=== PATIENT | female | born 1950 | race Caucasian/White ===

== ENCOUNTER 2017-02-08 22:05 | Emergency (ER) | payer MEDICARE, MEDICAID ==
[~2017-02-08] VITALS: Ht 165.1 cm; Wt 100.0 kg
[~2017-02-08 22:05] MED LIST: AMLO1CAP33 PO; CITA20TA6 PO; CYCL-319 PO; DOCU-159 PO; FENO145T25 PO; FURO20TA3 PO; GABA300C16 PO; HYDR-762 PO; LANT3I SC; LORA10TA PO; LORA1TAB PO; METF500T4 PO; METO-53 PO; RANI150T9 PO; TRAM50TA2 PO
[2017-02-08 22:07] VITALS: Ht 165.1 cm; Wt 100.0 kg
[2017-02-08 23:10] LABS: URINE BLOOD (Dip) POC Negative (NEGATIVE)
--- NOTE | 2017-02-08 23:21 | ERA ---
ER Documentation Chief Complaint Date/Time DATE: 02/08/17 TIME: 23:20 Chief Complaint Painful urination HPI The patient is a 66-year-old female, presenting with acute painful urination for the last 4-6 days, had similar symptoms previously, denies fever, chills, chest pain, dyspnea, abdominal pain, vomiting, dysuria, diarrhea, complaints of lower back pain. She does not smoke nor drink Past medical history: Diabetes mellitus, hypertension, depression, dyslipidemia , anxiety, Lower back pain Past surgical history: Incisional herniorrhaphy, appendectomy, , cholecystectomy ROS All systems reviewed and are negative except as per history of present illness. Medications Home Meds Active Scripts Tramadol HCl (Tramadol HCl) 50 Mg Tablet, 50 MG PO Q6 Y for PAIN, #15 TAB Prov:LACIE FERRARO MD 02/09/17 Ciprofloxacin Hcl* (Ciprofloxacin Hcl*) 500 Mg Tablet, 500 MG PO BID for 7 Days , TAB Prov:LACIE FERRARO MD 02/09/17 Tramadol HCl (Tramadol HCl) 50 Mg Tablet, 50 MG PO Q6, #10 TAB Prov:GEOVANI DICKERSON MD 12/22/15 Gabapentin* (Gabapentin*) 300 Mg Capsule, 300 MG PO QHS, #30 CAP Prov:SHANTI JHAVERI NP 10/18/15 Hydrocodone Bit-Acetaminophen* ([place]*) 10-325 Mg Tablet, 1 TAB PO Q6 Y for PAIN , #10 TAB Prov:SHANTI JHAVERI NP 10/18/15 Cyclobenzaprine Hcl* (Cyclobenzaprine Hcl*) 10 Mg Tablet, 10 MG PO TID, #15 TAB Prov:DOLLY DEL RIO NP 07/18/15 Lorazepam* (Lorazepam*) 1 Mg Tablet, 1 MG PO Q8 Y for ANXIETY, #10 TAB Prov:DIVINE COON MD 06/20/15 Ranitidine Hcl* (Zantac*) 150 Mg Tablet, 150 MG PO BID Y for GASTROINTESTINAL UPSET, #30 TAB Prov:LAMAR ROGERS 12/19/14 Reported Medications Metformin* (Glucophage*) 500 Mg Tab, 500 MG PO WITH BREAKFAST DINNE, #30 TAB 12/22/15 Insulin Glargine* (Lantus*) 100 Unit/Ml Soln, 50 UNIT SC QPM, #1 VIAL 12/22/15 Citalopram Hydrobromide* (Citalopram Hydrobromide*) 20 Mg Tablet, 20 MG PO DAILY 02/16/12 Amlodipine-Benazepril (Amlodipine-Benazepril) 1 Cap Capsule, 1 CAP PO DAILY 02/16/12 Loratadine (Loratadine) 10 Mg Tablet, 10 MG PO DAILY 02/16/12 Fenofibrate Nanocrystallized* (Tricor*) 145 Mg Tablet, 145 MG PO HS 06/25/11 Metoprolol (Lopressor) 50 Mg Tablet, 50 MG PO BID 06/25/11 Docusate Sodium* (Docusate Sodium*) 100 Mg Capsule, 100 MG PO BID 06/25/11 Furosemide* (Furosemide*) 20 Mg Tablet, 20 MG PO DAILY 06/25/11 Allergies Allergies: Coded Allergies: ibuprofen (Verified Allergy, Unknown, CHEST DISCOMFORT. ASPIRIN IS OK, ) ketorolac tromethamine (Verified Allergy, Unknown, HEART PALPATATIONS, ) morphine (Verified Allergy, Unknown, ITCHING, 06/20/15) PMhx/Soc History of Surgery: Yes (Incisional Hernia Repair, appendectomy,, FRANKI) Anesthesia Reaction: No Hx Neurological Disorder: No Hx Respiratory Disorders: No Hx Cardiac Disorders: Yes (HTN) Hx Psychiatric Problems: Yes (Anxiety D/O) Hx Miscellaneous Medical Probl: Yes (DM,Dyslipidemia) Hx Alcohol Use: No Hx Substance Use: No Hx Tobacco Use: No Physical Exam Vitals Vital Signs Date Time Temp Pulse Resp B/P Pulse Ox O2 Delivery O2 Flow Rate FiO2 02/08/17 23:26 85 18 134/84 96 Room Air 02/08/17 22:07 98.3 95 18 179/90 96 Physical Exam Const: No acute distress. Head: Atraumatic. Eyes: Normal Conjunctiva. ENT: Normal External Ears, Nose and Mouth. Neck: Full range of motion. No meningismus. Resp: Clear to auscultation bilaterally. Cardio: Regular rate and rhythm. Abd: Soft, non distended, normal bowel sounds, non tender. Skin: No petechiae or rashes. Back: No midline or flank tenderness. Ext: No cyanosis, or edema. Neur: Awake and alert. No focal deficit Psych: Normal Mood and Affect. Result Diagram: 02/09/17 0028 02/09/17 0000 Results 24 hrs Laboratory Tests Test 02/08/17 23:17 02/09/17 00:00 02/09/17 00:28 Bedside Urine pH (LAB) 6.0 Bedside Urine Protein (LAB) Negative Bedside Urine Glucose (UA) 0.50% Bedside Urine Ketones (LAB) Negative Bedside Urine Blood Negative Bedside Urine Nitrite (LAB) Positive Bedside Urine Leukocyte Esterase (L Negative Sodium Level 130mmol/L Potassium Level 4.3mmol/L Chloride Level 97mmol/L Carbon Dioxide Level 27mmol/L Anion Gap 10 Blood Urea Nitrogen 15mg/dl Creatinine 0.63mg/dl Glucose Level 336mg/dl Calcium Level 9.6mg/dl Total Bilirubin 0.5mg/dl Direct Bilirubin 0.00mg/dl Indirect Bilirubin 0.5mg/dl Aspartate Amino Transf (AST/SGOT) 24IU/L Alanine Aminotransferase (ALT/SGPT) 33IU/L Alkaline Phosphatase 121IU/L Total Protein 6.8g/dl Albumin 3.6g/dl Globulin 3.20g/dl Albumin/Globulin Ratio 1.12 Lipase 15U/L White Blood Count 8.210^3/ul Red Blood Count 4.6510^6/ul Hemoglobin 13.7g/dl Hematocrit 39.7% Mean Corpuscular Volume 85.4fl Mean Corpuscular Hemoglobin 29.5pg Mean Corpuscular Hemoglobin Concent 34.5g/dl Red Cell Distribution Width 12.0% Platelet Count 20316^3/UL Mean Platelet Volume 9.1fl Neutrophils % 56.1% Lymphocytes % 32.4% Monocytes % 8.2% Eosinophils % 2.7% Basophils % 0.4% Nucleated Red Blood Cells % 0.0/100WBC Neutrophils # 4.610^3/ul Lymphocytes # 2.710^3/ul Monocytes # 0.710^3/ul Eosinophils # 0.210^3/ul Basophils # 0.010^3/ul Nucleated Red Blood Cells # 0.010^3/ul Current Medications Medications (Trade) Dose Ordered Sig/Irma Route PRN Reason Start Time Stop Time Status Last Admin Dose Admin Acetaminophen/ Hydrocodone Bitart ([place] (5/325)) 1 tab ONCE ONCE PO 02/09/17 00:30 02/09/17 00:31 DC 02/09/17 00:17 Ciprofloxacin (Cipro) 500 mg ONCE ONCE PO 02/09/17 01:30 02/09/17 01:31 Meclizine HCl (Antivert) 25 mg ONCE ONCE PO 02/09/17 01:30 02/09/17 01:31 Procedures/MDM MEDICAL MAKING DECISION: The patient is a 66-year-old female, presenting with an acute cystitis. She was treated with [place] 5 mg p.o. for her lower back pain , Cipro p.o. for acute cystitis and Antivert 25 mg p.o. for dizziness with good response. The differential diagnoses considered include but are not limited to cholelithiasis, cholecystitis, cystitis, pancreatitis, hepatitis, gastritis, peptic ulcer disease, gastric ulcer, appendicitis, diverticulitis, cholangitis, choledocholithiasis, partial small bowel obstruction. Departure Diagnosis: Primary Impression: UTI (urinary tract infection) Condition: Good Comments She was discharged with Cipro and Ultram I discussed the findings with the patient. I advised the patient to follow-up with the primary physician in about 1-2 days, sooner if needed and return if any concern. LACIE FERRARO MD Feb 08, 2017 23:21
[2017-02-09] MEDS ORDERED: HYDROCODONE/APAP (5/325) TAB PO ONE (00:30)
[2017-02-09 00:42] LABS: ALBUMIN 3.6 g/dl (3.3-4.9); ALBUMIN/GLOBULIN RATIO 1.12; BILIRUBIN,INDIRECT 0.5 mg/dl (0-1.1); BILIRUBIN,TOTAL 0.5 mg/dl (0.2-1.3); CALCIUM 9.6 mg/dl (8.4-10.2); CREATININE 0.63 mg/dl (0.44-1.00); POTASSIUM 4.3 mmol/L (3.5-5.1); TOTAL PROTEIN 6.8 g/dl (6.1-8.1)
[2017-02-09 00:51] LABS: BASOPHILS % 0.4 % (0.0-2.0); EOSINOPHILS # 0.2 10^3/ul (0.0-0.5); EOSINOPHILS % 2.7 % (0.0-7.0); HEMATOCRIT 39.7 % (37.0-47.0); HEMOGLOBIN 13.7 g/dl (12.0-16.0); LYMPHOCYTES # 2.7 10^3/ul (0.8-2.9); LYMPHOCYTES % 32.4 % (15.0-51.0); MEAN CORPUSCULAR HEMOGLOBIN 29.5 pg (29.0-33.0); MEAN CORPUSCULAR HGB CONC 34.5 g/dl (32.0-37.0); MEAN CORPUSCULAR VOLUME 85.4 fl (82.0-101.0); MEAN PLATELET VOLUME 9.1 fl (7.4-10.4); MONOCYTE # 0.7 10^3/ul (0.3-0.9); MONOCYTES % 8.2 % (0.0-11.0); NEUTROPHIL # 4.6 10^3/ul (1.6-7.5); NEUTROPHILS % 56.1 % (39.0-77.0); PLATELET COUNT 275 10^3/UL (140-415); RED BLOOD COUNT 4.65 10^6/ul (4.20-5.40); WHITE BLOOD COUNT 8.2 10^3/ul (4.8-10.8)
[2017-02-09] MEDS ORDERED: TRAM50TA2 PO (01:03)
[2017-02-09] MEDS ORDERED: CIPR500T4 PO (01:03)
[2017-02-09 01:13] VITALS: BP 128/84; PULSE 88; RESP 18
[2017-02-09] MEDS ORDERED: CIPROFLOXACIN 500 MG TAB PO ONE (01:30)
[2017-02-09] MEDS ORDERED: MECLIZINE 12.5 MG TAB PO ONE (01:30)
== END 2017-02-09 01:20 | disposition home or self-care (01) ==
LOC: E/R 22:05
DX: N39.0 Urinary tract infection, site not specified (principal); E11.9 Type 2 diabetes mellitus without complications; I10 Essential (primary) hypertension; Z79.4 Long term (current) use of insulin; Z79.84 Long term (current) use of oral hypoglycemic drugs
CPT/HCPCS: 36415; 80053; 81003; 83690; 85025; 99283

== ENCOUNTER 2017-07-26 06:13 | Observation (INO) | END 2017-07-27 18:54 | disposition home health service (06) ==

== ENCOUNTER 2017-08-10 01:01 | Emergency (ER) | END 2017-08-10 06:26 | disposition home or self-care (01) ==

== ENCOUNTER 2017-11-10 11:17 | Observation (INO) | END 2017-11-11 16:07 | disposition home health service (06) ==

== ENCOUNTER 2017-11-17 02:28 | Emergency (ER) | END 2017-11-17 05:17 | disposition home or self-care (01) ==

== ENCOUNTER 2017-12-02 02:58 | Observation (INO) | END 2017-12-03 20:39 | disposition home health service (06) ==

== ENCOUNTER 2018-03-07 23:37 | Emergency (ER) | END 2018-03-08 02:00 | disposition home or self-care (01) ==

== ENCOUNTER 2018-05-26 07:52 | Inpatient (IN) | payer MEDICARE, OTHER ==
[~2018-05-26] VITALS: Ht 167.6 cm; Wt 88.8 kg
[~2018-05-26 07:52] MED LIST changes: +ACET325T33 PO; -AMLO1CAP33 PO; +ATOR-2 PO; -CITA20TA6 PO; +CITA20TA8 PO; -CYCL-319 PO; -DOCU-159 PO; -FENO145T25 PO; -FURO20TA3 PO; -GABA300C16 PO; +GLIP5TAB13 PO; +HYDR-4011 PO; -HYDR-762 PO; +INSU100I33 SC; -LANT3I SC; +LISI-313 PO; -LORA10TA PO; -LORA1TAB PO; -METF500T4 PO; -METO-53 PO; +ONDA4TAB14 PO; +PARO-37 PO; -RANI150T9 PO; +TEMA15CA PO; -TRAM50TA2 PO
[2018-05-26 07:57] VITALS: Ht 167.6 cm; Wt 88.8 kg
[2018-05-26] MEDS ORDERED: ONDANSETRON 4 MG INJ ONE (10:09)
[2018-05-26] MEDS ORDERED: HYDROmorphONE 1 MG/ML SYG IV STA (10:10)
[2018-05-26] MEDS ORDERED: SOD CHLORIDE 0.9% 500 ML IV STA (10:10)
[2018-05-26] MEDS ORDERED: ONDANSETRON 4 MG INJ IV STA (10:10)
[2018-05-26] MEDS ORDERED: SOD CHLORIDE 0.9% 100 ML ONE (11:43)
[2018-05-26] MEDS ORDERED: IOHEXOL 300MG/ML 150 ML BTL ONE (11:43)
[2018-05-26] MEDS ORDERED: HYDROmorphONE 2 MG/ML SYG IV STA (12:14)
--- NOTE | 2018-05-26 12:20 | ERD ---
ER Documentation Chief Complaint Chief Complaint Complains of abdominal pain and vomiting x2 days HPI 68-year-old female presents the emergency department with her daughter for evaluation of abdominal pain and vomiting. Patient is a poor historian and provides very limited insight. History is available mostly from the daughter. According to the daughter, patient has been addicted to narcotic pain medication for some time now Over the last 2 days, she has had a diffuse, nonspecific visceral abdominal discomfort with bilious emesis. She reports no fevers or chills. Her pain has become more severe over the last 24 hours. She reports no urinary or gynecologic symptoms. She reports no diarrhea. ROS All systems reviewed and are negative except as per history of present illness. Medications Home Meds Active Scripts Acetaminophen* (Tylenol*) 325 Mg Tablet, 2 TAB PO Q6 PRN for PAIN AND OR ELEVATED TEMP, #20 TAB Prov:VIKTOR MOORE PA-C 03/08/18 Hydrocodone/Acetaminophen ([place] 5-325 Tablet) 1 Each Tablet, 1 EACH PO Q6 PRN for PAIN, #30 TAB Prov:DEONNA GALLO 12/03/17 Insulin Glargine,Hum.rec.anlog (Basaglar Kwikpen U-100) 100 Unit/1 Ml Insuln.pen, 30 UNIT SC QHS for 30 Days, EA 3 Refills Prov:DEONNA GALLO 11/11/17 Ondansetron (Ondansetron Odt) 4 Mg Tab.rapdis, 4 MG PO Q6H PRN for NAUSEA AND/OR VOMITING, #10 TAB Prov:SUNITHA FREEMAN DO 07/26/17 Reported Medications Lisinopril* (Lisinopril*) 5 Mg Tablet, 5 MG PO DAILY, #30 TAB 07/25/17 Paroxetine Hcl* (Paroxetine*) 20 Mg Tablet, 20 MG PO HS, TAB 07/25/17 Atorvastatin* (Atorvastatin*) 80 Mg Tablet, 80 MG PO QHS, #30 TAB 07/25/17 Glipizide* (Glipizide*) 5 Mg Tablet, 5 MG PO AC BREAKFAST DINNER, TAB 07/25/17 Temazepam* (Temazepam*) 15 Mg Capsule, 15 MG PO HS PRN for INSOMNIA, CAP 07/25/17 Citalopram Hydrobromide* (Citalopram Hydrobromide*) 20 Mg Tablet, 20 MG PO DAILY, #30 TAB 07/25/17 Allergies Allergies: Coded Allergies: ibuprofen (Verified Allergy, Unknown, rash, 03/08/18) morphine (Unverified Allergy, Unknown, ITCHING, 11/17/17) PMhx/Soc History of Surgery: Yes (Appy,,Umbilical Herniorrhaphy) Anesthesia Reaction: No Hx Neurological Disorder: Yes (Diabetic Neuropathy) Hx Respiratory Disorders: No Hx Cardiac Disorders: Yes (HTN) Hx Psychiatric Problems: No Hx Miscellaneous Medical Probl: Yes (RA,UTIs,DM2,BT) Hx Alcohol Use: No Hx Substance Use: No Hx Tobacco Use: No Smoking Status: Never smoker FmHx Supportive daughter at the bedside Physical Exam Vitals Vital Signs Date Temp Pulse Resp B/P (MAP) Pulse Ox O2 O2 Flow FiO2 Time Delivery Rate 05/26/18 98.8 90 24 123/91 98 Room Air 09:45 (102) 05/26/18 98.8 101 24 123/91 98 07:57 (102) Physical Exam GENERAL: Ill-appearing 68-year-old actively bilious vomiting HEENT: Pupils equal, round, and reactive to light. EOMI. There is no scleral icterus. NECK: C-spine is soft and supple, there is no meningismus. There is no cervical lymphadenopathy. LUNGS: Clear to auscultation bilaterally. There are no rales, wheezes or rhonchi. HEART: Regular rate and rhythm, no murmurs, clicks, rubs or gallops. ABDOMEN: Soft, non-tender, non-distended. There are bowel sounds in all four quadrants. No rebound or guarding. Old surgical scars appreciated EXTREMITIES: There is no peripheral cyanosis or edema. No focal swelling or erythema. NEURO: The patient moves all four extremities with 5/5 strength. Cranial nerves II - XII are intact. Normal gait. Alert and oriented SKIN: There is no apparent rash or petechiae. HEME/LYMPHATIC: There is no evidence of excessive bruising or lymphedema. PSYCHIATRIC: The patient does not appear anxious or depressed. Result Diagram: 05/26/18 1058 05/26/18 1058 Results 24 hrs Laboratory Tests Test 05/26/18 10:58 White Blood Count 12.2 10^3/ul Red Blood Count 5.37 10^6/ul Hemoglobin 15.6 g/dl Hematocrit 44.9 % Mean Corpuscular Volume 83.6 fl Mean Corpuscular Hemoglobin 29.1 pg Mean Corpuscular Hemoglobin Concent 34.7 g/dl Red Cell Distribution Width 11.9 % Platelet Count 277 10^3/UL Mean Platelet Volume 9.8 fl Immature Granulocytes % 0.200 % Neutrophils % 65.0 % Lymphocytes % 20.2 % Monocytes % 13.1 % Eosinophils % 1.1 % Basophils % 0.4 % Nucleated Red Blood Cells % 0.0 /100WBC Immature Granulocytes # 0.020 10^3/ul Neutrophils # 8.0 10^3/ul Lymphocytes # 2.5 10^3/ul Monocytes # 1.6 10^3/ul Eosinophils # 0.1 10^3/ul Basophils # 0.1 10^3/ul Nucleated Red Blood Cells # 0.0 10^3/ul Sodium Level 135 mmol/L Potassium Level 4.5 mmol/L Chloride Level 102 mmol/L Carbon Dioxide Level 20 mmol/L Anion Gap 13 Blood Urea Nitrogen 43 mg/dl Creatinine 0.87 mg/dl Est Glomerular Filtrat Rate mL/min > 60 mL/min Glucose Level 390 mg/dl Calcium Level 10.7 mg/dl Total Bilirubin 0.8 mg/dl Direct Bilirubin 0.00 mg/dl Indirect Bilirubin 0.8 mg/dl Aspartate Amino Transf (AST/SGOT) 18 IU/L Alanine Aminotransferase (ALT/SGPT) 22 IU/L Alkaline Phosphatase 124 IU/L Troponin I < 0.012 ng/ml Total Protein 7.9 g/dl Albumin 4.2 g/dl Globulin 3.70 g/dl Albumin/Globulin Ratio 1.13 Lipase 26 U/L Current Medications Medications Dose Sig/Irma Start Time Status Last (Trade) Ordered Route PRN Stop Time Admin Dose Reason Admin Ondansetron 4 mg STK-MED 05/26/18 DC HCl (Zofran ONCE .ROUTE 10:09 05/26/18 Inj) 10:10 Sodium 500 ml @ Q1H STAT 05/26/18 DC 05/26/18 Chloride 500 mls/hr IV 10:10 05/26/18 11:27 11:09 1 mg ONCE STAT 05/26/18 DC 05/26/18 Hydromorphone IV 10:10 05/26/18 10:10 HCl 10:11 (Dilaudid) Ondansetron 4 mg ONCE STAT 05/26/18 DC 05/26/18 HCl (Zofran IV 10:10 05/26/18 11:27 Inj) 10:11 Iohexol 150 ml STK-MED 05/26/18 DC 05/26/18 (Omnipaque ONCE .ROUTE 11:43 05/26/18 12:10 300mg/ ml) 11:44 Sodium 100 ml @ ud STK-MED 05/26/18 DC 05/26/18 Chloride ONCE .ROUTE 11:43 05/26/18 12:10 11:44 150 ml @ ONCE ONCE 05/26/18 Levofloxacin/ 100 mls/hr IVPB 12:30 05/26/18 Dextrose 13:59 100 ml @ ONCE ONCE 05/26/18 Metronidazole 100 mls/hr IVPB 12:30 05/26/18 13:29 1 mg ONCE STAT 05/26/18 DC Hydromorphone IV 12:14 05/26/18 HCl 12:16 (Dilaudid) Procedures/MDM Patient was taken to a room, seen and evaluated. Comfort measures were initiated. Diagnostic tests were ordered and reviewed. 3 LEAD RHYTHM STRIP: Normal sinus rhythm without ectopy EK lead EKG reviewed by myself: Normal Sinus Rhythm Left axis deviation, left bundle branch block No ST elevation, depression, or T wave inversion Impression: Nonspecific EKG RADIOLOGY: Reviewed with the radiologist CONSULTATION: Hospitalist was notified for admission REEVALUATION: 1220: Diagnostic tests were appreciated. IV antibiotics were in itiated. Continue pain medication fluids and antiemetics were provided and arrangements were made for admission of the hospital. Repeat examinations the patient's abdomen remained benign with no evidence of acute peritonitis. MEDICAL DECISION MAKIN-year-old female presents the emergency department with bilious emesis and nonspecific abdominal pain. Differential diagnosis entertained was broad and potential high acuity but focused on bowel obstruction as she is already had her gallbladder and appendix removed. I also evaluated for possible ileus related to her pain medication. Ultimately, patient shows evidence of a colitis which may be medication related or infectious but is also concerning in the setting of her ongoing pain management needs and diabetes. She will be admitted to the hospital for IV antibiotics, IV fluids and further monitoring. Departure Diagnosis: Primary Impression: Colitis Additional Impressions: Narcotic dependence Diabetes Condition: ELIZABETH Magallanes May 26, 2018 12:20
[2018-05-26] MEDS ORDERED: LEVOFLOXACIN 750MG/D5W (PMX) 150 ML IVPB ONE (12:30)
[2018-05-26] MEDS ORDERED: metroNIDAZOLE 500 MG/NS (PMX) 100 ML IVPB ONE (12:30)
[2018-05-26] MEDS ORDERED: MAGNESIUM HYDROXIDE 30ML CUP PO PRN (13:30)
[2018-05-26] MEDS ORDERED: NACL 0.9% 3 ML SYG IV SCH (13:30)
[2018-05-26] MEDS ORDERED: DOCUSATE SODIUM 100 MG CAP PO PRN (13:30)
[2018-05-26] MEDS ORDERED: OXYCODONE/ACETAMINOPHEN (5/325) TAB PO PRN (13:30)
[2018-05-26] MEDS ORDERED: NA PHOSPHATE/BIPHOS 133 ML ENEMA PR PRN (13:30)
[2018-05-26] MEDS ORDERED: BISACODYL (EC) 5 MG TAB PO PRN (13:30)
[2018-05-26] MEDS ORDERED: BISACODYL 10 MG SUPP PR PRN ×2 (13:30→14:00)
[2018-05-26] MEDS ORDERED: BISACODYL (EC) 5 MG TAB PO ONE (14:00)
[2018-05-26] MEDS: HYDROmorphONE 0.5 MG/0.5 ML SYG IV PRN ×2 (14:14→20:19)
[2018-05-26] MEDS: FAMOTIDINE 20 MG INJ IV SCH ×2 (14:15→20:19)
[2018-05-26] MEDS: SOD CHLORIDE 0.9% 1,000 ML IV SCH ×2 (14:15→22:13)
[2018-05-26 14:59] VITALS: BP 152/77; PULSE 97; RESP 18
--- NOTE | 2018-05-26 15:37 | CONS ---
Date/Time of Note Date/Time of Note DATE: 05/26/18 TIME: 15:09 Assessment/Plan Assessment/Plan Hospital Course Summary Assessment and Plan: Assessment: Abdominal pain Nausea/vomiting Wall thickening/fat stranding -The first and second portions of the duodenum. - Pancreatic head. - Proximal and mid sigmoid colon Plan: Clear liquid diet- given amt of abd pain Pt refused EGD/Colonoscopy- offered to also call patient daughter patient declined Monitor labs Patient seen in collaboration with Dr. Ng Result Diagram: 05/26/18 1058 05/26/18 1058 Results 24hrs Laboratory Tests Test 05/26/18 10:10 05/26/18 10:58 05/26/18 12:05 Erythrocyte Sedimentation Rate 14.0 C-Reactive Protein 6.0 H White Blood Count 12.2 #H Red Blood Count 5.37 Hemoglobin 15.6 Hematocrit 44.9 Mean Corpuscular Volume 83.6 Mean Corpuscular Hemoglobin 29.1 Mean Corpuscular 34.7 Hemoglobin Concent Red Cell Distribution Width 11.9 Platelet Count 277 # Mean Platelet Volume 9.8 Immature Granulocytes % 0.200 Neutrophils % 65.0 Lymphocytes % 20.2 Monocytes % 13.1 H Eosinophils % 1.1 Basophils % 0.4 Nucleated Red Blood Cells % 0.0 Immature Granulocytes # 0.020 Neutrophils # 8.0 H Lymphocytes # 2.5 Monocytes # 1.6 H Eosinophils # 0.1 Basophils # 0.1 Nucleated Red Blood Cells # 0.0 Sodium Level 135 Potassium Level 4.5 Chloride Level 102 Carbon Dioxide Level 20 L Anion Gap 13 Blood Urea Nitrogen 43 H Creatinine 0.87 Est Glomerular Filtrat > 60 Rate mL/min Glucose Level 390 H Calcium Level 10.7 H Total Bilirubin 0.8 Direct Bilirubin 0.00 Indirect Bilirubin 0.8 Aspartate Amino 18 Transf (AST/SGOT) Alanine 22 Aminotransferase (ALT/SGPT) Alkaline Phosphatase 124 H Troponin I < 0.012 Total Protein 7.9 Albumin 4.2 Globulin 3.70 H Albumin/Globulin Ratio 1.13 Lipase 26 Urine Color YELLOW Urine Clarity SLIGHTLY CLOUDY A Urine pH 5.0 Urine Specific [place] 1.021 Urine Ketones TRACE A Urine Nitrite NEGATIVE Urine Bilirubin NEGATIVE Urine Urobilinogen NEGATIVE Urine Leukocyte Esterase TRACE A Urine Microscopic RBC 4 Urine Microscopic WBC 5 Urine Squamous Epithelial Cells FEW Urine Bacteria FEW A Urine Hemoglobin NEGATIVE Urine Glucose 3+ H Urine Total Protein NEGATIVE CC: ANASTASIA NG ; Consultation Date/Type/Reason Admit Date/Time May 26, 2018 at 12:21 Date of Consultation: May 26, 2018 Type of Consult GI Reason for Consultation Abdominal pain Abnormal findings of GI tract on Ct scan Hx of Present Illness This is a 68 year old Turkmen speaking female, a testing and regulating chief was used. Who has a PMH of HTN, DM, PE? no longer on medication? Who presented to the ED with complaints of progressive abdominal pain, diarrhea and nausea/nonbloody vomiting. Patient underwent a CT abdomen/pelvis with contrast showing wall thickening and fat stranding about the first and second portions of the duodenum, additionally mild fat stranding about the pancreatic head findings compatible with duodenitis versus less likely focal pancreatitis, lipase is normal. Long segment of circumferential wall thickening of the proximal and mid sigmoid colon with mild surrounding fat stranding may represent colitis. Anterior venting fat between the duodenum: Is relatively well preserved. Given the relatively long segment and lack of shouldering a neoplastic process is considered less likely. Time evaluation patient denies further episodes of nausea/vomiting she continues to complain of abdominal pain. No further episodes of diarrhea. She denies melena, hematochezia, constipation. She de nies NSAID use. Patient does have chronic pain with chronic narcotic use. Discuss symptoms and findings recommended EGD and colonoscopy patient adamantly refuses currently. She states her last EGD colonoscopy was here at this hospital according to records that was completed and 2013. EEG showed pangastritis, superficial gastric ulcer and antrum. The crater was 4-5 mm in diameter, colonoscopy showed poor perforation secondary to barium. Normal up to the proximal transverse colon. The colon is going through the hernia pouch resistance. Review of Systems: A 12 system, review was conducted and is negative except as noted in the HPI or here. Past Medical History Medications Current Medications Sodium Chloride 1,000 ml @ 100 mls/hr Q10H IV Last administered on 05/26/18at 14:15; Admin Dose 100 MLS/HR; Start 05/26/18 at 13:26 IV Flush (NS 3 ml) 3 ml PER PROTOCOL IV ; Start 05/26/18 at 13:30 Ondansetron HCl (Zofran Inj) 4 mg Q6H PRN IV NAUSEA AND/OR VOMITING; Start 05/26/18 at 13:30 Acetaminophen (Tylenol Tab) 650 mg Q6H PRN PO PAIN LEVEL 1-3 OR FEVER; Start 05/26/18 at 13:30 Oxycodone/ Acetaminophen (Percocet (5/ 325)) 1 tab Q6H PRN PO MODERATE PAIN LEVEL 4-6; Start 05/26/18 at 13:30 Hydromorphone HCl (Dilaudid) 0.4 mg Q4H PRN IV SEVERE PAIN LEVEL 7-10 Last administered on 05/26/18at 14:14; Admin Dose 0.4 MG; Start 05/26/18 at 13:30 Docusate Sodium (Colace) 100 mg Q12H PRN PO CONSTIPATION; Start 05/26/18 at 13:30 Magnesium Hydroxide (Milk Of Mag) 30 ml DAILY PRN PO CONSTIPATION; Start 05/26/18 at 13:30 Bisacodyl (Dulcolax) 5 mg DAILY PRN PO CONSTIPATION; Start 05/26/18 at 13:30 Sodium Biphosphate/ Sodium Phosphate (Fleet Enema) 133 ml DAILY PRN [place] CONSTIPATION; Start 05/26/18 at 13:30 Famotidine (Pepcid Iv) 20 mg Q12 IV Last administered on 05/26/18at 14:15; Admin Dose 20 MG; Start 05/26/18 at 13:30 Enoxaparin Sodium (Lovenox) 30 mg DAILY SC ; Start 05/27/18 at 09:00 Bisacodyl (Dulcolax Supp) 10 mg DAILY PRN WI CONSTIPATION; Start 05/26/18 at 14:00 Allergies: Coded Allergies: ibuprofen (Verified Allergy, Unknown, rash, 05/26/18) morphine (Unverified Allergy, Unknown, ITCHING, 05/26/18) Past Surgical History Past Surgical Hx: other Social History Smoking Status: Never smoker Exam/Review of Systems Vital Signs Vitals Vital Signs Date Temp Pulse Resp B/P (MAP) Pulse Ox O2 O2 Flow FiO2 Time Delivery Rate 05/26/18 98.7 97 18 152/77 97 Room Air 14:59 (102) 05/26/18 2.0 12:58 Exam PHYSICAL EXAMINATION: GENERAL: Well developed, well nourished, alert & oriented x 3, in no acute distress SKIN: No lesions, no stigmata chronic liver disease, no evidence of bleeding diathesis EYES: Pupils equal reactive to light, no discharge. EARS/NOSE AND THROAT: Ears normal, nose normal NECK: Supple, no masses CHEST: Inspection within normal limits. CARDIOVASCULAR: Heart: Regular rate and rhythm RESPIRATORY: Lungs clear to auscultation GASTROINTESTINAL AND LIVER: Abdomen: Soft, generalized abdominal tenderness, non-distended, no hernias, no masses, no organomegaly, no ascites, no guarding, no rebound tenderness, normoactive bowel sounds. Rectal: Deferred. EXTREMITIES: No cyanosis, clubbing or edema. Medications Medications Current Medications Sodium Chloride 1,000 ml @ 100 mls/hr Q10H IV Last administered on 05/26/18at 14:15; Admin Dose 100 MLS/HR; Start 05/26/18 at 13:26 IV Flush (NS 3 ml) 3 ml PER PROTOCOL IV ; Start 05/26/18 at 13:30 Ondansetron HCl (Zofran Inj) 4 mg Q6H PRN IV NAUSEA AND/OR VOMITING; Start 05/26/18 at 13:30 Acetaminophen (Tylenol Tab) 650 mg Q6H PRN PO PAIN LEVEL 1-3 OR FEVER; Start 05/26/18 at 13:30 Oxycodone/ Acetaminophen (Percocet (5/ 325)) 1 tab Q6H PRN PO MODERATE PAIN LEVEL 4-6; Start 05/26/18 at 13:30 Hydromorphone HCl (Dilaudid) 0.4 mg Q4H PRN IV SEVERE PAIN LEVEL 7-10 Last administered on 05/26/18at 14:14; Admin Dose 0.4 MG; Start 05/26/18 at 13:30 Docusate Sodium (Colace) 100 mg Q12H PRN PO CONSTIPATION; Start 05/26/18 at 13:30 Magnesium Hydroxide (Milk Of Mag) 30 ml DAILY PRN PO CONSTIPATION; Start 05/26/18 at 13:30 Bisacodyl (Dulcolax) 5 mg DAILY PRN PO CONSTIPATION; Start 05/26/18 at 13:30 Sodium Biphosphate/ Sodium Phosphate (Fleet Enema) 133 ml DAILY PRN WI CONSTIPATION; Start 05/26/18 at 13:30 Famotidine (Pepcid Iv) 20 mg Q12 IV Last administered on 05/26/18at 14:15; Admin Dose 20 MG; Start 1/6/19 at 13:30 Enoxaparin Sodium (Lovenox) 30 mg DAILY SC ; Start 05/27/18 at 09:00 Bisacodyl (Dulcolax Supp) 10 mg DAILY PRN WI CONSTIPATION; Start 05/26/18 at 14:00 NATHALIE SIMENTAL May 26, 2018 15:31
--- NOTE | 2018-05-26 15:49 | HP ---
Date/Time of Note Date/Time of Note DATE: 05/26/18 TIME: 15:44 Assessment/Plan VTE Prophylaxis SCD contraindicated: low risk/ambulating Pharmacological prophylaxis: NA/contraindicated Pharm contraindication: low risk/ambulating Lines/Catheters IV Catheter Type (from Nrs): Mid Line Urinary Cath still in place: No Assessment/Plan Hospital Course CC Abdominal pain History of present illness 68-year-old female with progressive abdominal pain diffuse around the umbilicus with any known aggravating factors. Her whole abdominal cavity and back feel uncomfortable. No known aggravating or relieving factors. There is associated nausea vomiting. Intermittent constipation. Recent antibiotic use for may be a bladder infection. Denies any hematemesis hematochezia melena. Denies any lawrence dysuria hematuria. No alcohol use no ill foods that I am aware of Past medical history Hypertension Diabetes type 2 Metabolic syndrome Depression Umbilical hernia Cholecystitis Past surgical history Appendix Gallbladder Umbilical hernia Family history There is no family history of early coronary disease cancer or stroke that I am aware of Review of system Neuro: No headache no loss of vision or speech Cardiovascular: No chest pain no dyspnea no edema Lungs: No cough no wheezing no fever Abdomen: Pain nausea vomiting occasional diarrhea constipation Genitourinary: Positive abdominal pain no lawrence dysuria hematuria present Musculoskeletal: No gait dysfunction no rash no itching constitutional: No fevers no chills no weight loss Psychiatry: The patient has a stable mood advancing as using a patient Endocrine : Positive for diabetes metabolic syndrome no previous thyroid dysfunction Neurologic; no hematochezia melena. Physical exam No pallor adenopathy icterus Regular no murmur rub gallop Clear Bs diminished mild diffuse tenderness, some guarding no rebound rigidity overweight No edema A/P 1. Colitis, unknown etiology rule out C diff. No lactic acidosis doubt ischemic colitis. May need endoscopy. Stable, observe 2. Type 2 diabetes 3. Metabolic syndrome 4. Essential hypertension 5. Left bundle branch block old versus new Result Diagram: 05/26/18 1058 05/26/18 1058 Results 24hrs Laboratory Tests Test 05/26/18 10:10 05/26/18 10:58 05/26/18 12:05 Erythrocyte Sedimentation Rate 14.0 C-Reactive Protein 6.0 H White Blood Count 12.2 #H Red Blood Count 5.37 Hemoglobin 15.6 Hematocrit 44.9 Mean Corpuscular Volume 83.6 Mean Corpuscular Hemoglobin 29.1 Mean Corpuscular 34.7 Hemoglobin Concent Red Cell Distribution Width 11.9 Platelet Count 277 # Mean Platelet Volume 9.8 Immature Granulocytes % 0.200 Neutrophils % 65.0 Lymphocytes % 20.2 Monocytes % 13.1 H Eosinophils % 1.1 Basophils % 0.4 Nucleated Red Blood Cells % 0.0 Immature Granulocytes # 0.020 Neutrophils # 8.0 H Lymphocytes # 2.5 Monocytes # 1.6 H Eosinophils # 0.1 Basophils # 0.1 Nucleated Red Blood Cells # 0.0 Sodium Level 135 Potassium Level 4.5 Chloride Level 102 Carbon Dioxide Level 20 L Anion Gap 13 Blood Urea Nitrogen 43 H Creatinine 0.87 Est Glomerular Filtrat > 60 Rate mL/min Glucose Level 390 H Calcium Level 10.7 H Total Bilirubin 0.8 Direct Bilirubin 0.00 Indirect Bilirubin 0.8 Aspartate Amino 18 Transf (AST/SGOT) Alanine 22 Aminotransferase (ALT/SGPT) Alkaline Phosphatase 124 H Troponin I < 0.012 Total Protein 7.9 Albumin 4.2 Globulin 3.70 H Albumin/Globulin Ratio 1.13 Lipase 26 Urine Color YELLOW Urine Clarity SLIGHTLY CLOUDY A Urine pH 5.0 Urine Specific Orange 1.021 Urine Ketones TRACE A Urine Nitrite NEGATIVE Urine Bilirubin NEGATIVE Urine Urobilinogen NEGATIVE Urine Leukocyte Esterase TRACE A Urine Microscopic RBC 4 Urine Microscopic WBC 5 Urine Squamous Epithelial Cells FEW Urine Bacteria FEW A Urine Hemoglobin NEGATIVE Urine Glucose 3+ H Urine Total Protein NEGATIVE HPI/ROS Admit Date/Time Admit Date/Time May 26, 2018 at 12:21 PMH/Family/Social Past Medical History Medications Current Medications Sodium Chloride 1,000 ml @ 100 mls/hr Q10H IV Last administered on 05/26/18at 14:15; Admin Dose 100 MLS/HR; Start 05/26/18 at 13:26 IV Flush (NS 3 ml) 3 ml PER PROTOCOL IV ; Start 05/26/18 at 13:30 Ondansetron HCl (Zofran Inj) 4 mg Q6H PRN IV NAUSEA AND/OR VOMITING; Start 05/26/18 at 13:30 Acetaminophen (Tylenol Tab) 650 mg Q6H PRN PO PAIN LEVEL 1-3 OR FEVER; Start 05/26/18 at 13:30 Oxycodone/ Acetaminophen (Percocet (5/ 325)) 1 tab Q6H PRN PO MODERATE PAIN LEVEL 4-6; Start 05/26/18 at 13:30 Hydromorphone HCl (Dilaudid) 0.4 mg Q4H PRN IV SEVERE PAIN LEVEL 7-10 Last administered on 05/26/18at 14:14; Admin Dose 0.4 MG; Start 05/26/18 at 13:30 Docusate Sodium (Colace) 100 mg Q12H PRN PO CONSTIPATION; Start 05/26/18 at 13:30 Magnesium Hydroxide (Milk Of Mag) 30 ml DAILY PRN PO CONSTIPATION; Start 05/26/18 at 13:30 Bisacodyl (Dulcolax) 5 mg DAILY PRN PO CONSTIPATION; Start 05/26/18 at 13:30 Sodium Biphosphate/ Sodium Phosphate (Fleet Enema) 133 ml DAILY PRN [place] CONSTIPATION; Start 05/26/18 at 13:30 Famotidine (Pepcid Iv) 20 mg Q12 IV Last administered on 05/26/18at 14:15; Admin Dose 20 MG; Start 05/26/18 at 13:30 Enoxaparin Sodium (Lovenox) 30 mg DAILY SC ; Start 05/27/18 at 09:00 Bisacodyl (Dulcolax Supp) 10 mg DAILY PRN [place] CONSTIPATION; Start 05/26/18 at 14:00 Coded Allergies: ibuprofen (Verified Allergy, Unknown, rash, 05/26/18) morphine (Unverified Allergy, Unknown, ITCHING, 05/26/18) Past Surgical History Past Surgical Hx: other Family History Significant Family History: no pertinent family hx Social History Smoking Status: Never smoker Exam/Review of Systems Vital Signs Vitals Vital Signs Date Temp Pulse Resp B/P (MAP) Pulse Ox O2 O2 Flow FiO2 Time Delivery Rate 05/26/18 98.7 97 18 152/77 97 Room Air 14:59 (102) 05/26/18 2.0 12:58 HARRIET DE SANTIAGO MD May 26, 2018 15:49
[2018-05-26] MEDS: metroNIDAZOLE 500 MG/NS (PMX) 100 ML IVPB SCH ×2 (17:22→21:39)
[2018-05-26] MEDS ORDERED: CIPROFLOXACIN 500 MG TAB PO SCH (18:00)
[2018-05-26 19:31] VITALS: BP 162/77; PULSE 92; RESP 17
[2018-05-26 21:00] VITALS: BP 149/70
[2018-05-26] MEDS ORDERED: GLUCOSE GEL 15 GRAM TUBE PO PRN ×2 (21:00)
[2018-05-26] MEDS ORDERED: DEXTROSE 50% 50 ML SYRINGE IV PRN ×2 (21:00)
[2018-05-26] MEDS ORDERED: GLUCAGON 1 MG INJ IM PRN (21:00)
[2018-05-26] MEDS ORDERED: GLUCOSE GEL 15 GRAM TUBE BUCCAL PRN (21:00)
[2018-05-26] MEDS: INSULIN ASPART [NOVOLOG] 3 ML PEN SC SCH (22:05)
[2018-05-26] MEDS: ONDANSETRON 4 MG INJ IV PRN (22:41)
[2018-05-27] MEDS: HYDROmorphONE 0.5 MG/0.5 ML SYG IV PRN ×6 (00:26→20:41)
[2018-05-27 02:00] VITALS: BP 139/63; PULSE 78; RESP 18
[2018-05-27] MEDS: ACCU-CHEK XX SCH (02:00)
[2018-05-27] MEDS: SOD CHLORIDE 0.9% 1,000 ML IV SCH ×3 (04:37→20:53)
[2018-05-27] MEDS: metroNIDAZOLE 500 MG/NS (PMX) 100 ML IVPB SCH ×3 (05:39→23:03)
[2018-05-27 08:00] VITALS: BP 164/77; PULSE 67; RESP 18
[2018-05-27] MEDS: INSULIN ASPART [NOVOLOG] 3 ML PEN SC SCH ×4 (08:07→20:50)
[2018-05-27] MEDS: FAMOTIDINE 20 MG INJ IV SCH ×2 (08:14→20:53)
[2018-05-27] MEDS: ONDANSETRON 4 MG INJ IV PRN (08:14)
[2018-05-27] MEDS: ENOXAPARIN 30 MG/0.3 ML SYG SC SCH (08:15)
[2018-05-27] MEDS: CIPROFLOXACIN 400MG/D5W 200 ML IVPB SCH ×2 (09:29→21:54)
[2018-05-27] MEDS ORDERED: KETOROLAC 30 MG INJ IV STA (10:34)
--- NOTE | 2018-05-27 11:07 | PN ---
Date/Time of Note Date/Time of Note DATE: 05/27/18 TIME: 11:05 Assessment/Plan VTE Prophylaxis Risk score (from Nsg)>0 risk: 2 SCD applied (from Nsg): Yes Pharmacological prophylaxis: other (scds) Lines/Catheters IV Catheter Type (from Nrs): Mid Line Urinary Cath still in place: No Assessment/Plan Hospital Course Summary Assessment and Plan: Assessment: Abdominal pain Nausea/vomiting Wall thickening/fat stranding -The first and second portions of the duodenum. - Pancreatic head. - Proximal and mid sigmoid colon Hypertension Diabetes type 2 Plan: Pain management Stool studies pending Continue Cipro/Flagyl Yesterday patient stated she did not want endoscopic evaluation however she will think about having the procedures over the night. Today I came to see the patient and again she refuses to move forward with endoscopic evaluation despite her current abdominal pain Patient seen in collaboration with Dr. Gallardo Subjective: Course reviewed with nursing staff Patient interviewed and examined All labs, imaging and other results reviewed The patient resting in bed with abdominal pain, states she just had a normal BM, she denies melena or hematochezia. Pt currently having abdominal pain receiving pain medication. Discussed importance of egd/colonoscopy given patients symptoms Pt refuses offer of EGD/colonoscopy. PHYSICAL EXAMINATION: GENERAL: Well developed, well nourished, alert & oriented x 3, in no acute distress SKIN: No lesions, no stigmata chronic liver disease, no evidence of bleeding diathesis EYES: Pupils equal reactive to light, no discharge. EARS/NOSE AND THROAT: Ears normal, nose normal NECK: Supple, no masses CHEST: Inspection within normal limits. CARDIOVASCULAR: Heart: Regular rate and rhythm RESPIRATORY: Lungs clear to auscultation GASTROINTESTINAL AND LIVER: Abdomen: Soft, generalized abdominal pain, non-distended, no hernias, no masses, no organomegaly, no ascites, no guarding, no rebound tenderness, normoactive bowel sounds. Rectal: Deferred. EXTREMITIES: No cyanosis, clubbing or edema Result Diagram: 05/27/18 0558 05/27/18 0558 Results 24hrs Laboratory Tests Test 05/26/18 12:05 05/26/18 22:01 05/27/18 02:08 05/27/18 05:58 Urine Color YELLOW Urine Clarity SLIGHTLY CLOUDY A Urine pH 5.0 Urine Specific 1.021 [place] Urine Ketones TRACE A Urine Nitrite NEGATIVE Urine Bilirubin NEGATIVE Urine Urobilinogen NEGATIVE Urine Leukocyte TRACE A Esterase Urine Microscopic 4 RBC Urine Microscopic 5 WBC Urine Squamous FEW Epithelial Cells Urine Bacteria FEW A Urine Hemoglobin NEGATIVE Urine Glucose 3+ H Urine Total NEGATIVE Protein Bedside Glucose 292 H 238 H White Blood Count 10.0 Red Blood Count 4.53 Hemoglobin 13.3 Hematocrit 39.0 Mean Corpuscular 86.1 Volume Mean Corpuscular 29.4 Hemoglobin Mean Corpuscular 34.1 Hemoglobin Concent Red Cell 12.1 Distribution Width Platelet Count 215 # Mean Platelet 9.7 Volume Immature 0.300 Granulocytes % Neutrophils % 61.2 Lymphocytes % 24.7 Monocytes % 12.5 H Eosinophils % 1.0 Basophils % 0.3 Nucleated Red 0.0 Blood Cells % Immature 0.030 Granulocytes # Neutrophils # 6.1 Lymphocytes # 2.5 Monocytes # 1.3 H Eosinophils # 0.1 Basophils # 0.0 Nucleated Red 0.0 Blood Cells # Sodium Level 139 Potassium Level 4.4 Chloride Level 105 Carbon Dioxide 25 Level Anion Gap 9 Blood Urea 25 #H Nitrogen Creatinine 0.74 Est Glomerular > 60 Filtrat Rate mL/min Glucose Level 227 #H Hemoglobin A1c 11.8 H Lactic Acid Level 1.0 Calcium Level 9.2 Total Bilirubin 0.5 Direct Bilirubin 0.00 Indirect Bilirubin 0.5 Aspartate Amino 17 Transf (AST/SGOT) Alanine 23 Aminotransferase ( ALT/SGPT) Alkaline 67 Phosphatase Total Protein 6.4 # Albumin 3.2 #L Globulin 3.20 Albumin/Globulin 1.00 Ratio Triglycerides 218 H Level Cholesterol Level 146 LDL Cholesterol, 60 Calculated HDL Cholesterol 42 Cholesterol/HDL 3.4 Ratio Thyroid 2.410 Stimulating Hormone (TSH) Test 05/27/18 08:05 Bedside Glucose 229 H Exam/Review of Systems Vital Signs Vitals Vital Signs Date Temp Pulse Resp B/P (MAP) Pulse Ox O2 O2 Flow FiO2 Time Delivery Rate 05/27/18 98.4 67 18 164/77 96 Nasal 08:00 (106) Cannula 05/26/18 2.0 12:58 Intake and Output 05/26/18 05/26/18 05/27/18 1515:00 23:00 07:00 IntakeIntake Total 700 ml 1400 ml 860 ml BalanceBalance 700 ml 1400 ml 860 ml Medications Medications Current Medications Sodium Chloride 1,000 ml @ 100 mls/hr Q10H IV Last administered on 05/27/18at 04:37; Admin Dose 100 MLS/HR; Start 05/26/18 at 13:26 IV Flush (NS 3 ml) 3 ml PER PROTOCOL IV ; Start 05/26/18 at 13:30 Ondansetron HCl (Zofran Inj) 4 mg Q6H PRN IV NAUSEA AND/OR VOMITING Last administered on 05/27/18at 08:14; Admin Dose 4 MG; Start 05/26/18 at 13:30 Acetaminophen (Tylenol Tab) 650 mg Q6H PRN PO PAIN LEVEL 1-3 OR FEVER; Start 05/26/18 at 13:30 Oxycodone/ Acetaminophen (Percocet (5/ 325)) 1 tab Q6H PRN PO MODERATE PAIN LEVEL 4-6 Last administered on 05/26/18at 17:22; Admin Dose 1 TAB; Start 05/26/18 at 13:30 Docusate Sodium (Colace) 100 mg Q12H PRN PO CONSTIPATION; Start 05/26/18 at 13:30 Magnesium Hydroxide (Milk Of Mag) 30 ml DAILY PRN PO CONSTIPATION; Start 05/26/18 at 13:30 Bisacodyl (Dulcolax) 5 mg DAILY PRN PO CONSTIPATION; Start 05/26/18 at 13:30 Sodium Biphosphate/ Sodium Phosphate (Fleet Enema) 133 ml DAILY PRN [place] CONSTIPATION; Start 05/26/18 at 13:30 Famotidine (Pepcid Iv) 20 mg Q12 IV Last administered on 05/27/18at 08:14; Admin Dose 20 MG; Start 05/26/18 at 13:30 Enoxaparin Sodium (Lovenox) 30 mg DAILY SC Last administered on 05/27/18at 08:15; Admin Dose 30 MG; Start 05/27/18 at 09:00 Bisacodyl (Dulcolax Supp) 10 mg DAILY PRN [place] CONSTIPATION; Start 05/26/18 at 14:00 Metronidazole 100 ml @ 100 mls/hr Q8 IVPB Last administered on 05/27/18at 05:39; Admin Dose 100 MLS/HR; Start 05/26/18 at 16:00 Ciprofloxacin/ Dextrose 200 ml @ 200 mls/hr Q12 IVPB Last administered on 05/27/18at 09:29; Admin Dose 200 MLS/HR; Start 05/27/18 at 09:00 Diagnostic Test (Pha) (Accu-Chek) 1 ea 02 XX ; Start 05/27/18 at 02:00 Insulin Aspart (Novolog Insulin Pen) NOVOLOG *MODERATE* ALGORITHM WITH MEALS BEDTIME SC Last administered on 05/27/18at 08:07; Admin Dose 6 UNIT; Start 05/26/18 at 21:00 Miscellaneous Information 1 ea NOTE XX ; Start 05/26/18 at 21:00 Glucose (Glutose) 15 gm Q15M PRN PO DECREASED GLUCOSE; Start 05/26/18 at 21:00 Glucose (Glutose) 22.5 gm Q15M PRN PO DECREASED GLUCOSE; Start 05/26/18 at 21:00 Dextrose (D50w Syringe) 25 ml Q15M PRN IV DECREASED GLUCOSE; Start 05/26/18 at 21:00 Dextrose (D50w Syringe) 50 ml Q15M PRN IV DECREASED GLUCOSE; Start 05/26/18 at 21:00 Glucagon (Glucagen) 1 mg Q15M PRN IM DECREASED GLUCOSE; Start 05/26/18 at 21:00 Glucose (Glutose) 15 gm Q15M PRN BUCCAL DECREASED GLUCOSE; Start 05/26/18 at 21:00 Hydromorphone HCl (Dilaudid) 1 mg Q4H PRN IV SEVERE PAIN LEVEL 7-10; Start 05/27/18 at 13:30 NATHALIE SIMENTAL May 27, 2018 11:07
[2018-05-27 11:24] VITALS: BP 148/70; PULSE 68
[2018-05-27 14:02] VITALS: BP 134/79; PULSE 69; RESP 18
--- NOTE | 2018-05-27 14:35 | PN ---
Date/Time of Note Date/Time of Note DATE: 05/27/18 TIME: 14:34 Assessment/Plan VTE Prophylaxis Risk score (from Ns)>0 risk: 2 SCD applied (from Nsg): Yes Pharmacological prophylaxis: LMWH Lines/Catheters IV Catheter Type (from Nrsg): Mid Line Urinary Cath still in place: No Assessment/Plan Hospital Course SUBJECTIVE: Continues to have abdominal pain. Denies any diarrhea. Refusing colonoscopy. OBJECTIVE: Physical Exam General: Adequately build 68 year-old female lying in bed in no apparent distress. HEENT: Normocephalic, atraumatic. Eyes: Anicteric sclerae, conjunctivae clear. ENT: Nasal septum midline, oral mucosa moist. Neck supple, no JVD noticed. Respiratory: Bilaterally clear breath sounds. No use of accessory muscles of respiration. No adventitious breath sounds. Cardiovascular: S1, S2 heard. Regular rate and rhythm. Abdomen: Soft and nondistended. Diffuse tenderness. Bowel sounds positive in all 4 quadrants. Genitourinary: Deferred. Extremities: No cyanosis, no clubbing, no edema. Peripheral pulses palpable. Neurologic: Cranial nerves II through XII grossly intact. The patient is awake, alert, and oriented. Skin: Normal skin turgor. No skin rashes. Labs & Vitals per chart ASSESSMENT & PLAN 68-year-old female with comorbidities including hypertension, diabetes mellitus type 2, depression, and obesity who came to the emergency room with chief complaint of abdominal pain with CT evidence of wall thickening and fat st randing about the first and second portions of duodenum (findings compatible with a duodenitis) and long segment circumferential wall thickening of the proximal and mid sigmoid colon with surrounding fat stranding, probably representing a colitis; the patient was admitted to inpatient setting for fu rther treatment and evaluation. 1. Acute abdominal pain. -CT scan of the abdomen and pelvis showing wall thickening and fat stranding about the first and second portions of the duodenum along with long segments of circumferential wall thickening of the proximal and mid sigmoid colon with mild surrounding fat stranding, which may represent a colitis. -Continue Cipro and Flagyl. -Continue pain control. -Gastroenterology following. However, the patient refusing colonoscopy. -Pending stool studies. 2. Diabetes mellitus type 2. -Hemoglobin A1c 11.8. -Continue sliding scale insulin. -Add basal insulin. 3. Essential hypertension. -Continue antihypertensives. 4. Depression. -Continue SSRIs. 5. Dyslipidemia. -Continue statins. 6. Fluids, electrolytes, and nutrition. -Carbohydrate controlled diet as tolerated. 7. DVT prophylaxis. -Bilateral SCDs. -SQ Lovenox. 8. Plan. -Continue pain control. -Continue antimicrobials. -Await clinical improvement The patient was seen in collaboration with Dr. Brown. Result Diagram: 05/27/18 0558 05/27/18 0558 Results 24hrs Laboratory Tests Test 05/26/18 22:01 05/27/18 02:08 05/27/18 05:58 05/27/18 08:05 Bedside Glucose 292 H 238 H 229 H White Blood Count 10.0 Red Blood Count 4.53 Hemoglobin 13.3 Hematocrit 39.0 Mean Corpuscular Volume 86.1 Mean Corpuscular 29.4 Hemoglobin Mean Corpuscular 34.1 Hemoglobin Concent Red Cell Distribution 12.1 Width Platelet Count 215 # Mean Platelet Volume 9.7 Immature Granulocytes % 0.300 Neutrophils % 61.2 Lymphocytes % 24.7 Monocytes % 12.5 H Eosinophils % 1.0 Basophils % 0.3 Nucleated Red Blood 0.0 Cells % Immature Granulocytes # 0.030 Neutrophils # 6.1 Lymphocytes # 2.5 Monocytes # 1.3 H Eosinophils # 0.1 Basophils # 0.0 Nucleated Red Blood 0.0 Cells # Sodium Level 139 Potassium Level 4.4 Chloride Level 105 Carbon Dioxide Level 25 Anion Gap 9 Blood Urea Nitrogen 25 #H Creatinine 0.74 Est Glomerular Filtrat > 60 Rate mL/min Glucose Level 227 #H Hemoglobin A1c 11.8 H Lactic Acid Level 1.0 Calcium Level 9.2 Total Bilirubin 0.5 Direct Bilirubin 0.00 Indirect Bilirubin 0.5 Aspartate Amino 17 Transf (AST/SGOT) Alanine 23 Aminotransferase (ALT/SG PT) Alkaline Phosphatase 67 Total Protein 6.4 # Albumin 3.2 #L Globulin 3.20 Albumin/Globulin Ratio 1.00 Triglycerides Level 218 H Cholesterol Level 146 LDL Cholesterol, 60 Calculated HDL Cholesterol 42 Cholesterol/HDL Ratio 3.4 Thyroid Stimulating 2.410 Hormone (TSH) Test 05/27/18 12:03 Bedside Glucose 250 H Exam/Review of Systems Vital Signs Vitals Vital Signs Date Temp Pulse Resp B/P (MAP) Pulse Ox O2 O2 Flow FiO2 Time Delivery Rate 05/27/18 68 148/70 11:24 (96) 05/27/18 98.4 18 96 Nasal 08:00 Cannula 05/26/18 2.0 12:58 Intake and Output 05/26/18 05/26/18 05/27/18 1414:59 22:59 06:59 IntakeIntake Total 700 ml 1400 ml 860 ml BalanceBalance 700 ml 1400 ml 860 ml Medications Medications Current Medications Sodium Chloride 1,000 ml @ 100 mls/hr Q10H IV Last administered on 05/27/18at 04:37; Admin Dose 100 MLS/HR; Start 05/26/18 at 13:26 IV Flush (NS 3 ml) 3 ml PER PROTOCOL IV ; Start 05/26/18 at 13:30 Ondansetron HCl (Zofran Inj) 4 mg Q6H PRN IV NAUSEA AND/OR VOMITING Last administered on 05/27/18at 08:14; Admin Dose 4 MG; Start 05/26/18 at 13:30 Acetaminophen (Tylenol Tab) 650 mg Q6H PRN PO PAIN LEVEL 1-3 OR FEVER; Start 05/26/18 at 13:30 Oxycodone/ Acetaminophen (Percocet (5/ 325)) 1 tab Q6H PRN PO MODERATE PAIN LEVEL 4-6 Last administered on 05/26/18at 17:22; Admin Dose 1 TAB; Start 05/26/18 at 13:30 Docusate Sodium (Colace) 100 mg Q12H PRN PO CONSTIPATION; Start 05/26/18 at 13:30 Magnesium Hydroxide (Milk Of Mag) 30 ml DAILY PRN PO CONSTIPATION; Start 05/26/18 at 13:30 Bisacodyl (Dulcolax) 5 mg DAILY PRN PO CONSTIPATION; Start 05/26/18 at 13:30 Sodium Biphosphate/ Sodium Phosphate (Fleet Enema) 133 ml DAILY PRN [place] C ONSTIPATION; Start 05/26/18 at 13:30 Famotidine (Pepcid Iv) 20 mg Q12 IV Last administered on 05/27/18at 08:14; Admin Dose 20 MG; Start 05/26/18 at 13:30 Enoxaparin Sodium (Lovenox) 30 mg DAILY SC Last administered on 05/27/18at 08:15; Admin Dose 30 MG; Start 05/27/18 at 09:00 Bisacodyl (Dulcolax Supp) 10 mg DAILY PRN [place] CONSTIPATION; Start 05/26/18 at 14:00 Metronidazole 100 ml @ 100 mls/hr Q8 IVPB Last administered on 05/27/18at 13:17; Admin Dose 100 MLS/HR; Start 05/26/18 at 16:00 Ciprofloxacin/ Dextrose 200 ml @ 200 mls/hr Q12 IVPB Last administered on 05/27/18at 09:29; Admin Dose 200 MLS/HR; Start 05/27/18 at 09:00 Diagnostic Test (Pha) (Accu-Chek) 1 ea 02 XX ; Start 05/27/18 at 02:00 Insulin Aspart (Novolog Insulin Pen) NOVOLOG *MODERATE* ALGORITHM WITH MEALS BEDTIME SC Last administered on 05/27/18at 12:05; Admin Dose 6 UNIT; Start 05/26/18 at 21:00 Miscellaneous Information 1 ea NOTE XX ; Start 05/26/18 at 21:00 Glucose (Glutose) 15 gm Q15M PRN PO DECREASED GLUCOSE; Start 05/26/18 at 21:00 Glucose (Glutose) 22.5 gm Q15M PRN PO DECREASED GLUCOSE; Start 05/26/18 at 21:00 Dextrose (D50w Syringe) 25 ml Q15M PRN IV DECREASED GLUCOSE; Start 05/26/18 at 21:00 Dextrose (D50w Syringe) 50 ml Q15M PRN IV DECREASED GLUCOSE; Start 05/26/18 at 21:00 Glucagon (Glucagen) 1 mg Q15M PRN IM DECREASED GLUCOSE; Start 05/26/18 at 21:00 Glucose (Glutose) 15 gm Q15M PRN BUCCAL DECREASED GLUCOSE; Start 05/26/18 at 21:00 Hydromorphone HCl (Dilaudid) 1 mg Q4H PRN IV SEVERE PAIN LEVEL 7-10 Last administered on 05/27/18at 12:10; Admin Dose 1 MG; Start 05/27/18 at 12:00 MISTI DACOSTA NP May 27, 2018 14:35
[2018-05-27 19:58] VITALS: BP 160/77; PULSE 69; RESP 17
[2018-05-27] MEDS: INSULIN GLARGINE [LANTus] (100 UNITS/ML) SYG SC SCH (20:49)
[2018-05-27] MEDS: ATORVASTATIN 80 MG TAB PO SCH (20:53)
[2018-05-27] MEDS: PAROXETINE 20 MG TAB PO SCH (20:53)
[2018-05-28] MEDS: HYDROmorphONE 0.5 MG/0.5 ML SYG IV PRN ×6 (00:44→21:42)
[2018-05-28 02:00] VITALS: BP 154/71; PULSE 64; RESP 16
[2018-05-28] MEDS: ACCU-CHEK XX SCH (02:00)
[2018-05-28] MEDS: metroNIDAZOLE 500 MG/NS (PMX) 100 ML IVPB SCH ×3 (05:40→22:05)
[2018-05-28 08:00] VITALS: BP 141/67; PULSE 60; RESP 18
[2018-05-28] MEDS: INSULIN ASPART [NOVOLOG] 3 ML PEN SC SCH ×5 (08:04→21:01)
[2018-05-28] MEDS ORDERED: MAGNESIUM SULFATE 3 GM in DEXTROSE 5% 100 ML IVPB ONE (08:30)
[2018-05-28] MEDS: FAMOTIDINE 20 MG INJ IV SCH (08:38)
[2018-05-28] MEDS: CITALOPRAM 20 MG TAB PO SCH (08:38)
[2018-05-28] MEDS: CIPROFLOXACIN 400MG/D5W 200 ML IVPB SCH ×2 (08:39→20:57)
[2018-05-28] MEDS: LISINOPRIL 5 MG TAB PO SCH (08:39)
[2018-05-28] MEDS: ENOXAPARIN 30 MG/0.3 ML SYG SC SCH (08:42)
[2018-05-28] MEDS: SOD CHLORIDE 0.9% 1,000 ML IV SCH (11:10)
[2018-05-28] MEDS: HYDROCODONE/APAP (5/325) TAB PO PRN ×2 (12:05→20:26)
--- NOTE | 2018-05-28 13:01 | PN ---
Date/Time of Note Date/Time of Note DATE: 05/28/18 TIME: 13:00 Assessment/Plan VTE Prophylaxis Risk score (from Nsg)>0 risk: 2 SCD applied (from Nsg): Yes Pharmacological prophylaxis: LMWH Lines/Catheters IV Catheter Type (from Nrsg): Mid Line Urinary Cath still in place: No Assessment/Plan Hospital Course SUBJECTIVE: Continues to have abdominal pain. Denies any diarrhea. Refusing colonoscopy. OBJECTIVE: Physical Exam General: Adequately build 68 year-old female lying in bed in no apparent distress. HEENT: Normocephalic, atraumatic. Eyes: Anicteric sclerae, conjunctivae clear. ENT: Nasal septum midline, oral mucosa moist. Neck supple, no JVD noticed. Respiratory: Bilaterally clear breath sounds. No use of accessory muscles of respiration. No adventitious breath sounds. Cardiovascular: S1, S2 heard. Regular rate and rhythm. Abdomen: Soft and nondistended. Diffuse tenderness. Bowel sounds positive in all 4 quadrants. Genitourinary: Deferred. Extremities: No cyanosis, no clubbing, no edema. Peripheral pulses palpable. Neurologic: Cranial nerves II through XII grossly intact. The patient is awake, alert, and oriented. Skin: Normal skin turgor. No skin rashes. Labs & Vitals per chart ASSESSMENT & PLAN 68-year-old female with comorbidities including hypertension, diabetes mellitus type 2, depression, and obesity who came to the emergency room with chief complaint of abdominal pain with CT evidence of wall thickening and fat st randing about the first and second portions of duodenum (findings compatible with a duodenitis) and long segment circumferential wall thickening of the proximal and mid sigmoid colon with surrounding fat stranding, probably representing a colitis; the patient was admitted to inpatient setting for fu rther treatment and evaluation. 1. Acute abdominal pain. -CT scan of the abdomen and pelvis showing wall thickening and fat stranding about the first and second portions of the duodenum along with long segments of circumferential wall thickening of the proximal and mid sigmoid colon with mild surrounding fat stranding, which may represent a colitis. -Continue Cipro and Flagyl. -Continue pain control. -Gastroenterology following. However, the patient refusing colonoscopy. -Pending stool studies. 2. Diabetes mellitus type 2. -Hemoglobin A1c 11.8. -Continue sliding scale insulin along with basal insulin. -Add pre-meal insulin. 3. Essential hypertension. -Continue antihypertensives. 4. Depression. -Continue SSRIs. 5. Dyslipidemia. -Continue statins. 6. Fluids, electrolytes, and nutrition. -Carbohydrate controlled diet as tolerated. 7. DVT prophylaxis. -Bilateral SCDs. -SQ Lovenox. 8. Plan. -Continue pain control. -Continue antimicrobials. -Await clinical improvement. The patient was seen in collaboration with Dr. Brown. Result Diagram: 05/28/18 0511 05/28/18 0459 Results 24hrs Laboratory Tests Test 05/27/18 17:32 05/27/18 20:43 05/28/18 02:09 05/28/18 04:59 Bedside Glucose 233 H 239 H 198 Sodium Level 137 Potassium Level 4.1 Chloride Level 108 Carbon Dioxide Level 25 Anion Gap 4 L Blood Urea Nitrogen 19 Creatinine 0.78 Est Glomerular Filtrat > 60 Rate mL/min Glucose Level 214 Calcium Level 9.1 Total Bilirubin 0.4 Direct Bilirubin 0.00 Indirect Bilirubin 0.4 Aspartate Amino 23 Transf (AST/SGOT) Alanine 24 Aminotransferase (ALT/SG PT) Alkaline Phosphatase 78 Total Protein 6.0 L Albumin 3.1 L Globulin 2.90 Albumin/Globulin Ratio 1.06 Test 05/28/18 05:11 05/28/18 08:01 05/28/18 12:04 White Blood Count 11.1 H Red Blood Count 4.41 Hemoglobin 13.0 Hematocrit 38.1 Mean Corpuscular Volume 86.4 Mean Corpuscular 29.5 Hemoglobin Mean Corpuscular 34.1 Hemoglobin Concent Red Cell Distribution 12.0 Width Platelet Count 226 Mean Platelet Volume 9.8 Immature Granulocytes % 0.400 Neutrophils % 60.9 Lymphocytes % 27.4 Monocytes % 9.5 Eosinophils % 1.5 Basophils % 0.3 Nucleated Red Blood 0.0 Cells % Immature Granulocytes # 0.040 H Neutrophils # 6.8 Lymphocytes # 3.0 H Monocytes # 1.1 H Eosinophils # 0.2 Basophils # 0.0 Nucleated Red Blood 0.0 Cells # Phosphorus Level 3.0 Magnesium Level 1.2 L Bedside Glucose 219 294 H Exam/Review of Systems Vital Signs Vitals Vital Signs Date Temp Pulse Resp B/P (MAP) Pulse Ox O2 O2 Flow FiO2 Time Delivery Rate 05/28/18 98.0 60 18 141/67 96 08:00 (91) 05/27/18 Room Air 14:02 05/26/18 2.0 12:58 Intake and Output 05/27/18 05/27/18 05/28/18 1515:00 23:00 07:00 IntakeIntake Total 300 ml 1700 ml 1230 ml BalanceBalance 300 ml 1700 ml 1230 ml Medications Medications Current Medications Sodium Chloride 1,000 ml @ 100 mls/hr Q10H IV Last administered on 05/28/18at 11:10; Admin Dose 100 MLS/HR; Start 05/26/18 at 13:26 IV Flush (NS 3 ml) 3 ml PER PROTOCOL IV ; Start 05/26/18 at 13:30 Ondansetron HCl (Zofran Inj) 4 mg Q6H PRN IV NAUSEA AND/OR VOMITING Last administered on 05/27/18at 08:14; Admin Dose 4 MG; Start 05/26/18 at 13:30 Acetaminophen (Tylenol Tab) 650 mg Q6H PRN PO PAIN LEVEL 1-3 OR FEVER; Start 05/26/18 at 13:30 Oxycodone/ Acetaminophen (Percocet (5/ 325)) 1 tab Q6H PRN PO MODERATE PAIN LEVEL 4-6 Last administered on 05/26/18at 17:22; Admin Dose 1 TAB; Start 05/26/18 at 13:30 Docusate Sodium (Colace) 100 mg Q12H PRN PO CONSTIPATION; Start 05/26/18 at 13:30 Magnesium Hydroxide (Milk Of Mag) 30 ml DAILY PRN PO CONSTIPATION; Start 05/26/18 at 13:30 Bisacodyl (Dulcolax) 5 mg DAILY PRN PO CONSTIPATION; Start 05/26/18 at 13:30 Sodium Biphosphate/ Sodium Phosphate (Fleet Enema) 133 ml DAILY PRN [place] CONSTIPATION; Start 05/26/18 at 13:30 Famotidine (Pepcid Iv) 20 mg Q12 IV Last administered on 05/28/18at 08:38; Admin Dose 20 MG; Start 05/26/18 at 13:30 Enoxaparin Sodium (Lovenox) 30 mg DAILY SC Last administered on 05/28/18at 08:42; Admin Dose 30 MG; Start 05/27/18 at 09:00 Bisacodyl (Dulcolax Supp) 10 mg DAILY PRN [place] CONSTIPATION; Start 05/26/18 at 14:00 Metronidazole 100 ml @ 100 mls/hr Q8 IVPB Last administered on 05/28/18at 05:40; Admin Dose 100 MLS/HR; Start 05/26/18 at 16:00 Ciprofloxacin/ Dextrose 200 ml @ 200 mls/hr Q12 IVPB Last administered on 05/28at 08:39; Admin Dose 200 MLS/HR; Start 05/27/18 at 09:00 Diagnostic Test (Pha) (Accu-Chek) 1 ea 02 XX ; Start 05/27/18 at 02:00 Insulin Aspart (Novolog Insulin Pen) NOVOLOG *MODERATE* ALGORITHM WITH MEALS BEDTIME SC Last administered on 05/28/18at 12:06; Admin Dose 8 UNIT; Start 05/26/18 at 21:00 Miscellaneous Information 1 ea NOTE XX ; Start 05/26/18 at 21:00 Glucose (Glutose) 15 gm Q15M PRN PO DECREASED GLUCOSE; Start 05/26/18 at 21:00 Glucose (Glutose) 22.5 gm Q15M PRN PO DECREASED GLUCOSE; Start 05/26/18 at 21:00 Dextrose (D50w Syringe) 25 ml Q15M PRN IV DECREASED GLUCOSE; Start 05/26/18 at 21:00 Dextrose (D50w Syringe) 50 ml Q15M PRN IV DECREASED GLUCOSE; Start 05/26/18 at 21:00 Glucagon (Glucagen) 1 mg Q15M PRN IM DECREASED GLUCOSE; Start 05/26/18 at 21:00 Glucose (Glutose) 15 gm Q15M PRN BUCCAL DECREASED GLUCOSE; Start 05/26/18 at 21:00 Hydromorphone HCl (Dilaudid) 1 mg Q4H PRN IV SEVERE PAIN LEVEL 7-10 Last administered on 05/28/18at 09:02; Admin Dose 1 MG; Start 05/27/18 at 12:00 Atorvastatin Calcium (Lipitor) 80 mg QHS PO Last administered on 05/27/18at 20:53; Admin Dose 80 MG; Start 05/27/18 at 21:00 Citalopram Hydrobromide (Celexa) 20 mg DAILY PO Last administered on 05/28/18at 08:38; Admin Dose 20 MG; Start 05/28/18 at 09:00 Lisinopril (Zestril) 5 mg DAILY PO Last administered on 05/28/18 08:39; Admin Dose 5 MG; Start 05/28/18 at 09:00 Paroxetine HCl (Paxil) 20 mg HS PO Last administered on 05/27/18at 20:53; Admin Dose 20 MG; Start 05/27/18 at 21:00 Insulin Glargine (Lantus) 13 units DAILY@2000 SC Last administered on 05/27/18at 20:49; Admin Dose 13 UNITS; Start 05/27/18 at 20:00 Acetaminophen/ Hydrocodone Bitart ([place] (5/325)) 1 tab Q6H PRN PO MODERATE PAIN LEVEL 4-6 Last administered on 05/28/18at 12:05; Admin Dose 1 TAB; Start 05/28/18 at 11:30 MISTI DACOSTA NP May 28, 2018 13:01
--- NOTE | 2018-05-28 14:50 | PN ---
Date/Time of Note Date/Time of Note DATE: 05/28/18 TIME: 14:47 Assessment/Plan VTE Prophylaxis Risk score (from Ns)>0 risk: 2 SCD applied (from Nsg): Yes Pharmacological prophylaxis: other (scds) Lines/Catheters IV Catheter Type (from Nrsg): Mid Line Urinary Cath still in place: No Assessment/Plan Hospital Course Summary Assessment and Plan: Assessment: Abdominal pain Nausea/vomiting Wall thickening/fat stranding -The first and second portions of the duodenum. - Pancreatic head. - Proximal and mid sigmoid colon Hypertension Diabetes type 2 Plan: Pt continues to refuse EGD/colonoscopy Stool studies pending Given upper abd pain - will change H2 markell to PPI, add Carafate and give GI cocktail x1 If pain persist plan to repeat imaging in near future Patient seen in collaboration with Dr. Gallardo Subjective: Course reviewed with nursing staff Patient interviewed and examined All labs, imaging and other results reviewed Pt continues to have upper and pain, stool studies are currently pending She continues to refuse EGD/colonoscopy. Discussed change in medication to h opefully help with discomfort Pt remains on ABX. Maintain observation at this time. PHYSICAL EXAMINATION: GENERAL: Well developed, well nourished, alert & oriented x 3, in no acute distress SKIN: No lesions, no stigmata chronic liver disease, no evidence of bleeding diathesis EYES: Pupils equal reactive to light, no discharge. EARS/NOSE AND THROAT: Ears normal, nose normal NECK: Supple, no masses CHEST: Inspection within normal limits. CARDIOVASCULAR: Heart: Regular rate and rhythm RESPIRATORY: Lungs clear to auscultation GASTROINTESTINAL AND LIVER: Abdomen: Soft, generalized abdominal pain, worse to upper abd, non-distended, no hernias, no masses, no organomegaly, no ascites, no guarding, no rebound tenderness, normoactive bowel sounds. Rectal: Deferred. EXTREMITIES: No cyanosis, clubbing or edema Result Diagram: 05/28/18 0511 05/28/18 0459 Results 24hrs Laboratory Tests Test 05/27/18 17:32 05/27/18 20:43 05/28/18 02:09 05/28/18 04:59 Bedside Glucose 233 H 239 H 198 Sodium Level 137 Potassium Level 4.1 Chloride Level 108 Carbon Dioxide Level 25 Anion Gap 4 L Blood Urea Nitrogen 19 Creatinine 0.78 Est Glomerular Filtrat > 60 Rate mL/min Glucose Level 214 Calcium Level 9.1 Total Bilirubin 0.4 Direct Bilirubin 0.00 Indirect Bilirubin 0.4 Aspartate Amino 23 Transf (AST/SGOT) Alanine 24 Aminotransferase (ALT/SG PT) Alkaline Phosphatase 78 Total Protein 6.0 L Albumin 3.1 L Globulin 2.90 Albumin/Globulin Ratio 1.06 Test 05/28/18 05:11 05/28/18 08:01 05/28/18 12:04 White Blood Count 11.1 H Red Blood Count 4.41 Hemoglobin 13.0 Hematocrit 38.1 Mean Corpuscular Volume 86.4 Mean Corpuscular 29.5 Hemoglobin Mean Corpuscular 34.1 Hemoglobin Concent Red Cell Distribution 12.0 Width Platelet Count 226 Mean Platelet Volume 9.8 Immature Granulocytes % 0.400 Neutrophils % 60.9 Lymphocytes % 27.4 Monocytes % 9.5 Eosinophils % 1.5 Basophils % 0.3 Nucleated Red Blood 0.0 Cells % Immature Granulocytes # 0.040 H Neutrophils # 6.8 Lymphocytes # 3.0 H Monocytes # 1.1 H Eosinophils # 0.2 Basophils # 0.0 Nucleated Red Blood 0.0 Cells # Phosphorus Level 3.0 Magnesium Level 1.2 L Bedside Glucose 219 294 H Exam/Review of Systems Vital Signs Vitals Vital Signs Date Temp Pulse Resp B/P (MAP) Pulse Ox O2 O2 Flow FiO2 Time Delivery Rate 05/28/18 98.0 60 18 141/67 96 08:00 (91) 05/27/18 Room Air 14:02 05/26/18 2.0 12:58 Intake and Output 05/27/18 05/27/18 05/28/18 1515:00 23:00 07:00 IntakeIntake Total 300 ml 1700 ml 1230 ml BalanceBalance 300 ml 1700 ml 1230 ml Medications Medications Current Medications Sodium Chloride 1,000 ml @ 100 mls/hr Q10H IV Last administered on 05/28/18at 11:10; Admin Dose 100 MLS/HR; Start 05/26/18 at 13:26 IV Flush (NS 3 ml) 3 ml PER PROTOCOL IV ; Start 05/26/18 at 13:30 Ondansetron HCl (Zofran Inj) 4 mg Q6H PRN IV NAUSEA AND/OR VOMITING Last administered on 05/27/18at 08:14; Admin Dose 4 MG; Start 05/26/18 at 13:30 Acetaminophen (Tylenol Tab) 650 mg Q6H PRN PO PAIN LEVEL 1-3 OR FEVER; Start 05/26/18 at 13:30 Oxycodone/ Acetaminophen (Percocet (5/ 325)) 1 tab Q6H PRN PO MODERATE PAIN LEVEL 4-6 Last administered on 05/26/18at 17:22; Admin Dose 1 TAB; Start 05/26/18 at 13:30 Docusate Sodium (Colace) 100 mg Q12H PRN PO CONSTIPATION; Start 05/26/18 at 13:30 Magnesium Hydroxide (Milk Of Mag) 30 ml DAILY PRN PO CONSTIPATION; Start 05/26/18 at 13:30 Bisacodyl (Dulcolax) 5 mg DAILY PRN PO CONSTIPATION; Start 05/26/18 at 13:30 Sodium Biphosphate/ Sodium Phosphate (Fleet Enema) 133 ml DAILY PRN [place] CONSTIP ATION; Start 05/26/18 at 13:30 Famotidine (Pepcid Iv) 20 mg Q12 IV Last administered on 05/28/18at 08:38; Admin Dose 20 MG; Start 05/26/18 at 13:30 Enoxaparin Sodium (Lovenox) 30 mg DAILY SC Last administered on 05/28/18at 08:42; Admin Dose 30 MG; Start 05/27/18 at 09:00 Bisacodyl (Dulcolax Supp) 10 mg DAILY PRN [place] CONSTIPATION; Start 05/26/18 at 14:00 Metronidazole 100 ml @ 100 mls/hr Q8 IVPB Last administered on 05/28/18at 14:30; Admin Dose 100 MLS/HR; Start 05/26/18 at 16:00 Ciprofloxacin/ Dextrose 200 ml @ 200 mls/hr Q12 IVPB Last administered on 05/28/18at 08:39; Admin Dose 200 MLS/HR; Start 05/27/18 at 09:00 Diagnostic Test (Pha) (Accu-Chek) 1 ea 02 XX ; Start 05/27/18 at 02:00 Insulin Aspart (Novolog Insulin Pen) NOVOLOG *MODERATE* ALGORITHM WITH MEALS BEDTIME SC Last administered on 05/28/18at 12:06; Admin Dose 8 UNIT; Start 05/26/18 at 21:00 Miscellaneous Information 1 ea NOTE XX ; Start 05/26/18 at 21:00 Glucose (Glutose) 15 gm Q15M PRN PO DECREASED GLUCOSE; Start 05/26/18 at 21:00 Glucose (Glutose) 22.5 gm Q15M PRN PO DECREASED GLUCOSE; Start 05/26/18 at 21:00 Dextrose (D50w Syringe) 25 ml Q15M PRN IV DECREASED GLUCOSE; Start 05/26/18 at 21:00 Dextrose (D50w Syringe) 50 ml Q15M PRN IV DECREASED GLUCOSE; Start 05/26/18 at 21:00 Glucagon (Glucagen) 1 mg Q15M PRN IM DECREASED GLUCOSE; Start 05/26/18 at 21:00 Glucose (Glutose) 15 gm Q15M PRN BUCCAL DECREASED GLUCOSE; Start 05/26/18 at 21:00 Hydromorphone HCl (Dilaudid) 1 mg Q4H PRN IV SEVERE PAIN LEVEL 7-10 Last administered on 05/28/18at 13:18; Admin Dose 1 MG; Start 05/27/18 at 12:00 Atorvastatin Calcium (Lipitor) 80 mg QHS PO Last administered on 05/27/18at 20:53; Admin Dose 80 MG; Start 05/27/18 at 21:00 Citalopram Hydrobromide (Celexa) 20 mg DAILY PO Last administered on 05/28/18at 08:38; Admin Dose 20 MG; Start 05/28/18 at 09:00 Lisinopril (Zestril) 5 mg DAILY PO Last administered on 05/28/18at 08:39; Admin Dose 5 MG; Start 05/28/18 at 09:00 Paroxetine HCl (Paxil) 20 mg HS PO Last administered on 05/27/18at 20:53; Admin D ose 20 MG; Start 05/27/18 at 21:00 Insulin Glargine (Lantus) 13 units DAILY@2000 SC Last administered on 05/27/18at 20:49; Admin Dose 13 UNITS; Start 05/27/18 at 20:00 Acetaminophen/ Hydrocodone Bitart ([place] (5/325)) 1 tab Q6H PRN PO MODERATE PAIN LEVEL 4-6 Last administered on 05/28/18at 12:05; Admin Dose 1 TAB; Start 05/28/18 at 11:30 Insulin Aspart (Novolog Insulin Pen) 4 unit WITH MEALS SC ; Start 05/28/18 at 17:35 NATHALIE SIMENTAL May 28, 2018 14:50
[2018-05-28 15:23] VITALS: BP 146/72; PULSE 70; RESP 17
[2018-05-28] MEDS ORDERED: LIDOCAINE/MYLANTA 40 ML BTL PO ONE (16:30)
[2018-05-28] MEDS: PANTOPRAZOLE 40 MG INJ IV SCH (17:32)
[2018-05-28] MEDS: SUCRALFATE (100 MG/ML) 10ML CUP PO SCH ×2 (17:32→20:26)
[2018-05-28 20:00] VITALS: BP 134/78; PULSE 72; RESP 18
[2018-05-28] MEDS: INSULIN GLARGINE [LANTus] (100 UNITS/ML) SYG SC SCH (20:13)
[2018-05-28] MEDS: PAROXETINE 20 MG TAB PO SCH (20:27)
[2018-05-28] MEDS: ATORVASTATIN 80 MG TAB PO SCH (20:27)
[2018-05-29] MEDS: SOD CHLORIDE 0.9% 1,000 ML IV SCH ×3 (01:26→20:22)
[2018-05-29] MEDS: HYDROmorphONE 0.5 MG/0.5 ML SYG IV PRN ×6 (01:45→22:08)
[2018-05-29 02:00] VITALS: BP 142/70; PULSE 64; RESP 17
[2018-05-29] MEDS: ACCU-CHEK XX SCH (02:00)
[2018-05-29] MEDS: ACETAMINOPHEN 325 MG TAB PO PRN (03:34)
[2018-05-29] MEDS: PANTOPRAZOLE 40 MG INJ IV SCH ×2 (05:30→17:41)
[2018-05-29] MEDS: metroNIDAZOLE 500 MG/NS (PMX) 100 ML IVPB SCH ×3 (05:30→22:08)
[2018-05-29 08:03] VITALS: BP 139/69; PULSE 58; RESP 16
[2018-05-29] MEDS: INSULIN ASPART [NOVOLOG] 3 ML PEN SC SCH ×7 (08:07→20:20)
[2018-05-29] MEDS: SUCRALFATE (100 MG/ML) 10ML CUP PO SCH ×4 (08:09→20:31)
[2018-05-29] MEDS: ENOXAPARIN 30 MG/0.3 ML SYG SC SCH (08:09)
[2018-05-29] MEDS: LISINOPRIL 5 MG TAB PO SCH (08:10)
[2018-05-29] MEDS: CITALOPRAM 20 MG TAB PO SCH (08:11)
[2018-05-29] MEDS: CIPROFLOXACIN 400MG/D5W 200 ML IVPB SCH ×2 (09:35→20:22)
--- NOTE | 2018-05-29 10:12 | PN ---
Date/Time of Note Date/Time of Note DATE: 05/29/18 TIME: 10:11 Assessment/Plan VTE Prophylaxis Risk score (from Ns)>0 risk: 5 SCD applied (from Nsg): Yes Pharmacological prophylaxis: LMWH Lines/Catheters IV Catheter Type (from Nrsg): Mid Line Urinary Cath still in place: No Assessment/Plan Hospital Course SUBJECTIVE: Continues to have abdominal pain. Denies any diarrhea. Refusing colonoscopy. OBJECTIVE: Physical Exam General: Adequately build 68 year-old female lying in bed in no apparent distress. HEENT: Normocephalic, atraumatic. Eyes: Anicteric sclerae, conjunctivae clear. ENT: Nasal septum midline, oral mucosa moist. Neck supple, no JVD noticed. Respiratory: Bilaterally clear breath sounds. No use of accessory muscles of respiration. No adventitious breath sounds. Cardiovascular: S1, S2 heard. Regular rate and rhythm. Abdomen: Soft and nondistended. Diffuse tenderness. Bowel sounds positive in all 4 quadrants. Genitourinary: Deferred. Extremities: No cyanosis, no clubbing, no edema. Peripheral pulses palpable. Neurologic: Cranial nerves II through XII grossly intact. The patient is awake, alert, and oriented. Skin: Normal skin turgor. No skin rashes. Labs & Vitals per chart ASSESSMENT & PLAN 68-year-old female with comorbidities including hypertension, diabetes mellitus type 2, depression, and obesity who came to the emergency room with chief complaint of abdominal pain with CT evidence of wall thickening and fat st randing about the first and second portions of duodenum (findings compatible with a duodenitis) and long segment circumferential wall thickening of the proximal and mid sigmoid colon with surrounding fat stranding, probably representing a colitis; the patient was admitted to inpatient setting for fu rther treatment and evaluation. 1. Acute abdominal pain. -CT scan of the abdomen and pelvis showing wall thickening and fat stranding about the first and second portions of the duodenum along with long segments of circumferential wall thickening of the proximal and mid sigmoid colon with mild surrounding fat stranding, which may represent a colitis. -Continue Cipro and Flagyl. -Continue pain control. -Gastroenterology following. However, the patient refusing colonoscopy. -Pending stool studies (unclear why studies were not sent although the patient had multiple BMs). 2. Diabetes mellitus type 2. -Hemoglobin A1c 11.8. -Continue sliding scale insulin along with basal insulin. -Add pre-meal insulin. 3. Essential hypertension. -Continue antihypertensives. 4. Depression. -Continue SSRIs. 5. Dyslipidemia. -Continue statins. 6. Fluids, electrolytes, and nutrition. -Carbohydrate controlled diet as tolerated. 7. DVT prophylaxis. -Bilateral SCDs. -SQ Lovenox. 8. Plan. -Continue pain control. -Continue antimicrobials. -Await clinical improvement. Had a long conversation with the patient with the help of playground supervisor regarding the current clinical condition including no improvement in the patient's clinical condition despite being on antibiotics, the benefits of doing a colonoscopy. Despite the long conversation explaining the benefits of further studies including the need for colonoscopy, the patient declined to have the colonoscopy done. The patient was seen in collaboration with Dr. Brown. Result Diagram: 05/29/18 0708 05/29/18 0708 Results 24hrs Laboratory Tests Test 05/28/18 12:04 05/28/18 17:25 05/28/18 20:08 05/28/18 21:00 Bedside Glucose 294 H 275 H 220 246 H Test 05/29/18 02:07 05/29/18 07:08 05/29/18 08:05 Bedside Glucose 187 201 White Blood Count 7.6 # Red Blood Count 4.14 L Hemoglobin 12.0 Hematocrit 35.8 L Mean Corpuscular Volume 86.5 Mean Corpuscular 29.0 Hemoglobin Mean Corpuscular 33.5 Hemoglobin Concent Red Cell Distribution 11.9 Width Platelet Count 218 Mean Platelet Volume 9.3 Immature Granulocytes % 0.300 Neutrophils % 52.5 Lymphocytes % 33.9 Monocytes % 9.6 Eosinophils % 3.4 Basophils % 0.3 Nucleated Red Blood 0.0 Cells % Immature Granulocytes # 0.020 Neutrophils # 4.0 Lymphocytes # 2.6 Monocytes # 0.7 Eosinophils # 0.3 Basophils # 0.0 Nucleated Red Blood 0.0 Cells # Sodium Level 136 Potassium Level 4.3 Chloride Level 109 Carbon Dioxide Level 23 Anion Gap 4 L Blood Urea Nitrogen 13 Creatinine 0.73 Est Glomerular Filtrat > 60 Rate mL/min Glucose Level 201 Calcium Level 9.1 Phosphorus Level 3.2 Magnesium Level 1.4 L Total Bilirubin 0.3 Direct Bilirubin 0.00 Indirect Bilirubin 0.3 Aspartate Amino 18 Transf (AST/SGOT) Alanine 21 Aminotransferase (ALT/SG PT) Alkaline Phosphatase 74 Total Protein 5.6 L Albumin 2.9 L Globulin 2.70 Albumin/Globulin Ratio 1.07 Exam/Review of Systems Vital Signs Vitals Vital Signs Date Temp Pulse Resp B/P (MAP) Pulse Ox O2 O2 Flow FiO2 Time Delivery Rate 05/29/18 98.1 58 16 139/69 96 08:03 (92) 05/29/18 Room Air 02:00 05/26/18 2.0 12:58 Intake and Output 05/28/18 05/28/18 05/29/18 1515:00 23:00 07:00 IntakeIntake Total 656 ml 1400 ml 1800 ml BalanceBalance 656 ml 1400 ml 1800 ml Medications Medications Current Medications Sodium Chloride 1,000 ml @ 100 mls/hr Q10H IV Last administered on 05/29/18at 02:31; Admin Dose 100 MLS/HR; Start 05/26/18 at 13:26 IV Flush (NS 3 ml) 3 ml PER PROTOCOL IV ; Start 05/26/18 at 13:30 Ondansetron HCl (Zofran Inj) 4 mg Q6H PRN IV NAUSEA AND/OR VOMITING Last administered on 05/27/18at 08:14; Admin Dose 4 MG; Start 05/26/18 at 13:30 Acetaminophen (Tylenol Tab) 650 mg Q6H PRN PO PAIN LEVEL 1-3 OR FEVER Last administered on 05/29/18at 03:34; Admin Dose 650 MG; Start 05/26/18 at 13:30 Oxycodone/ Acetaminophen (Percocet (5/ 325)) 1 tab Q6H PRN PO MODERATE PAIN LEVEL 4-6 Last administered on 05/26/18at 17:22; Admin Dose 1 TAB; Start 05/26/18 at 13:30 Docusate Sodium (Colace) 100 mg Q12H PRN PO CONSTIPATION; Start 05/26/18 at 13:30 Magnesium Hydroxide (Milk Of Mag) 30 ml DAILY PRN PO CONSTIPATION; Start 05/26/18 at 13:30 Bisacodyl (Dulcolax) 5 mg DAILY PRN PO CONSTIPATION; Start 05/26/18 at 13:30 Sodium Biphosphate/ Sodium Phosphate (Fleet Enema) 133 ml DAILY PRN [place] CONSTIPATION; Start 05/26/18 at 13:30 Enoxaparin Sodium (Lovenox) 30 mg DAILY SC Last administered on 05/29/18at 08:09; Admin Dose 30 MG; Start 05/27/18 at 09:00 Bisacodyl (Dulcolax Supp) 10 mg DAILY PRN [place] CONSTIPATION; Start 05/26/18 at 14:00 Metronidazole 100 ml @ 100 mls/hr Q8 IVPB Last administered on 05/29/18at 05:30; Admin Dose 100 MLS/HR; Start 05/26/18 at 16:00 Ciprofloxacin/ Dextrose 200 ml @ 200 mls/hr Q12 IVPB Last administered on 05/29/18at 09:35; Admin Dose 200 MLS/HR; Start 05/27/18 at 09:00 Diagnostic Test (Pha) (Accu-Chek) 1 ea 02 XX ; Start 05/27/18 at 02:00 Insulin Aspart (Novolog Insulin Pen) NOVOLOG *MODERATE* ALGORITHM WITH MEALS BEDTIME SC Last administered on 05/29/18at 08:08; Admin Dose 4 UNIT; Start 05/26/18 at 21:00 Miscellaneous Information 1 ea NOTE XX ; Start 05/26/18 at 21:00 Glucose (Glutose) 15 gm Q15M PRN PO DECREASED GLUCOSE; Start 05/26/18 at 21:00 Glucose (Glutose) 22.5 gm Q15M PRN PO DECREASED GLUCOSE; Start 05/26/18 at 21:00 Dextrose (D50w Syringe) 25 ml Q15M PRN IV DECREASED GLUCOSE; Start 05/26/18 at 21:00 Dextrose (D50w Syringe) 50 ml Q15M PRN IV DECREASED GLUCOSE; Start 05/26/18 at 21:00 Glucagon (Glucagen) 1 mg Q15M PRN IM DECREASED GLUCOSE; Start 05/26/18 at 21:00 Glucose (Glutose) 15 gm Q15M PRN BUCCAL DECREASED GLUCOSE; Start 05/26/18 at 21:00 Hydromorphone HCl (Dilaudid) 1 mg Q4H PRN IV SEVERE PAIN LEVEL 7-10 Last administered on 05/29/18at 09:54; Admin Dose 1 MG; Start 05/27/18 at 12:00 Atorvastatin Calcium (Lipitor) 80 mg QHS PO Last administered on 05/28/18at 20:27; Admin Dose 80 MG; Start 05/27/18 at 21:00 Citalopram Hydrobromide (Celexa) 20 mg DAILY PO Last administered on 05/29/18 08:11; Admin Dose 20 MG; Start 05/28/18 at 09:00 Lisinopril (Zestril) 5 mg DAILY PO Last administered on 05/28/18 08:39; Admin Dose 5 MG; Start 05/28/18 at 09:00 Paroxetine HCl (Paxil) 20 mg HS PO Last administered on 05/28/18 20:27; Admin Dose 20 MG; Start 05/27/18 at 21:00 Insulin Glargine (Lantus) 13 units DAILY@2000 SC Last administered on 05/28/18 20:13; Admin Dose 13 UNITS; Start 05/27/18 at 20:00 Acetaminophen/ Hydrocodone Bitart ([place] (5/325)) 1 tab Q6H PRN PO MODERATE PAIN LEVEL 4-6 Last administered on 05/28/18 20:26; Admin Dose 1 TAB; Start 05/28/18 at 11:30 Insulin Aspart (Novolog Insulin Pen) 4 unit WITH MEALS SC Last administered on 05/29/18 08:07; Admin Dose 4 UNIT; Start 05/28/18 at 17:35 Pantoprazole (Protonix Iv) 40 mg BID@06,18 IV Last administered on 05/29/18 05:30; Admin Dose 40 MG; Start 05/28/18 at 18:00 Sucralfate (Carafate Susp) 1 gm QID PO Last administered on 05/29/18 08:09; Admin Dose 1 GM; Start 05/28/18 at 17:00 MISTI DACOSTA NP May 29, 2018 10:12
--- NOTE | 2018-05-29 11:54 | RADRPT ---
Vent Rate: 67 bpm RR Interval: 0 msec MS Interval: 0 msec QRS Duration: 156 msec QT Interval: 440 msec QTC Interval: 464 msec P-R-T [place]: 0 - -30 - 141 degrees Wide QRS rhythm Left axis deviation Left bundle branch block Abnormal ECG Electronically Signed By: Fernando Carvajal [id number]
--- NOTE | 2018-05-29 13:22 | PN ---
Date/Time of Note Date/Time of Note DATE: 05/29/18 TIME: 13:18 Assessment/Plan VTE Prophylaxis Risk score (from Nsg)>0 risk: 5 SCD applied (from Nsg): Yes Pharmacological prophylaxis: other (scds) Lines/Catheters IV Catheter Type (from Nrsg): Mid Line Urinary Cath still in place: No Assessment/Plan Hospital Course Summary Assessment and Plan: Assessment: Abdominal pain Nausea/vomiting Wall thickening/fat stranding -The first and second portions of the duodenum. - Pancreatic head. - Proximal and mid sigmoid colon Hypertension Diabetes type 2 Plan: Pt continues to refuse EGD/colonoscopy Ct abd/pelvis with IV and PO contrast will recheck labs in am Patient seen in collaboration with Dr. Gallardo Subjective: Course reviewed with nursing staff Patient interviewed and examined All labs, imaging and other results reviewed Pt continues to c/o abd pain - worse with palpation to LLQ and LUQ Medication does not seem to be helping pain. She refuses ED/colon again discussed importance, Plan to repeat imaging. Continue current plan of care. PHYSICAL EXAMINATION: GENERAL: Well developed, well nourished, alert & oriented x 3, in no acute distress SKIN: No lesions, no stigmata chronic liver disease, no evidence of bleeding diathesis EYES: Pupils equal reactive to light, no discharge. EARS/NOSE AND THROAT: Ears normal, nose normal NECK: Supple, no masses CHEST: Inspection within normal limits. CARDIOVASCULAR: Heart: Regular rate and rhythm RESPIRATORY: Lungs clear to auscultation GASTROINTESTINAL AND LIVER: Abdomen: Soft, generalized abdominal pain, non- distended, no hernias, no masses, no organomegaly, no ascites, no guarding, no rebound tenderness, normoactive bowel sounds. Rectal: Deferred. EXTREMITIES: No cyanosis, clubbing or edema Result Diagram: 05/29/18 0708 05/29/18 0708 Results 24hrs Laboratory Tests Test 05/28/18 17:25 05/28/18 20:08 05/28/18 21:00 05/29/18 02:07 Bedside Glucose 275 H 220 246 H 187 Test 05/29/18 07:08 05/29/18 08:05 05/29/18 12:14 White Blood Count 7.6 # Red Blood Count 4.14 L Hemoglobin 12.0 Hematocrit 35.8 L Mean Corpuscular Volume 86.5 Mean Corpuscular 29.0 Hemoglobin Mean Corpuscular 33.5 Hemoglobin Concent Red Cell Distribution 11.9 Width Platelet Count 218 Mean Platelet Volume 9.3 Immature Granulocytes % 0.300 Neutrophils % 52.5 Lymphocytes % 33.9 Monocytes % 9.6 Eosinophils % 3.4 Basophils % 0.3 Nucleated Red Blood 0.0 Cells % Immature Granulocytes # 0.020 Neutrophils # 4.0 Lymphocytes # 2.6 Monocytes # 0.7 Eosinophils # 0.3 Basophils # 0.0 Nucleated Red Blood 0.0 Cells # Sodium Level 136 Potassium Level 4.3 Chloride Level 109 Carbon Dioxide Level 23 Anion Gap 4 L Blood Urea Nitrogen 13 Creatinine 0.73 Est Glomerular Filtrat > 60 Rate mL/min Glucose Level 201 Calcium Level 9.1 Phosphorus Level 3.2 Magnesium Level 1.4 L Total Bilirubin 0.3 Direct Bilirubin 0.00 Indirect Bilirubin 0.3 Aspartate Amino 18 Transf (AST/SGOT) Alanine 21 Aminotransferase (ALT/SG PT) Alkaline Phosphatase 74 Total Protein 5.6 L Albumin 2.9 L Globulin 2.70 Albumin/Globulin Ratio 1.07 Bedside Glucose 201 290 H Exam/Review of Systems Vital Signs Vitals Vital Signs Date Temp Pulse Resp B/P (MAP) Pulse Ox O2 O2 Flow FiO2 Time Delivery Rate 05/29/18 98.1 58 16 139/69 96 08:03 (92) 05/29/18 Room Air 02:00 05/26/18 2.0 12:58 Intake and Output 05/28/18 05/28/18 05/29/18 1515:00 23:00 07:00 IntakeIntake Total 656 ml 1400 ml 1800 ml BalanceBalance 656 ml 1400 ml 1800 ml Medications Medications Current Medications Sodium Chloride 1,000 ml @ 100 mls/hr Q10H IV Last administered on 05/29/18at 02:31; Admin Dose 100 MLS/HR; Start 05/26/18 at 13:26 IV Flush (NS 3 ml) 3 ml PER PROTOCOL IV ; Start 05/26/18 at 13:30 Ondansetron HCl (Zofran Inj) 4 mg Q6H PRN IV NAUSEA AND/OR VOMITING Last administered on 05/27/18at 08:14; Admin Dose 4 MG; Start 05/26/18 at 13:30 Acetaminophen (Tylenol Tab) 650 mg Q6H PRN PO PAIN LEVEL 1-3 OR FEVER Last administered on 05/29/18at 03:34; Admin Dose 650 MG; Start 05/26/18 at 13:30 Oxycodone/ Acetaminophen (Percocet (5/ 325)) 1 tab Q6H PRN PO MODERATE PAIN LEVEL 4-6 Last administered on 05/26/18at 17:22; Admin Dose 1 TAB; Start 05/26/18 at 13:30 Docusate Sodium (Colace) 100 mg Q12H PRN PO CONSTIPATION; Start 05/26/18 at 13:30 Magnesium Hydroxide (Milk Of Mag) 30 ml DAILY PRN PO CONSTIPATION; Start 05/26/18 at 13:30 Bisacodyl (Dulcolax) 5 mg DAILY PRN PO CONSTIPATION; Start 05/26/18 at 13:30 Sodium Biphosphate/ Sodium Phosphate (Fleet Enema) 133 ml DAILY PRN [place] CONSTIPATION; Start 05/26/18 at 13:30 Enoxaparin Sodium (Lovenox) 30 mg DAILY SC Last administered on 05/29/18at 08:09; Admin Dose 30 MG; Start 05/27/18 at 09:00 Bisacodyl (Dulcolax Supp) 10 mg DAILY PRN [place] CONSTIPATION; Start 05/26/18 at 14:00 Metronidazole 100 ml @ 100 mls/hr Q8 IVPB Last administered on 05/29/18at 05:30; Admin Dose 100 MLS/HR; Start 05/26/18 at 16:00 Ciprofloxacin/ Dextrose 200 ml @ 200 mls/hr Q12 IVPB Last administered on 05/29/18at 09:35; Admin Dose 200 MLS/HR; Start 05/27/18 at 09:00 Diagnostic Test (Pha) (Accu-Chek) 1 ea 02 XX ; Start 05/27/18 at 02:00 Insulin Aspart (Novolog Insulin Pen) NOVOLOG *MODERATE* ALGORITHM WITH MEALS BEDTIME SC Last administered on 05/29/18at 12:32; Admin Dose 8 UNIT; Start 05/26/18 at 21:00 Miscellaneous Information 1 ea NOTE XX ; Start 05/26/18 at 21:00 Glucose (Glutose) 15 gm Q15M PRN PO DECREASED GLUCOSE; Start 05/26/18 at 21:00 Glucose (Glutose) 22.5 gm Q15M PRN PO DECREASED GLUCOSE; Start 05/26/18 at 21:00 Dextrose (D50w Syringe) 25 ml Q15M PRN IV DECREASED GLUCOSE; Start 05/26/18 at 21:00 Dextrose (D50w Syringe) 50 ml Q15M PRN IV DECREASED GLUCOSE; Start 05/26/18 at 21:00 Glucagon (Glucagen) 1 mg Q15M PRN IM DECREASED GLUCOSE; Start 05/26/18 at 21:00 Glucose (Glutose) 15 gm Q15M PRN BUCCAL DECREASED GLUCOSE; Start 05/26/18 at 21:00 Hydromorphone HCl (Dilaudid) 1 mg Q4H PRN IV SEVERE PAIN LEVEL 7-10 Last administered on 05/29/18 09:54; Admin Dose 1 MG; Start 05/27/18 at 12:00 Atorvastatin Calcium (Lipitor) 80 mg QHS PO Last administered on 05/28/18 20:27; Admin Dose 80 MG; Start 05/27/18 at 21:00 Citalopram Hydrobromide (Celexa) 20 mg DAILY PO Last administered on 05/29/18 08:11; Admin Dose 20 MG; Start 05/28/18 at 09:00 Lisinopril (Zestril) 5 mg DAILY PO Last administered on 05/28/18 08:39; Admin Dose 5 MG; Start 05/28/18 at 09:00 Paroxetine HCl (Paxil) 20 mg HS PO Last administered on 05/28/18 20:27; Admin Dose 20 MG; Start 05/27/18 at 21:00 Insulin Glargine (Lantus) 13 units DAILY@2000 SC Last administered on 05/28/18 20:13; Admin Dose 13 UNITS; Start 05/27/18 at 20:00 Acetaminophen/ Hydrocodone Bitart ([place] (5/325)) 1 tab Q6H PRN PO MODERATE PAIN LEVEL 4-6 Last administered on 05/28/18 20:26; Admin Dose 1 TAB; Start 05/28/18 at 11:30 Insulin Aspart (Novolog Insulin Pen) 4 unit WITH MEALS SC Last administered on 05/29/18 12:16; Admin Dose 4 UNIT; Start 05/28/18 at 17:35 Pantoprazole (Protonix Iv) 40 mg BID@06,18 IV Last administered on 1/9/19at 05:30; Admin Dose 40 MG; Start 05/28/18 at 18:00 Sucralfate (Carafate Susp) 1 gm QID PO Last administered on 05/29/18at 08:09; Admin Dose 1 GM; Start 05/28/18 at 17:00 NATHALIE SIMENTAL May 29, 2018 13:22
[2018-05-29 14:35] VITALS: BP 131/65; PULSE 63; RESP 16
[2018-05-29] MEDS ORDERED: BARIUM SULF 2% 450 ML BTL (BERRY SMOOTHIE) PO ONE (15:00)
[2018-05-29] MEDS ORDERED: MAGNESIUM SULFATE 3 GM in DEXTROSE 5% 100 ML IVPB ONE (15:30)
[2018-05-29] MEDS ORDERED: SOD CHLORIDE 0.9% 100 ML ONE (18:28)
[2018-05-29] MEDS ORDERED: IOHEXOL 300MG/ML 150 ML BTL ONE (18:28)
[2018-05-29 20:08] VITALS: BP 159/70; PULSE 70; RESP 16
[2018-05-29 20:18] VITALS: BP 155/72
[2018-05-29] MEDS: PAROXETINE 20 MG TAB PO SCH (20:20)
[2018-05-29] MEDS: ATORVASTATIN 80 MG TAB PO SCH (20:20)
[2018-05-29] MEDS: INSULIN GLARGINE [LANTus] (100 UNITS/ML) SYG SC SCH (20:21)
[2018-05-30] MEDS: ACCU-CHEK XX SCH (01:33)
[2018-05-30] MEDS: HYDROmorphONE 0.5 MG/0.5 ML SYG IV PRN ×5 (02:12→19:51)
[2018-05-30 02:42] VITALS: BP 167/74; PULSE 77; RESP 16
[2018-05-30] MEDS: metroNIDAZOLE 500 MG/NS (PMX) 100 ML IVPB SCH (05:40)
[2018-05-30] MEDS: PANTOPRAZOLE 40 MG INJ IV SCH (05:40)
[2018-05-30] MEDS: SOD CHLORIDE 0.9% 1,000 ML IV SCH ×2 (07:19→21:16)
[2018-05-30 07:35] VITALS: BP 136/60; PULSE 54; RESP 16
[2018-05-30] MEDS: INSULIN ASPART [NOVOLOG] 3 ML PEN SC SCH ×7 (08:08→21:10)
[2018-05-30] MEDS: SUCRALFATE (100 MG/ML) 10ML CUP PO SCH ×5 (09:00→21:10)
[2018-05-30] MEDS: LISINOPRIL 5 MG TAB PO SCH (09:25)
[2018-05-30] MEDS: CIPROFLOXACIN 400MG/D5W 200 ML IVPB SCH (09:25)
[2018-05-30] MEDS: CITALOPRAM 20 MG TAB PO SCH (09:26)
[2018-05-30] MEDS: ENOXAPARIN 30 MG/0.3 ML SYG SC SCH (09:26)
--- NOTE | 2018-05-30 10:19 | PN ---
Date/Time of Note Date/Time of Note DATE: 05/30/18 TIME: 10:14 Assessment/Plan VTE Prophylaxis Risk score (from Nsg)>0 risk: 5 SCD applied (from Nsg): Yes Pharmacological prophylaxis: LMWH Lines/Catheters IV Catheter Type (from Nrsg): Mid Line Urinary Cath still in place: No Assessment/Plan Hospital Course SUBJECTIVE: Continues to have abdominal pain. Denies any diarrhea. Refusing colonoscopy. Asking for pain medications [id number]. OBJECTIVE: Physical Exam General: Adequately build 68 year-old female lying in bed in no apparent distress. HEENT: Normocephalic, atraumatic. Eyes: Anicteric sclerae, conjunctivae clear. ENT: Nasal septum midline, oral mucosa moist. Neck supple, no JVD noticed. Respiratory: Bilaterally clear breath sounds. No use of accessory muscles of respiration. No adventitious breath sounds. Cardiovascular: S1, S2 heard. Regular rate and rhythm. Abdomen: Soft and nondistended. Diffuse tenderness. Bowel sounds positive in all 4 quadrants. Genitourinary: Deferred. Extremities: No cyanosis, no clubbing, no edema. Peripheral pulses palpable. Neurologic: Cranial nerves II through XII grossly intact. The patient is awake, alert, and oriented. Skin: Normal skin turgor. No skin rashes. Labs & Vitals per chart ASSESSMENT & PLAN 68-year-old female with comorbidities including hypertension, diabetes mellitus type 2, depression, and obesity who came to the emergency room with chief complaint of abdominal pain with CT evidence of wall thickening and fat stranding about the first and second portions of duodenum (findings compatible with a duodenitis) and long segment circumferential wall thickening of the proximal and mid sigmoid colon with surrounding fat stranding, probably representing a colitis; the patient was admitted to inpatient setting for further treatment and evaluation. 1. Acute abdominal pain. -CT scan of the abdomen and pelvis showing wall thickening and fat stranding about the first and second portions of the duodenum along with long segments of circumferential wall thickening of the proximal and mid sigmoid colon with mild surrounding fat stranding, which may represent a colitis. -Repeat CT scan of the abdomen and pelvis on 05/29/2018 showing no evidence of any colitis. -Continue Cipro and Flagyl. -Continue pain control. -Gastroenterology following. However, the patient refusing colonoscopy. -Stool for OB and H. pylori negative. Stool culture negative to date 2. Diabetes mellitus type 2. -Hemoglobin A1c 11.8. -Continue sliding scale insulin along with basal insulin and pre-meal insulin. 3. Essential hypertension. -Continue antihypertensives. 4. Depression. -Continue SSRIs. 5. Dyslipidemia. -Continue statins. 6. Fluids, electrolytes, and nutrition. -Carbohydrate controlled diet as tolerated. 7. DVT prophylaxis. -Bilateral SCDs. -SQ Lovenox. 8. Plan. -Continue pain control. -Continue antimicrobials. -Await clinical improvement. -Social work consult has been ordered for evaluating psychosocial status the patient. Had a long conversation with the patient with the help of rn progressive care on 05/29/2018 regarding the current clinical condition including no improvement in the patient's clinical condition despite being on antibiotics, the benefits of doing a colonoscopy. Despite the long conversation explaining the benefits of further studies including the need for colonoscopy, the patient declined to have the colonoscopy done. The patient was seen in collaboration with Dr. Brown. Result Diagram: 05/30/18 0532 05/30/18 0532 Results 24hrs Laboratory Tests Test 05/29/18 12:14 05/29/18 17:35 05/29/18 20:19 05/30/18 05:32 Bedside Glucose 290 H 189 126 White Blood Count 8.4 Red Blood Count 4.22 Hemoglobin 12.4 Hematocrit 36.6 L Mean Corpuscular 86.7 Volume Mean Corpuscular 29.4 Hemoglobin Mean Corpuscular 33.9 Hemoglobin Concent Red Cell Distribution 11.9 Width Platelet Count 245 Mean Platelet Volume 9.1 Immature Granulocytes 0.400 % Neutrophils % 56.1 Lymphocytes % 29.8 Monocytes % 9.7 Eosinophils % 3.6 Basophils % 0.4 Nucleated Red Blood 0.0 Cells % Immature Granulocytes 0.030 # Neutrophils # 4.7 Lymphocytes # 2.5 Monocytes # 0.8 Eosinophils # 0.3 Basophils # 0.0 Nucleated Red Blood 0.0 Cells # Sodium Level 140 Potassium Level 3.9 Chloride Level 108 Carbon Dioxide Level 25 Anion Gap 7 Blood Urea Nitrogen 10 Creatinine 0.65 Est Glomerular Filtrat > 60 Rate mL/min Glucose Level 166 Calcium Level 9.6 Phosphorus Level 3.2 Magnesium Level 1.6 L Total Bilirubin 0.2 Direct Bilirubin 0.00 Indirect Bilirubin 0.2 Aspartate Amino 58 H Transf (AST/SGOT) Alanine 32 Aminotransferase (ALT/ SGPT) Alkaline Phosphatase 73 Total Protein 5.7 L Albumin 3.0 L Globulin 2.70 Albumin/Globulin Ratio 1.11 Amylase Level 44 Lipase 25 Test 05/30/18 08:05 Bedside Glucose 184 Exam/Review of Systems Vital Signs Vitals Vital Signs Date Temp Pulse Resp B/P (MAP) Pulse Ox O2 O2 Flow FiO2 Time Delivery Rate 05/30/18 98.5 54 16 136/60 94 Room Air 07:35 (85) 05/26/18 2.0 12:58 Intake and Output 05/29/18 05/29/18 05/30/18 1515:00 23:00 07:00 IntakeIntake Total 200 ml 2000 ml 900 ml BalanceBalance 200 ml 2000 ml 900 ml Medications Medications Current Medications Sodium Chloride 1,000 ml @ 100 mls/hr Q10H IV Last administered on 05/30/18at 07:19; Admin Dose 100 MLS/HR; Start 05/26/18 at 13:26 IV Flush (NS 3 ml) 3 ml PER PROTOCOL IV ; Start 05/26/18 at 13:30 Ondansetron HCl (Zofran Inj) 4 mg Q6H PRN IV NAUSEA AND/OR VOMITING Last administered on 05/27/18at 08:14; Admin Dose 4 MG; Start 05/26/18 at 13:30 Acetaminophen (Tylenol Tab) 650 mg Q6H PRN PO PAIN LEVEL 1-3 OR FEVER Last administered on 05/29/18at 03:34; Admin Dose 650 MG; Start 05/26/18 at 13:30 Oxycodone/ Acetaminophen (Percocet (5/ 325)) 1 tab Q6H PRN PO MODERATE PAIN LEVEL 4-6 Last administered on 05/26/18at 17:22; Admin Dose 1 TAB; Start 05/26/18 at 13:30 Docusate Sodium (Colace) 100 mg Q12H PRN PO CONSTIPATION; Start 05/26/18 at 13:30 Magnesium Hydroxide (Milk Of Mag) 30 ml DAILY PRN PO CONSTIPATION; Start 05/26/18 at 13:30 Bisacodyl (Dulcolax) 5 mg DAILY PRN PO CONSTIPATION; Start 05/26/18 at 13:30 Sodium Biphosphate/ Sodium Phosphate (Fleet Enema) 133 ml DAILY PRN [place] CONSTIPATION; Start 05/26/18 at 13:30 Enoxaparin Sodium (Lovenox) 30 mg DAILY SC Last administered on 05/30/18at 09:26; Admin Dose 30 MG; Start 05/27/18 at 09:00 Bisacodyl (Dulcolax Supp) 10 mg DAILY PRN [place] CONSTIPATION; Start 05/26/18 at 14:00 Metronidazole 100 ml @ 100 mls/hr Q8 IVPB Last administered on 05/30/18at 05:40; Admin Dose 100 MLS/HR; Start 05/26/18 at 16:00 Ciprofloxacin/ Dextrose 200 ml @ 200 mls/hr Q12 IVPB Last administered on 05/30/18at 09:25; Admin Dose 200 MLS/HR; Start 05/27/18 at 09:00 Diagnostic Test (Pha) (Accu-Chek) 1 ea 02 XX ; Start 05/27/18 at 02:00 Insulin Aspart (Novolog Insulin Pen) NOVOLOG *MODERATE* ALGORITHM WITH MEALS BEDTIME SC Last administered on 05/30/18at 08:09; Admin Dose 4 UNIT; Start 05/26/18 at 21:00 Miscellaneous Information 1 ea NOTE XX ; Start 05/26/18 at 21:00 Glucose (Glutose) 15 gm Q15M PRN PO DECREASED GLUCOSE; Start 05/26/18 at 21:00 Glucose (Glutose) 22.5 gm Q15M PRN PO DECREASED GLUCOSE; Start 05/26/18 at 21:00 Dextrose (D50w Syringe) 25 ml Q15M PRN IV DECREASED GLUCOSE; Start 05/26/18 at 21:00 Dextrose (D50w Syringe) 50 ml Q15M PRN IV DECREASED GLUCOSE; Start 05/26/18 at 21:00 Glucagon (Glucagen) 1 mg Q15M PRN IM DECREASED GLUCOSE; Start 05/26/18 at 21:00 Glucose (Glutose) 15 gm Q15M PRN BUCCAL DECREASED GLUCOSE; Start 05/26/18 at 21:00 Hydromorphone HCl (Dilaudid) 1 mg Q4H PRN IV SEVERE PAIN LEVEL 7-10 Last administered on 05/30/18at 06:17; Admin Dose 1 MG; Start 05/27/18 at 12:00 Atorvastatin Calcium (Lipitor) 80 mg QHS PO Last administered on 05/29/18at 2 0:20; Admin Dose 80 MG; Start 05/27/18 at 21:00 Citalopram Hydrobromide (Celexa) 20 mg DAILY PO Last administered on 05/30/18 09:26; Admin Dose 20 MG; Start 05/28/18 at 09:00 Lisinopril (Zestril) 5 mg DAILY PO Last administered on 05/30/18 09:25; Admin Dose 5 MG; Start 05/28/18 at 09:00 Paroxetine HCl (Paxil) 20 mg HS PO Last administered on 05/29/18 20:20; Admin Dose 20 MG; Start 05/27/18 at 21:00 Insulin Glargine (Lantus) 13 units DAILY@2000 SC Last administered on 05/29/18 20:21; Admin Dose 13 UNITS; Start 05/27/18 at 20:00 Acetaminophen/ Hydrocodone Bitart ([place] (5/325)) 1 tab Q6H PRN PO MODERATE PAIN LEVEL 4-6 Last administered on 05/28/18 20:26; Admin Dose 1 TAB; Start 05/28/18 at 11:30 Insulin Aspart (Novolog Insulin Pen) 4 unit WITH MEALS SC Last administered on 05/30/18 08:08; Admin Dose 4 UNIT; Start 05/28/18 at 17:35 Pantoprazole (Protonix Iv) 40 mg BID@06,18 IV Last administered on 05/30/18at 05:40; Admin Dose 40 MG; Start 05/28/18 at 18:00 Sucralfate (Carafate Susp) 1 gm QID PO Last administered on 05/29/18 08:09; Admin Dose 1 GM; Start 05/28/18 at 17:00 MISTI DACOSTA NP May 30, 2018 10:19
[2018-05-30] MEDS ORDERED: MAGNESIUM SULFATE 2 GM/50 ML 50 ML IVPB ONE (11:30)
--- NOTE | 2018-05-30 13:52 | PN ---
Date/Time of Note Date/Time of Note DATE: 05/30/18 TIME: 13:49 Assessment/Plan VTE Prophylaxis Risk score (from Ns)>0 risk: 5 SCD applied (from Nsg): Yes Pharmacological prophylaxis: other (scds) Lines/Catheters IV Catheter Type (from Nrsg): Mid Line Urinary Cath still in place: No Assessment/Plan Hospital Course Summary Assessment and Plan: Assessment: Abdominal pain Nausea/vomiting Wall thickening/fat stranding -The first and second portions of the duodenum. - Pancreatic head. - Proximal and mid sigmoid colon Hypertension Diabetes type 2 12 mm noncalcified left adrenal nodule Plan: Pt refuses EGD/colonoscopy Continue abx and pain management GI will sign off at this time but will be available upon reconsult as needed Patient seen in collaboration with Dr. Gallardo/Agapito Subjective/Free text: Course reviewed with nursing staff Patient interviewed and examined All labs, imaging and other results reviewed repeat Ct 05/29/18-No evidence of duodenitis or pancreatitis, bowel mass or obstruction Colitis is not noted. Stool cx, stool for h.pylori, stool Ob- all negative. Psych eval pending pt still with some pain, however she states a little better today. No c/o BRBPR, or melena WBC- WNL. PHYSICAL EXAMINATION: GENERAL: Well developed, well nourished, alert & oriented x 3, in no acute distress SKIN: No lesions, no stigmata chronic liver disease, no evidence of bleeding diathesis EYES: Pupils equal reactive to light, no discharge. EARS/NOSE AND THROAT: Ears normal, nose normal NECK: Supple, no masses CHEST: Inspection within normal limits. CARDIOVASCULAR: Heart: Regular rate and rhythm RESPIRATORY: Lungs clear to auscultation GASTROINTESTINAL AND LIVER: Abdomen: Soft, generalized abdominal pain, non- distended, no hernias, no masses, no organomegaly, no ascites, no guarding, no rebound tenderness, normoactive bowel sounds. Rectal: Deferred. EXTREMITIES: No cyanosis, clubbing or edema Result Diagram: 05/30/18 0532 05/30/18 0532 Results 24hrs Laboratory Tests Test 05/29/18 17:35 05/29/18 20:19 05/30/18 05:32 05/30/18 08:05 Bedside Glucose 189 126 184 White Blood Count 8.4 Red Blood Count 4.22 Hemoglobin 12.4 Hematocrit 36.6 L Mean Corpuscular 86.7 Volume Mean Corpuscular 29.4 Hemoglobin Mean Corpuscular 33.9 Hemoglobin Concent Red Cell Distribution 11.9 Width Platelet Count 245 Mean Platelet Volume 9.1 Immature Granulocytes 0.400 % Neutrophils % 56.1 Lymphocytes % 29.8 Monocytes % 9.7 Eosinophils % 3.6 Basophils % 0.4 Nucleated Red Blood 0.0 Cells % Immature Granulocytes 0.030 # Neutrophils # 4.7 Lymphocytes # 2.5 Monocytes # 0.8 Eosinophils # 0.3 Basophils # 0.0 Nucleated Red Blood 0.0 Cells # Sodium Level 140 Potassium Level 3.9 Chloride Level 108 Carbon Dioxide Level 25 Anion Gap 7 Blood Urea Nitrogen 10 Creatinine 0.65 Est Glomerular > 60 Filtrat Rate mL/min Glucose Level 166 Calcium Level 9.6 Phosphorus Level 3.2 Magnesium Level 1.6 L Total Bilirubin 0.2 Direct Bilirubin 0.00 Indirect Bilirubin 0.2 Aspartate Amino 58 H Transf (AST/SGOT) Alanine 32 Aminotransferase (ALT /SGPT) Alkaline Phosphatase 73 Total Protein 5.7 L Albumin 3.0 L Globulin 2.70 Albumin/Globulin 1.11 Ratio Amylase Level 44 Lipase 25 Test 05/30/18 12:12 Bedside Glucose 267 H Exam/Review of Systems Vital Signs Vitals Vital Signs Date Temp Pulse Resp B/P (MAP) Pulse Ox O2 O2 Flow FiO2 Time Delivery Rate 05/30/18 98.5 54 16 136/60 94 Room Air 07:35 (85) 05/26/18 2.0 12:58 Intake and Output 05/29/18 05/29/18 05/30/18 1515:00 23:00 07:00 IntakeIntake Total 200 ml 2000 ml 900 ml BalanceBalance 200 ml 2000 ml 900 ml Medications Medications Current Medications Sodium Chloride 1,000 ml @ 100 mls/hr Q10H IV Last administered on 05/30/18at 07:19; Admin Dose 100 MLS/HR; Start 05/26/18 at 13:26 IV Flush (NS 3 ml) 3 ml PER PROTOCOL IV ; Start 05/26/18 at 13:30 Ondansetron HCl (Zofran Inj) 4 mg Q6H PRN IV NAUSEA AND/OR VOMITING Last administered on 05/27/18at 08:14; Admin Dose 4 MG; Start 05/26/18 at 13:30 Acetaminophen (Tylenol Tab) 650 mg Q6H PRN PO PAIN LEVEL 1-3 OR FEVER Last adm inistered on 05/29/18at 03:34; Admin Dose 650 MG; Start 05/26/18 at 13:30 Oxycodone/ Acetaminophen (Percocet (5/ 325)) 1 tab Q6H PRN PO MODERATE PAIN LEVEL 4-6 Last administered on 05/26/18at 17:22; Admin Dose 1 TAB; Start 05/26/18 at 13:30 Docusate Sodium (Colace) 100 mg Q12H PRN PO CONSTIPATION; Start 05/26/18 at 13:30 Magnesium Hydroxide (Milk Of Mag) 30 ml DAILY PRN PO CONSTIPATION; Start 05/26/18 at 13:30 Bisacodyl (Dulcolax) 5 mg DAILY PRN PO CONSTIPATION; Start 05/26/18 at 13:30 Sodium Biphosphate/ Sodium Phosphate (Fleet Enema) 133 ml DAILY PRN [place] CONSTIPATION; Start 05/26/18 at 13:30 Enoxaparin Sodium (Lovenox) 30 mg DAILY SC Last administered on 05/30/18at 09:26; Admin Dose 30 MG; Start 05/27/18 at 09:00 Bisacodyl (Dulcolax Supp) 10 mg DAILY PRN [place] CONSTIPATION; Start 05/26/18 at 14:00 Metronidazole 100 ml @ 100 mls/hr Q8 IVPB Last administered on 05/30/18at 05:40; Admin Dose 100 MLS/HR; Start 05/26/18 at 16:00 Ciprofloxacin/ Dextrose 200 ml @ 200 mls/hr Q12 IVPB Last administered on 05/30/18at 09:25; Admin Dose 200 MLS/HR; Start 05/27/18 at 09:00 Diagnostic Test (Pha) (Accu-Chek) 1 ea 02 XX ; Start 05/27/18 at 02:00 Insulin Aspart (Novolog Insulin Pen) NOVOLOG *MODERATE* ALGORITHM WITH MEALS BEDTIME SC Last administered on 05/30/18at 12:14; Admin Dose 8 UNIT; Start 05/26/18 at 21:00 Miscellaneous Information 1 ea NOTE XX ; Start 05/26/18 at 21:00 Glucose (Glutose) 15 gm Q15M PRN PO DECREASED GLUCOSE; Start 05/26/18 at 21:00 Glucose (Glutose) 22.5 gm Q15M PRN PO DECREASED GLUCOSE; Start 05/26/18 at 21:00 Dextrose (D50w Syringe) 25 ml Q15M PRN IV DECREASED GLUCOSE; Start 05/26/18 at 21:00 Dextrose (D50w Syringe) 50 ml Q15M PRN IV DECREASED GLUCOSE; Start 05/26/18 at 21:00 Glucagon (Glucagen) 1 mg Q15M PRN IM DECREASED GLUCOSE; Start 05/26/18 at 21:00 Glucose (Glutose) 15 gm Q15M PRN BUCCAL DECREASED GLUCOSE; Start 05/26/18 at 21:00 Hydromorphone HCl (Dilaudid) 1 mg Q4H PRN IV SEVERE PAIN LEVEL 7-10 Last administered on 05/30/18 10:19; Admin Dose 1 MG; Start 05/27/18 at 12:00 Atorvastatin Calcium (Lipitor) 80 mg QHS PO Last administered on 05/29/18 20:20; Admin Dose 80 MG; Start 05/27/18 at 21:00 Citalopram Hydrobromide (Celexa) 20 mg DAILY PO Last administered on 05/30/18 09:26; Admin Dose 20 MG; Start 05/28/18 at 09:00 Lisinopril (Zestril) 5 mg DAILY PO Last administered on 05/30/18 09:25; Admin Dose 5 MG; Start 05/28/18 at 09:00 Paroxetine HCl (Paxil) 20 mg HS PO Last administered on 05/29/18at 20:20; Admin Dose 20 MG; Start 05/27/18 at 21:00 Insulin Glargine (Lantus) 13 units DAILY@2000 SC Last administered on 05/29/18 20:21; Admin Dose 13 UNITS; Start 05/27/18 at 20:00 Acetaminophen/ Hydrocodone Bitart ([place] (5/325)) 1 tab Q6H PRN PO MODERATE P AIN LEVEL 4-6 Last administered on 05/28/18 20:26; Admin Dose 1 TAB; Start 05/28/18 at 11:30 Insulin Aspart (Novolog Insulin Pen) 4 unit WITH MEALS SC Last administered on 05/30/18at 12:14; Admin Dose 4 UNIT; Start 05/28/18 at 17:35 Pantoprazole (Protonix Iv) 40 mg BID@06,18 IV Last administered on 05/30/18at 05:40; Admin Dose 40 MG; Start 05/28/18 at 18:00 Sucralfate (Carafate Susp) 1 gm QID PO Last administered on 05/29/18at 08:09; Admin Dose 1 GM; Start 05/28/18 at 17:00 NATHALIE SIMENTAL May 30, 2018 13:52
[2018-05-30 14:30] VITALS: BP 143/90; PULSE 65; RESP 18
[2018-05-30] MEDS: metroNIDAZOLE 500 MG TAB PO SCH ×2 (16:06→21:11)
[2018-05-30] MEDS: CIPROFLOXACIN 500 MG TAB PO SCH (17:21)
[2018-05-30] MEDS: PANTOPRAZOLE (EC) 40 MG TAB PO SCH (17:21)
[2018-05-30 20:00] VITALS: BP 154/67; PULSE 70; RESP 18
[2018-05-30] MEDS: INSULIN GLARGINE [LANTus] (100 UNITS/ML) SYG SC SCH (21:09)
[2018-05-30] MEDS: ATORVASTATIN 80 MG TAB PO SCH (21:10)
[2018-05-30] MEDS: PAROXETINE 20 MG TAB PO SCH (21:11)
[2018-05-30 22:43] VITALS: BP 139/64; PULSE 72
[2018-05-30] MEDS ORDERED: ZOLPIDEM 5 MG TAB PO ONE (23:00)
[2018-05-31] MEDS: HYDROmorphONE 0.5 MG/0.5 ML SYG IV PRN ×6 (00:14→22:09)
[2018-05-31 02:00] VITALS: BP 116/56; PULSE 64; RESP 19
[2018-05-31] MEDS: ACCU-CHEK XX SCH (02:00)
[2018-05-31] MEDS: SOD CHLORIDE 0.9% 1,000 ML IV SCH ×2 (03:26→09:23)
[2018-05-31] MEDS: CIPROFLOXACIN 500 MG TAB PO SCH ×2 (05:17→17:20)
[2018-05-31] MEDS: PANTOPRAZOLE (EC) 40 MG TAB PO SCH ×2 (05:17→17:20)
[2018-05-31] MEDS: metroNIDAZOLE 500 MG TAB PO SCH ×3 (08:16→20:34)
[2018-05-31] MEDS: CITALOPRAM 20 MG TAB PO SCH (08:18)
[2018-05-31] MEDS: SUCRALFATE (100 MG/ML) 10ML CUP PO SCH ×5 (08:18→20:34)
[2018-05-31] MEDS: LISINOPRIL 5 MG TAB PO SCH (08:21)
[2018-05-31] MEDS: INSULIN ASPART [NOVOLOG] 3 ML PEN SC SCH ×7 (08:28→20:33)
[2018-05-31] MEDS: ENOXAPARIN 30 MG/0.3 ML SYG SC SCH (08:28)
[2018-05-31 08:50] VITALS: BP 149/65; PULSE 67; RESP 18
[2018-05-31 14:52] VITALS: BP 140/65; PULSE 66; RESP 18
[2018-05-31] MEDS ORDERED: MAGNESIUM SULFATE 3 GM in DEXTROSE 5% 100 ML IVPB ONE (17:00)
--- NOTE | 2018-05-31 17:17 | PN ---
Date/Time of Note Date/Time of Note DATE: 05/31/18 TIME: 17:17 Assessment/Plan VTE Prophylaxis Risk score (from Ns)>0 risk: 3 SCD applied (from Ns): No SCD contraindicated: other Pharmacological prophylaxis: LMWH Lines/Catheters IV Catheter Type (from Rust): Mid Line Urinary Cath still in place: No Assessment/Plan Hospital Course SUBJECTIVE: Continues to have abdominal pain. Denies any diarrhea. Refusing colonoscopy. Asking for pain medications [id number]. OBJECTIVE: Physical Exam General: Adequately build 68 year-old female lying in bed in no apparent distress. HEENT: Normocephalic, atraumatic. Eyes: Anicteric sclerae, conjunctivae clear. ENT: Nasal septum midline, oral mucosa moist. Neck supple, no JVD noticed. Respiratory: Bilaterally clear breath sounds. No use of accessory muscles of respiration. No adventitious breath sounds. Cardiovascular: S1, S2 heard. Regular rate and rhythm. Abdomen: Soft and nondistended. Diffuse tenderness. Bowel sounds positive in all 4 quadrants. Genitourinary: Deferred. Extremities: No cyanosis, no clubbing, no edema. Peripheral pulses palpable. Neurologic: Cranial nerves II through XII grossly intact. The patient is awake, alert, and oriented. Skin: Normal skin turgor. No skin rashes. Labs & Vitals per chart ASSESSMENT & PLAN 68-year-old female with comorbidities including hypertension, diabetes mellitus type 2, depression, and obesity who came to the emergency room with chief complaint of abdominal pain with CT evidence of wall thickening and fat strand ing about the first and second portions of duodenum (findings compatible with a duodenitis) and long segment circumferential wall thickening of the proximal and mid sigmoid colon with surrounding fat stranding, probably representing a colitis; the patient was admitted to inpatient setting for further treatment and evaluation. 1. Acute abdominal pain. -CT scan of the abdomen and pelvis showing wall thickening and fat stranding about the first and second portions of the duodenum along with long segments of circumferential wall thickening of the proximal and mid sigmoid colon with mild surrounding fat stranding, which may represent a colitis. -Repeat CT scan of the abdomen and pelvis on 05/29/2018 showing no evidence of any colitis. -Continue Cipro and Flagyl. -Continue pain control. -Gastroenterology following. However, the patient refusing colonoscopy. -Stool for OB and H. pylori negative. Stool culture negative to date 2. Diabetes mellitus type 2. -Hemoglobin A1c 11.8. -Continue sliding scale insulin along with basal insulin and pre-meal insulin. 3. Essential hypertension. -Continue antihypertensives. 4. Depression. -Continue SSRIs. 5. Dyslipidemia. -Continue statins. 6. Fluids, electrolytes, and nutrition. -Carbohydrate controlled diet as tolerated. 7. DVT prophylaxis. -Bilateral SCDs. -SQ Lovenox. 8. Plan. -Continue pain control. -Continue antimicrobials. -Await clinical improvement. -DC IV opioids. Had a long conversation with the patient with the help of professor of biblical studies on 05/29/2018 regarding the current clinical condition including no improvement in the patient's clinical condition despite being on antibiotics, the benefits of doing a colonoscopy. Despite the long conversation explaining the benefits of further studies including the need for colonoscopy, the patient declined to have the colonoscopy done. The patient was seen in collaboration with Dr. Brown. Result Diagram: 05/31/18 0608 05/31/18 0608 Results 24hrs Laboratory Tests Test 05/30/18 17:19 05/30/18 21:06 05/31/18 02:25 05/31/18 06:08 Bedside Glucose 211 274 H 239 H White Blood Count 7.6 Red Blood Count 4.10 L Hemoglobin 11.9 L Hematocrit 35.8 L Mean Corpuscular 87.3 Volume Mean Corpuscular 29.0 Hemoglobin Mean Corpuscular 33.2 Hemoglobin Concent Red Cell 11.9 Distribution Width Platelet Count 254 Mean Platelet Volume 9.4 Immature 0.400 Granulocytes % Neutrophils % 54.9 Lymphocytes % 27.5 Monocytes % 12.3 H Eosinophils % 4.6 Basophils % 0.3 Nucleated Red Blood 0.0 Cells % Immature 0.030 Granulocytes # Neutrophils # 4.2 Lymphocytes # 2.1 Monocytes # 0.9 Eosinophils # 0.4 Basophils # 0.0 Nucleated Red Blood 0.0 Cells # Sodium Level 136 Potassium Level 4.1 Chloride Level 106 Carbon Dioxide Level 25 Anion Gap 5 Blood Urea Nitrogen 8 Creatinine 0.62 Est Glomerular > 60 Filtrat Rate mL/min Glucose Level 241 H Calcium Level 9.2 Phosphorus Level 3.0 Magnesium Level 1.4 L Total Bilirubin 0.2 Direct Bilirubin 0.00 Indirect Bilirubin 0.2 Aspartate Amino 51 H Transf (AST/SGOT) Alanine 49 Aminotransferase (AL T/SGPT) Alkaline Phosphatase 81 Total Protein 5.6 L Albumin 2.9 L Globulin 2.70 Albumin/Globulin 1.07 Ratio Test 05/31/18 07:57 05/31/18 12:14 Bedside Glucose 218 361 H Exam/Review of Systems Vital Signs Vitals Vital Signs Date Temp Pulse Resp B/P (MAP) Pulse Ox O2 O2 Flow FiO2 Time Delivery Rate 05/31/18 98.5 66 18 140/65 96 14:52 (90) 05/30/18 Room Air 14:30 Intake and Output 05/30/18 05/30/18 05/31/18 1515:00 23:00 07:00 IntakeIntake Total 2000 ml 570 ml 900 ml BalanceBalance 2000 ml 570 ml 900 ml Medications Medications Current Medications Sodium Chloride 1,000 ml @ 100 mls/hr Q10H IV Last administered on 05/31/18at 09:23; Admin Dose 100 MLS/HR; Start 05/26/18 at 13:26 IV Flush (NS 3 ml) 3 ml PER PROTOCOL IV ; Start 05/26/18 at 13:30 Ondansetron HCl (Zofran Inj) 4 mg Q6H PRN IV NAUSEA AND/OR VOMITING Last administered on 05/27/18at 08:14; Admin Dose 4 MG; Start 05/26/18 at 13:30 Acetaminophen (Tylenol Tab) 650 mg Q6H PRN PO PAIN LEVEL 1-3 OR FEVER Last administered on 05/29/18at 03:34; Admin Dose 650 MG; Start 05/26/18 at 13:30 Oxycodone/ Acetaminophen (Percocet (5/ 325)) 1 tab Q6H PRN PO MODERATE PAIN LEVEL 4-6 Last administered on 05/26/18at 17:22; Admin Dose 1 TAB; Start 05/26/18 at 13:30 Docusate Sodium (Colace) 100 mg Q12H PRN PO CONSTIPATION; Start 05/26/18 at 13:30 Magnesium Hydroxide (Milk Of Mag) 30 ml DAILY PRN PO CONSTIPATION; Start 05/26/18 at 13:30 Bisacodyl (Dulcolax) 5 mg DAILY PRN PO CONSTIPATION; Start 05/26/18 at 13:30 Sodium Biphosphate/ Sodium Phosphate (Fleet Enema) 133 ml DAILY PRN [place] CONSTIPATION; Start 05/26/18 at 13:30 Enoxaparin Sodium (Lovenox) 30 mg DAILY SC Last administered on 05/31/18at 08:28; Admin Dose 30 MG; Start 05/27/18 at 09:00 Bisacodyl (Dulcolax Supp) 10 mg DAILY PRN [place] CONSTIPATION; Start 05/26/18 at 14:00 Diagnostic Test (Pha) (Accu-Chek) 1 ea 02 XX ; Start 05/27/18 at 02:00 Insulin Aspart (Novolog Insulin Pen) NOVOLOG *MODERATE* ALGORITHM WITH MEALS BEDTIME SC Last administered on 05/31/18at 12:20; Admin Dose 12 UNIT; Start 05/26/18 at 21:00 Miscellaneous Information 1 ea NOTE XX ; Start 05/26/18 at 21:00 Glucose (Glutose) 15 gm Q15M PRN PO DECREASED GLUCOSE; Start 05/26/18 at 21:00 Glucose (Glutose) 22.5 gm Q15M PRN PO DECREASED GLUCOSE; Start 05/26/18 at 21:00 Dextrose (D50w Syringe) 25 ml Q15M PRN IV DECREASED GLUCOSE; Start 05/26/18 at 21:00 Dextrose (D50w Syringe) 50 ml Q15M PRN IV DECREASED GLUCOSE; Start 05/26/18 at 21:00 Glucagon (Glucagen) 1 mg Q15M PRN IM DECREASED GLUCOSE; Start 05/26/18 at 21:00 Glucose (Glutose) 15 gm Q15M PRN BUCCAL DECREASED GLUCOSE; Start 05/26/18 at 21:00 Hydromorphone HCl (Dilaudid) 1 mg Q4H PRN IV SEVERE PAIN LEVEL 7-10 Last administered on 05/31/18at 13:18; Admin Dose 1 MG; Start 05/27/18 at 12:00 Atorvastatin Calcium (Lipitor) 80 mg QHS PO Last administered on 05/30/18at 21: 10; Admin Dose 80 MG; Start 05/27/18 at 21:00 Citalopram Hydrobromide (Celexa) 20 mg DAILY PO Last administered on 05/31/18at 08:18; Admin Dose 20 MG; Start 05/28/18 at 09:00 Lisinopril (Zestril) 5 mg DAILY PO Last administered on 05/31/18at 08:21; Admin Dose 5 MG; Start 05/28/18 at 09:00 Paroxetine HCl (Paxil) 20 mg HS PO Last administered on 05/30/18at 21:11; Admin Dose 20 MG; Start 05/27/18 at 21:00 Acetaminophen/ Hydrocodone Bitart ([place] (5/325)) 1 tab Q6H PRN PO MODERATE PAIN LEVEL 4-6 Last administered on 05/28/18at 20:26; Admin Dose 1 TAB; Start 05/28/18 at 11:30 Sucralfate (Carafate Susp) 1 gm QID PO Last administered on 05/31/18at 12:22; Admin Dose 1 GM; Start 05/28/18 at 17:00 Ciprofloxacin (Cipro) 500 mg BID@06,18 PO Last administered on 05/31/18at 05:17; Admin Dose 500 MG; Start 05/30/18 at 18:00 Metronidazole (Flagyl) 500 mg TID PO Last administered on 05/31/18at 12:22; Admin Dose 500 MG; Start 05/30/18 at 15:30 Pantoprazole (Protonix Tab) 40 mg BID@0600,1800 PO Last administered on 05/31/18at 05:17; Admin Dose 40 MG; Start 05/30/18 at 18:00 Insulin Aspart (Novolog Insulin Pen) 6 unit WITH MEALS SC ; Start 05/31/18 at 17:35 Insulin Glargine (Lantus) 15 units DAILY@2000 SC ; Start 05/31/18 at 20:00 Magnesium Sulfate 3 gm/Dextrose 106 ml @ 35.333 mls/ hr ONCE ONCE IVPB ; Start 05/31/18 at 17:00; Stop 05/31/18 at 19:59 MISTI DACOSTA NP May 31, 2018 17:17
[2018-05-31 20:00] VITALS: BP 138/61; PULSE 66; RESP 20
[2018-05-31] MEDS ORDERED: INSULIN GLARGINE [LANTus] (100 UNITS/ML) SYG SC SCH (20:00)
[2018-05-31] MEDS: ATORVASTATIN 80 MG TAB PO SCH (20:34)
[2018-05-31] MEDS: PAROXETINE 20 MG TAB PO SCH (20:34)
[2018-06-01 02:00] VITALS: BP 164/77; PULSE 87; RESP 19
[2018-06-01] MEDS: HYDROmorphONE 0.5 MG/0.5 ML SYG IV PRN ×4 (02:20→21:10)
[2018-06-01] MEDS: ACCU-CHEK XX SCH (02:26)
[2018-06-01 05:30] VITALS: BP 158/73
[2018-06-01] MEDS: PANTOPRAZOLE (EC) 40 MG TAB PO SCH ×2 (05:53→17:33)
[2018-06-01] MEDS: CIPROFLOXACIN 500 MG TAB PO SCH ×2 (05:53→17:33)
[2018-06-01 07:20] VITALS: BP 154/71; PULSE 69; RESP 18
[2018-06-01] MEDS: INSULIN ASPART [NOVOLOG] 3 ML PEN SC SCH ×7 (08:15→21:16)
[2018-06-01] MEDS: metroNIDAZOLE 500 MG TAB PO SCH ×3 (08:16→21:18)
[2018-06-01] MEDS: SUCRALFATE (100 MG/ML) 10ML CUP PO SCH ×4 (08:16→21:18)
[2018-06-01] MEDS: LISINOPRIL 5 MG TAB PO SCH (08:19)
[2018-06-01] MEDS: CITALOPRAM 20 MG TAB PO SCH (08:19)
[2018-06-01] MEDS: ENOXAPARIN 30 MG/0.3 ML SYG SC SCH (08:19)
[2018-06-01] MEDS: HYDROCODONE/APAP (5/325) TAB PO PRN ×2 (08:28→14:42)
[2018-06-01] MEDS: KETOROLAC 30 MG INJ IV PRN ×2 (09:18→15:37)
[2018-06-01] MEDS ORDERED: HYDROmorphONE 0.5 MG/0.5 ML SYG IV STA (09:55)
[2018-06-01] MEDS ORDERED: MAGNESIUM SULFATE 2 GM/50 ML 50 ML IVPB ONE (13:00)
[2018-06-01 14:05] VITALS: BP 150/65; PULSE 65; RESP 16
--- NOTE | 2018-06-01 15:02 | PN ---
Date/Time of Note Date/Time of Note DATE: 06/01/18 TIME: 15:00 Assessment/Plan VTE Prophylaxis Risk score (from Nsg)>0 risk: 4 SCD applied (from Ns): No SCD contraindicated: other Pharmacological prophylaxis: LMWH Lines/Catheters IV Catheter Type (from Nrsg): Mid Line Urinary Cath still in place: No Assessment/Plan Hospital Course SUBJECTIVE: Continues to have abdominal pain. Denies any diarrhea. Asking for pain medications [id number]. OBJECTIVE: Physical Exam General: Adequately build 68 year-old female lying in bed in no apparent distress. HEENT: Normocephalic, atraumatic. Eyes: Anicteric sclerae, conjunctivae clear. ENT: Nasal septum midline, oral mucosa moist. Neck supple, no JVD noticed. Respiratory: Bilaterally clear breath sounds. No use of accessory muscles of respiration. No adventitious breath sounds. Cardiovascular: S1, S2 heard. Regular rate and rhythm. Abdomen: Soft and nondistended. Diffuse tenderness. Bowel sounds positive in all 4 quadrants. Genitourinary: Deferred. Extremities: No cyanosis, no clubbing, no edema. Peripheral pulses palpable. Neurologic: Cranial nerves II through XII grossly intact. The patient is awake, alert, and oriented. Skin: Normal skin turgor. No skin rashes. Labs & Vitals per chart ASSESSMENT & PLAN 68-year-old female with comorbidities including hypertension, diabetes mellitus type 2, depression, and obesity who came to the emergency room with chief c omplaint of abdominal pain with CT evidence of wall thickening and fat stranding about the first and second portions of duodenum (findings compatible with a duodenitis) and long segment circumferential wall thickening of the proximal and mid sigmoid colon with surrounding fat stranding, probably representing a colitis; the patient was admitted to inpatient setting for further treatment and evaluation. 1. Acute abdominal pain. -CT scan of the abdomen and pelvis showing wall thickening and fat stranding about the first and second portions of the duodenum along with long segments of circumferential wall thickening of the proximal and mid sigmoid colon with mild surrounding fat stranding, which may represent a colitis. -Repeat CT scan of the abdomen and pelvis on 05/29/2018 showing no evidence of any colitis. -Continue Cipro and Flagyl. -Continue pain control. -Gastroenterology was following. However, the patient refusing colonoscopy. Gastroenterology signed off on the case. -Stool for OB and H. pylori negative. Stool culture negative to date 2. Diabetes mellitus type 2. -Hemoglobin A1c 11.8. -Continue sliding scale insulin along with basal insulin and pre-meal insulin. 3. Essential hypertension. -Continue antihypertensives. 4. Depression. -Continue SSRIs. 5. Dyslipidemia. -Continue statins. 6. Fluids, electrolytes, and nutrition. -Carbohydrate controlled diet as tolerated. 7. DVT prophylaxis. -SQ Lovenox. 8. Plan. -Continue pain control. -Continue antimicrobials. -Await clinical improvement. -Obtain pain management consult. -Replete magnesium. -Adjust insulin dosing. -Reconsult gastroenterology. Had a long conversation with the patient on 06/01/2018 with the help of the floor charge nurse Mariana who speaks Samoan. The patient was informed about the need to cut down her opioids since there is discharge planning to discharge the patient home since the patient is agreeing to perform any invasive procedures. The patient also verbalized that she is tired of staying here. The patient was informed that there is no clinical justification for sending her home on oral opioids. Then, the patient agreed for further investigation of her abdominal pain including colonoscopy. The patient was informed that gastroenterology had already signed off on her case and needs to be reconsulted for her to be seen and she probably needs to stay in the hospital until Sunday for any invasive procedures such as colonoscopy. The patient verbalized understanding and agreed to have a colonoscopy done. Gastroenterology was reconsulted on this patient. The patient was seen in collaboration with Dr. Brown. Result Diagram: 06/01/18 0501 06/01/18 0501 Results 24hrs Laboratory Tests Test 05/31/18 17:24 05/31/18 20:27 06/01/18 02:24 06/01/18 05:01 Bedside Glucose 217 229 H 235 H White Blood Count 10.1 # Red Blood Count 4.47 Hemoglobin 13.0 Hematocrit 38.8 Mean Corpuscular 86.8 Volume Mean Corpuscular 29.1 Hemoglobin Mean Corpuscular 33.5 Hemoglobin Concent Red Cell 11.9 Distribution Width Platelet Count 212 Mean Platelet Volume 10.8 H Immature 0.400 Granulocytes % Neutrophils % 60.7 Lymphocytes % 23.1 Monocytes % 10.7 Eosinophils % 4.8 Basophils % 0.3 Nucleated Red Blood 0.0 Cells % Immature 0.040 H Granulocytes # Neutrophils # 6.1 Lymphocytes # 2.3 Monocytes # 1.1 H Eosinophils # 0.5 Basophils # 0.0 Nucleated Red Blood 0.0 Cells # Sodium Level 136 Potassium Level 4.1 Chloride Level 103 Carbon Dioxide Level 27 Anion Gap 6 Blood Urea Nitrogen 11 Creatinine 0.62 Est Glomerular > 60 Filtrat Rate mL/min Glucose Level 242 H Calcium Level 9.9 Phosphorus Level 3.2 Magnesium Level 1.6 L Total Bilirubin 0.3 Direct Bilirubin 0.00 Indirect Bilirubin 0.3 Aspartate Amino 50 H Transf (AST/SGOT) Alanine 54 Aminotransferase (AL T/SGPT) Alkaline Phosphatase 87 Total Protein 6.2 Albumin 3.3 Globulin 2.90 Albumin/Globulin 1.13 Ratio Test 06/01/18 08:00 06/01/18 11:41 Bedside Glucose 230 H 301 H Exam/Review of Systems Vital Signs Vitals Vital Signs Date Temp Pulse Resp B/P (MAP) Pulse Ox O2 O2 Flow FiO2 Time Delivery Rate 06/01/18 98.1 65 16 150/65 95 Nasal 14:05 (93) Cannula Intake and Output 05/31/18 05/31/18 06/01/18 1515:00 23:00 07:00 IntakeIntake Total 680 ml 1146.000 ml BalanceBalance 680 ml 1146.000 ml Medications Medications Current Medications IV Flush (NS 3 ml) 3 ml PER PROTOCOL IV ; Start 05/26/18 at 13:30 Ondansetron HCl (Zofran Inj) 4 mg Q6H PRN IV NAUSEA AND/OR VOMITING Last admi nistered on 05/27/18at 08:14; Admin Dose 4 MG; Start 05/26/18 at 13:30 Acetaminophen (Tylenol Tab) 650 mg Q6H PRN PO PAIN LEVEL 1-3 OR FEVER Last administered on 05/29/18at 03:34; Admin Dose 650 MG; Start 05/26/18 at 13:30 Oxycodone/ Acetaminophen (Percocet (5/ 325)) 1 tab Q6H PRN PO MODERATE PAIN LEVEL 4-6 Last administered on 05/26/18at 17:22; Admin Dose 1 TAB; Start 05/26/18 at 13:30 Docusate Sodium (Colace) 100 mg Q12H PRN PO CONSTIPATION; Start 05/26/18 at 13:30 Magnesium Hydroxide (Milk Of Mag) 30 ml DAILY PRN PO CONSTIPATION; Start 05/26/18 at 13:30 Bisacodyl (Dulcolax) 5 mg DAILY PRN PO CONSTIPATION; Start 05/26/18 at 13:30 Sodium Biphosphate/ Sodium Phosphate (Fleet Enema) 133 ml DAILY PRN [place] CONSTIPATION; Start 05/26/18 at 13:30 Enoxaparin Sodium (Lovenox) 30 mg DAILY SC Last administered on 06/01/18at 08:19; Admin Dose 30 MG; Start 05/27/18 at 09:00 Bisacodyl (Dulcolax Supp) 10 mg DAILY PRN [place] CONSTIPATION; Start 05/26/18 at 14:00 Diagnostic Test (Pha) (Accu-Chek) 1 ea 02 XX Last administered on 06/01/18at 02:26; Admin Dose 1 EA; Start 05/27/18 at 02:00 Insulin Aspart (Novolog Insulin Pen) NOVOLOG *MODERATE* ALGORITHM WITH MEALS BEDTIME SC Last administered on 06/01/18at 12:09; Admin Dose 10 UNIT; Start 05/26/18 at 21:00 Miscellaneous Information 1 ea NOTE XX ; Start 05/26/18 at 21:00 Glucose (Glutose) 15 gm Q15M PRN PO DECREASED GLUCOSE; Start 05/26/18 at 21:00 Glucose (Glutose) 22.5 gm Q15M PRN PO DECREASED GLUCOSE; Start 05/26/18 at 21:00 Dextrose (D50w Syringe) 25 ml Q15M PRN IV DECREASED GLUCOSE; Start 05/26/18 at 21:00 Dextrose (D50w Syringe) 50 ml Q15M PRN IV DECREASED GLUCOSE; Start 05/26/18 at 21:00 Glucagon (Glucagen) 1 mg Q15M PRN IM DECREASED GLUCOSE; Start 05/26/18 at 21:00 Glucose (Glutose) 15 gm Q15M PRN BUCCAL DECREASED GLUCOSE; Start 05/26/18 at 21:00 Atorvastatin Calcium (Lipitor) 80 mg QHS PO Last administered on 05/31/18at 20:34; Admin Dose 80 MG; Start 05/27/18 at 21:00 Citalopram Hydrobromide (Celexa) 20 mg DAILY PO Last administered on 06/01/18at 08:19; Admin Dose 20 MG; Start 05/28/18 at 09:00 Lisinopril (Zestril) 5 mg DAILY PO Last administered on 06/01/18 08:19; Admin Dose 5 MG; Start 05/28/18 at 09:00 Paroxetine HCl (Paxil) 20 mg HS PO Last administered on 05/31/18 20:34; Admin Dose 20 MG; Start 05/27/18 at 21:00 Acetaminophen/ Hydrocodone Bitart ([place] (5/325)) 1 tab Q6H PRN PO MODERATE PAIN LEVEL 4-6 Last administered on 06/01/18 14:42; Admin Dose 1 TAB; Start 05/28/18 at 11:30 Sucralfate (Carafate Susp) 1 gm QID PO Last administered on 06/01/18 12:09; Admin Dose 1 GM; Start 05/28/18 at 17:00 Ciprofloxacin (Cipro) 500 mg BID@06,18 PO Last administered on 06/01/18 05:53; Admin Dose 500 MG; Start 05/30/18 at 18:00 Metronidazole (Flagyl) 500 mg TID PO Last administered on 06/01/18 12:09; Admin Dose 500 MG; Start 05/30/18 at 15:30 Pantoprazole (Protonix Tab) 40 mg BID@0600,1800 PO Last administered on 06/01/18 05:53; Admin Dose 40 MG; Start 05/30/18 at 18:00 Ketorolac Tromethamine (Toradol) 30 mg Q6H PRN IV PAIN Last administered on 06/01/18 09:18; Admin Dose 30 MG; Start 05/31/18 at 17:30; Stop 06/02/18 at 1 7:30 Insulin Aspart (Novolog Insulin Pen) 7 unit WITH MEALS SC Last administered on 06/01/18 12:08; Admin Dose 7 UNIT; Start 06/01/18 at 12:10 Insulin Glargine (Lantus) 18 units DAILY@2000 SC ; Start 06/01/18 at 20:00 MISTI DACOSTA NP Jun 01, 2018 15:01
[2018-06-01 20:00] VITALS: BP 154/69; PULSE 67; RESP 19
[2018-06-01] MEDS ORDERED: INSULIN GLARGINE [LANTus] (100 UNITS/ML) SYG SC SCH (20:00)
[2018-06-01] MEDS: ATORVASTATIN 80 MG TAB PO SCH (21:18)
[2018-06-01] MEDS: PAROXETINE 20 MG TAB PO SCH (21:19)
[2018-06-02] MEDS: HYDROmorphONE 0.5 MG/0.5 ML SYG IV PRN ×7 (01:11→22:01)
[2018-06-02 02:00] VITALS: BP 155/71; PULSE 50; RESP 18
[2018-06-02] MEDS: ACCU-CHEK XX SCH (02:11)
[2018-06-02 05:44] VITALS: BP 139/72; PULSE 60; RESP 17
[2018-06-02] MEDS: PANTOPRAZOLE (EC) 40 MG TAB PO SCH ×2 (05:49→17:00)
[2018-06-02] MEDS: CIPROFLOXACIN 500 MG TAB PO SCH ×2 (05:49→17:00)
--- NOTE | 2018-06-02 07:30 | CONS ---
Date/Time of Note Date/Time of Note DATE: 06/02/18 TIME: 07:29 Consult Date/Type/Reason Admit Date/Time May 26, 2018 at 12:21 Initial Consult Date 05/26/18 Objective Vital Signs Date Temp Pulse Resp B/P (MAP) Pulse Ox O2 O2 Flow FiO2 Time Delivery Rate 06/02/18 60 17 139/72 96 05:44 (94) 06/02/18 98.4 02:00 06/01/18 Nasal 14:05 Cannula Intake and Output 06/01/18 06/01/18 06/02/18 1515:00 23:00 07:00 IntakeIntake Total 450 ml 350 ml 220 ml BalanceBalance 450 ml 350 ml 220 ml Results/Medications Result Diagram: 06/01/18 0501 06/02/18 0523 Results 24 hrs Laboratory Tests Test 06/01/18 08:00 06/01/18 11:41 06/01/18 17:28 06/01/18 21:05 Bedside Glucose 230 H 301 H 288 H 272 H Test 06/02/18 02:05 06/02/18 05:23 Bedside Glucose 209 Prothrombin Time 13.8 Prothrombin Time 1.1 Ratio INR International 1.05 Normalized Ratio Sodium Level 139 Potassium Level 4.4 Chloride Level 103 Carbon Dioxide Level 27 Anion Gap 9 Blood Urea Nitrogen 17 Creatinine 0.77 Est Glomerular > 60 Filtrat Rate mL/min Glucose Level 229 H Calcium Level 10.0 Phosphorus Level 3.5 Magnesium Level 1.6 L Total Bilirubin 0.3 Direct Bilirubin 0.00 Indirect Bilirubin 0.3 Aspartate Amino 41 Transf (AST/SGOT) Alanine 47 Aminotransferase (AL T/SGPT) Alkaline Phosphatase 73 Total Protein 6.2 Albumin 3.3 Globulin 2.90 Albumin/Globulin 1.13 Ratio Medications Current Medications IV Flush (NS 3 ml) 3 ml PER PROTOCOL IV ; Start 05/26/18 at 13:30 Ondansetron HCl (Zofran Inj) 4 mg Q6H PRN IV NAUSEA AND/OR VOMITING Last administered on 05/27/18at 08:14; Admin Dose 4 MG; Start 05/26/18 at 13:30 Acetaminophen (Tylenol Tab) 650 mg Q6H PRN PO PAIN LEVEL 1-3 OR FEVER Last administered on 05/29/18at 03:34; Admin Dose 650 MG; Start 05/26/18 at 13:30 Oxycodone/ Acetaminophen (Percocet (5/ 325)) 1 tab Q6H PRN PO MODERATE PAIN LEVEL 4-6 Last administered on 05/26/18at 17:22; Admin Dose 1 TAB; Start 05/26/18 at 13:30 Docusate Sodium (Colace) 100 mg Q12H PRN PO CONSTIPATION; Start 05/26/18 at 13:30 Magnesium Hydroxide (Milk Of Mag) 30 ml DAILY PRN PO CONSTIPATION; Start 05/26/18 at 13:30 Bisacodyl (Dulcolax) 5 mg DAILY PRN PO CONSTIPATION; Start 05/26/18 at 13:30 Sodium Biphosphate/ Sodium Phosphate (Fleet Enema) 133 ml DAILY PRN [place] CONSTIPATION; Start 05/26/18 at 13:30 Enoxaparin Sodium (Lovenox) 30 mg DAILY SC Last administered on 06/01/18at 08 :19; Admin Dose 30 MG; Start 05/27/18 at 09:00 Bisacodyl (Dulcolax Supp) 10 mg DAILY PRN [place] CONSTIPATION; Start 05/26/18 at 14:00 Diagnostic Test (Pha) (Accu-Chek) 1 ea 02 XX Last administered on 06/02/18at 02:11; Admin Dose 1 EA; Start 05/27/18 at 02:00 Insulin Aspart (Novolog Insulin Pen) NOVOLOG *MODERATE* ALGORITHM WITH MEALS BEDTIME SC Last administered on 06/01/18at 21:16; Admin Dose 3 UNIT; Start 05/26/18 at 21:00 Miscellaneous Information 1 ea NOTE XX ; Start 05/26/18 at 21:00 Glucose (Glutose) 15 gm Q15M PRN PO DECREASED GLUCOSE; Start 05/26/18 at 21:00 Glucose (Glutose) 22.5 gm Q15M PRN PO DECREASED GLUCOSE; Start 05/26/18 at 21:00 Dextrose (D50w Syringe) 25 ml Q15M PRN IV DECREASED GLUCOSE; Start 05/26/18 at 21:00 Dextrose (D50w Syringe) 50 ml Q15M PRN IV DECREASED GLUCOSE; Start 05/26/18 at 21:00 Glucagon (Glucagen) 1 mg Q15M PRN IM DECREASED GLUCOSE; Start 05/26/18 at 21:00 Glucose (Glutose) 15 gm Q15M PRN BUCCAL DECREASED GLUCOSE; Start 05/26/18 at 21:00 Atorvastatin Calcium (Lipitor) 80 mg QHS PO Last administered on 06/01/18 21:18; Admin Dose 80 MG; Start 05/27/18 at 21:00 Citalopram Hydrobromide (Celexa) 20 mg DAILY PO Last administered on 06/01/18 08:19; Admin Dose 20 MG; Start 05/28/18 at 09:00 Lisinopril (Zestril) 5 mg DAILY PO Last administered on 06/01/18 08:19; Admin Dose 5 MG; Start 05/28/18 at 09:00 Paroxetine HCl (Paxil) 20 mg HS PO Last administered on 06/01/18 21:19; Admin Dose 20 MG; Start 05/27/18 at 21:00 Acetaminophen/ Hydrocodone Bitart ([place] (5/325)) 1 tab Q6H PRN PO MODERATE PAIN LEVEL 4-6 Last administered on 06/01/18 14:42; Admin Dose 1 TAB; Start 05/28/18 at 11:30 Sucralfate (Carafate Susp) 1 gm QID PO Last administered on 06/01/18 21:18; Admin Dose 1 GM; Start 05/28/18 at 17:00 Ciprofloxacin (Cipro) 500 mg BID@06,18 PO Last administered on 06/02/18 05:49; Admin Dose 500 MG; Start 05/30/18 at 18:00 Metronidazole (Flagyl) 500 mg TID PO Last administered on 06/01/18 21:18; Admin Dose 500 MG; Start 05/30/18 at 15:30 Pantoprazole (Protonix Tab) 40 mg BID@0600,1800 PO Last administered on 06/02/18 05:49; Admin Dose 40 MG; Start 05/30/18 at 18:00 Ketorolac Tromethamine (Toradol) 30 mg Q6H PRN IV PAIN Last administered on 06/01/18 15:37; Admin Dose 30 MG; Start 05/31/18 at 17:30; Stop 06/02/18 at 17:30 Insulin Aspart (Novolog Insulin Pen) 7 unit WITH MEALS SC Last administered on 06/01/18at 17:30; Admin Dose 7 UNIT; Start 06/01/18 at 12:10 Insulin Glargine (Lantus) 18 units DAILY@2000 SC Last administered on 06/01/18at 21:17; Admin Dose 18 UNITS; Start 06/01/18 at 20:00 Hydromorphone HCl (Dilaudid) 0.5 mg Q4H PRN IV SEVERE PAIN LEVEL 7-10 Last administered on 06/02/18at 05:45; Admin Dose 0.5 MG; Start 06/01/18 at 16:30 GIOVANI NGUYEN Jun 02, 2018 07:30
--- NOTE | 2018-06-02 07:56 | CONS ---
Date/Time of Note Date/Time of Note DATE: 06/02/18 TIME: 07:51 Assessment/Plan Assessment/Plan Assessment/Plan Abdominal pain Workup in progress currently receiving low doses of Percocet and Dilaudid We will discontinue Percocet distant event that she has duodenitis or diverticulitis for now Continue with low-dose of Dilaudid until workup completed Diabetes Hypertension Obesity obesity Outpatient medications continued patient on sliding scale insulin coverage. Result Diagram: 06/01/18 0501 06/02/18 0523 Results 24hrs Laboratory Tests Test 06/01/18 08:00 06/01/18 11:41 06/01/18 17:28 06/01/18 21:05 Bedside Glucose 230 H 301 H 288 H 272 H Test 06/02/18 02:05 06/02/18 05:23 Bedside Glucose 209 Prothrombin Time 13.8 Prothrombin Time 1.1 Ratio INR International 1.05 Normalized Ratio Sodium Level 139 Potassium Level 4.4 Chloride Level 103 Carbon Dioxide Level 27 Anion Gap 9 Blood Urea Nitrogen 17 Creatinine 0.77 Est Glomerular > 60 Filtrat Rate mL/min Glucose Level 229 H Calcium Level 10.0 Phosphorus Level 3.5 Magnesium Level 1.6 L Total Bilirubin 0.3 Direct Bilirubin 0.00 Indirect Bilirubin 0.3 Aspartate Amino 41 Transf (AST/SGOT) Alanine 47 Aminotransferase (AL T/SGPT) Alkaline Phosphatase 73 Total Protein 6.2 Albumin 3.3 Globulin 2.90 Albumin/Globulin 1.13 Ratio Consultation Date/Type/Reason Admit Date/Time May 26, 2018 at 12:21 Hx of Present Illness 68-year-old female was admitted to [facility] on 05/26/2018 with complaints of abdominal discomfort. Patient states her pain is all in the right upper quadrant without radiations into any other part of her abdomen or her jaleesa k. She denies nausea vomiting fevers chills diarrhea constipation. Status post cholecystectomy. No other known diagnosed abdominal disorders. Denies hematemesis melena bright red blood per rectum. Other comorbid medical problems include obesity, type 2 diabetes, depression and anxiety. Status post appendectomy cholecystectomy and abdominal hernia repair. Patient says her pain is out of control which interferes with everything that she does not a daily basis. Pain began "" months ago". She states she has been using one Vicodin 3 times a day without relief of her abdominal discomfort. Other than Vicodin she uses no other pain control medications. She is a nondrinker non-smoker Constitutional: no complaints, improved Eyes: no complaints ENT: no complaints Cardiovascular: no complaints Gastrointestinal: no complaints, other (Refer to history of present illness) Genitourinary: other (Recent urinary tract infection treated) Musculoskeletal: no complaints Skin: no complaints Neurologic: no complaints Psychological: anxiety, depression Past Medical History Medical History: hypertension, urinary tract infection (Morning) Medications Current Medications IV Flush (NS 3 ml) 3 ml PER PROTOCOL IV ; Start 05/26/18 at 13:30 Ondansetron HCl (Zofran Inj) 4 mg Q6H PRN IV NAUSEA AND/OR VOMITING Last administered on 05/27/18at 08:14; Admin Dose 4 MG; Start 05/26/18 at 13:30 Acetaminophen (Tylenol Tab) 650 mg Q6H PRN PO PAIN LEVEL 1-3 OR FEVER Last administered on 05/29/18at 03:34; Admin Dose 650 MG; Start 05/26/18 at 13:30 Oxycodone/ Acetaminophen (Percocet (5/ 325)) 1 tab Q6H PRN PO MODERATE PAIN LEVEL 4-6 Last administered on 05/26/18at 17:22; Admin Dose 1 TAB; Start 05/26/18 at 13:30 Docusate Sodium (Colace) 100 mg Q12H PRN PO CONSTIPATION; Start 05/26/18 at 13:30 Magnesium Hydroxide (Milk Of Mag) 30 ml DAILY PRN PO CONSTIPATION; Start 05/26/18 at 13:30 Bisacodyl (Dulcolax) 5 mg DAILY PRN PO CONSTIPATION; Start 05/26/18 at 13:30 Sodium Biphosphate/ Sodium Phosphate (Fleet Enema) 133 ml DAILY PRN SC CONSTIPATION; Start 05/26/18 at 13:30 Enoxaparin Sodium (Lovenox) 30 mg DAILY SC Last administered on 06/01/18at 08:19; Admin Dose 30 MG; Start 05/27/18 at 09:00 Bisacodyl (Dulcolax Supp) 10 mg DAILY PRN [place] CONSTIPATION; Start 05/26/18 at 14:00 Diagnostic Test (Pha) (Accu-Chek) 1 ea 02 XX Last administered on 06/02/18at 02:11; Admin Dose 1 EA; Start 05/27/18 at 02:00 Insulin Aspart (Novolog Insulin Pen) NOVOLOG *MODERATE* ALGORITHM WITH MEALS BEDTIME SC Last administered on 06/01/18at 21:16; Admin Dose 3 UNIT; Start 05/26/18 at 21:00 Miscellaneous Information 1 ea NOTE XX ; Start 05/26/18 at 21:00 Glucose (Glutose) 15 gm Q15M PRN PO DECREASED GLUCOSE; Start 05/26/18 at 21:00 Glucose (Glutose) 22.5 gm Q15M PRN PO DECREASED GLUCOSE; Start 05/26/18 at 21:00 Dextrose (D50w Syringe) 25 ml Q15M PRN IV DECREASED GLUCOSE; Start 05/26/18 at 21:00 Dextrose (D50w Syringe) 50 ml Q15M PRN IV DECREASED GLUCOSE; Start 05/26/18 at 21:00 Glucagon (Glucagen) 1 mg Q15M PRN IM DECREASED GLUCOSE; Start 05/26/18 at 21:00 Glucose (Glutose) 15 gm Q15M PRN BUCCAL DECREASED GLUCOSE; Start 05/26/18 at 21:00 Atorvastatin Calcium (Lipitor) 80 mg QHS PO Last administered on 06/01/18at 21:18; Admin Dose 80 MG; Start 05/27/18 at 21:00 Citalopram Hydrobromide (Celexa) 20 mg DAILY PO Last administered on 06/01/18at 08:19; Admin Dose 20 MG; Start 05/28/18 at 09:00 Lisinopril (Zestril) 5 mg DAILY PO Last administered on 06/01/18at 08:19; Admin Dose 5 MG; Start 05/28/18 at 09:00 Paroxetine HCl (Paxil) 20 mg HS PO Last administered on 06/01/18at 21:19; Admin Dose 20 MG; Start 05/27/18 at 21:00 Acetaminophen/ Hydrocodone Bitart ([place] (5/325)) 1 tab Q6H PRN PO MODERATE PAIN LEVEL 4-6 Last administered on 06/01/18at 14:42; Admin Dose 1 TAB; Start 05/28/18 at 11:30 Sucralfate (Carafate Susp) 1 gm QID PO Last administered on 06/01/18at 21:18; Admin Dose 1 GM; Start 05/28/18 at 17:00 Ciprofloxacin (Cipro) 500 mg BID@06,18 PO Last administered on 06/02/18at 05:49; Admin Dose 500 MG; Start 05/30/18 at 18:00 Metronidazole (Flagyl) 500 mg TID PO Last administered on 06/01/18at 21:18; Admin Dose 500 MG; Start 05/30/18 at 15:30 Pantoprazole (Protonix Tab) 40 mg BID@0600,1800 PO Last administered on at 05:49; Admin Dose 40 MG; Start 05/30/18 at 18:00 Ketorolac Tromethamine (Toradol) 30 mg Q6H PRN IV PAIN Last administered on 06/01/18at 15:37; Admin Dose 30 MG; Start 05/31/18 at 17:30; Stop 06/02/18 at 17:30 Insulin Aspart (Novolog Insulin Pen) 7 unit WITH MEALS SC Last administered on 06/01/18at 17:30; Admin Dose 7 UNIT; Start 06/01/18 at 12:10 Insulin Glargine (Lantus) 18 units DAILY@2000 SC Last administered on 06/01/18at 21:17; Admin Dose 18 UNITS; Start 06/01/18 at 20:00 Hydromorphone HCl (Dilaudid) 0.5 mg Q4H PRN IV SEVERE PAIN LEVEL 7-10 Last administered on 06/02/18at 05:45; Admin Dose 0.5 MG; Start 06/01/18 at 16:30 Allergies: Coded Allergies: ibuprofen (Verified Allergy, Unknown, rash, 05/26/18) morphine (Unverified Allergy, Unknown, ITCHING, 05/26/18) Past Surgical History Past Surgical Hx: other (Refer to history of present illness) Social History Alcohol Use: none Smoking Status: Never smoker Drug Use: none Exam/Review of Systems Vital Signs Vitals Vital Signs Date Temp Pulse Resp B/P (MAP) Pulse Ox O2 O2 Flow FiO2 Time Delivery Rate 06/02/18 60 17 139/72 96 05:44 (94) 06/02/18 98.4 02:00 06/01/18 Nasal 14:05 Cannula Intake and Output 06/01/18 06/01/18 06/02/18 1515:00 23:00 07:00 IntakeIntake Total 450 ml 350 ml 220 ml BalanceBalance 450 ml 350 ml 220 ml Exam Constitutional: alert, oriented, well developed; No non-verbal, No distress, No frail, No obese, No other Psych: anxiety Head: normocephalic, atraumatic; No lacerations, No hematomas, No other Eyes: nl conjunctiva, EOMI, nl lids, nl sclera, PERRL; No icteric, No fundi, disc, No other Respiratory: clear to auscultation, normal air movement; No congested cough, No crackles/rales, No diminished breath sounds, No intercostal retraction, No labored breathing, No respirations, No tactile fremitus, No wheezing, No other Cardiovascular: regular rate and rhythm, nl pulses; No bruits, No diastolic murmur, No edema, No gallop, No irregular rhythm, No jugular venous distention (JVD), No murmurs/extra sounds, No rub, No systolic murmur, No S3, No S4, No other Gastrointestinal: other (Normal active bowel sounds, scaphoid without organomegaly masses rebound peritoneal sign, right upper quadrant pain, no mass- effect none distended, no mass-effect) Medications Medications Current Medications IV Flush (NS 3 ml) 3 ml PER PROTOCOL IV ; Start 05/26/18 at 13:30 Ondansetron HCl (Zofran Inj) 4 mg Q6H PRN IV NAUSEA AND/OR VOMITING Last administered on 05/27/18at 08:14; Admin Dose 4 MG; Start 05/26/18 at 13:30 Acetaminophen (Tylenol Tab) 650 mg Q6H PRN PO PAIN LEVEL 1-3 OR FEVER Last administered on 05/29/18at 03:34; Admin Dose 650 MG; Start 05/26/18 at 13:30 Oxycodone/ Acetaminophen (Percocet (5/ 325)) 1 tab Q6H PRN PO MODERATE PAIN LEVEL 4-6 Last administered on 05/26/18at 17:22; Admin Dose 1 TAB; Start 05/26/18 at 13:30 Docusate Sodium (Colace) 100 mg Q12H PRN PO CONSTIPATION; Start 05/26/18 at 13:30 Magnesium Hydroxide (Milk Of Mag) 30 ml DAILY PRN PO CONSTIPATION; Start 05/26/18 at 13:30 Bisacodyl (Dulcolax) 5 mg DAILY PRN PO CONSTIPATION; Start 05/26/18 at 13:30 Sodium Biphosphate/ Sodium Phosphate (Fleet Enema) 133 ml DAILY PRN SC CONSTIPATION; Start 05/26/18 at 13:30 Enoxaparin Sodium (Lovenox) 30 mg DAILY SC Last administered on 06/01/18at 08:19; Admin Dose 30 MG; Start 05/27/18 at 09:00 Bisacodyl (Dulcolax Supp) 10 mg DAILY PRN SC CONSTIPATION; Start 05/26/18 at 14:00 Diagnostic Test (Pha) (Accu-Chek) 1 ea 02 XX Last administered on 06/02/18at 02:11; Admin Dose 1 EA; Start 05/27/18 at 02:00 Insulin Aspart (Novolog Insulin Pen) NOVOLOG *MODERATE* ALGORITHM WITH MEALS BEDTIME SC Last administered on 06/01/18at 21:16; Admin Dose 3 UNIT; Start 05/26/18 at 21:00 Miscellaneous Information 1 ea NOTE XX ; Start 05/26/18 at 21:00 Glucose (Glutose) 15 gm Q15M PRN PO DECREASED GLUCOSE; Start 05/26/18 at 21:00 Glucose (Glutose) 22.5 gm Q15M PRN PO DECREASED GLUCOSE; Start 05/26/18 at 21:00 Dextrose (D50w Syringe) 25 ml Q15M PRN IV DECREASED GLUCOSE; Start 05/26/18 at 21:00 Dextrose (D50w Syringe) 50 ml Q15M PRN IV DECREASED GLUCOSE; Start 05/26/18 at 21:00 Glucagon (Glucagen) 1 mg Q15M PRN IM DECREASED GLUCOSE; Start 05/26/18 at 21:00 Glucose (Glutose) 15 gm Q15M PRN BUCCAL DECREASED GLUCOSE; Start 05/26/18 at 21:00 Atorvastatin Calcium (Lipitor) 80 mg QHS PO Last administered on 06/01/18at 21:18; Admin Dose 80 MG; Start 05/27/18 at 21:00 Citalopram Hydrobromide (Celexa) 20 mg DAILY PO Last administered on 06/01/18at 08:19; Admin Dose 20 MG; Start 05/28/18 at 09:00 Lisinopril (Zestril) 5 mg DAILY PO Last administered on 1/12/19at 08:19; Admin Dose 5 MG; Start 05/28/18 at 09:00 Paroxetine HCl (Paxil) 20 mg HS PO Last administered on 06/01/18 21:19; Admin Dose 20 MG; Start 05/27/18 at 21:00 Acetaminophen/ Hydrocodone Bitart ([place] (5/325)) 1 tab Q6H PRN PO MODERATE PAIN LEVEL 4-6 Last administered on 06/01/18 14:42; Admin Dose 1 TAB; Start 05/28/18 at 11:30 Sucralfate (Carafate Susp) 1 gm QID PO Last administered on 06/01/18 21:18; Admin Dose 1 GM; Start 05/28/18 at 17:00 Ciprofloxacin (Cipro) 500 mg BID@06,18 PO Last administered on 06/02/18 05:49; Admin Dose 500 MG; Start 05/30/18 at 18:00 Metronidazole (Flagyl) 500 mg TID PO Last administered on 06/01/18 21:18; Admin Dose 500 MG; Start 05/30/18 at 15:30 Pantoprazole (Protonix Tab) 40 mg BID@0600,1800 PO Last administered on 06/02/18 05:49; Admin Dose 40 MG; Start 05/30/18 at 18:00 Ketorolac Tromethamine (Toradol) 30 mg Q6H PRN IV PAIN Last administered on 06/01/18at 15:37; Admin Dose 30 MG; Start 05/31/18 at 17:30; Stop 06/02/18 at 17:30 Insulin Aspart (Novolog Insulin Pen) 7 unit WITH MEALS SC Last administered on 06/01/18 17:30; Admin Dose 7 UNIT; Start 06/01/18 at 12:10 Insulin Glargine (Lantus) 18 units DAILY@2000 SC Last administered on 06/01/18 21:17; Admin Dose 18 UNITS; Start 06/01/18 at 20:00 Hydromorphone HCl (Dilaudid) 0.5 mg Q4H PRN IV SEVERE PAIN LEVEL 7-10 Last administered on 06/02/18 05:45; Admin Dose 0.5 MG; Start 06/01/18 at 16:30 GIOVANI NGUYEN Jun 02, 2018 07:56
[2018-06-02] MEDS: INSULIN ASPART [NOVOLOG] 3 ML PEN SC SCH ×7 (07:59→20:40)
[2018-06-02] MEDS: ENOXAPARIN 30 MG/0.3 ML SYG SC SCH (08:01)
[2018-06-02] MEDS: CITALOPRAM 20 MG TAB PO SCH (08:02)
[2018-06-02] MEDS: metroNIDAZOLE 500 MG TAB PO SCH ×3 (08:02→20:34)
[2018-06-02] MEDS: SUCRALFATE (100 MG/ML) 10ML CUP PO SCH ×4 (08:02→20:34)
[2018-06-02] MEDS: LISINOPRIL 5 MG TAB PO SCH (08:03)
[2018-06-02 08:15] VITALS: BP 145/65; PULSE 64; RESP 19
--- NOTE | 2018-06-02 11:43 | PN ---
Date/Time of Note Date/Time of Note DATE: 06/02/18 TIME: 11:40 Assessment/Plan VTE Prophylaxis Risk score (from Ns)>0 risk: 2 SCD applied (from Ns): No SCD contraindicated: other Pharmacological prophylaxis: LMWH Lines/Catheters IV Catheter [facility]from [facility]): [facility] Urinary Cath still in place: No Assessment/Plan Hospital Course SUBJECTIVE: Continues to have abdominal pain. Denies any diarrhea. Asking for pain medications [id number]. OBJECTIVE: Physical Exam General: Adequately build 68 year-old female lying in bed in no apparent distress. HEENT: Normocephalic, atraumatic. Eyes: Anicteric sclerae, conjunctivae clear. ENT: Nasal septum midline, oral mucosa moist. Neck supple, no JVD noticed. Respiratory: Bilaterally clear breath sounds. No use of accessory muscles of respiration. No adventitious breath sounds. Cardiovascular: S1, S2 heard. Regular rate and rhythm. Abdomen: Soft and nondistended. Diffuse tenderness. Bowel sounds positive in all 4 quadrants. Genitourinary: Deferred. Extremities: No cyanosis, no clubbing, no edema. Peripheral pulses palpable. Neurologic: Cranial nerves II through XII grossly intact. The patient is awake, alert, and oriented. Skin: Normal skin turgor. No skin rashes. Labs & Vitals per chart ASSESSMENT & PLAN 68-year-old female with comorbidities including hypertension, diabetes mellitus type 2, depression, and obesity who came to the emergency room with chief complaint of abdominal pain with CT evidence of wall thickening and fat stranding about the first and second portions of duodenum (findings compatible with a duodenitis) and long segment circumferential wall thickening of the proximal and mid sigmoid colon with surrounding fat stranding, probably representing a colitis; the patient was admitted to inpatient setting for further treatment and evaluation. 1. Acute abdominal pain. -CT scan of the abdomen and pelvis showing wall thickening and fat stranding about the first and second portions of the duodenum along with long segments of circumferential wall thickening of the proximal and mid sigmoid colon with mild surrounding fat stranding, which may represent a colitis. -Repeat CT scan of the abdomen and pelvis on 05/29/2018 showing no evidence of any colitis. -Continue Cipro and Flagyl. -Continue pain control. -Gastroenterology was following. The patient was refusing colonoscopy. -Stool for OB and H. pylori negative. Stool culture negative to date 2. Diabetes mellitus type 2. -Hemoglobin A1c 11.8. -Continue sliding scale insulin along with basal insulin and pre-meal insulin. 3. Essential hypertension. -Continue antihypertensives. 4. Depression. -Continue SSRIs. 5. Dyslipidemia. -Continue statins. 6. Fluids, electrolytes, and nutrition. -Carbohydrate controlled diet as tolerated. 7. DVT prophylaxis. -SQ Lovenox. 8. Plan. -Continue pain control. -Continue antimicrobials. -Await clinical improvement. -Replete magnesium. -Adjust insulin dosing. -Reconsulted gastroenterology. Had a long conversation with the patient on 06/01/2018 with the help of the floor charge nurse Mariana who speaks Lithuanian. The patient was informed about the need to cut down her opioids since there is discharge planning to discharge the patient home since the patient is agreeing to perform any invasive procedures. The patient also verbalized that she is tired of staying here. The patient was informed that there is no clinical justification for sending her home on oral opioids. Then, the patient agreed for further investigation of her abdominal pain including colonoscopy. The patient was informed that gastroenterology had already signed off on her case and needs to be reconsulted for her to be seen and she probably needs to stay in the hospital until Sunday for any invasive procedures such as colonoscopy. The patient verbalized understanding and agreed to have a colonoscopy done. Gastroenterology was reconsulted on this patient. Refused colonoscopy again on 06/02/2018. Gastroenterology talked to her with Matilde triplett floor charge nurse and she agreed to have endoscopy done. The patient was seen in collaboration with Dr. Brown. Result Diagram: 06/01/18 0501 06/02/18 0523 Results 24hrs Laboratory Tests Test 06/01/18 11:41 06/01/18 17:28 06/01/18 21:05 06/02/18 02:05 Bedside Glucose 301 H 288 H 272 H 209 Test 06/02/18 05:23 06/02/18 07:56 Prothrombin Time 13.8 Prothrombin Time 1.1 Ratio INR International 1.05 Normalized Ratio Sodium Level 139 Potassium Level 4.4 Chloride Level 103 Carbon Dioxide Level 27 Anion Gap 9 Blood Urea Nitrogen 17 Creatinine 0.77 Est Glomerular > 60 Filtrat Rate mL/min Glucose Level 229 H Calcium Level 10.0 Phosphorus Level 3.5 Magnesium Level 1.6 L Total Bilirubin 0.3 Direct Bilirubin 0.00 Indirect Bilirubin 0.3 Aspartate Amino 41 Transf (AST/SGOT) Alanine 47 Aminotransferase (AL T/SGPT) Alkaline Phosphatase 73 Total Protein 6.2 Albumin 3.3 Globulin 2.90 Albumin/Globulin 1.13 Ratio Bedside Glucose 223 H Exam/Review of Systems Vital Signs Vitals Vital Signs Date Temp Pulse Resp B/P (MAP) Pulse Ox O2 O2 Flow FiO2 Time Delivery Rate 06/02/18 98.0 64 19 145/65 95 08:15 (91) 06/01/18 Nasal 14:05 Cannula Intake and Output 06/01/18 06/01/18 06/02/18 1515:00 23:00 07:00 IntakeIntake Total 450 ml 350 ml 220 ml BalanceBalance 450 ml 350 ml 220 ml Medications Medications Current Medications IV Flush (NS 3 ml) 3 ml PER PROTOCOL IV ; Start 05/26/18 at 13:30 Ondansetron HCl (Zofran Inj) 4 mg Q6H PRN IV NAUSEA AND/OR VOMITING Last administered on 05/27/18at 08:14; Admin Dose 4 MG; Start 05/26/18 at 13:30 Acetaminophen (Tylenol Tab) 650 mg Q6H PRN PO PAIN LEVEL 1-3 OR FEVER Last administered on 05/29/18at 03:34; Admin Dose 650 MG; Start 05/26/18 at 13:30 Docusate Sodium (Colace) 100 mg Q12H PRN PO CONSTIPATION; Start 05/26/18 at 13:30 Magnesium Hydroxide (Milk Of Mag) 30 ml DAILY PRN PO CONSTIPATION; Start 05/26/18 at 13:30 Bisacodyl (Dulcolax) 5 mg DAILY PRN PO CONSTIPATION; Start 05/26/18 at 13:30 Sodium Biphosphate/ Sodium Phosphate (Fleet Enema) 133 ml DAILY PRN [place] CONSTIPATION; Start 05/26/18 at 13:30 Enoxaparin Sodium (Lovenox) 30 mg DAILY SC Last administered on 06/02/18at 08:01; Admin Dose 30 MG; Start 05/27/18 at 09:00 Bisacodyl (Dulcolax Supp) 10 mg DAILY PRN [place] CONSTIPATION; Start 05/26/18 at 14:00 Diagnostic Test (Pha) (Accu-Chek) 1 ea 02 XX Last administered on 06/02/18 02:11; Admin Dose 1 EA; Start 05/27/18 at 02:00 Insulin Aspart (Novolog Insulin Pen) NOVOLOG *MODERATE* ALGORITHM WITH MEALS BEDTIME SC Last administered on 06/02/18 07:59; Admin Dose 6 UNIT; Start 05/26/18 at 21:00 Miscellaneous Information 1 ea NOTE XX ; Start 05/26/18 at 21:00 Glucose (Glutose) 15 gm Q15M PRN PO DECREASED GLUCOSE; Start 05/26/18 at 21:00 Glucose (Glutose) 22.5 gm Q15M PRN PO DECREASED GLUCOSE; Start 05/26/18 at 21:00 Dextrose (D50w Syringe) 25 ml Q15M PRN IV DECREASED GLUCOSE; Start 05/26/18 at 21:00 Dextrose (D50w Syringe) 50 ml Q15M PRN IV DECREASED GLUCOSE; Start 05/26/18 at 21:00 Glucagon (Glucagen) 1 mg Q15M PRN IM DECREASED GLUCOSE; Start 05/26/18 at 21:00 Glucose (Glutose) 15 gm Q15M PRN BUCCAL DECREASED GLUCOSE; Start 05/26/18 at 21:00 Atorvastatin Calcium (Lipitor) 80 mg QHS PO Last administered on 06/01/18at 21:18; Admin Dose 80 MG; Start 05/27/18 at 21:00 Citalopram Hydrobromide (Celexa) 20 mg DAILY PO Last administered on 06/02/18 08:02; Admin Dose 20 MG; Start 05/28/18 at 09:00 Lisinopril (Zestril) 5 mg DAILY PO Last administered on 06/02/18 08:03; Admin Dose 5 MG; Start 05/28/18 at 09:00 Paroxetine HCl (Paxil) 20 mg HS PO Last administered on 06/01/18 21:19; Admin Dose 20 MG; Start 05/27/18 at 21:00 Acetaminophen/ Hydrocodone Bitart ([place] (5/325)) 1 tab Q6H PRN PO MODERATE PAIN LEVEL 4-6 Last administered on 06/01/18 14:42; Admin Dose 1 TAB; Start 05/28/18 at 11:30 Sucralfate (Carafate Susp) 1 gm QID PO Last administered on 1/13/19at 08:02; Admin Dose 1 GM; Start 05/28/18 at 17:00 Ciprofloxacin (Cipro) 500 mg BID@06,18 PO Last administered on 06/02/18 05:49; Admin Dose 500 MG; Start 05/30/18 at 18:00 Metronidazole (Flagyl) 500 mg TID PO Last administered on 06/02/18 08:02; Admin Dose 500 MG; Start 05/30/18 at 15:30 Pantoprazole (Protonix Tab) 40 mg BID@0600,1800 PO Last administered on 05:49; Admin Dose 40 MG; Start 05/30/18 at 18:00 Ketorolac Tromethamine (Toradol) 30 mg Q6H PRN IV PAIN Last administered on 06/01/18at 15:37; Admin Dose 30 MG; Start 05/31/18 at 17:30; Stop 06/02/18 at 17:30 Insulin Aspart (Novolog Insulin Pen) 7 unit WITH MEALS SC Last administered on 06/02/18 08:00; Admin Dose 7 UNIT; Start 06/01/18 at 12:10 Insulin Glargine (Lantus) 18 units DAILY@2000 SC Last administered on 06/01/18 21:17; Admin Dose 18 UNITS; Start 06/01/18 at 20:00 Hydromorphone HCl (Dilaudid) 0.5 mg Q4H PRN IV SEVERE PAIN LEVEL 7-10 Last administered on 06/02/18 09:42; Admin Dose 0.5 MG; Start 06/01/18 at 16:30 MISTI DACOSTA NP Jun 02, 2018 11:43
--- NOTE | 2018-06-02 11:49 | PN ---
Date/Time of Note Date/Time of Note DATE: 06/02/18 TIME: 11:44 Assessment/Plan VTE Prophylaxis Risk score (from Nsg)>0 risk: 2 SCD applied (from Ns): No SCD contraindicated: low risk/ambulating Pharmacological prophylaxis: heparin Lines/Catheters IV Catheter Type (from Nrs): [place] Urinary Cath still in place: No Assessment/Plan Assessment/Plan Assessment: Abdominal pain Nausea/vomiting Wall thickening/fat stranding -The first and second portions of the duodenum. - Pancreatic head. - Proximal and mid sigmoid colon Hypertension Diabetes type 2 12 mm noncalcified left adrenal nodule Plan: EGD/colonoscopy on Sunday Start Bowel prep today Continue abx and pain management Patient seen in collaboration with Dr. Gallardo/Agapito Subjective/Free text: Course reviewed with nursing staff Patient interviewed and examined All labs, imaging and other results reviewed Reconsultation was requested due to patient request for colonoscopy. When interviewing the patient she is denying diarrhea, constipation, hematemesis, nausea or vomiting. She is complaining of right upper quadrant pain worsened in the past 2 weeks. Patient is now agreeable to EGD/colonoscopy. Last was done reportedly 3 years ago with no significant findings. Repeat Ct 05/29/18-No evidence of duodenitis or pancreatitis, bowel mass or obstruction Colitis is not noted. Stool cx, stool for h.pylori, stool Ob- all negative. Psych eval pending. WBC- WNL. INR 1.1. Risks and benefits of the procedure have been discussed with the patient. Patient is agreeable to the procedure. With no further recommendations GI will sign off and will be available for consultation upon request. PHYSICAL EXAMINATION: GENERAL: Well developed, well nourished, alert & oriented x 3, in no acute di stress SKIN: No lesions, no stigmata chronic liver disease, no evidence of bleeding diathesis EYES: Pupils equal reactive to light, no discharge. EARS/NOSE AND THROAT: Ears normal, nose normal NECK: Supple, no masses CHEST: Inspection within normal limits. CARDIOVASCULAR: Heart: Regular rate and rhythm RESPIRATORY: Lungs clear to auscultation GASTROINTESTINAL AND LIVER: Abdomen: Soft, right upper quadrant abdominal pain, right upper quadrant surgical scar. Non-distended, no hernias, no masses, no organomegaly, no ascites, no guarding, no rebound tenderness, normoactive bowel sounds. Rectal: Deferred. EXTREMITIES: No cyanosis, clubbing or edema Result Diagram: 06/01/18 0501 06/02/18 0523 Results 24hrs Laboratory Tests Test 06/01/18 17:28 06/01/18 21:05 06/02/18 02:05 06/02/18 05:23 Bedside Glucose 288 H 272 H 209 Prothrombin Time 13.8 Prothrombin Time 1.1 Ratio INR International 1.05 Normalized Ratio Sodium Level 139 Potassium Level 4.4 Chloride Level 103 Carbon Dioxide Level 27 Anion Gap 9 Blood Urea Nitrogen 17 Creatinine 0.77 Est Glomerular > 60 Filtrat Rate mL/min Glucose Level 229 H Calcium Level 10.0 Phosphorus Level 3.5 Magnesium Level 1.6 L Total Bilirubin 0.3 Direct Bilirubin 0.00 Indirect Bilirubin 0.3 Aspartate Amino 41 Transf (AST/SGOT) Alanine 47 Aminotransferase (AL T/SGPT) Alkaline Phosphatase 73 Total Protein 6.2 Albumin 3.3 Globulin 2.90 Albumin/Globulin 1.13 Ratio Test 06/02/18 07:56 Bedside Glucose 223 H CC: EDDI FUENTES MD ; Exam/Review of Systems Vital Signs Vitals Vital Signs Date Temp Pulse Resp B/P (MAP) Pulse Ox O2 O2 Flow FiO2 Time Delivery Rate 06/02/18 98.0 64 19 145/65 95 08:15 (91) 06/01/18 Nasal 14:05 Cannula Intake and Output 06/01/18 06/01/18 06/02/18 1515:00 23:00 07:00 IntakeIntake Total 450 ml 350 ml 220 ml BalanceBalance 450 ml 350 ml 220 ml Medications Medications Current Medications IV Flush (NS 3 ml) 3 ml PER PROTOCOL IV ; Start 05/26/18 at 13:30 Ondansetron HCl (Zofran Inj) 4 mg Q6H PRN IV NAUSEA AND/OR VOMITING Last administered on 05/27/18at 08:14; Admin Dose 4 MG; Start 05/26/18 at 13:30 Acetaminophen (Tylenol Tab) 650 mg Q6H PRN PO PAIN LEVEL 1-3 OR FEVER Last administered on 05/29/18at 03:34; Admin Dose 650 MG; Start 05/26/18 at 13:30 Docusate Sodium (Colace) 100 mg Q12H PRN PO CONSTIPATION; Start 05/26/18 at 13:30 Magnesium Hydroxide (Milk Of Mag) 30 ml DAILY PRN PO CONSTIPATION; Start 05/26/18 at 13:30 Bisacodyl (Dulcolax) 5 mg DAILY PRN PO CONSTIPATION; Start 05/26/18 at 13:30 Sodium Biphosphate/ Sodium Phosphate (Fleet Enema) 133 ml DAILY PRN [place] CONSTIPATION; Start 05/26/18 at 13:30 Enoxaparin Sodium (Lovenox) 30 mg DAILY SC Last administered on 06/02/18at 08:01; Admin Dose 30 MG; Start 05/27/18 at 09:00 Bisacodyl (Dulcolax Supp) 10 mg DAILY PRN [place] CONSTIPATION; Start 05/26/18 at 14:00 Diagnostic Test (Pha) (Accu-Chek) 1 ea 02 XX Last administered on 06/02/18at 02:11; Admin Dose 1 EA; Start 05/27/18 at 02:00 Insulin Aspart (Novolog Insulin Pen) NOVOLOG *MODERATE* ALGORITHM WITH MEALS BEDTIME SC Last administered on 06/02/18at 07:59; Admin Dose 6 UNIT; Start 05/26/18 at 21:00 Miscellaneous Information 1 ea NOTE XX ; Start 05/26/18 at 21:00 Glucose (Glutose) 15 gm Q15M PRN PO DECREASED GLUCOSE; Start 05/26/18 at 21:00 Glucose (Glutose) 22.5 gm Q15M PRN PO DECREASED GLUCOSE; Start 05/26/18 at 21:00 Dextrose (D50w Syringe) 25 ml Q15M PRN IV DECREASED GLUCOSE; Start 05/26/18 at 21:00 Dextrose (D50w Syringe) 50 ml Q15M PRN IV DECREASED GLUCOSE; Start 05/26/18 at 21:00 Glucagon (Glucagen) 1 mg Q15M PRN IM DECREASED GLUCOSE; Start 05/26/18 at 21:00 Glucose (Glutose) 15 gm Q15M PRN BUCCAL DECREASED GLUCOSE; Start 05/26/18 at 21:00 Atorvastatin Calcium (Lipitor) 80 mg QHS PO Last administered on 06/01/18at 21:18; Admin Dose 80 MG; Start 05/27/18 at 21:00 Citalopram Hydrobromide (Celexa) 20 mg DAILY PO Last administered on 06/02/18at 08:02; Admin Dose 20 MG; Start 05/28/18 at 09:00 Lisinopril (Zestril) 5 mg DAILY PO Last administered on 06/02/18 08:03; Admin Dose 5 MG; Start 05/28/18 at 09:00 Paroxetine HCl (Paxil) 20 mg HS PO Last administered on 06/01/18 21:19; Admin Dose 20 MG; Start 05/27/18 at 21:00 Acetaminophen/ Hydrocodone Bitart ([place] (5/325)) 1 tab Q6H PRN PO MODERATE PAIN LEVEL 4-6 Last administered on 06/01/18 14:42; Admin Dose 1 TAB; Start 05/28/18 at 11:30 Sucralfate (Carafate Susp) 1 gm QID PO Last administered on 06/02/18 08:02; Admin Dose 1 GM; Start 05/28/18 at 17:00 Ciprofloxacin (Cipro) 500 mg BID@06,18 PO Last administered on 06/02/18 05:49; Admin Dose 500 MG; Start 05/30/18 at 18:00 Metronidazole (Flagyl) 500 mg TID PO Last administered on 06/02/18 08:02; Admin Dose 500 MG; Start 05/30/18 at 15:30 Pantoprazole (Protonix Tab) 40 mg BID@0600,1800 PO Last administered on 06/02/18 05:49; Admin Dose 40 MG; Start 05/30/18 at 18:00 Ketorolac Tromethamine (Toradol) 30 mg Q6H PRN IV PAIN Last administered on 15:37; Admin Dose 30 MG; Start 05/31/18 at 17:30; Stop 06/02/18 at 17:30 Insulin Aspart (Novolog Insulin Pen) 7 unit WITH MEALS SC Last administered on 06/02/18 08:00; Admin Dose 7 UNIT; Start 06/01/18 at 12:10 Insulin Glargine (Lantus) 18 units DAILY@2000 SC Last administered on 06/01/18 21:17; Admin Dose 18 UNITS; Start 06/01/18 at 20:00 Hydromorphone HCl (Dilaudid) 0.5 mg Q4H PRN IV SEVERE PAIN LEVEL 7-10 Last administered on 06/02/18 09:42; Admin Dose 0.5 MG; Start 06/01/18 at 16:30 KESHA CISNEROS NP Jun 02, 2018 11:49
[2018-06-02] MEDS ORDERED: MAGNESIUM SULFATE 2 GM/50 ML 50 ML IVPB ONE (12:30)
[2018-06-02] MEDS ORDERED: BISACODYL (EC) 5 MG TAB PO ONE (12:30)
[2018-06-02] MEDS: HYDROCODONE/APAP (5/325) TAB PO PRN ×2 (12:44→20:37)
[2018-06-02 14:57] VITALS: BP 144/63; PULSE 67; RESP 20
[2018-06-02] MEDS ORDERED: MAGNESIUM CITRATE 300 ML BTL PO ONE (17:30)
[2018-06-02] MEDS ORDERED: POLYETHYLENE GLYCOL 3350 119 GM POWDER PO ONE (18:30)
[2018-06-02 19:58] VITALS: BP 121/68; PULSE 69; RESP 18
[2018-06-02] MEDS: PAROXETINE 20 MG TAB PO SCH (20:33)
[2018-06-02] MEDS: ATORVASTATIN 80 MG TAB PO SCH (20:34)
[2018-06-02] MEDS: INSULIN GLARGINE [LANTus] (100 UNITS/ML) SYG SC SCH (20:38)
[2018-06-03] VITALS (16 sets, daily range): BP systolic 101–136; BP diastolic 58–74; PULSE 58–91; RESP 10–24
[2018-06-03] MEDS: ACCU-CHEK XX SCH (02:00)
[2018-06-03] MEDS: HYDROmorphONE 0.5 MG/0.5 ML SYG IV PRN ×6 (02:06→23:11)
[2018-06-03] MEDS: HYDROCODONE/APAP (5/325) TAB PO PRN (04:31)
[2018-06-03] MEDS ORDERED: POLYETHYLENE GLYCOL 3350 119 GM POWDER PO ONE (06:00)
[2018-06-03] MEDS: CIPROFLOXACIN 500 MG TAB PO SCH ×2 (06:08→18:11)
[2018-06-03] MEDS: PANTOPRAZOLE (EC) 40 MG TAB PO SCH ×2 (06:09→18:11)
[2018-06-03] MEDS ORDERED: PROPOFOL 200 MG INJ ONE (07:00)
[2018-06-03] MEDS ORDERED: BISACODYL (EC) 5 MG TAB PO ONE (08:00)
[2018-06-03] MEDS: INSULIN ASPART [NOVOLOG] 3 ML PEN SC SCH ×7 (08:08→20:51)
[2018-06-03] MEDS: ENOXAPARIN 30 MG/0.3 ML SYG SC SCH (08:09)
[2018-06-03] MEDS: metroNIDAZOLE 500 MG TAB PO SCH ×3 (08:10→20:46)
[2018-06-03] MEDS: SUCRALFATE (100 MG/ML) 10ML CUP PO SCH ×4 (08:10→20:46)
[2018-06-03] MEDS: CITALOPRAM 20 MG TAB PO SCH (08:10)
[2018-06-03] MEDS: LISINOPRIL 5 MG TAB PO SCH (08:11)
--- NOTE | 2018-06-03 16:05 | PREAC ---
Date/Time of Note Date/Time of Note DATE: 06/03/18 TIME: 16:04 Anesthesia Eval and Record Evaluation Time Pre-Procedure Interview DATE: 06/03/18 TIME: 16:04 Age 68 Sex female NPO: 8 hrs Preoperative diagnosis ABD pain ,N/V Planned procedure EGD, colonoscopy Past Medical History Past Medical History: Includes Cardio: HTN Endo: Diabetes Surgery & Anesthesia Issues No known issue Meds Anticoagulation: No Beta Maddy within 24 hr: No Reason Beta Maddy not given: Pt. not on B-Maddy Active Scripts Acetaminophen* (Tylenol*) 325 Mg Tablet, 2 TAB PO Q6 PRN for PAIN AND OR ELEVATED TEMP, #20 TAB Prov:VIKTOR MOORE PA-C 03/08/18 Hydrocodone/Acetaminophen ([place] 5-325 Tablet) 1 Each Tablet, 1 EACH PO Q6 PRN for PAIN, #30 TAB Prov:EDONNA GALLO F 12/03/17 Insulin Glargine,Hum.rec.anlog (Basaglar Kwikpen U-100) 100 Unit/1 Ml Insuln.pen, 30 UNIT SC QHS for 30 Days, EA 3 Refills Prov:DEONNA GALLO F 11/11/17 Ondansetron (Ondansetron Odt) 4 Mg Tab.rapdis, 4 MG PO Q6H PRN for NAUSEA AND/OR VOMITING, #10 TAB Prov:SUNITHA FREEMAN DO 07/26/17 Reported Medications Lisinopril* (Lisinopril*) 5 Mg Tablet, 5 MG PO DAILY, #30 TAB 07/25/17 Paroxetine Hcl* (Paroxetine*) 20 Mg Tablet, 20 MG PO HS, TAB 07/25/17 Atorvastatin* (Atorvastatin*) 80 Mg Tablet, 80 MG PO QHS, #30 TAB 07/25/17 Glipizide* (Glipizide*) 5 Mg Tablet, 5 MG PO AC BREAKFAST DINNER, TAB 07/25/17 Temazepam* (Temazepam*) 15 Mg Capsule, 15 MG PO HS PRN for INSOMNIA, CAP 07/25/17 Citalopram Hydrobromide* (Citalopram Hydrobromide*) 20 Mg Tablet, 20 MG PO DA [place], #30 TAB 07/25/17 Current Medications IV Flush (NS 3 ml) 3 ml PER PROTOCOL IV ; Start 05/26/18 at 13:30 Ondansetron HCl (Zofran Inj) 4 mg Q6H PRN IV NAUSEA AND/OR VOMITING Last administered on 05/27/18at 08:14; Admin Dose 4 MG; Start 05/26/18 at 13:30 Acetaminophen (Tylenol Tab) 650 mg Q6H PRN PO PAIN LEVEL 1-3 OR FEVER Last administered on 05/29/18at 03:34; Admin Dose 650 MG; Start 05/26/18 at 13:30 Docusate Sodium (Colace) 100 mg Q12H PRN PO CONSTIPATION; Start 05/26/18 at 13:30 Magnesium Hydroxide (Milk Of Mag) 30 ml DAILY PRN PO CONSTIPATION; Start 05/26/18 at 13:30 Bisacodyl (Dulcolax) 5 mg DAILY PRN PO CONSTIPATION; Start 05/26/18 at 13:30 Sodium Biphosphate/ Sodium Phosphate (Fleet Enema) 133 ml DAILY PRN [place] CONSTIPATION; Start 05/26/18 at 13:30 Enoxaparin Sodium (Lovenox) 30 mg DAILY SC Last administered on 06/03/18at 08:09; Admin Dose 30 MG; Start 05/27/18 at 09:00 Bisacodyl (Dulcolax Supp) 10 mg DAILY PRN [place] CONSTIPATION; Start 05/26/18 at 14:00 Diagnostic Test (Pha) (Accu-Chek) 1 ea 02 XX Last administered on 06/02/18at 02:11; Admin Dose 1 EA; Start 05/27/18 at 02:00 Insulin Aspart (Novolog Insulin Pen) NOVOLOG *MODERATE* ALGORITHM WITH MEALS BEDTIME SC Last administered on 06/03/18at 12:31; Admin Dose 2 UNIT; Start 05/26/18 at 21:00 Miscellaneous Information 1 ea NOTE XX ; Start 05/26/18 at 21:00 Glucose (Glutose) 15 gm Q15M PRN PO DECREASED GLUCOSE; Start 05/26/18 at 21:00 Glucose (Glutose) 22.5 gm Q15M PRN PO DECREASED GLUCOSE; Start 05/26/18 at 21:00 Dextrose (D50w Syringe) 25 ml Q15M PRN IV DECREASED GLUCOSE; Start 05/26/18 at 21:00 Dextrose (D50w Syringe) 50 ml Q15M PRN IV DECREASED GLUCOSE; Start 05/26/18 at 21:00 Glucagon (Glucagen) 1 mg Q15M PRN IM DECREASED GLUCOSE; Start 05/26/18 at 21:00 Glucose (Glutose) 15 gm Q15M PRN BUCCAL DECREASED GLUCOSE; Start 05/26/18 at 21:00 Atorvastatin Calcium (Lipitor) 80 mg QHS PO Last administered on 06/02/18at 20:34; Admin Dose 80 MG; Start 05/27/18 at 21:00 Citalopram Hydrobromide (Celexa) 20 mg DAILY PO Last administered on 06/03/18 08:10; Admin Dose 20 MG; Start 05/28/18 at 09:00 Lisinopril (Zestril) 5 mg DAILY PO Last administered on 06/03/18 08:11; Admin Dose 5 MG; Start 05/28/18 at 09:00 Paroxetine HCl (Paxil) 20 mg HS PO Last administered on 06/02/18at 20:33; Admin Dose 20 MG; Start 05/27/18 at 21:00 Acetaminophen/ Hydrocodone Bitart ([place] (5/325)) 1 tab Q6H PRN PO MODERATE PA IN LEVEL 4-6 Last administered on 06/03/18 04:31; Admin Dose 1 TAB; Start 05/28/18 at 11:30 Sucralfate (Carafate Susp) 1 gm QID PO Last administered on 06/03/18 08:10; Admin Dose 1 GM; Start 05/28/18 at 17:00 Ciprofloxacin (Cipro) 500 mg BID@06,18 PO Last administered on 06/03/18at 06:08; Admin Dose 500 MG; Start 05/30/18 at 18:00 Metronidazole (Flagyl) 500 mg TID PO Last administered on 06/03/18 08:10; Admin Dose 500 MG; Start 05/30/18 at 15:30 Pantoprazole (Protonix Tab) 40 mg BID@0600,1800 PO Last administered on 06/03/18 06:09; Admin Dose 40 MG; Start 05/30/18 at 18:00 Insulin Aspart (Novolog Insulin Pen) 7 unit WITH MEALS SC Last administered on 06/03/18 08:08; Admin Dose 7 UNIT; Start 06/01/18 at 12:10 Hydromorphone HCl (Dilaudid) 0.5 mg Q4H PRN IV SEVERE PAIN LEVEL 7-10 Last administered on 06/03/18at 15:05; Admin Dose 0.5 MG; Start 06/01/18 at 16:30 Insulin Glargine (Lantus) 21 units DAILY@2000 SC Last administered on 06/02/18at 20:38; Admin Dose 21 UNITS; Start 06/02/18 at 20:00 Meds reviewed: Yes Allergies Coded Allergies: ibuprofen (Verified Allergy, Unknown, rash, 05/26/18) morphine (Unverified Allergy, Unknown, ITCHING, 05/26/18) Allergies Reviewed: Yes Labs/Studies Labs Reviewed: Reviewed by anesthesiologist Result Diagram: 06/03/18 0510 06/03/18 0510 Laboratory Tests 06/03/18 05:10 test: N/A Studies: ECG (LBBB), CXR (nl) Pre-procedure Exam Last vitals Vital Signs Date Temp Pulse Resp B/P (MAP) Pulse Ox O2 O2 Flow FiO2 Time Delivery Rate 06/03/18 98.0 86 14 132/71 95 Room Air 15:51 (91) Airway: Adequate mouth opening Mallampati: Mallampati I Teeth: Normal Lung: Normal Heart: Normal ASA Physical Status ASA physical status: 2 Emergency: None Planned Anesthetic General/MAC: MAC Pre-operative Attestations Prior to commencing anesthesia and surgery, the patient was re-evaluated, there was verification of: *The patient's identity *The results of appropriate recent lab work and preoperative vital signs *The above evaluation not changing prior to induction *Anesthetic plan, risk benefits, alternative and complications discussed with patient/family; questions answered; patient/family understands, accepts and wishes to proceed. ARACELIS RONDON MD Jun 03, 2018 16:05
--- NOTE | 2018-06-03 16:15 | HPN ---
Date/Time of Note Date/Time of Note DATE: 06/03/18 TIME: 16:15 Interval H&P Admission Note Pt. seen H&P reviewed: No system changes ANASTASIA NG Jun 03, 2018 16:15
[2018-06-03] MEDS ORDERED: PROPOFOL 20 ML ONE (16:19)
[2018-06-03] MEDS ORDERED: ONDANSETRON 4 MG INJ IV PRN (16:30)
[2018-06-03] MEDS ORDERED: FENTAnyl 50 MCG/ML VIAL ONE (16:31)
--- NOTE | 2018-06-03 17:17 | PN ---
Date/Time of Note Date/Time of Note DATE: 06/03/18 TIME: 17:12 Assessment/Plan VTE Prophylaxis Risk score (from Ns)>0 risk: 4 SCD applied (from Ns): Yes Pharmacological prophylaxis: LMWH Lines/Catheters IV Catheter Type (from Nrs): Peripheral IV Urinary Cath still in place: No Assessment/Plan Assessment/Plan 1. Acute abdominal pain due to duodenal ulcer, s/p EGD/colonoscopy on 019, protonix/carafate 2. Diabetes mellitus type 2, on insulins 3. Essential hypertension, controlled 4. Depression.-Continue SSRIs. 5. Dyslipidemia.-Continue statins. 7. DVT prophylaxis. SQ Lovenox. Result Diagram: 06/03/18 0510 06/03/18 0510 Results 24hrs Laboratory Tests Test 06/02/18 17:20 06/02/18 20:32 06/03/18 02:10 06/03/18 05:10 Bedside Glucose 193 194 123 White Blood Count 9.3 Red Blood Count 4.60 Hemoglobin 13.5 Hematocrit 39.8 Mean Corpuscular 86.5 Volume Mean Corpuscular 29.3 Hemoglobin Mean Corpuscular 33.9 Hemoglobin Concent Red Cell 12.2 Distribution Width Platelet Count 320 # Mean Platelet Volume 9.0 Immature 0.500 H Granulocytes % Neutrophils % 54.2 Lymphocytes % 31.0 Monocytes % 10.0 Eosinophils % 3.9 Basophils % 0.4 Nucleated Red Blood 0.0 Cells % Immature 0.050 H Granulocytes # Neutrophils # 5.0 Lymphocytes # 2.9 Monocytes # 0.9 Eosinophils # 0.4 Basophils # 0.0 Nucleated Red Blood 0.0 Cells # Sodium Level 139 Potassium Level 3.8 Chloride Level 105 Carbon Dioxide Level 27 Anion Gap 7 Blood Urea Nitrogen 15 Creatinine 0.67 Est Glomerular > 60 Filtrat Rate mL/min Glucose Level 153 Calcium Level 9.9 Phosphorus Level 3.8 Magnesium Level 1.7 Total Bilirubin 0.2 Direct Bilirubin 0.00 Indirect Bilirubin 0.2 Aspartate Amino 43 Transf (AST/SGOT) Alanine 52 Aminotransferase (AL T/SGPT) Alkaline Phosphatase 71 Total Protein 6.2 Albumin 3.3 Globulin 2.90 Albumin/Globulin 1.13 Ratio Test 06/03/18 07:45 06/03/18 11:45 06/03/18 16:01 Bedside Glucose 169 166 219 Subjective 24 Hr Interval Summary Free Text/Dictation back from endoscopy Exam/Review of Systems Vital Signs Vitals Vital Signs Date Temp Pulse Resp B/P (MAP) Pulse Ox O2 O2 Flow FiO2 Time Delivery Rate 06/03/18 98.3 91 18 117/68 99 Mask 8.0 16:58 (84) Intake and Output 06/02/18 06/02/18 06/03/18 1515:00 23:00 07:00 IntakeIntake Total 50 ml 800 ml 600 ml BalanceBalance 50 ml 800 ml 600 ml Exam Constitutional: alert, oriented, well developed Psych: no complaints, nl mood/affect Head: normocephalic, atraumatic Eyes: nl conjunctiva, EOMI, nl lids, nl sclera, PERRL ENMT: nl external ears & nose, nl lips & teeth, nl nasal mucosa & septum Neck: supple, non-tender Respiratory: clear to auscultation, normal air movement; No congested cough, No crackles/rales, No diminished breath sounds, No intercostal retraction, No labored breathing, No respirations, No tactile fremitus, No wheezing, No other Cardiovascular: regular rate and rhythm, nl pulses; No bruits, No diastolic murmur, No edema, No gallop, No irregular rhythm, No jugular venous distention (JVD), No murmurs/extra sounds, No rub, No systolic murmur, No S3, No S4, No other Gastrointestinal: soft, nl liver, spleen Musculoskeletal: nl extremities to inspection Extremities: normal pulses; No calf tenderness, No cyanosis, No clubbing, No edema, No pitting pedal edema, No palpable cord, No tenderness, No other Neurological: DRIER TENDER II-XII intact, nl mental status, nl speech Medications Medications Current Medications IV Flush (NS 3 ml) 3 ml PER PROTOCOL IV ; Start 05/26/18 at 13:30 Ondansetron HCl (Zofran Inj) 4 mg Q6H PRN IV NAUSEA AND/OR VOMITING Last administered on 05/27/18at 08:14; Admin Dose 4 MG; Start 05/26/18 at 13:30 Acetaminophen (Tylenol Tab) 650 mg Q6H PRN PO PAIN LEVEL 1-3 OR FEVER Last administered on 05/29/18at 03:34; Admin Dose 650 MG; Start 05/26/18 at 13:30 Docusate Sodium (Colace) 100 mg Q12H PRN PO CONSTIPATION; Start 05/26/18 at 13:30 Magnesium Hydroxide (Milk Of Mag) 30 ml DAILY PRN PO CONSTIPATION; Start 05/26/18 at 13:30 Bisacodyl (Dulcolax) 5 mg DAILY PRN PO CONSTIPATION; Start 05/26/18 at 13:30 Sodium Biphosphate/ Sodium Phosphate (Fleet Enema) 133 ml DAILY PRN [place] CONSTIPATION; Start 05/26/18 at 13:30 Enoxaparin Sodium (Lovenox) 30 mg DAILY SC Last administered on 06/03/18at 08:09; Admin Dose 30 MG; Start 05/27/18 at 09:00 Bisacodyl (Dulcolax Supp) 10 mg DAILY PRN [place] CONSTIPATION; Start 05/26/18 at 14:00 Diagnostic Test (Pha) (Accu-Chek) 1 ea 02 XX Last administered on 06/02/18at 02:11; Admin Dose 1 EA; Start 05/27/18 at 02:00 Insulin Aspart (Novolog Insulin Pen) NOVOLOG *MODERATE* ALGORITHM WITH MEALS BEDTIME SC Last administered on 06/03/18at 12:31; Admin Dose 2 UNIT; Start 05/26/18 at 21:00 Miscellaneous Information 1 ea NOTE XX ; Start 05/26/18 at 21:00 Glucose (Glutose) 15 gm Q15M PRN PO DECREASED GLUCOSE; Start 05/26/18 at 21:00 Glucose (Glutose) 22.5 gm Q15M PRN PO DECREASED GLUCOSE; Start 05/26/18 at 21:00 Dextrose (D50w Syringe) 25 ml Q15M PRN IV DECREASED GLUCOSE; Start 05/26/18 at 21:00 Dextrose (D50w Syringe) 50 ml Q15M PRN IV DECREASED GLUCOSE; Start 05/26/18 at 21:00 Glucagon (Glucagen) 1 mg Q15M PRN IM DECREASED GLUCOSE; Start 05/26/18 at 21:00 Glucose (Glutose) 15 gm Q15M PRN BUCCAL DECREASED GLUCOSE; Start 05/26/18 at 21:00 Atorvastatin Calcium (Lipitor) 80 mg QHS PO Last administered on 06/02/18at 20:34; Admin Dose 80 MG; Start 05/27/18 at 21:00 Citalopram Hydrobromide (Celexa) 20 mg DAILY PO Last administered on 06/03/18 08:10; Admin Dose 20 MG; Start 05/28/18 at 09:00 Lisinopril (Zestril) 5 mg DAILY PO Last administered on 06/03/18 08:11; Admin Dose 5 MG; Start 05/28/18 at 09:00 Paroxetine HCl (Paxil) 20 mg HS PO Last administered on 06/02/18 20:33; Admin Dose 20 MG; Start 05/27/18 at 21:00 Acetaminophen/ Hydrocodone Bitart ([place] (5/325)) 1 tab Q6H PRN PO MODERATE PA IN LEVEL 4-6 Last administered on 06/03/18 04:31; Admin Dose 1 TAB; Start 05/28/18 at 11:30 Sucralfate (Carafate Susp) 1 gm QID PO Last administered on 06/03/18 08:10; Admin Dose 1 GM; Start 05/28/18 at 17:00 Ciprofloxacin (Cipro) 500 mg BID@06,18 PO Last administered on 06/03/18 06:08; Admin Dose 500 MG; Start 05/30/18 at 18:00 Metronidazole (Flagyl) 500 mg TID PO Last administered on 06/03/18 08:10; Admin Dose 500 MG; Start 05/30/18 at 15:30 Pantoprazole (Protonix Tab) 40 mg BID@0600,1800 PO Last administered on 06/03/18 06:09; Admin Dose 40 MG; Start 05/30/18 at 18:00 Insulin Aspart (Novolog Insulin Pen) 7 unit WITH MEALS SC Last administered on 06/03/18 08:08; Admin Dose 7 UNIT; Start 06/01/18 at 12:10 Hydromorphone HCl (Dilaudid) 0.5 mg Q4H PRN IV SEVERE PAIN LEVEL 7-10 Last administered on 06/03/18 15:05; Admin Dose 0.5 MG; Start 06/01/18 at 16:30 Insulin Glargine (Lantus) 21 units DAILY@2000 SC Last administered on 06/02/18 20:38; Admin Dose 21 UNITS; Start 06/02/18 at 20:00 Ondansetron HCl (Zofran Inj) 4 mg PACU ORDER PRN IV NAUSEA AND/OR VOMITING; Start 06/03/18 at 16:30; Stop 06/03/18 at 20:30 TRENTON OLIVAS MD Jun 03, 2018 17:17
[2018-06-03] MEDS: PAROXETINE 20 MG TAB PO SCH (20:46)
[2018-06-03] MEDS: ATORVASTATIN 80 MG TAB PO SCH (20:46)
[2018-06-03] MEDS: INSULIN GLARGINE [LANTus] (100 UNITS/ML) SYG SC SCH (20:53)
--- NOTE | 2018-06-03 21:44 | PAC ---
Date/Time of Note Date/Time of Note DATE: 06/03/18 TIME: 21:44 Post-Anesthesia Notes Post-Anesthesia Note Last documented vital signs Vital Signs Date Temp Pulse Resp B/P (MAP) Pulse Ox O2 O2 Flow FiO2 Time Delivery Rate 06/03/18 98.7 67 18 122/59 95 19:28 (80) 06/03/18 Room Air 17:53 06/03/18 8.0 16:58 Activity: WNL Respiratory function: WNL Cardiovascular function: WNL Mental status: Baseline Pain reasonably controlled: Yes Hydration appropriate: Yes Nausea/Vomiting absent: No ARACELIS RONDON MD Jun 03, 2018 21:44
[2018-06-04 01:55] VITALS: BP 135/65; PULSE 73; RESP 18
[2018-06-04] MEDS: ACCU-CHEK XX SCH (02:00)
[2018-06-04] MEDS: HYDROmorphONE 0.5 MG/0.5 ML SYG IV PRN ×5 (03:25→21:53)
[2018-06-04] MEDS: CIPROFLOXACIN 500 MG TAB PO SCH (06:29)
[2018-06-04] MEDS: PANTOPRAZOLE (EC) 40 MG TAB PO SCH ×2 (06:29→17:02)
[2018-06-04] MEDS: HYDROCODONE/APAP (5/325) TAB PO PRN (06:32)
[2018-06-04 08:01] VITALS: BP 125/82; PULSE 61; RESP 18
[2018-06-04] MEDS: INSULIN ASPART [NOVOLOG] 3 ML PEN SC SCH ×7 (08:17→20:45)
[2018-06-04] MEDS: ENOXAPARIN 30 MG/0.3 ML SYG SC SCH (08:19)
[2018-06-04] MEDS: CITALOPRAM 20 MG TAB PO SCH (08:20)
[2018-06-04] MEDS: SUCRALFATE (100 MG/ML) 10ML CUP PO SCH ×4 (08:20→20:42)
[2018-06-04] MEDS: LISINOPRIL 5 MG TAB PO SCH (08:21)
[2018-06-04] MEDS: metroNIDAZOLE 500 MG TAB PO SCH ×2 (08:22→12:34)
[2018-06-04] MEDS ORDERED: traMADol 50 MG TAB PO PRN (11:30)
--- NOTE | 2018-06-04 13:03 | PN ---
Date/Time of Note Date/Time of Note DATE: 06/04/18 TIME: 12:58 Assessment/Plan VTE Prophylaxis Risk score (from Nsg)>0 risk: 2 SCD applied (from Ns): No SCD contraindicated: other (scds) Pharmacological prophylaxis: other (scds) Lines/Catheters [facility] (from [facility]): Peripheral IV Urinary Cath still in place: No Assessment/Plan Hospital Course Assessment/Plan Assessment: Abdominal pain EGD 06/03/18 Acute duodenal ulcer without hemorrhage or perforation Hiatal hernia Gastritis Await biopsy result Colonoscopy 06/03/18 Suboptimal prep abdominal pain likely from upper GI source Patient can get a repeat colonoscopy with better prep as an outpatient with referral Nausea/vomiting- resolved Wall thickening/fat stranding -The first and second portions of the duodenum. - Pancreatic head. - Proximal and mid sigmoid colon Hypertension Diabetes type 2 12 mm noncalcified left adrenal nodule Plan: PPI BID x 4 weeks Avoid NSAIDs, GERD diet Pt to f/u with GI after discharge to assess need for repeat colonoscopy and review bx results if not back prior to discharge D/c planning per hospitalist Continue abx and pain management Patient seen in collaboration with Dr. Gallardo/Agapito Subjective/Free text: Course reviewed with nursing staff Patient interviewed and examined All labs, imaging and other results reviewed No over night events, Discussed results of EGD And recommendations to f/u with GI as out-pt to repeat colonoscopy. Pt continues to c/o abd pain. states Dilaudid covers pain well. No c/o n/v. Concerns patient pain does not correlate with disease process PHYSICAL EXAMINATION: GENERAL: Alert & oriented x 3, in no acute distress SKIN: No lesions, no stigmata chronic liver disease, no evidence of bleeding diathesis EYES: Pupils equal reactive to light, no discharge. EARS/NOSE AND THROAT: Ears normal, nose normal NECK: Supple, no masses CHEST: Inspection within normal limits. CARDIOVASCULAR: Heart: Regular rate and rhythm RESPIRATORY: Lungs clear to auscultation GASTROINTESTINAL AND LIVER: Abdomen: Soft, upper abd pain Non-distended, no hernias, no guarding, no rebound tenderness, normoactive bowel sounds. Rectal: Deferred. EXTREMITIES: No cyanosis, clubbing or edema Result Diagram: 06/03/18 0510 06/03/18 0510 Results 24hrs Laboratory Tests Test 06/03/18 16:01 06/03/18 18:13 06/03/18 20:45 06/04/18 07:41 Bedside Glucose 219 220 117 143 Test 06/04/18 11:41 Bedside Glucose 237 H Exam/Review of Systems Vital Signs Vitals Vital Signs Date Temp Pulse Resp B/P (MAP) Pulse Ox O2 O2 Flow FiO2 Time Delivery Rate 06/04/18 97.1 61 18 125/82 96 Room Air 08:01 (96) 06/03/18 8.0 16:58 Intake and Output 06/03/18 06/03/18 06/04/18 1515:00 23:00 07:00 IntakeIntake Total 480 ml 440 ml 150 ml BalanceBalance 480 ml 440 ml 150 ml Medications Medications Current Medications IV Flush (NS 3 ml) 3 ml PER PROTOCOL IV ; Start 05/26/18 at 13:30 Ondansetron HCl (Zofran Inj) 4 mg Q6H PRN IV NAUSEA AND/OR VOMITING Last administered on 05/27/18at 08:14; Admin Dose 4 MG; Start 05/26/18 at 13:30 Acetaminophen (Tylenol Tab) 650 mg Q6H PRN PO PAIN LEVEL 1-3 OR FEVER Last administered on 05/29/18at 03:34; Admin Dose 650 MG; Start 05/26/18 at 13:30 Docusate Sodium (Colace) 100 mg Q12H PRN PO CONSTIPATION; Start 05/26/18 at 13:30 Magnesium Hydroxide (Milk Of Mag) 30 ml DAILY PRN PO CONSTIPATION; Start 05/26/18 at 13:30 Bisacodyl (Dulcolax) 5 mg DAILY PRN PO CONSTIPATION; Start 05/26/18 at 13:30 Sodium Biphosphate/ Sodium Phosphate (Fleet Enema) 133 ml DAILY PRN [place] CONSTIPATION; Start 05/26/18 at 13:30 Enoxaparin Sodium (Lovenox) 30 mg DAILY SC Last administered on 06/04/18at 08:19; Admin Dose 30 MG; Start 05/27/18 at 09:00 Bisacodyl (Dulcolax Supp) 10 mg DAILY PRN [place] CONSTIPATION; Start 05/26/18 at 14:00 Diagnostic Test (Pha) (Accu-Chek) 1 ea 02 XX Last administered on 06/02/18at 02:11; Admin Dose 1 EA; Start 05/27/18 at 02:00 Insulin Aspart (Novolog Insulin Pen) NOVOLOG *MODERATE* ALGORITHM WITH MEALS BEDTIME SC Last administered on 06/04/18at 11:43; Admin Dose 6 UNIT; Start 05/26/18 at 21:00 Miscellaneous Information 1 ea NOTE XX ; Start 05/26/18 at 21:00 Glucose (Glutose) 15 gm Q15M PRN PO DECREASED GLUCOSE; Start 05/26/18 at 21:00 Glucose (Glutose) 22.5 gm Q15M PRN PO DECREASED GLUCOSE; Start 05/26/18 at 21:00 Dextrose (D50w Syringe) 25 ml Q15M PRN IV DECREASED GLUCOSE; Start 05/26/18 at 21:00 Dextrose (D50w Syringe) 50 ml Q15M PRN IV DECREASED GLUCOSE; Start 05/26/18 at 21:00 Glucagon (Glucagen) 1 mg Q15M PRN IM DECREASED GLUCOSE; Start 05/26/18 at 21:00 Glucose (Glutose) 15 gm Q15M PRN BUCCAL DECREASED GLUCOSE; Start 05/26/18 at 21 :00 Atorvastatin Calcium (Lipitor) 80 mg QHS PO Last administered on 06/03/18at 20:46; Admin Dose 80 MG; Start 05/27/18 at 21:00 Citalopram Hydrobromide (Celexa) 20 mg DAILY PO Last administered on 06/04/18at 08:20; Admin Dose 20 MG; Start 05/28/18 at 09:00 Lisinopril (Zestril) 5 mg DAILY PO Last administered on 06/04/18 08:21; Admin Dose 5 MG; Start 05/28/18 at 09:00 Paroxetine HCl (Paxil) 20 mg HS PO Last administered on 06/03/18at 20:46; Admin Dose 20 MG; Start 05/27/18 at 21:00 Sucralfate (Carafate Susp) 1 gm QID PO Last administered on 06/04/18at 12:34; Admin Dose 1 GM; Start 05/28/18 at 17:00 Ciprofloxacin (Cipro) 500 mg BID@06,18 PO Last administered on 06/04/18 06:29; Admin Dose 500 MG; Start 05/30/18 at 18:00 Metronidazole (Flagyl) 500 mg TID PO Last administered on 06/04/18 12:34; Admin Dose 500 MG; Start 05/30/18 at 15:30 Pantoprazole (Protonix Tab) 40 mg BID@0600,1800 PO Last administered on 06/04/18 06:29; Admin Dose 40 MG; Start 05/30/18 at 18:00 Insulin Aspart (Novolog Insulin Pen) 7 unit WITH MEALS SC Last administered on 06/04/18 11:43; Admin Dose 7 UNIT; Start 06/01/18 at 12:10 Insulin Glargine (Lantus) 21 units DAILY@2000 SC Last administered on 06/03/18 20:53; Admin Dose 21 UNITS; Start 06/02/18 at 20:00 Tramadol HCl (Ultram) 50 mg Q6H PRN PO MODERATE PAIN LEVEL 4-6 Last administered on 06/04/18 11:38; Admin Dose 50 MG; Start 06/04/18 at 11:30 NATHALIE SIMENTAL Jun 04, 2018 13:03
--- NOTE | 2018-06-04 13:36 | PN ---
Date/Time of Note Date/Time of Note DATE: 06/04/18 TIME: 13:34 Assessment/Plan VTE Prophylaxis Risk score (from [facility])>0 risk: 2 SCD applied (from [facility]): Yes Pharmacological prophylaxis: LMWH Lines/Catheters IV Catheter Type (from [facility]): Peripheral IV Urinary Cath still in place: No Assessment/Plan Assessment/Plan 1. Acute abdominal pain, duodenal ulcer, s/p EGD/colonoscopy on 06/03/2018, p rotonix/carafate 2. Diabetes mellitus type 2, stable on insulins 3. Essential hypertension, controlled 4. Depression.-Continue SSRIs. 5. Dyslipidemia.-Continue statins. 7. DVT prophylaxis. SQ Lovenox. Result Diagram: 06/03/18 0510 06/03/18 0510 Results 24hrs Laboratory Tests Test 06/03/18 16:01 06/03/18 18:13 06/03/18 20:45 06/04/18 07:41 Bedside Glucose 219 220 117 143 Test 06/04/18 11:41 Bedside Glucose 237 H Subjective 24 Hr Interval Summary Free Text/Dictation still c/o abdominal pain Exam/Review of Systems Vital Signs Vitals Vital Signs Date Temp Pulse Resp B/P (MAP) Pulse Ox O2 O2 Flow FiO2 Time Delivery Rate 06/04/18 97.1 61 18 125/82 96 Room Air 08:01 (96) 06/03/18 8.0 16:58 Intake and Output 06/03/18 06/03/18 06/04/18 1515:00 23:00 07:00 IntakeIntake Total 480 ml 440 ml 150 ml BalanceBalance 480 ml 440 ml 150 ml Exam Constitutional: alert, oriented, well developed Head: normocephalic, atraumatic Eyes: nl conjunctiva, EOMI, nl lids, nl sclera, PERRL ENMT: nl external ears & nose, nl lips & teeth, nl nasal mucosa & septum Neck: supple, non-tender Respiratory: clear to auscultation, normal air movement; No congested cough, No crackles/rales, No diminished breath sounds, No intercostal retraction, No labored breathing, No respirations, No tactile fremitus, No wheezing, No other Cardiovascular: regular rate and rhythm, nl pulses; No bruits, No diastolic murmur, No edema, No gallop, No irregular rhythm, No jugular venous distention (JVD), No murmurs/extra sounds, No rub, No systolic murmur, No S3, No S4, No other Gastrointestinal: soft, nl liver, spleen, tender (upper abdominal tenderness) Musculoskeletal: nl extremities to inspection Extremities: normal pulses; No calf tenderness, No cyanosis, No clubbing, No edema, No pitting pedal edema, No palpable cord, No tenderness, No other 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, nl mental status, nl speech, nl strength Skin: nl turgor Lymph: nl lymph nodes Medications Medications Current Medications IV Flush (NS 3 ml) 3 ml PER PROTOCOL IV ; Start 05/26/18 at 13:30 Ondansetron HCl (Zofran Inj) 4 mg Q6H PRN IV NAUSEA AND/OR VOMITING Last administered on 05/27/18at 08:14; Admin Dose 4 MG; Start 05/26/18 at 13:30 Acetaminophen (Tylenol Tab) 650 mg Q6H PRN PO PAIN LEVEL 1-3 OR FEVER Last administered on 05/29/18at 03:34; Admin Dose 650 MG; Start 05/26/18 at 13:30 Docusate Sodium (Colace) 100 mg Q12H PRN PO CONSTIPATION; Start 05/26/18 at 13:30 Magnesium Hydroxide (Milk Of Mag) 30 ml DAILY PRN PO CONSTIPATION; Start 05/26/18 at 13:30 Bisacodyl (Dulcolax) 5 mg DAILY PRN PO CONSTIPATION; Start 05/26/18 at 13:30 Sodium Biphosphate/ Sodium Phosphate (Fleet Enema) 133 ml DAILY PRN [place] CONSTIPATION; Start 05/26/18 at 13:30 Enoxaparin Sodium (Lovenox) 30 mg DAILY SC Last administered on 06/04/18at 08:19; Admin Dose 30 MG; Start 05/27/18 at 09:00 Bisacodyl (Dulcolax Supp) 10 mg DAILY PRN [place] CONSTIPATION; Start 05/26/18 at 14:00 Diagnostic Test (Pha) (Accu-Chek) 1 ea 02 XX Last administered on 06/02/18at 02:11; Admin Dose 1 EA; Start 05/27/18 at 02:00 Insulin Aspart (Novolog Insulin Pen) NOVOLOG *MODERATE* ALGORITHM WITH MEALS BEDTIME SC Last administered on 06/04/18at 11:43; Admin Dose 6 UNIT; Start 05/26/18 at 21:00 Miscellaneous Information 1 ea NOTE XX ; Start 05/26/18 at 21:00 Glucose (Glutose) 15 gm Q15M PRN PO DECREASED GLUCOSE; Start 05/26/18 at 21:00 Glucose (Glutose) 22.5 gm Q15M PRN PO DECREASED GLUCOSE; Start 05/26/18 at 21:00 Dextrose (D50w Syringe) 25 ml Q15M PRN IV DECREASED GLUCOSE; Start 05/26/18 at 21:00 Dextrose (D50w Syringe) 50 ml Q15M PRN IV DECREASED GLUCOSE; Start 05/26/18 at 21:00 Glucagon (Glucagen) 1 mg Q15M PRN IM DECREASED GLUCOSE; Start 05/26/18 at 21:00 Glucose (Glutose) 15 gm Q15M PRN BUCCAL DECREASED GLUCOSE; Start 05/26/18 at 21:00 Atorvastatin Calcium (Lipitor) 80 mg QHS PO Last administered on 06/03/18at 20:46; Admin Dose 80 MG; Start 05/27/18 at 21:00 Citalopram Hydrobromide (Celexa) 20 mg DAILY PO Last administered on 06/04/18at 08:20; Admin Dose 20 MG; Start 05/28/18 at 09:00 Lisinopril (Zestril) 5 mg DAILY PO Last administered on 06/04/18at 08:21; Admin Dose 5 MG; Start 05/28/18 at 09:00 Paroxetine HCl (Paxil) 20 mg HS PO Last administered on 06/03/18at 20:46; Admin Dose 20 MG; Start 05/27/18 at 21:00 Sucralfate (Carafate Susp) 1 gm QID PO Last administered on 06/04/18at 12:34; Admin Dose 1 GM; Start 05/28/18 at 17:00 Ciprofloxacin (Cipro) 500 mg BID@06,18 PO Last administered on 06/04/18at 06:29; Admin Dose 500 MG; Start 05/30/18 at 18:00 Metronidazole (Flagyl) 500 mg TID PO Last administered on 06/04/18at 12:34; Admin Dose 500 MG; Start 05/30/18 at 15:30 Pantoprazole (Protonix Tab) 40 mg BID@0600,1800 PO Last administered on 06/04/18 06:29; Admin Dose 40 MG; Start 05/30/18 at 18:00 Insulin Aspart (Novolog Insulin Pen) 7 unit WITH MEALS SC Last administered on 06/04/18 11:43; Admin Dose 7 UNIT; Start 06/01/18 at 12:10 Insulin Glargine (Lantus) 21 units DAILY@2000 SC Last administered on 06/03/18 20:53; Admin Dose 21 UNITS; Start 06/02/18 at 20:00 Tramadol HCl (Ultram) 50 mg Q6H PRN PO MODERATE PAIN LEVEL 4-6 Last administered on 06/04/18 11:38; Admin Dose 50 MG; Start 06/04/18 at 11:30 Hydromorphone HCl (Dilaudid) 0.5 mg Q4H PRN IV SEVERE PAIN LEVEL 7-10 Last administered on 06/04/18 13:32; Admin Dose 0.5 MG; Start 06/04/18 at 13:30 TRENTON OLIVAS MD Jun 04, 2018 13:36
[2018-06-04 14:00] VITALS: BP 136/62; PULSE 73; RESP 18
[2018-06-04 19:26] VITALS: BP 137/62; PULSE 77; RESP 17
[2018-06-04] MEDS: ATORVASTATIN 80 MG TAB PO SCH (20:42)
[2018-06-04] MEDS: INSULIN GLARGINE [LANTus] (100 UNITS/ML) SYG SC SCH (20:43)
[2018-06-04] MEDS: PAROXETINE 20 MG TAB PO SCH (20:46)
[2018-06-05 01:58] VITALS: BP 135/61; PULSE 62; RESP 18
[2018-06-05] MEDS: ACCU-CHEK XX SCH (02:00)
[2018-06-05] MEDS: HYDROmorphONE 0.5 MG/0.5 ML SYG IV PRN ×6 (02:04→22:39)
[2018-06-05] MEDS: PANTOPRAZOLE (EC) 40 MG TAB PO SCH ×2 (06:17→17:12)
[2018-06-05] MEDS: SUCRALFATE (100 MG/ML) 10ML CUP PO SCH ×4 (08:07→20:41)
[2018-06-05] MEDS: LISINOPRIL 5 MG TAB PO SCH (08:08)
[2018-06-05] MEDS: CITALOPRAM 20 MG TAB PO SCH (08:08)
[2018-06-05] MEDS: ENOXAPARIN 30 MG/0.3 ML SYG SC SCH (08:09)
[2018-06-05] MEDS: INSULIN ASPART [NOVOLOG] 3 ML PEN SC SCH ×7 (08:10→20:50)
[2018-06-05 08:32] VITALS: BP 137/65; PULSE 61; RESP 18
--- NOTE | 2018-06-05 13:31 | PN ---
Date/Time of Note Date/Time of Note DATE: 06/05/18 TIME: 13:29 Assessment/Plan VTE Prophylaxis Risk score (from Ns)>0 risk: 3 SCD applied (from Ns): Yes Pharmacological prophylaxis: LMWH Lines/Catheters IV Catheter Type (from [facility]): Peripheral IV Urinary Cath still in place: No Assessment/Plan Assessment/Plan 1. Acute abdominal pain, duodenal ulcer, s/p EGD/colonoscopy on 06/03/2018, CT scan reviewed, protonix/carafate 2. Diabetes mellitus type 2, stable on insulins 3. Essential hypertension, controlled 4. Depression.-Continue SSRIs. 5. Dyslipidemia.-Continue statins. 7. DVT prophylaxis. SQ Lovenox. Result Diagram: 06/05/18 0540 06/05/18 0540 Results 24hrs Laboratory Tests Test 06/04/18 16:54 06/04/18 20:40 06/05/18 02:07 06/05/18 05:40 Bedside Glucose 238 H 275 H 187 White Blood Count 10.4 Red Blood Count 4.69 Hemoglobin 13.9 Hematocrit 41.1 Mean Corpuscular 87.6 Volume Mean Corpuscular 29.6 Hemoglobin Mean Corpuscular 33.8 Hemoglobin Concent Red Cell 12.2 Distribution Width Platelet Count 358 Mean Platelet Volume 8.8 Immature 0.600 H Granulocytes % Neutrophils % 58.9 Lymphocytes % 30.7 Monocytes % 7.2 Eosinophils % 2.1 Basophils % 0.5 Nucleated Red Blood 0.0 Cells % Immature 0.060 H Granulocytes # Neutrophils # 6.1 Lymphocytes # 3.2 H Monocytes # 0.8 Eosinophils # 0.2 Basophils # 0.1 Nucleated Red Blood 0.0 Cells # Sodium Level 138 Potassium Level 4.0 Chloride Level 105 Carbon Dioxide Level 26 Anion Gap 7 Blood Urea Nitrogen 18 Creatinine 0.81 Est Glomerular > 60 Filtrat Rate mL/min Glucose Level 216 Calcium Level 10.5 H Test 06/05/18 07:56 06/05/18 11:51 Bedside Glucose 222 H 243 H Subjective 24 Hr Interval Summary Free Text/Dictation still comp-lains of severe right upper abdominal pain, tolerates diet well. No nausea or vomiting. No diarrhea Exam/Review of Systems Vital Signs Vitals Vital Signs Date Temp Pulse Resp B/P (MAP) Pulse Ox O2 O2 Flow FiO2 Time Delivery Rate 06/05/18 98.1 61 18 137/65 96 Room Air 08:32 (89) 06/03/18 8.0 16:58 Intake and Output 06/04/18 06/04/18 06/05/18 1515:00 23:00 07:00 IntakeIntake Total 820 ml 360 ml 250 ml OutputOutput Total 1000 ml BalanceBalance -180 ml 360 ml 250 ml Exam Constitutional: alert, oriented, well developed, obese Psych: no complaints, nl mood/affect Eyes: nl conjunctiva, EOMI, nl lids ENMT: nl external ears & nose, nl lips & teeth, nl nasal mucosa & septum Neck: supple, non-tender Respiratory: clear to auscultation, normal air movement; No congested cough, No crackles/rales, No diminished breath sounds, No intercostal retraction, No labored breathing, No respirations, No tactile fremitus, No wheezing, No other Cardiovascular: regular rate and rhythm, nl pulses; No bruits, No diastolic murmur, No edema, No gallop, No irregular rhythm, No jugular venous distention (JVD), No murmurs/extra sounds, No rub, No systolic murmur, No S3, No S4, No other Gastrointestinal: soft, nl liver, spleen, tender (right upper tenderness) Musculoskeletal: nl extremities to inspection Extremities: normal pulses; No calf tenderness, No cyanosis, No clubbing, No edema, No pitting pedal edema, No palpable cord, No tenderness, No other 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, nl mental status, nl speech, nl strength Medications Medications Current Medications IV Flush (NS 3 ml) 3 ml PER PROTOCOL IV ; Start 05/26/18 at 13:30 Ondansetron HCl (Zofran Inj) 4 mg Q6H PRN IV NAUSEA AND/OR VOMITING Last administered on 05/27/18at 08:14; Admin Dose 4 MG; Start 05/26/18 at 13:30 Acetaminophen (Tylenol Tab) 650 mg Q6H PRN PO PAIN LEVEL 1-3 OR FEVER Last administered on 05/29/18at 03:34; Admin Dose 650 MG; Start 05/26/18 at 13:30 Docusate Sodium (Colace) 100 mg Q12H PRN PO CONSTIPATION; Start 05/26/18 at 13:30 Magnesium Hydroxide (Milk Of Mag) 30 ml DAILY PRN PO CONSTIPATION; Start 05/26/18 at 13:30 Bisacodyl (Dulcolax) 5 mg DAILY PRN PO CONSTIPATION; Start 05/26/18 at 13:30 Sodium Biphosphate/ Sodium Phosphate (Fleet Enema) 133 ml DAILY PRN [place] CONSTIPATION; Start 05/26/18 at 13:30 Enoxaparin Sodium (Lovenox) 30 mg DAILY SC Last administered on 06/05/18at 08:09; Admin Dose 30 MG; Start 05/27/18 at 09:00 Bisacodyl (Dulcolax Supp) 10 mg DAILY PRN [place] CONSTIPATION; Start 05/26/18 at 14:00 Diagnostic Test (Pha) (Accu-Chek) 1 ea 02 XX Last administered on 06/02/18at 02:11; Admin Dose 1 EA; Start 05/27/18 at 02:00 Insulin Aspart (Novolog Insulin Pen) NOVOLOG *MODERATE* ALGORITHM WITH MEALS BEDTIME SC Last administered on 06/05/18at 11:57; Admin Dose 6 UNIT; Start 05/26/18 at 21:00 Miscellaneous Information 1 ea NOTE XX ; Start 05/26/18 at 21:00 Glucose (Glutose) 15 gm Q15M PRN PO DECREASED GLUCOSE; Start 05/26/18 at 21:00 Glucose (Glutose) 22.5 gm Q15M PRN PO DECREASED GLUCOSE; Start 05/26/18 at 21:00 Dextrose (D50w Syringe) 25 ml Q15M PRN IV DECREASED GLUCOSE; Start 05/26/18 at 21:00 Dextrose (D50w Syringe) 50 ml Q15M PRN IV DECREASED GLUCOSE; Start 05/26/18 at 21:00 Glucagon (Glucagen) 1 mg Q15M PRN IM DECREASED GLUCOSE; Start 05/26/18 at 21:00 Glucose (Glutose) 15 gm Q15M PRN BUCCAL DECREASED GLUCOSE; Start 05/26/18 at 21:00 Atorvastatin Calcium (Lipitor) 80 mg QHS PO Last administered on 06/04/18at 20:42; Admin Dose 80 MG; Start 05/27/18 at 21:00 Citalopram Hydrobromide (Celexa) 20 mg DAILY PO Last administered on 06/05/18at 08:08; Admin Dose 20 MG; Start 05/28/18 at 09:00 Lisinopril (Zestril) 5 mg DAILY PO Last administered on 06/05/18 08:08; Admin Dose 5 MG; Start 05/28/18 at 09:00 Paroxetine HCl (Paxil) 20 mg HS PO Last administered on 06/04/18 20:46; Admin Dose 20 MG; Start 05/27/18 at 21:00 Sucralfate (Carafate Susp) 1 gm QID PO Last administered on 06/05/18 12:01; Admin Dose 1 GM; Start 05/28/18 at 17:00 Pantoprazole (Protonix Tab) 40 mg BID@0600,1800 PO Last administered on 06/05/18 06:17; Admin Dose 40 MG; Start 05/30/18 at 18:00 Insulin Aspart (Novolog Insulin Pen) 7 unit WITH MEALS SC Last administered on 06/05/18 11:55; Admin Dose 7 UNIT; Start 06/01/18 at 12:10 Insulin Glargine (Lantus) 21 units DAILY@2000 SC Last administered on 06/04/18 20:43; Admin Dose 21 UNITS; Start 06/02/18 at 20:00 Tramadol HCl (Ultram) 50 mg Q6H PRN PO MODERATE PAIN LEVEL 4-6 Last administered on 06/04/18 11:38; Admin Dose 50 MG; Start 06/04/18 at 11:30 Hydromorphone HCl (Dilaudid) 0.5 mg Q4H PRN IV SEVERE PAIN LEVEL 7-10 Last administered on 06/05/18 10:26; Admin Dose 0.5 MG; Start 06/04/18 at 13:30 TRENTON OLIVAS MD Jun 05, 2018 13:31
[2018-06-05 14:23] VITALS: BP 113/68; PULSE 67; RESP 18
--- NOTE | 2018-06-05 17:49 | PN ---
Date/Time of Note Date/Time of Note DATE: 06/05/18 TIME: 17:40 Assessment/Plan VTE Prophylaxis Risk score (from Nsg)>0 risk: 3 SCD applied (from Nsg): Yes Pharmacological prophylaxis: other (scds) Lines/Catheters IV Catheter Type (from Nrsg): Peripheral IV Urinary Cath still in place: No Assessment/Plan Hospital Course Assessment/Plan Assessment: Abdominal pain EGD 06/03/18 Acute duodenal ulcer without hemorrhage or perforation Hiatal hernia Gastritis Await biopsy result Colonoscopy 06/03/18 Suboptimal prep abdominal pain likely from upper GI source Patient can get a repeat colonoscopy with better prep as an outpatient with referral Nausea/vomiting- resolved Wall thickening/fat stranding -The first and second portions of the duodenum. - Pancreatic head. - Proximal and mid sigmoid colon Hypertension Diabetes type 2 12 mm noncalcified left adrenal nodule Plan: PPI BID x 4 weeks Avoid NSAIDs, GERD diet Pt to f/u with GI after discharge to assess need for repeat colonoscopy bx reviewed- no h.pylori D/c planning per hospitalist Continue abx and pain management Patient seen in collaboration with Dr. Gallardo/Agapito Subjective/Free text: Course reviewed with nursing staff Patient interviewed and examined All labs, imaging and other results reviewed No over night events,pt continue to c/o upper abd pain Pain not consistent with dx of duodenal ulcer. Pt pain continues to we may need to consider repeat imaging PHYSICAL EXAMINATION: GENERAL: Alert & oriented x 3, in no acute distress SKIN: No lesions, no stigmata chronic liver disease, no evidence of bleeding diathesis EYES: Pupils equal reactive to light, no discharge. EARS/NOSE AND THROAT: Ears normal, nose normal NECK: Supple, no masses CHEST: Inspection within normal limits. CARDIOVASCULAR: Heart: Regular rate and rhythm RESPIRATORY: Lungs clear to auscultation GASTROINTESTINAL AND LIVER: Abdomen: Soft, upper abd pain Non-distended, no hernias, no guarding, no rebound tenderness, normoactive bowel sounds. Rectal: Deferred. EXTREMITIES: No cyanosis, clubbing or edema Result Diagram: 06/05/18 0540 06/05/18 0540 Results 24hrs Laboratory Tests Test 06/04/18 20:40 06/05/18 02:07 06/05/18 05:40 06/05/18 07:56 Bedside Glucose 275 H 187 222 H White Blood Count 10.4 Red Blood Count 4.69 Hemoglobin 13.9 Hematocrit 41.1 Mean Corpuscular 87.6 Volume Mean Corpuscular 29.6 Hemoglobin Mean Corpuscular 33.8 Hemoglobin Concent Red Cell 12.2 Distribution Width Platelet Count 358 Mean Platelet Volume 8.8 Immature 0.600 H Granulocytes % Neutrophils % 58.9 Lymphocytes % 30.7 Monocytes % 7.2 Eosinophils % 2.1 Basophils % 0.5 Nucleated Red Blood 0.0 Cells % Immature 0.060 H Granulocytes # Neutrophils # 6.1 Lymphocytes # 3.2 H Monocytes # 0.8 Eosinophils # 0.2 Basophils # 0.1 Nucleated Red Blood 0.0 Cells # Sodium Level 138 Potassium Level 4.0 Chloride Level 105 Carbon Dioxide Level 26 Anion Gap 7 Blood Urea Nitrogen 18 Creatinine 0.81 Est Glomerular > 60 Filtrat Rate mL/min Glucose Level 216 Calcium Level 10.5 H Test 06/05/18 11:51 06/05/18 17:08 Bedside Glucose 243 H 301 H Exam/Review of Systems Vital Signs Vitals Vital Signs Date Temp Pulse Resp B/P (MAP) Pulse Ox O2 O2 Flow FiO2 Time Delivery Rate 06/05/18 97.9 67 18 113/68 95 Room Air 14:23 (83) 06/03/18 8.0 16:58 Intake and Output 06/04/18 06/04/18 06/05/18 1515:00 23:00 07:00 IntakeIntake Total 820 ml 360 ml 250 ml OutputOutput Total 1000 ml BalanceBalance -180 ml 360 ml 250 ml Medications Medications Current Medications IV Flush (NS 3 ml) 3 ml PER PROTOCOL IV ; Start 05/26/18 at 13:30 Ondansetron HCl (Zofran Inj) 4 mg Q6H PRN IV NAUSEA AND/OR VOMITING Last administered on 05/27/18at 08:14; Admin Dose 4 MG; Start 05/26/18 at 13:30 Acetaminophen (Tylenol Tab) 650 mg Q6H PRN PO PAIN LEVEL 1-3 OR FEVER Last administered on 05/29/18at 03:34; Admin Dose 650 MG; Start 05/26/18 at 13:30 Docusate Sodium (Colace) 100 mg Q12H PRN PO CONSTIPATION; Start 05/26/18 at 13:30 Magnesium Hydroxide (Milk Of Mag) 30 ml DAILY PRN PO CONSTIPATION; Start 05/26/18 at 13:30 Bisacodyl (Dulcolax) 5 mg DAILY PRN PO CONSTIPATION; Start 05/26/18 at 13:30 Sodium Biphosphate/ Sodium Phosphate (Fleet Enema) 133 ml DAILY PRN [place] CONSTIPATION; Start 05/26/18 at 13:30 Enoxaparin Sodium (Lovenox) 30 mg DAILY SC Last administered on 06/05/18at 08:09; Admin Dose 30 MG; Start 05/27/18 at 09:00 Bisacodyl (Dulcolax Supp) 10 mg DAILY PRN [place] CONSTIPATION; Start 05/26/18 at 14:00 Diagnostic Test (Pha) (Accu-Chek) 1 ea 02 XX Last administered on 06/02/18at 02:11; Admin Dose 1 EA; Start 05/27/18 at 02:00 Insulin Aspart (Novolog Insulin Pen) NOVOLOG *MODERATE* ALGORITHM WITH MEALS BEDTIME SC Last administered on 06/05/18at 17:16; Admin Dose 10 UNIT; Start 05/26/18 at 21:00 Miscellaneous Information 1 ea NOTE XX ; Start 05/26/18 at 21:00 Glucose (Glutose) 15 gm Q15M PRN PO DECREASED GLUCOSE; Start 05/26/18 at 21:00 Glucose (Glutose) 22.5 gm Q15M PRN PO DECREASED GLUCOSE; Start 05/26/18 at 21:00 Dextrose (D50w Syringe) 25 ml Q15M PRN IV DECREASED GLUCOSE; Start 05/26/18 at 21:00 Dextrose (D50w Syringe) 50 ml Q15M PRN IV DECREASED GLUCOSE; Start 05/26/18 at 21:00 Glucagon (Glucagen) 1 mg Q15M PRN IM DECREASED GLUCOSE; Start 05/26/18 at 21:00 Glucose (Glutose) 15 gm Q15M PRN BUCCAL DECREASED GLUCOSE; Start 05/26/18 at 21:00 Atorvastatin Calcium (Lipitor) 80 mg QHS PO Last administered on 06/04/18at 20:42; Admin Dose 80 MG; Start 05/27/18 at 21:00 Citalopram Hydrobromide (Celexa) 20 mg DAILY PO Last administered on 06/05/18at 08:08; Admin Dose 20 MG; Start 05/28/18 at 09:00 Lisinopril (Zestril) 5 mg DAILY PO Last administered on 06/05/18 08:08; Admin Dose 5 MG; Start 05/28/18 at 09:00 Paroxetine HCl (Paxil) 20 mg HS PO Last administered on 06/04/18 20:46; Admin Dose 20 MG; Start 05/27/18 at 21:00 Sucralfate (Carafate Susp) 1 gm QID PO Last administered on 06/05/18 17:12; Admin Dose 1 GM; Start 05/28/18 at 17:00 Pantoprazole (Protonix Tab) 40 mg BID@0600,1800 PO Last administered on 06/05/18 17:12; Admin Dose 40 MG; Start 05/30/18 at 18:00 Insulin Aspart (Novolog Insulin Pen) 7 unit WITH MEALS SC Last administered on 06/05/18 17:15; Admin Dose 7 UNIT; Start 06/01/18 at 12:10 Insulin Glargine (Lantus) 21 units DAILY@2000 SC Last administered on 06/04/18 20:43; Admin Dose 21 UNITS; Start 06/02/18 at 20:00 Tramadol HCl (Ultram) 50 mg Q6H PRN PO MODERATE PAIN LEVEL 4-6 Last administered on 06/04/18 11:38; Admin Dose 50 MG; Start 06/04/18 at 11:30 Hydromorphone HCl (Dilaudid) 0.5 mg Q4H PRN IV SEVERE PAIN LEVEL 7-10 Last administered on 06/05/18at 14:24; Admin Dose 0.5 MG; Start 06/04/18 at 13:30 Acetaminophen/ Hydrocodone Bitart ([place] (5/325)) 1 tab Q4H PRN PO MODERATE PAIN LEVEL 4-6; Start 06/05/18 at 14:00 NATHALIE SIMENTAL Jun 05, 2018 17:49
[2018-06-05 20:00] VITALS: BP 133/62; PULSE 77; RESP 17
[2018-06-05] MEDS ORDERED: INSULIN GLARGINE [LANTus] (100 UNITS/ML) SYG SC SCH (20:00)
[2018-06-05] MEDS: ATORVASTATIN 80 MG TAB PO SCH (20:41)
[2018-06-05] MEDS: PAROXETINE 20 MG TAB PO SCH (20:47)
[2018-06-05] MEDS: HYDROCODONE/APAP (5/325) TAB PO PRN (22:05)
[2018-06-05] MEDS ORDERED: ZOLPIDEM 5 MG TAB PO ONE (23:36)
[2018-06-06 01:59] VITALS: BP 141/64; PULSE 69; RESP 18
[2018-06-06] MEDS: ACCU-CHEK XX SCH (02:00)
[2018-06-06] MEDS: HYDROmorphONE 0.5 MG/0.5 ML SYG IV PRN ×3 (04:32→12:26)
[2018-06-06] MEDS: PANTOPRAZOLE (EC) 40 MG TAB PO SCH ×2 (05:39→17:19)
[2018-06-06 07:35] VITALS: BP 120/55; PULSE 66; RESP 18
[2018-06-06] MEDS: HYDROCODONE/APAP (5/325) TAB PO PRN (07:59)
[2018-06-06] MEDS: INSULIN ASPART [NOVOLOG] 3 ML PEN SC SCH ×6 (08:05→17:18)
[2018-06-06] MEDS: SUCRALFATE (100 MG/ML) 10ML CUP PO SCH ×3 (08:27→16:33)
[2018-06-06] MEDS: LISINOPRIL 5 MG TAB PO SCH (08:27)
[2018-06-06] MEDS: CITALOPRAM 20 MG TAB PO SCH (08:27)
[2018-06-06] MEDS: ENOXAPARIN 30 MG/0.3 ML SYG SC SCH (08:28)
[2018-06-06] MEDS ORDERED: CARAS PO (13:32)
[2018-06-06] MEDS ORDERED: PANT40TA4 PO (13:32)
--- NOTE | 2018-06-06 13:43 | DS ---
Date/Time of Note Date/Time of Note DATE: 06/06/18 TIME: 13:34 Discharge Summary Admission/Discharge Info Admit Date/Time May 26, 2018 at 12:21 Discharge Date/Time Discharge Diagnosis 1. Abdominal pain, duodenal ulcer, s/p EGD/colonoscopy on 06/03/2018, CT scan reviewed, protonix/carafate, follow up with GI 2. Diabetes mellitus type 2, stable on insulins 3. Essential hypertension, controlled 4. Depression.-Continue SSRIs. 5. Dyslipidemia.-Continue statins. Patient Condition: Stable Hospital Course 68-year-old female with progressive abdominal pain diffuse around the umbilicus with any known aggravating factors. Her whole abdominal cavity and back feel uncomfortable. No known aggravating or relieving factors. There is associated nausea vomiting. Intermittent constipation. Recent antibiotic use for may be a bladder infection. Denies any hematemesis hematochezia melena. Denies any lawrence dysuria hematuria. For work up of abdominal pain, patient had CT scan of abdomen and pelvis on 05/26/2018, that revealed wall thickening and fat stranding about the first and second portions of the duodenum with additional mild fat stranding about the pancreatic head; long segment circumferential wall thickening of the proximal and mid sigmoid colon with mild surrounding fat stranding, These changes are not found on repeated CT scan on 05/29/2018. Patient had EGD and colonoscopy on 06/03/2018, that revealed acute duodenal ulcer without hemorrhage or perforation, hiatal hernia, and gastritis. Patient is treated with double protonix and carafate. She will follow up with PCP and GI outpatient. ab No: [id number] Date: 06/03/2018 SPECIMEN: A-Duodenal ulcer biopsy B-Gastric biopsy CLINICAL: Abdominal pain GROSS EXAMINATION: A-Received in formalin are two fragments of oscar-pink, soft tissue that measure 0.2 x 0.2 x 0.1 cm and 0.4 x 0.2 x 0.1 cm. Totally submitted in cassette A. B-Received in formalin is a fragment of gaona-oscar, soft tissue that measures 0.8 x 0.2 x 0.1 cm. Totally submitted in cassette B. MICROSCOPIC DIAGNOSIS: A-Duodenal ulcer, biopsy: -- Small intestinal mucosa with normal villous architecture showing focal ulcer base with fibrosis and mild subacute inflammation. -- No evidence of malignancy. B-Stomach, biopsy: -- Antral mucosa showing no significant histopathological abnormality. MP/CH/tm/mt Date of Service: 06/03/18; Date Received: 06/03/18 Dictated: 06/04/18; Transcribed: 06/04/18; Sent by Fax: 06/04/18 Alana Medrano M.D. Pathologist Electronically Signed 06/04/2018 BON PONCE M.D. PATIENT: PEPE DE JESUS DYLAN HELLER M.D. AGE/SEX/: 68/F 1950 [facility] MR NO: [id number] VISIT: [id number] ROOM NO: [id number] PHYSICIAN: Kellen NG, Kellen ANDUJAR TISSUE EXAMINATION REPORT Jeane DE SANTIAGO M.D. ANATOMIC AND CLINICAL PATHOLOGY CONSULTATION GROSS EXAMINATION PERFORMED BY: [facility] - [address] [place] [address], [address] - [place] ; Home Meds Active Scripts Sucralfate* (Carafate*) 1 Gm/10 Ml Susp, 1 GM PO QID for 30 Days Prov:TRENTON OLIVAS MD 06/06/18 Pantoprazole* (Pantoprazole*) 40 Mg Tablet.dr, 40 MG PO BID@0600,1800 for 30 Days Prov:TRENTON OLIVAS MD 06/06/18 Acetaminophen* (Tylenol*) 325 Mg Tablet, 2 TAB PO Q6 PRN for PAIN AND OR ELEVATED TEMP, #20 TAB Prov:VIKTOR MOORE PA-C 03/08/18 Hydrocodone/Acetaminophen ([place] 5-325 Tablet) 1 Each Tablet, 1 EACH PO Q6 PRN for PAIN, #30 TAB Prov:DEONNA GALLO 12/03/17 Insulin Glargine,Hum.rec.anlog (Basaglar Kwikpen U-100) 100 Unit/1 Ml Insuln.pen, 30 UNIT SC QHS for 30 Days, EA 3 Refills Prov:DEONNA GALLO 11/11/17 Reported Medications Lisinopril* (Lisinopril*) 5 Mg Tablet, 5 MG PO DAILY, #30 TAB 3/7/18 Atorvastatin* (Atorvastatin*) 80 Mg Tablet, 80 MG PO QHS, #30 TAB 07/25/17 Glipizide* (Glipizide*) 5 Mg Tablet, 5 MG PO AC BREAKFAST DINNER, TAB 07/25/17 Temazepam* (Temazepam*) 15 Mg Capsule, 15 MG PO HS PRN for INSOMNIA, CAP 07/25/17 Citalopram Hydrobromide* (Citalopram Hydrobromide*) 20 Mg Tablet, 20 MG PO DAILY, #30 TAB 07/25/17 Discontinued Reported Medications Paroxetine Hcl* (Paroxetine*) 20 Mg Tablet, 20 MG PO HS, TAB 07/25/17 Discontinued Scripts Ondansetron (Ondansetron Odt) 4 Mg Tab.rapdis, 4 MG PO Q6H PRN for NAUSEA AND/OR VOMITING, #10 TAB Prov:PETEJEFESUNITHACAMRON TURPIN 07/26/17 Follow-up Plan PCP and GI in one week Primary Care Provider Care Physician No Primary Pending Labs Laboratory Tests Test 06/05/18 17:08 06/05/18 20:40 06/06/18 03:18 06/06/18 05:49 Bedside 301 192 193 Glucose mg/dL (70-220) mg/dL (70-220) mg/dL (70-220) White Blood 9.2 Count 10^3/ul (4.8-1 0.8) Red Blood 4.53 Count 10^6/ul (4.20- 5.40) Hemoglobin 13.2 g/dl (12.0-16. 0) Hematocrit 40.0 % (37.0-47.0) Mean 88.3 Corpuscular fl (82.0-101.0 Volume ) Mean 29.1 Corpuscular pg (29.0-33.0) Hemoglobin Mean 33.0 Corpuscular g/dl (32.0-37. Hemoglobin Conc 0) ent Red Cell 12.3 Distribution % (11.5-14.5) Width Platelet Count 341 10^3/UL (140-4 15) Mean Platelet 9.0 Volume fl (7.4-10.4) Immature 0.200 Granulocytes % % (0.001-0.429 ) Neutrophils % 65.8 % (39.0-77.0) Lymphocytes % 24.9 % (15.0-51.0) Monocytes % 6.4 % (0.0-11.0) Eosinophils % 2.3 % (0.0-7.0) Basophils % 0.4 % (0.0-2.0) Nucleated Red 0.0 Blood Cells % /100WBC (0.0-0 .0) Immature 0.020 Granulocytes # 10^3/ul (0.0-0 .031) Neutrophils # 6.0 10^3/ul (1.6-7 .5) Lymphocytes # 2.3 10^3/ul (0.8-2 .9) Monocytes # 0.6 10^3/ul (0.3-0 .9) Eosinophils # 0.2 10^3/ul (0.0-0 .5) Basophils # 0.0 10^3/ul (0.0-0 .1) Nucleated Red 0.0 Blood Cells # 10^3/ul (0.0-0 .0) Sodium Level 135 mmol/L (135-14 4) Potassium 4.1 Level mmol/L (3.5-5. 1) Chloride Level 100 mmol/L (97-110 ) Carbon Dioxide 28 Level mmol/L (21-31) Anion Gap 7 (5-13) Blood Urea 21 Nitrogen mg/dl (7-20) Creatinine 0.77 mg/dl (0.44-1. 00) Est Glomerular > 60 Filtrat mL/min (>60) Rate mL/min Glucose Level 232 mg/dl (70-220) Calcium Level 10.2 mg/dl (8.4-10. 2) Total 0.5 Bilirubin mg/dl (0.2-1.3 ) Direct 0.00 Bilirubin mg/dl (0.00-0. 20) Indirect 0.5 Bilirubin mg/dl (0-1.1) Aspartate Amino 24 Transf (AST/SGO IU/L (15-46) T) Alanine 33 Aminotransferas IU/L (13-69) e (ALT/SGPT) Alkaline 66 Phosphatase IU/L (42-121) Total Protein 6.4 g/dl (6.1-8.1) Albumin 3.4 g/dl (3.3-4.9) Globulin 3.00 g/dl (1.3-3.2) Albumin/Globuli 1.13 n Ratio Test 06/06/18 08:01 06/06/18 12:19 Bedside 211 314 Glucose mg/dL (70-220) mg/dL (70-220) TRENTON OLIVAS MD Jun 06, 2018 13:43
[2018-06-06 14:22] VITALS: BP 103/51; PULSE 75; RESP 16
[2018-06-06] MEDS: ACETAMINOPHEN 325 MG TAB PO PRN (16:34)
[2018-06-06] MEDS ORDERED: HYDROCODONE/APAP (5/325) TAB ONE (16:47)
[2018-06-06] MEDS ORDERED: HYDROCODONE/APAP (5/325) TAB PO ONE (17:00)
[2018-07-02] MEDS ORDERED: POLY17PO6 PO (10:02)
[2018-07-02] MEDS ORDERED: HYOS0.1297 SL (10:02)
== END 2018-06-06 18:00 | disposition home or self-care (01) | DRG 384 ==
LOC: E/R 07:52 → PP2 12:21
PROVIDERS: ADMIT Internal Medicine; ATTEND Internal Medicine
PROC: 0DJD8ZZ Inspection of Lower Intestinal Tract, Via Natural or Artificial Opening Endoscopic (ICD-10-PCS; 2018-06-03)
PROC: 0DB98ZX Excision of Duodenum, Via Natural or Artificial Opening Endoscopic, Diagnostic (ICD-10-PCS; principal; 2018-06-03 16:30)
PROC: 0DB68ZX Excision of Stomach, Via Natural or Artificial Opening Endoscopic, Diagnostic (ICD-10-PCS; 2018-06-03 16:30)
DX: K26.3 Acute duodenal ulcer without hemorrhage or perforation (principal); E11.8 Type 2 diabetes mellitus with unspecified complications; I10 Essential (primary) hypertension; F32.9 Major depressive disorder, single episode, unspecified; E78.5 Hyperlipidemia, unspecified; K29.70 Gastritis, unspecified, without bleeding; K44.9 Diaphragmatic hernia without obstruction or gangrene
CPT/HCPCS: 36415; 71045; 74018; 74177; 74178; 80048; 80053; 80061; 81001; 82150; 82270; 82378; 82962; 83036; 83605; 83690; 83735; 84100; 84443; 84484; 85025; 85610; 85651; 86140; 87045; 87086; 87338; 88305; 93005; 96361; 96374; 96375; C9113; J0744; J1170; J1650; J1815; J1885; J1956; J2405; J3010; J3475; J7030; J7040; Q9967

== ENCOUNTER 2018-07-26 14:19 | Inpatient (IN) | payer MEDICARE, OTHER ==
[~2018-07-26] VITALS: Ht 157.5 cm; Wt 78.0 kg
[~2018-07-26 14:19] MED LIST changes: -ACET325T33 PO; +CARAS PO; -HYDR-4011 PO; +HYOS0.1297 SL; -ONDA4TAB14 PO; +PANT40TA4 PO; -PARO-37 PO; +POLY17PO6 PO
[2018-07-26] MEDS ORDERED: SOD CHLORIDE 0.9% 1,000 ML IV STA (19:20)
--- NOTE | 2018-07-26 19:20 | ERD ---
ER Documentation Chief Complaint Chief Complaint R SIDED ABD PAIN X 1 MONTH HPI 68-year-old woman here for increasing right upper quadrant and epigastric abdominal pain. She has had recent upper endoscopy revealing duodenal ulcers a nd states she has been having increasing abdominal pain despite using her medications and analgesics as prescribed. She states the pain is nonexertional nonradiating, constant, and daily. Patient states she also feels weak but denies blood per rectum or melena, no chest pain or shortness of breath, no vomiting or diarrhea. ROS All systems reviewed and are negative except as per history of present illness. Medications Home Meds Active Scripts Polyethylene Glycol* (Miralax*) 17 Gm Powd.pack, 17 GM PO DAILY PRN for CONSTIPATION, #1 BOTTLE Prov:ABHINAV HASKINS S. 07/02/18 Hyoscyamine Sulfate* (Hyoscyamine Sulfate*) 0.125 Mg Tab.subl, 0.125 MG SL Q8, #1 BOTTLE Prov:ABHINAV HASKINS S. 07/02/18 Sucralfate* (Carafate*) 1 Gm/10 Ml Susp, 1 GM PO QID for 30 Days Prov:TRENTON OLIVAS MD 06/06/18 Pantoprazole* (Pantoprazole*) 40 Mg Tablet.dr, 40 MG PO BID@0600,1800 for 30 Days Prov:TRENTON OLIVAS MD 06/06/18 Insulin Glargine,Hum.rec.anlog (Basaglar Kwikpen U-100) 100 Unit/1 Ml Insuln.pen, 30 UNIT SC QHS for 30 Days, EA 3 Refills Prov:DEONNA GALLO 11/11/17 Reported Medications Lisinopril* (Lisinopril*) 5 Mg Tablet, 5 MG PO DAILY, #30 TAB 07/25/17 Atorvastatin* (Atorvastatin*) 80 Mg Tablet, 80 MG PO QHS, #30 TAB 07/25/17 Glipizide* (Glipizide*) 5 Mg Tablet, 5 MG PO AC BREAKFAST DINNER, TAB 07/25/17 Temazepam* (Temazepam*) 15 Mg Capsule, 15 MG PO HS PRN for INSOMNIA, CAP 07/25/17 Citalopram Hydrobromide* (Citalopram Hydrobromide*) 20 Mg Tablet, 20 MG PO DAILY, #30 TAB 3/7/18 Allergies Allergies: Coded Allergies: ibuprofen (Verified Allergy, Unknown, rash, 06/28/18) morphine (Unverified Allergy, Unknown, ITCHING, 06/28/18) PMhx/Soc Chronic recurrent abdominal pain, hypertension, diabetes mellitus, depression, dyslipidemia, duodenal ulcers, hiatal hernia History of Surgery: Yes (C - Section x 3, appendectomy, Hernia x 4, cholecystectomy ) Anesthesia Reaction: No Hx Neurological Disorder: Yes (neuropathy ) Hx Respiratory Disorders: Yes (asthma ) Hx Cardiac Disorders: Yes (HTN) Hx Psychiatric Problems: Yes (narcotic dependence) Hx Miscellaneous Medical Probl: Yes (Duodenal ulcer s/p EGD/colonoscopy 06/03/18) Hx Alcohol Use: No Hx Substance Use: No Hx Tobacco Use: No FmHx Family History: No diabetes Physical Exam Vitals Vital Signs Date Temp Pulse Resp B/P (MAP) Pulse Ox O2 O2 Flow FiO2 Time Delivery Rate 07/26/18 Nasal 2 19:30 Cannula 07/26/18 99.0 77 18 145/61 99 14:30 (89) Physical Exam Const: Moderate discomfort, afebrile HEENT: Dry mucous membranes, pale conjunctival, no goiter Resp: Clear to auscultation bilaterally Cardio: Regular rate and rhythm, no murmurs Abd: Right upper quadrant and epigastric tenderness to touch with voluntary guarding, no rigidity Skin: No petechiae or rashes Back: No midline or flank tenderness Ext: No cyanosis, or edema Neur: Awake and alert x3, no focal deficits or facial asymmetry, pupils equal round reactive to light Psych: Depressed affect Result Diagram: 07/26/18193507/26/181935 Results 24 hrs Laboratory Tests Test 07/26/18 19:36 07/26/18 21:00 White Blood Count 7.6 10^3/ul Red Blood Count 4.47 10^6/ul Hemoglobin 13.2 g/dl Hematocrit 40.0 % Mean Corpuscular Volume 89.5 fl Mean Corpuscular Hemoglobin 29.5 pg Mean Corpuscular Hemoglobin Concent 33.0 g/dl Red Cell Distribution Width 12.9 % Platelet Count 337 10^3/UL Mean Platelet Volume 9.3 fl Immature Granulocytes % 0.500 % Neutrophils % 58.6 % Lymphocytes % 28.5 % Monocytes % 9.0 % Eosinophils % 3.0 % Basophils % 0.4 % Nucleated Red Blood Cells % 0.0 /100WBC Immature Granulocytes # 0.040 10^3/ul Neutrophils # 4.4 10^3/ul Lymphocytes # 2.2 10^3/ul Monocytes # 0.7 10^3/ul Eosinophils # 0.2 10^3/ul Basophils # 0.0 10^3/ul Nucleated Red Blood Cells # 0.0 10^3/ul Prothrombin Time 12.5 Sec Prothrombin Time Ratio 1.0 INR International Normalized Ratio 0.92 Activated Partial Thromboplast Time 30.0 Sec Sodium Level 136 mmol/L Potassium Level 4.7 mmol/L Chloride Level 99 mmol/L Carbon Dioxide Level 25 mmol/L Anion Gap 12 Blood Urea Nitrogen 29 mg/dl Creatinine 0.72 mg/dl Est Glomerular Filtrat Rate mL/min > 60 mL/min Glucose Level 390 mg/dl Calcium Level 11.4 mg/dl Total Bilirubin 0.5 mg/dl Direct Bilirubin 0.00 mg/dl Indirect Bilirubin 0.5 mg/dl Aspartate Amino Transf (AST/SGOT) 20 IU/L Alanine Aminotransferase (ALT/SGPT) 22 IU/L Alkaline Phosphatase 117 IU/L Troponin I < 0.012 ng/ml Total Protein 7.3 g/dl Albumin 4.0 g/dl Globulin 3.30 g/dl Albumin/Globulin Ratio 1.21 Lipase 36 U/L Urine Color STRAW Urine Clarity CLEAR Urine pH 5.0 Urine Specific [place] 1.021 Urine Ketones NEGATIVE mg/dL Urine Nitrite NEGATIVE mg/dL Urine Bilirubin NEGATIVE mg/dL Urine Urobilinogen NEGATIVE mg/dL Urine Leukocyte Esterase NEGATIVE Radha/ul Urine Hemoglobin NEGATIVE mg/dL Urine Glucose 3+ mg/dL Urine Total Protein NEGATIVE mg/dl Current Medications Medications Dose Sig/Irma Start Time Status Last (Trade) Ordered Route PRN Stop Time Admin Dose Reason Admin Sodium 1,000 ml @ Q1H STAT 07/26/18 DC 07/26/18 Chloride 1,000 mls/hr IV 19:20 07/26/18 19:36 20:19 Ketorolac 15 mg ONCE STAT 07/26/18 DC 07/26/18 Tromethamine IV 20:14 07/26/18 20:21 (Toradol) 20:19 1 mg ONCE STAT 07/26/18 DC 07/26/18 Hydromorphone IV 21:45 07/26/18 22:02 HCl 21:57 (Dilaudid) 40 mg ONCE ONCE 07/26/18 DC 07/26/18 Pantoprazole IV 22:00 07/26/18 22:02 (Protonix 22:01 Iv) Procedures/MDM IV line was established patient was placed on monitoring specialist rhythm strip revealed a sinus rhythm at about 70 bpm with upright P and T waves. Patient was afebrile EKG performed, read by me revealed a normal sinus rhythm at 70 bpm, normal axis, left bundle branch block, no concerning ST elevations or depressions noted I administered 1 L normal saline IV for dehydration and Toradol 15 mg IV x1. For continued pain I administered hydromorphone 1 mg IV x1 and Protonix 40 mg IV x1. 1 view chest x-ray performed, read by me reveals atelectatic changes bilatera lly, no acute infiltrates, no pneumothorax. CBC was normal, electrolytes revealed dehydration, liver function tests normal, troponin negative, urinalysis negative for infection. CT scan of the abdomen and pelvis was performed,IMPRESSION: 1. No mass, lymphadenopathy, or focal acute inflammatory process is identified. 2. Status post cholecystectomy. No biliary ductal dilatation. 3. Small hiatal hernia. 4. New small subcutaneous defect along the inferior aspect of the anterior pelvic wall incision right of the midline. Correlate with physical exam findings. No fluid collection is identified. 5. Aortoiliac vascular calcifications. Elderly woman with a history of endoscopy verified duodenal ulcers presents with severe epigastric and right upper quadrant abdominal pain requiring IV opioids to control. Given her symptoms she will be admitted to [facility] for continued medical management and possible GI consultation. Departure Diagnosis: Primary Impression: Intractable abdominal pain Additional Impressions: Duodenal ulcer Dehydration Hyperglycemia Condition: SARAH Aragon MD Jul 26, 2018 19:20
[2018-07-26] MEDS ORDERED: KETOROLAC 15 MG INJ IV STA (20:14)
[2018-07-26] MEDS ORDERED: HYDROmorphONE 2 MG/ML SYG IV STA (21:45)
[2018-07-26] MEDS ORDERED: PANTOPRAZOLE 40 MG INJ IV ONE (22:00)
[2018-07-26] MEDS ORDERED: ACETAMINOPHEN 325 MG TAB PO PRN (23:00)
[2018-07-26] MEDS ORDERED: LIDOCAINE/MYLANTA 40 ML BTL PO ONE (23:00)
[2018-07-26] MEDS ORDERED: NACL 0.9% 3 ML SYG IV SCH (23:00)
[2018-07-26] MEDS ORDERED: DOCUSATE SODIUM 100 MG CAP PO PRN (23:00)
[2018-07-26] MEDS ORDERED: BISACODYL (EC) 5 MG TAB PO PRN (23:00)
[2018-07-26] MEDS ORDERED: ONDANSETRON 4 MG INJ IV PRN (23:00)
[2018-07-26] MEDS ORDERED: morphine 2 MG INJ IV PRN (23:00)
[2018-07-26 23:15] VITALS: BP 130/65; PULSE 62; RESP 16
--- NOTE | 2018-07-26 23:21 | HP ---
Date/Time of Note Date/Time of Note DATE: 07/26/18 TIME: 23:21 Assessment/Plan VTE Prophylaxis SCD applied (from Nsg): Yes Pharmacological prophylaxis: NA/contraindicated Pharm contraindication: low risk/ambulating Lines/Catheters IV Catheter Type (from Nrsg): Saline Lock Assessment/Plan Hospital Course This is a 58-year female being admitted to the [facility] floor for: #1 epigastric pain: Secondary to underlying duodenal ulcer versus possible ileus versus possible gastroparesis. Previous biopsy results did show a duodenal ulcer with focal ulcer base with fibrosis and mild subacute inflammation, at the current time I will continue Protonix IV, Carafate, clear liquid diet. Will consult GI for further guidance. The pain is severe I will give her Dilaudid for short period of time. Will consult GI. Also will need to consider gastric emptying study. #2 Poorly controlled diabetes mellitus type 2: Last hemoglobin A1c was 12.5, check hemoglobin A1c, Will need to optimize glucose control. Insulin sliding scale. Resume home Lantus. Will consult diabetes education as well. #3 essential hypertension: Resume home medications #4 depression: Resume home meds #5 dyslipidemia: Continue statin #6 DVT GI prophylaxis: SCDs, Protonix, Carafate Further treatment strategy will be implemented as per the clinical course Result Diagram: 07/26/18193507/26/181935 Results 24hrs Laboratory Tests Test 07/26/18 19:36 07/26/18 21:00 White Blood Count 7.6 # Red Blood Count 4.47 Hemoglobin 13.2 Hematocrit 40.0 Mean Corpuscular Volume 89.5 Mean Corpuscular Hemoglobin 29.5 Mean Corpuscular Hemoglobin Concent 33.0 Red Cell Distribution Width 12.9 Platelet Count 337 Mean Platelet Volume 9.3 Immature Granulocytes % 0.500 H Neutrophils % 58.6 Lymphocytes % 28.5 Monocytes % 9.0 Eosinophils % 3.0 Basophils % 0.4 Nucleated Red Blood Cells % 0.0 Immature Granulocytes # 0.040 H Neutrophils # 4.4 Lymphocytes # 2.2 Monocytes # 0.7 Eosinophils # 0.2 Basophils # 0.0 Nucleated Red Blood Cells # 0.0 Prothrombin Time 12.5 Prothrombin Time Ratio 1.0 INR International Normalized Ratio 0.92 Activated Partial Thromboplast Time 30.0 Sodium Level 136 Potassium Level 4.7 Chloride Level 99 Carbon Dioxide Level 25 Anion Gap 12 Blood Urea Nitrogen 29 H Creatinine 0.72 Est Glomerular Filtrat Rate mL/min > 60 Glucose Level 390 H Calcium Level 11.4 H Total Bilirubin 0.5 Direct Bilirubin 0.00 Indirect Bilirubin 0.5 Aspartate Amino Transf (AST/SGOT) 20 Alanine Aminotransferase (ALT/SGPT) 22 Alkaline Phosphatase 117 Troponin I < 0.012 Total Protein 7.3 Albumin 4.0 Globulin 3.30 H Albumin/Globulin Ratio 1.21 Lipase 36 Urine Color STRAW Urine Clarity CLEAR Urine pH 5.0 Urine Specific [place] 1.021 Urine Ketones NEGATIVE Urine Nitrite NEGATIVE Urine Bilirubin NEGATIVE Urine Urobilinogen NEGATIVE Urine Leukocyte Esterase NEGATIVE Urine Hemoglobin NEGATIVE Urine Glucose 3+ H Urine Total Protein NEGATIVE HPI/ROS Admit Date/Time Admit Date/Time Jul 26, 2018 at 22:29 Hx of Present Illness cc: right sided ab pain x 1 month 68-year-old woman here for increasing right upper quadrant and epigastric abdominal pain. She has had recent upper endoscopy revealing duodenal ulcers and states she has been having increasing abdominal pain despite using her medi cations that were prescribed to her. She states the pain is nonexertional nonradiating, constant, and daily. When questioned about the food she eats she does report that she eats Mole the max condition she does report that the pain gets worse after that, she also reports drinking coffee. PAtient states she also feels weak but denies blood per rectum or melena, no chest pain or shortness of breath, no vomiting or diarrhea. Allergies: NKDA Meds: See Jul Const: As per HPI Eyes : No pain discharge or redness or change in visual acuity ENT: No pain, sore throat, congestion, congestion, dysphagia or discharge Respiratory: No shortness of breath, cough, sputum, wheezing, or pleuritic pain Cardiovascular: No chest pain, palpitation, PND, or edema GI : As per HPI Genitourinary: No dysuria, hematuria, flank pain , discharge or CVA tenderness Musculoskeletal: No joint pain, back pain, neck pain, restricted range of motion in neck or joints Skin: No rash, bruising or hives Neuro: No headache, dizziness, syncope, seizure, focal weakness Endocrine: No polyuria, polydipsia, temperature intolerance Psych: No hallucination, depression, anxiety or suicidal ideation PMH/Family/Social Past Medical History duodenal ulcer, s/p EGD/colonoscopy on 06/03/2018, Diabetes mellitus type 2, Essential hypertension, Depression. Dyslipidemia. Medications Current Medications IV Flush (NS 3 ml) 3 ml PER PROTOCOL IV ; Start 07/26/18 at 23:00 Ondansetron HCl (Zofran Inj) 4 mg Q6H PRN IV NAUSEA/VOMITING; Start 07/26/18 at 23:00 Acetaminophen (Tylenol Tab) 650 mg Q6H PRN PO .PAIN 1-3 OR TEMP; Start 07/26/18 at 23:00 Morphine Sulfate (morphine) 2 mg Q8 PRN IV .SEVERE PAIN 7-10; Start 07/26/18 at 23:00 Docusate Sodium (Colace) 100 mg Q12H PRN PO .CONSTIPATION; Start 07/26/18 at 23:00 Bisacodyl (Dulcolax) 5 mg DAILY PRN PO .CONSTIPATION; Start 07/26/18 at 23:00 Pantoprazole (Protonix Iv) 40 mg BID@0600,1800 IV ; Start 07/27/18 at 06:00 Sucralfate (Carafate Susp) 1 gm QID GTB ; Start 07/26/18 at 23:00 Hyoscyamine (Levsin) 0.125 mg Q8 PO ; Start 07/26/18 at 23:00 Coded Allergies: ibuprofen (Verified Allergy, Unknown, rash, 06/28/18) morphine (Unverified Allergy, Unknown, ITCHING, 06/28/18) Past Surgical History duodenal ulcer, s/p EGD/colonoscopy on 06/03/2018, Past Surgical Hx: appendectomy, cholecystectomy, other Family History Significant Family History: no pertinent family hx Social History Alcohol Use: none Smoking Status: Never smoker Drug Use: none Exam/Review of Systems Vital Signs Vitals Vital Signs Date Temp Pulse Resp B/P (MAP) Pulse Ox O2 O2 Flow FiO2 Time Delivery Rate 07/26/18 98.4 62 16 130/65 94 23:15 (86) 07/26/18 Room Air 22:41 07/26/18 2 19:30 Exam Exam General: Currently lying in bed in mild to moderate distress from her abdominal pain HEENT: Atraumatic, normocephalic. The pupils are equal, round and reactive. Ex traocular motor are intact Neck: Supple with full range of motion. No rigidity or meningismus Chest: Nontender Lungs: Clear to auscultation bilaterally no crackles rales or wheezing Heart: Normal S1-S2, Regular rhythm and rate. No murmur, S3, or S4 Abdomen: Obese, tenderness palpation over the epigastric area as well as the right upper quadrant, normal bowel sounds Extremities: Normal to inspection, no edema no cyanosis Neurologic: Normal mental status, speech normal, cranial nerves II through XII are intact, motor and sensory are intact, Additional Comments : A-Duodenal ulcer, biopsy: -- Small intestinal mucosa with normal villous architecture showing focal ulcer base with fibrosis and mild subacute inflammation. -- No evidence of malignancy. B-Stomach, biopsy: -- Antral mucosa showing no significant histopathological abnormality. PROCEDURE: CT Abdomen and Pelvis without contrast. CLINICAL INDICATION: Right-sided abdominal pain TECHNIQUE: CT scan of the abdomen and pelvis without contrast was performed on a multidetector high-resolution CT scanner. The patient was scanned without intravenous contrast. Coronal and sagittal reformatted images were obtained from the axial source images. Images were reviewed on a high-resolution PACS workstation. The total exam CTDI equals 19.83 mGy and the total exam DLP equals 1213.46 mGy-cm. DICOM images are available. One or more of the following dose reduction techniques were used: Automated exposure control. Adjustment of the mA and/or kV according to patient size. Use of iterative reconstruction technique. COMPARISON: CT abdomen and pelvis 07/01/2018 FINDINGS: CT abdomen: The lung bases are clear. The heart size is normal, without pericardial thickening or effusion. Coronary artery vascular calcifications are present. The liver is normal in size and density without focal mass or intrahepatic biliary dilatation. The spleen is normal in size and homogeneous in density. The stomach is partially collapsed, but is grossly unremarkable. The pancreas as visualized is normal. The gallbladder is surgically absent. There is no evidence for biliary dilatation. There is a small left adrenal adenoma. The right adrenal gland is unremarkable. The kidneys are normal in size and position. There is no urolithiasis. There is no hydronephrosis. There are bi lateral renal cysts measures up to 3 cm on the left. The aorta is of normal caliber. Aortoiliac vascular calcifications are present. There is no retroperitoneal lymphadenopathy. The reuben hepatis region is clear. There is a small hiatal hernia. There are postsurgical changes of prior ventral abdominal hernia repair with a mesh. There is no evidence of recurrent hernia. Small subcutaneous defect is seen in the inferior aspect of the midline anterior pelvic wall incision. There is no fluid collection. Scattered foci of calcifications and soft tissue stranding are seen in the anterior abdominal wall and gluteal regions. CT pelvis: The small bowel loops situated within the pelvis are unremarkable. Uterus is absent.. The pelvic sidewalls and inguinal regions are clear. The sigmoid col on and rectum are unremarkable. No mass, lymphadenopathy, or free fluid is seen. No acute inflammation is seen. The surrounding osseous structures are remarkable for degenerative spondylosis of the spine. No osteolytic or osteoblastic lesion is detected. There is minimal anterolisthesis at L4-L5 related to severe facet arthropathy. There is severe discogenic disease at L5- S1. IMPRESSION: 1. No mass, lymphadenopathy, or focal acute inflammatory process is identified. 2. Status post cholecystectomy. No biliary ductal dilatation. 3. Small hiatal hernia. 4. New small subcutaneous defect along the inferior aspect of the anterior pelvic wall incision right of the midline. Correlate with physical exam findings. No fluid collection is identified. 5. Aortoiliac vascular calcifications. RPTAT: HHO .Cyndy Yin MD, MD Date Time Electronically viewed and signed by .Cyndy Yin MD, MD on 07/26/2018 21:32 .O/ CC: SARAH MORAN MD [id number] PROCEDURE: XR Chest. CLINICAL INDICATION: Abdominal pain TECHNIQUE: Single portable view of the chest was obtained COMPARISON: CR CHEST 12/22/2015 FINDINGS: The heart is enlarged. There are mild lingular linear atelectatic changes. There is no focal infiltrate. There is no pleural effusion or pneumothorax. RPTAT: AA IMPRESSION: Mild Cardiomegaly. Mild linear atelectatic changes in the lingula. .Jacky James MD, MD Date Time Electronically viewed and signed by .Jacky James MD, MD on 07/26/2018 20:38 .S/ CC: SARAH MORAN MD [phone] PEREZ RUDOLPH Jul 26, 2018 23:21
[2018-07-27 00:49] VITALS: Ht 157.5 cm; Wt 78.0 kg
[2018-07-27] MEDS: HYOSCYAMINE 0.125 MG TAB PO SCH ×4 (01:18→22:00)
[2018-07-27] MEDS: SUCRALFATE (100 MG/ML) 10ML CUP GTB SCH ×5 (01:18→20:48)
[2018-07-27 01:31] VITALS: BP 111/56; PULSE 58; RESP 18
[2018-07-27] MEDS: HYDROmorphONE 0.5 MG/0.5 ML SYG IV PRN ×3 (02:41→20:47)
[2018-07-27] MEDS ORDERED: INSULIN ASPART [NOVOLOG] 3 ML PEN SC ONE (03:00)
[2018-07-27] MEDS ORDERED: GLUCOSE GEL 15 GRAM TUBE PO PRN ×2 (03:30)
[2018-07-27] MEDS ORDERED: GLUCAGON 1 MG INJ IM PRN (03:30)
[2018-07-27] MEDS ORDERED: DEXTROSE 50% 50 ML SYRINGE IV PRN ×2 (03:30)
[2018-07-27] MEDS ORDERED: GLUCOSE GEL 15 GRAM TUBE BUCCAL PRN (03:30)
[2018-07-27] MEDS: PANTOPRAZOLE 40 MG INJ IV SCH ×2 (06:00→18:17)
[2018-07-27 07:27] VITALS: BP 90/55; PULSE 53; RESP 16
[2018-07-27] MEDS ORDERED: ZOLPIDEM 5 MG TAB PO PRN (08:00)
[2018-07-27] MEDS: INSULIN ASPART [NOVOLOG] 3 ML PEN SC SCH ×4 (08:33→20:54)
[2018-07-27] MEDS: LISINOPRIL 5 MG TAB PO SCH (08:40)
[2018-07-27] MEDS ORDERED: SENNA TAB PO PRN (09:00)
[2018-07-27] MEDS: CITALOPRAM 20 MG TAB PO SCH (09:08)
[2018-07-27 09:09] VITALS: BP 109/56; PULSE 56; RESP 18
[2018-07-27] MEDS ORDERED: MAGNESIUM SULFATE 3 GM in DEXTROSE 5% 100 ML IVPB ONE (10:00)
[2018-07-27] MEDS ORDERED: BELLADONNA PO PRN (12:00)
[2018-07-27] MEDS ORDERED: PHENOBARBITAL PO PRN (12:00)
[2018-07-27 13:23] VITALS: BP 122/58; PULSE 62; RESP 16
[2018-07-27] MEDS ORDERED: BELLADONNA/PHENOBARBITAL TAB PO PRN (13:30)
[2018-07-27] MEDS ORDERED: KETOROLAC 30 MG INJ IV STA (15:18)
--- NOTE | 2018-07-27 16:12 | CONS ---
Assessment/Plan Assessment/Plan Hospital Course (Demo Recall) Assessment/Plan (Daily) Assessment: Severe epigastric pain -CT scan abdomen pelvis unremarkable. History of prior duodenal ulcer noted on EGD 06/08 Type 2 diabetes, ? pain due to gastroparesis HTN Depression Dyslipidemia Anemia with acute drop in H/H Plan: Continue Protonix and Carafate Agree with gastric emptying study although pain may be related to gastritis and or recurrent gastric ulcer. Will plan for repeat EGD on Sunday. Monitor CBC Will follow closely Discussed with Dr. Altman. CC: EDDI ALTMAN MD ; Consultation Date/Type/Reason Admit Date/Time Jul 26, 2018 at 22:29 Date of Consultation: Jul 27, 2018 Type of Consult gastroenterology Reason for Consultation severe right upper quadrant abdominal pain Requesting Provider: PEREZ RUDOLPH Date/Time of Note DATE: 07/27/18 TIME: 15:56 Hx of Present Illness 68 y/o woman with a history of upper endoscopy in 05/2018 showing a focal duodenal ulcer who presents with severe right upper quadrant abdominal pain for 4 days prior to admission. She reports this pain is severe and unrelated to eating. She denies any nausea or vomiting, diarrhea, or constipation. She has a history of diabetes, HTN, and dyslipidemia. Patient had EGD and colonoscopy 06/03/18 during last hospitalization. Constitutional: No no complaints, No improved, No chills, No diaphoresis, No disoriented, No febrile, No poor po, No requiring IVF, No requiring O2, No other ENT: No no complaints, No bleeding, No pain, No congestion, No discharge, No dysphagia, No sore throat, No other Gastrointestinal: pain; No no complaints, No blood, No constipation, No decreased appetite, No diarrhea, No flatus, No nausea, No passing stool, No vomiting, No other Genitourinary: No no complaints, No bleeding, No dysuria, No discharge, No flank pain, No hematuria, No other Neurologic: No no complaints, No confusion, No dizziness, No focal-weakness, No headache, No syncope, No seizure, No other Psychological: No no complaints, No nl mood/affect, No anxiety, No confusion, No depression, No suicidal, No other Past Medical History Home Meds Active Scripts Polyethylene Glycol* (Miralax*) 17 Gm Powd.pack, 17 GM PO DAILY PRN for CONSTIPATION, #1 BOTTLE Prov:JULIO HASKINSEEP S. 07/02/18 Hyoscyamine Sulfate* (Hyoscyamine Sulfate*) 0.125 Mg Tab.subl, 0.125 MG SL Q8, #1 BOTTLE Prov:JULIO HASKINSEEP S. 07/02/18 Sucralfate* (Carafate*) 1 Gm/10 Ml Susp, 1 GM PO QID for 30 Days Prov:TRENTON OLIVAS MD 06/06/18 Pantoprazole* (Pantoprazole*) 40 Mg Tablet.dr, 40 MG PO BID@0600,1800 for 30 Days Prov:TRENTON OLIVAS MD 06/06/18 Insulin Glargine,Hum.rec.anlog (Basaglar Kwikpen U-100) 100 Unit/1 Ml Insuln.pen, 30 UNIT SC QHS for 30 Days, EA 3 Refills Prov:DEONNA GALLO 11/11/17 Reported Medications Lisinopril* (Lisinopril*) 5 Mg Tablet, 5 MG PO DAILY, #30 TAB 07/25/17 Atorvastatin* (Atorvastatin*) 80 Mg Tablet, 80 MG PO QHS, #30 TAB 07/25/17 Glipizide* (Glipizide*) 5 Mg Tablet, 5 MG PO AC BREAKFAST DINNER, TAB 07/25/17 Temazepam* (Temazepam*) 15 Mg Capsule, 15 MG PO HS PRN for INSOMNIA, CAP 07/25/17 Citalopram Hydrobromide* (Citalopram Hydrobromide*) 20 Mg Tablet, 20 MG PO DAILY, #30 TAB 07/25/17 Medications Current Medications IV Flush (NS 3 ml) 3 ml PER PROTOCOL IV ; Start 07/26/18 at 23:00 Ondansetron HCl (Zofran Inj) 4 mg Q6H PRN IV NAUSEA/VOMITING; Start 07/26/18 at 23:00 Acetaminophen (Tylenol Tab) 650 mg Q6H PRN PO .PAIN 1-3 OR TEMP; Start 07/26/18 at 23:00 Docusate Sodium (Colace) 100 mg Q12H PRN PO .CONSTIPATION; Start 07/26/18 at 23:00 Bisacodyl (Dulcolax) 5 mg DAILY PRN PO .CONSTIPATION Last administered on 07/27/18at 11:52; Admin Dose 5 MG; Start 07/26/18 at 23:00 Pantoprazole (Protonix Iv) 40 mg BID@0600,1800 IV Last administered on 07/27/18at 06:00; Admin Dose 40 MG; Start 07/27/18 at 06:00 Sucralfate (Carafate Susp) 1 gm QID GTB Last administered on 07/27/18at 13:19; Admin Dose 1 GM; Start 07/26/18 at 23:00 Hyoscyamine (Levsin) 0.125 mg Q8 PO Last administered on 07/27/18at 13:19; Admin Dose 0.125 MG; Start 07/26/18 at 23:00 Diagnostic Test (Pha) (Accu-Chek) 1 ea 02 XX ; Start 07/28/18 at 02:00 Insulin Aspart (Novolog Insulin Pen) NOVOLOG *MILD* ALGORITHM WITH MEALS BEDTIME SC Last administered on 07/27/18at 12:45; Admin Dose 2 UNIT; Start 07/27/18 at 08:00 Insulin Glargine (Lantus) 30 unit QHS SC ; Start 07/27/18 at 21:00 Atorvastatin Calcium (Lipitor) 80 mg QHS PO ; Start 07/27/18 at 21:00 Citalopram Hydrobromide (Celexa) 20 mg DAILY PO Last administered on 07/27/18at 09:08; Admin Dose 20 MG; Start 07/27/18 at 09:00 Lisinopril (Zestril) 5 mg DAILY PO ; Start 07/27/18 at 09:00 Zolpidem Tartrate (Ambien) 5 mg HS PRN PO INSOMNIA; Start 07/27/18 at 08:00 Miscellaneous Information 1 ea NOTE XX ; Start 07/27/18 at 03:30 Glucose (Glutose) 15 gm Q15M PRN PO DECREASED GLUCOSE; Start 07/27/18 at 03:30 Glucose (Glutose) 22.5 gm Q15M PRN PO DECREASED GLUCOSE; Start 07/27/18 at 03:30 Dextrose (D50w Syringe) 25 ml Q15M PRN IV DECREASED GLUCOSE; Start 07/27/18 at 03:30 Dextrose (D50w Syringe) 50 ml Q15M PRN IV DECREASED GLUCOSE; Start 07/27/18 at 03:30 Glucagon (Glucagen) 1 mg Q15M PRN IM DECREASED GLUCOSE; Start 07/27/18 at 03:30 Glucose (Glutose) 15 gm Q15M PRN BUCCAL DECREASED GLUCOSE; Start 07/27/18 at 03:30 Senna (Senokot) 2 tab BID PO ; Start 07/27/18 at 21:00 Polyethylene Glycol (Miralax) 17 gm DAILY PO ; Start 07/28/18 at 11:30 Belladonna/ Phenobarbital () 1 tab QID PRN PO ABD PAIN Last administer ed on 07/27/18at 14:12; Admin Dose 1 TAB; Start 07/27/18 at 13:30 Allergies: Coded Allergies: ibuprofen (Verified Allergy, Unknown, rash, 06/28/18) morphine (Unverified Allergy, Unknown, ITCHING, 06/28/18) Past Surgical History Past Surgical Hx: appendectomy, cholecystectomy, other Social History Alcohol Use: none Smoking Status: Never smoker Drug Use: none Exam/Review of Systems Exam Vitals Vital Signs Date Temp Pulse Resp B/P (MAP) Pulse Ox O2 O2 Flow FiO2 Time Delivery Rate 07/27/18 98.2 62 16 122/58 95 13:23 (79) 07/27/18 Room Air 09:09 07/26/18 2 19:30 Intake and Output 07/26/18 07/26/18 07/27/18 1414:59 22:59 06:59 IntakeIntake Total 600 ml BalanceBalance 600 ml Constitutional: No alert, No oriented, No well developed, No non-verbal, No distress, No frail, No obese, No other Head: No normocephalic, No atraumatic, No lacerations, No hematomas, No other ENMT: No nl external ears & nose, No nl lips & teeth, No nl nasal mucosa & septum, No mucosa pink and moist, No intubated, No tympanic membranes, No other Respiratory: No clear to auscultation, No normal air movement, No congested cough, No crackles/rales, No diminished breath sounds, No intercostal retraction, No labored breathing, No respirations, No tactile fremitus, No wheez ing, No other Cardiovascular: No regular rate and rhythm, No nl pulses, No bruits, No diastolic murmur, No edema, No gallop, No irregular rhythm, No jugular venous distention (JVD), No murmurs/extra sounds, No rub, No systolic murmur, No S3, No S4, No other Gastrointestinal: soft, bowel sounds, rebound or guarding (guarding), tender (severe right upper quadrant tenderness to palpation); No nl liver, spleen, No non-tender, No ascites, No distended, No firm, No hepatomegaly, No mass, No splenomegaly, No surgical scars, No other Skin: No nl turgor, No rash or lesions, No diaphoresis, No ecchymosis, No laceration, No puncture, No other Results Result Diagram: 07/27/18 0436 07/27/18 0435 Results 24hrs Laboratory Tests Test 07/26/18 19:36 07/26/18 21:00 07/27/18 02:55 07/27/18 03:42 White Blood Count 7.6 # Red Blood Count 4.47 Hemoglobin 13.2 Hematocrit 40.0 Mean Corpuscular Volume 89.5 Mean Corpuscular 29.5 Hemoglobin Mean Corpuscular 33.0 Hemoglobin Concent Red Cell Distribution 12.9 Width Platelet Count 337 Mean Platelet Volume 9.3 Immature Granulocytes % 0.500 H Neutrophils % 58.6 Lymphocytes % 28.5 Monocytes % 9.0 Eosinophils % 3.0 Basophils % 0.4 Nucleated Red Blood 0.0 Cells % Immature Granulocytes # 0.040 H Neutrophils # 4.4 Lymphocytes # 2.2 Monocytes # 0.7 Eosinophils # 0.2 Basophils # 0.0 Nucleated Red Blood 0.0 Cells # Prothrombin Time 12.5 Prothrombin Time Ratio 1.0 INR International 0.92 Normalized Ratio Activated 30.0 Partial Thromboplast Time Sodium Level 136 Potassium Level 4.7 Chloride Level 99 Carbon Dioxide Level 25 Anion Gap 12 Blood Urea Nitrogen 29 H Creatinine 0.72 Est Glomerular Filtrat > 60 Rate mL/min Glucose Level 390 H Calcium Level 11.4 H Total Bilirubin 0.5 Direct Bilirubin 0.00 Indirect Bilirubin 0.5 Aspartate Amino 20 Transf (AST/SGOT) Alanine 22 Aminotransferase (ALT/SG PT) Alkaline Phosphatase 117 Troponin I < 0.012 Total Protein 7.3 Albumin 4.0 Globulin 3.30 H Albumin/Globulin Ratio 1.21 Lipase 36 Urine Color STRAW Urine Clarity CLEAR Urine pH 5.0 Urine Specific [place] 1.021 Urine Ketones NEGATIVE Urine Nitrite NEGATIVE Urine Bilirubin NEGATIVE Urine Urobilinogen NEGATIVE Urine Leukocyte Esterase NEGATIVE Urine Hemoglobin NEGATIVE Urine Glucose 3+ H Urine Total Protein NEGATIVE Bedside Glucose 229 H 236 H Test 07/27/18 04:35 07/27/18 04:36 07/27/18 07:55 07/27/18 11:57 Sodium Level 140 Potassium Level 4.1 Chloride Level 105 Carbon Dioxide Level 26 Anion Gap 9 Blood Urea Nitrogen 28 H Creatinine 0.76 Est Glomerular Filtrat > 60 Rate mL/min Glucose Level 229 #H Calcium Level 10.5 H Magnesium Level 1.2 L Total Bilirubin 0.6 Direct Bilirubin 0.00 Indirect Bilirubin 0.6 Aspartate Amino 15 Transf (AST/SGOT) Alanine 17 Aminotransferase (ALT/SG PT) Alkaline Phosphatase 75 Total Protein 6.0 #L Albumin 3.2 L Globulin 2.80 Albumin/Globulin Ratio 1.14 White Blood Count 6.6 Red Blood Count 3.96 L Hemoglobin 11.7 L Hematocrit 35.8 L Mean Corpuscular Volume 90.4 Mean Corpuscular 29.5 Hemoglobin Mean Corpuscular 32.7 Hemoglobin Concent Red Cell Distribution 12.7 Width Platelet Count 279 Mean Platelet Volume 9.4 Immature Granulocytes % 0.300 Neutrophils % 47.6 Lymphocytes % 38.1 Monocytes % 9.1 Eosinophils % 4.4 Basophils % 0.5 Nucleated Red Blood 0.0 Cells % Immature Granulocytes # 0.020 Neutrophils # 3.2 Lymphocytes # 2.5 Monocytes # 0.6 Eosinophils # 0.3 Basophils # 0.0 Nucleated Red Blood 0.0 Cells # Hemoglobin A1c 11.1 H Bedside Glucose [address] scan abdomen pelvis 07/26/18: IMPRESSION: 1. No mass, lymphadenopathy, or focal acute inflammatory process is identified. 2. Status post cholecystectomy. No biliary ductal dilatation. 3. Small hiatal hernia. 4. New small subcutaneous defect along the inferior aspect of the anterior pelvic wall incision right of the midline. Correlate with physical exam findings. No fluid collection is identified. 5. Aortoiliac vascular calcifications. Medications Medication Current Medications IV Flush (NS 3 ml) 3 ml PER PROTOCOL IV ; Start 07/26/18 at 23:00 Ondansetron HCl (Zofran Inj) 4 mg Q6H PRN IV NAUSEA/VOMITING; Start 07/26/18 at 23:00 Acetaminophen (Tylenol Tab) 650 mg Q6H PRN PO .PAIN 1-3 OR TEMP; Start 07/26/18 at 23:00 Docusate Sodium (Colace) 100 mg Q12H PRN PO .CONSTIPATION; Start 07/26/18 at 23:00 Bisacodyl (Dulcolax) 5 mg DAILY PRN PO .CONSTIPATION Last administered on 07/27/18at 11:52; Admin Dose 5 MG; Start 07/26/18 at 23:00 Pantoprazole (Protonix Iv) 40 mg BID@0600,1800 IV Last administered on 07/27/18at 06:00; Admin Dose 40 MG; Start 07/27/18 at 06:00 Sucralfate (Carafate Susp) 1 gm QID GTB Last administered on 07/27/18at 13:19; Admin Dose 1 GM; Start 07/26/18 at 23:00 Hyoscyamine (Levsin) 0.125 mg Q8 PO Last administered on 07/27/18at 13:19; Admin Dose 0.125 MG; Start 07/26/18 at 23:00 Diagnostic Test (Pha) (Accu-Chek) 1 ea 02 XX ; Start 07/28/18 at 02:00 Insulin Aspart (Novolog Insulin Pen) NOVOLOG *MILD* ALGORITHM WITH MEALS BEDTIME SC Last administered on 07/27/18at 12:45; Admin Dose 2 UNIT; Start 07/27/18 at 08:00 Insulin Glargine (Lantus) 30 unit QHS SC ; Start 07/27/18 at 21:00 Atorvastatin Calcium (Lipitor) 80 mg QHS PO ; Start 07/27/18 at 21:00 Citalopram Hydrobromide (Celexa) 20 mg DAILY PO Last administered on 07/27/18at 09:08; Admin Dose 20 MG; Start 07/27/18 at 09:00 Lisinopril (Zestril) 5 mg DAILY PO ; Start 07/27/18 at 09:00 Zolpidem Tartrate (Ambien) 5 mg HS PRN PO INSOMNIA; Start 07/27/18 at 08:00 Miscellaneous Information 1 ea NOTE XX ; Start 07/27/18 at 03:30 Glucose (Glutose) 15 gm Q15M PRN PO DECREASED GLUCOSE; Start 07/27/18 at 03:30 Glucose (Glutose) 22.5 gm Q15M PRN PO DECREASED GLUCOSE; Start 07/27/18 at 03:30 Dextrose (D50w Syringe) 25 ml Q15M PRN IV DECREASED GLUCOSE; Start 07/27/18 at 03:30 Dextrose (D50w Syringe) 50 ml Q15M PRN IV DECREASED GLUCOSE; Start 07/27/18 at 03:30 Glucagon (Glucagen) 1 mg Q15M PRN IM DECREASED GLUCOSE; Start 07/27/18 at 03:30 Glucose (Glutose) 15 gm Q15M PRN BUCCAL DECREASED GLUCOSE; Start 07/27/18 at 03:30 Senna (Senokot) 2 tab BID PO ; Start 07/27/18 at 21:00 Polyethylene Glycol (Miralax) 17 gm DAILY PO ; Start 07/28/18 at 11:30 Belladonna/ Phenobarbital () 1 tab QID PRN PO ABD PAIN Last administered on 07/27/18at 14:12; Admin Dose 1 TAB; Start 07/27/18 at 13:30 ZULEMA GALDAMEZ NP Jul 27, 2018 16:08
--- NOTE | 2018-07-27 16:22 | PN ---
Date/Time of Note Date/Time of Note DATE: 07/27/18 TIME: 16:10 Assessment/Plan VTE Prophylaxis Risk score (from Ns)>0 risk: 3 SCD applied (from Ns): Yes Pharmacological prophylaxis: NA/contraindicated Pharm contraindication: low risk/ambulating Lines/Catheters IV Catheter Type (from Nrsg): Saline Lock Urinary Cath still in place: No Assessment/Plan Assessment/Plan 58 yo woman with diabetes and chronic abdominal pain presents with same. #Abdominal pain: - Frequent hospital admissions without clear etiology. - She does have duodenal ulcer and pain may also be from ileus or gastroparesis - On admission she reported epigastric pain; but on my exam it was localized to the RLQ. - Continue PPI, carafate, prn. - I gave toradol IV which seemed to cause improvement today. - Will hold off on dilaudid and other IV opiates. - GI consulted. # Poorly controlled diabetes mellitus type 2: - Last hemoglobin A1c was 12.5 - Will need to optimize glucose control. - Insulin sliding scale. - Resume home Lantus. Will consult diabetes education as well. # essential hypertension: Resume home medications # depression: Resume home meds # dyslipidemia: Continue statin # DVT GI prophylaxis: SCDs, Protonix, Carafate Result Diagram: 07/27/18 0436 07/27/18 0435 Subjective 24 Hr Interval Summary Free Text/Dictation Patient continues to complain of severe cramping RLQ pain. Worse with standing and walking. Not associated with nausea or vomiting. The only thing that helps is IV dilaudid; she says some oral meds actually make it worse. Exam/Review of Systems Exam Vitals Vital Signs Date Temp Pulse Resp B/P (MAP) Pulse Ox O2 O2 Flow FiO2 Time Delivery Rate 07/27/18 98.2 62 16 122/58 95 13:23 (79) 07/27/18 Room Air 09:09 07/26/18 2 19:30 Intake and Output 07/26/18 07/26/18 07/27/18 1414:59 22:59 06:59 IntakeIntake Total 600 ml BalanceBalance 600 ml Exam General: Currently lying in bed in mild to moderate distress from her abdominal pain HEENT: Atraumatic, normocephalic. The pupils are equal, round and reactive. Extraocular motor are intact Neck: Supple with full range of motion. No rigidity or meningismus Chest: Nontender Lungs: Clear to auscultation bilaterally no crackles rales or wheezing Heart: Normal S1-S2, Regular rhythm and rate. No murmur, S3, or S4 Abdomen: Obese, exquisite tender to palpation over RLQ Extremities: Normal to inspection, no edema no cyanosis Results Results 24hrs Laboratory Tests Test 07/26/18 19:36 07/26/18 21:00 07/27/18 02:55 07/27/18 03:42 White Blood Count 7.6 # Red Blood Count 4.47 Hemoglobin 13.2 Hematocrit 40.0 Mean Corpuscular Volume 89.5 Mean Corpuscular 29.5 Hemoglobin Mean Corpuscular 33.0 Hemoglobin Concent Red Cell Distribution 12.9 Width Platelet Count 337 Mean Platelet Volume 9.3 Immature Granulocytes % 0.500 H Neutrophils % 58.6 Lymphocytes % 28.5 Monocytes % 9.0 Eosinophils % 3.0 Basophils % 0.4 Nucleated Red Blood 0.0 Cells % Immature Granulocytes # 0.040 H Neutrophils # 4.4 Lymphocytes # 2.2 Monocytes # 0.7 Eosinophils # 0.2 Basophils # 0.0 Nucleated Red Blood 0.0 Cells # Prothrombin Time 12.5 Prothrombin Time Ratio 1.0 INR International 0.92 Normalized Ratio Activated 30.0 Partial Thromboplast Time Sodium Level 136 Potassium Level 4.7 Chloride Level 99 Carbon Dioxide Level 25 Anion Gap 12 Blood Urea Nitrogen 29 H Creatinine 0.72 Est Glomerular Filtrat > 60 Rate mL/min Glucose Level 390 H Calcium Level 11.4 H Total Bilirubin 0.5 Direct Bilirubin 0.00 Indirect Bilirubin 0.5 Aspartate Amino 20 Transf (AST/SGOT) Alanine 22 Aminotransferase (ALT/SG PT) Alkaline Phosphatase 117 Troponin I < 0.012 Total Protein 7.3 Albumin 4.0 Globulin 3.30 H Albumin/Globulin Ratio 1.21 Lipase 36 Urine Color STRAW Urine Clarity CLEAR Urine pH 5.0 Urine Specific [place] 1.021 Urine Ketones NEGATIVE Urine Nitrite NEGATIVE Urine Bilirubin NEGATIVE Urine Urobilinogen NEGATIVE Urine Leukocyte Esterase NEGATIVE Urine Hemoglobin NEGATIVE Urine Glucose 3+ H Urine Total Protein NEGATIVE Bedside Glucose 229 H 236 H Test 07/27/18 04:35 07/27/18 04:36 07/27/18 07:55 07/27/18 11:57 Sodium Level 140 Potassium Level 4.1 Chloride Level 105 Carbon Dioxide Level 26 Anion Gap 9 Blood Urea Nitrogen 28 H Creatinine 0.76 Est Glomerular Filtrat > 60 Rate mL/min Glucose Level 229 #H Calcium Level 10.5 H Magnesium Level 1.2 L Total Bilirubin 0.6 Direct Bilirubin 0.00 Indirect Bilirubin 0.6 Aspartate Amino 15 Transf (AST/SGOT) Alanine 17 Aminotransferase (ALT/SG PT) Alkaline Phosphatase 75 Total Protein 6.0 #L Albumin 3.2 L Globulin 2.80 Albumin/Globulin Ratio 1.14 White Blood Count 6.6 Red Blood Count 3.96 L Hemoglobin 11.7 L Hematocrit 35.8 L Mean Corpuscular Volume 90.4 Mean Corpuscular 29.5 Hemoglobin Mean Corpuscular 32.7 Hemoglobin Concent Red Cell Distribution 12.7 Width Platelet Count 279 Mean Platelet Volume 9.4 Immature Granulocytes % 0.300 Neutrophils % 47.6 Lymphocytes % 38.1 Monocytes % 9.1 Eosinophils % 4.4 Basophils % 0.5 Nucleated Red Blood 0.0 Cells % Immature Granulocytes # 0.020 Neutrophils # 3.2 Lymphocytes # 2.5 Monocytes # 0.6 Eosinophils # 0.3 Basophils # 0.0 Nucleated Red Blood 0.0 Cells # Hemoglobin A1c 11.1 H Bedside Glucose 161 210 Medications Medication Current Medications IV Flush (NS 3 ml) 3 ml PER PROTOCOL IV ; Start 07/26/18 at 23:00 Ondansetron HCl (Zofran Inj) 4 mg Q6H PRN IV NAUSEA/VOMITING; Start 07/26/18 at 23:00 Acetaminophen (Tylenol Tab) 650 mg Q6H PRN PO .PAIN 1-3 OR TEMP; Start 07/26/18 at 23:00 Docusate Sodium (Colace) 100 mg Q12H PRN PO .CONSTIPATION; Start 07/26/18 at 23:00 Bisacodyl (Dulcolax) 5 mg DAILY PRN PO .CONSTIPATION Last administered on 07/27/18at 11:52; Admin Dose 5 MG; Start 07/26/18 at 23:00 Pantoprazole (Protonix Iv) 40 mg BID@0600,1800 IV Last administered on 07/27/18at 06:00; Admin Dose 40 MG; Start 07/27/18 at 06:00 Sucralfate (Carafate Susp) 1 gm QID GTB Last administered on 07/27/18at 13:19; Admin Dose 1 GM; Start 07/26/18 at 23:00 Hyoscyamine (Levsin) 0.125 mg Q8 PO Last administered on 07/27/18at 13:19; Admin Dose 0.125 MG; Start 07/26/18 at 23:00 Diagnostic Test (Pha) (Accu-Chek) 1 ea 02 XX ; Start 07/28/18 at 02:00 Insulin Aspart (Novolog Insulin Pen) NOVOLOG *MILD* ALGORITHM WITH MEALS BEDTIME SC Last administered on 07/27/18at 12:45; Admin Dose 2 UNIT; Start 07/27/18 at 08:00 Insulin Glargine (Lantus) 30 unit QHS SC ; Start 07/27/18 at 21:00 Atorvastatin Calcium (Lipitor) 80 mg QHS PO ; Start 07/27/18 at 21:00 Citalopram Hydrobromide (Celexa) 20 mg DAILY PO Last administered on 07/27/18at 09:08; Admin Dose 20 MG; Start 07/27/18 at 09:00 Lisinopril (Zestril) 5 mg DAILY PO ; Start 07/27/18 at 09:00 Zolpidem Tartrate (Ambien) 5 mg HS PRN PO INSOMNIA; Start 07/27/18 at 08:00 Miscellaneous Information 1 ea NOTE XX ; Start 07/27/18 at 03:30 Glucose (Glutose) 15 gm Q15M PRN PO DECREASED GLUCOSE; Start 07/27/18 at 03:30 Glucose (Glutose) 22.5 gm Q15M PRN PO DECREASED GLUCOSE; Start 07/27/18 at 03:30 Dextrose (D50w Syringe) 25 ml Q15M PRN IV DECREASED GLUCOSE; Start 07/27/18 at 03:30 Dextrose (D50w Syringe) 50 ml Q15M PRN IV DECREASED GLUCOSE; Start 07/27/18 at 03:30 Glucagon (Glucagen) 1 mg Q15M PRN IM DECREASED GLUCOSE; Start 07/27/18 at 03:30 Glucose (Glutose) 15 gm Q15M PRN BUCCAL DECREASED GLUCOSE; Start 07/27/18 at 03:30 Senna (Senokot) 2 tab BID PO ; Start 07/27/18 at 21:00 Polyethylene Glycol (Miralax) 17 gm DAILY PO ; Start 07/28/18 at 11:30 Belladonna/ Phenobarbital () 1 tab QID PRN PO ABD PAIN Last administered on 07/27/18at 14:12; Admin Dose 1 TAB; Start 07/27/18 at 13:30 MYA JAMES MD Jul 27, 2018 16:22
[2018-07-27 20:00] VITALS: BP 139/71; PULSE 68; RESP 18
[2018-07-27] MEDS: ATORVASTATIN 80 MG TAB PO SCH (20:48)
[2018-07-27] MEDS: SENNA TAB PO SCH (20:48)
[2018-07-27] MEDS: INSULIN GLARGINE [LANtus] 3 ML PEN SC SCH (20:53)
[2018-07-28] MEDS: HYDROmorphONE 0.5 MG/0.5 ML SYG IV PRN ×3 (01:02→13:08)
[2018-07-28 02:00] VITALS: BP 127/60; PULSE 67; RESP 16
[2018-07-28] MEDS: ACCU-CHEK XX SCH (02:00)
[2018-07-28] MEDS: PANTOPRAZOLE 40 MG INJ IV SCH ×2 (06:20→18:33)
[2018-07-28] MEDS: HYOSCYAMINE 0.125 MG TAB PO SCH ×3 (06:24→22:06)
[2018-07-28 07:30] VITALS: BP 109/56; PULSE 56; RESP 16
[2018-07-28] MEDS: INSULIN ASPART [NOVOLOG] 3 ML PEN SC SCH ×4 (08:10→21:00)
[2018-07-28] MEDS: CITALOPRAM 20 MG TAB PO SCH (08:56)
[2018-07-28] MEDS: SENNA TAB PO SCH ×2 (08:57→20:48)
[2018-07-28] MEDS: LISINOPRIL 5 MG TAB PO SCH (08:57)
[2018-07-28] MEDS: SUCRALFATE (100 MG/ML) 10ML CUP GTB SCH ×4 (08:58→20:44)
[2018-07-28] MEDS: POLYETHYLENE GLYCOL 17 GM PACKET PO SCH (11:30)
[2018-07-28 13:34] VITALS: BP 111/53; PULSE 68; RESP 16
--- NOTE | 2018-07-28 14:09 | PN ---
Date/Time of Note Date/Time of Note DATE: 07/28/18 TIME: 14:07 Assessment/Plan VTE Prophylaxis Risk score (from Nsg)>0 risk: 2 SCD applied (from Ns): Yes Pharmacological prophylaxis: NA/contraindicated Pharm contraindication: low risk/ambulating Lines/Catheters IV Catheter Type (from Nrsg): Saline Lock Urinary Cath still in place: No Assessment/Plan Assessment/Plan 58 yo woman with diabetes and chronic abdominal pain presents with same. #Abdominal pain: - Frequent hospital admissions without clear etiology. - She does have duodenal ulcer and pain may also be from ileus or gastroparesis - On admission she reported epigastric pain; but on my exam it was localized to the RLQ. - Continue PPI, carafate, prn. - I gave toradol IV which seemed to cause improvement today. - She really really wants IV dilaudid so might as well continue it. - GI consulted. # Poorly controlled diabetes mellitus type 2: - Last hemoglobin A1c was 12.5 - Will need to optimize glucose control. - Insulin sliding scale. - Resume home Lantus. Will consult diabetes education as well. # essential hypertension: Resume home medications # depression: Resume home meds # dyslipidemia: Continue statin # DVT GI prophylaxis: SCDs, Protonix, Carafate Result Diagram: 07/27/18 0436 07/27/18 0435 Subjective 24 Hr Interval Summary Free Text/Dictation No acute overnight events. IV dilaudid was ordered again. This morning patient reports pain is well controlled on dilaudid. She is tolerating diet, able to shower. Exam/Review of Systems Exam Vitals Vital Signs Date Temp Pulse Resp B/P (MAP) Pulse Ox O2 O2 Flow FiO2 Time Delivery Rate 07/28/18 98.6 68 16 111/53 96 13:34 (72) 07/28/18 Room Air 02:00 07/26/18 2 19:30 Intake and Output 07/27/18 07/27/18 07/28/18 1515:00 23:00 07:00 IntakeIntake Total 1306 ml 720 ml 150 ml BalanceBalance 1306 ml 720 ml 150 ml Exam General: Currently lying in bed in no distress. HEENT: Atraumatic, normocephalic. The pupils are equal, round and reactive. Extraocular motor are intact Neck: Supple with full range of motion. No rigidity or meningismus Chest: Nontender Lungs: Clear to auscultation bilaterally no crackles rales or wheezing Heart: Normal S1-S2, Regular rhythm and rate. No murmur, S3, or S4 Abdomen: Obese, exquisite tender to palpation over RLQ Extremities: Normal to inspection, no edema no cyanosis Results Results 24hrs Laboratory Tests Test 07/27/18 17:57 07/27/18 20:49 07/28/18 03:36 07/28/18 08:07 Bedside Glucose 260 H 267 H 125 160 Test 07/28/18 12:35 Bedside Glucose 169 Medications Medication Current Medications IV Flush (NS 3 ml) 3 ml PER PROTOCOL IV ; Start 07/26/18 at 23:00 Ondansetron HCl (Zofran Inj) 4 mg Q6H PRN IV NAUSEA/VOMITING; Start 07/26/18 at 23:00 Acetaminophen (Tylenol Tab) 650 mg Q6H PRN PO .PAIN 1-3 OR TEMP; Start 07/26/18 at 23:00 Docusate Sodium (Colace) 100 mg Q12H PRN PO .CONSTIPATION; Start 07/26/18 at 23:00 Bisacodyl (Dulcolax) 5 mg DAILY PRN PO .CONSTIPATION Last administered on 07/27/18at 11:52; Admin Dose 5 MG; Start 07/26/18 at 23:00 Pantoprazole (Protonix Iv) 40 mg BID@0600,1800 IV Last administered on 07/28/18at 06:20; Admin Dose 40 MG; Start 07/27/18 at 06:00 Sucralfate (Carafate Susp) 1 gm QID GTB Last administered on 07/28/18at 13:16; Admin Dose 1 GM; Start 07/26/18 at 23:00 Hyoscyamine (Levsin) 0.125 mg Q8 PO Last administered on 07/28/18 13:16; Admin Dose 0.125 MG; Start 07/26/18 at 23:00 Diagnostic Test (Pha) (Accu-Chek) 1 ea 02 XX Last administered on 07/28/18at 02:00; Admin Dose 1 EA; Start 07/28/18 at 02:00 Insulin Aspart (Novolog Insulin Pen) NOVOLOG *MILD* ALGORITHM WITH MEALS BEDTIME SC Last administered on 07/28/18 12:55; Admin Dose 1 UNIT; Start 07/27/18 at 08:00 Insulin Glargine (Lantus) 30 unit QHS SC Last administered on 07/27/18 20:53; Admin Dose 30 UNIT; Start 07/27/18 at 21:00 Atorvastatin Calcium (Lipitor) 80 mg QHS PO Last administered on 07/27/18 20:48; Admin Dose 80 MG; Start 07/27/18 at 21:00 Citalopram Hydrobromide (Celexa) 20 mg DAILY PO Last administered on 07/28/18 08:56; Admin Dose 20 MG; Start 07/27/18 at 09:00 Lisinopril (Zestril) 5 mg DAILY PO Last administered on 07/28/18 08:57; Admin Dose 5 MG; Start 07/27/18 at 09:00 Zolpidem Tartrate (Ambien) 5 mg HS PRN PO INSOMNIA Last administered on 07/28/18 01:01; Admin Dose 5 MG; Start 07/27/18 at 08:00 Miscellaneous Information 1 ea NOTE XX ; Start 07/27/18 at 03:30 Glucose (Glutose) 15 gm Q15M PRN PO DECREASED GLUCOSE; Start 07/27/18 at 03:30 Glucose (Glutose) 22.5 gm Q15M PRN PO DECREASED GLUCOSE; Start 07/27/18 at 03:30 Dextrose (D50w Syringe) 25 ml Q15M PRN IV DECREASED GLUCOSE; Start 07/27/18 at 03:30 Dextrose (D50w Syringe) 50 ml Q15M PRN IV DECREASED GLUCOSE; Start 07/27/18 at 03:30 Glucagon (Glucagen) 1 mg Q15M PRN IM DECREASED GLUCOSE; Start 07/27/18 at 03:30 Glucose (Glutose) 15 gm Q15M PRN BUCCAL DECREASED GLUCOSE; Start 07/27/18 at 03:30 Senna (Senokot) 2 tab BID PO Last administered on 07/28/18 08:57; Admin Dose 2 TAB; Start 07/27/18 at 21:00 Polyethylene Glycol (Miralax) 17 gm DAILY PO ; Start 07/28/18 at 11:30 Belladonna/ Phenobarbital () 1 tab QID PRN PO ABD PAIN Last adm inistered on 07/27/18at 14:12; Admin Dose 1 TAB; Start 07/27/18 at 13:30 Hydromorphone HCl (Dilaudid) 0.5 mg Q4H PRN IV SEVERE PAIN LEVEL 7-10 Last administered on 07/28/18at 13:08; Admin Dose 0.5 MG; Start 07/27/18 at 20:30; Stop 07/28/18 at 20:29 MYA JAMES MD Jul 28, 2018 14:09
--- NOTE | 2018-07-28 15:22 | PN ---
Date/Time of Note Date/Time of Note DATE: 07/28/18 TIME: 15:07 Assessment/Plan VTE Prophylaxis Risk score (from Nsg)>0 risk: 2 SCD applied (from Nsg): Yes SCD contraindicated: low risk/ambulating Pharmacological prophylaxis: heparin Lines/Catheters IV Catheter Type (from Nrsg): Saline Lock Urinary Cath still in place: No Assessment/Plan Assessment/Plan Assessment: Severe epigastric pain -CT scan abdomen pelvis unremarkable. History of prior duodenal ulcer noted on EGD 06/08 Type 2 diabetes, ? pain due to gastroparesis HTN Depression Dyslipidemia Anemia with acute drop in H/H Plan: Continue Protonix and Carafate Will obtain gastric emptying study to rule out gastroparesis, although pain may be related to gastritis and or recurrent gastric ulcer. Discussed need for EGD tomorrow to reevaluate ulcer. Benefits, alternatives, risks discussed with patient who is agreeable to proceed. Will plan for repeat EGD on Sunday. NPO after breakfast, clear liquids until then. Monitor labs Will follow closely Discussed with nursing staff. Discussed with Dr. Altman. Subjective: Patient reports ongoing severe right upper quadrant abdominal pain. Denies nause a or vomiting, having bowel movements. Physical Exam: Constitutional: No alert, No oriented, No well developed, No non-verbal, No distress, No frail, No obese, No other Head: No normocephalic, No atraumatic, No lacerations, No hematomas, No other ENMT: No nl external ears & nose, No nl lips & teeth, No nl nasal mucosa & septum, No mucosa pink and moist, No intubated, No tympanic membranes, No other Respiratory: No clear to auscultation, No normal air movement, No congested cough, No crackles/rales, No diminished breath sounds, No intercostal retraction, No labored breathing, No respirations, No tactile fremitus, No wheezing, No other Cardiovascular: No regular rate and rhythm, No nl pulses, No bruits, No diastolic murmur, No edema, No gallop, No irregular rhythm, No jugular venous distention (JVD), No murmurs/extra sounds, No rub, No systolic murmur, No S3, No S4, No other Gastrointestinal: soft, bowel sounds, rebound or guarding (guarding), tender (severe right upper quadrant tenderness to palpation); No nl liver, spleen, No non-tender, No ascites, No distended, No firm, No hepatomegaly, No mass, No splenomegaly, No surgical scars, No other Skin: No nl turgor, No rash or lesions, No diaphoresis, No ecchymosis, No laceration, No puncture, No other Result Diagram: 07/27/18 0436 07/27/18 0435 Results 24hrs Laboratory Tests Test 07/27/18 17:57 07/27/18 20:49 07/28/18 03:36 07/28/18 08:07 Bedside Glucose 260 H 267 H 125 160 Test 07/28/18 12:35 Bedside Glucose 169 CC: EDDI ALTMAN MD ; Exam/Review of Systems Exam Vitals Vital Signs Date Temp Pulse Resp B/P (MAP) Pulse Ox O2 O2 Flow FiO2 Time Delivery Rate 07/28/18 98.6 68 16 111/53 96 13:34 (72) 07/28/18 Room Air 02:00 07/26/18 2 19:30 Intake and Output 07/27/18 07/27/18 07/28/18 1515:00 23:00 07:00 IntakeIntake Total 1306 ml 720 ml 150 ml BalanceBalance 1306 ml 720 ml 150 ml Results Results 24hrs Laboratory Tests Test 07/27/18 17:57 07/27/18 20:49 07/28/18 03:36 07/28/18 08:07 Bedside Glucose 260 H 267 H 125 160 Test 07/28/18 12:35 Bedside Glucose 169 Medications Medication Current Medications IV Flush (NS 3 ml) 3 ml PER PROTOCOL IV ; Start 07/26/18 at 23:00 Ondansetron HCl (Zofran Inj) 4 mg Q6H PRN IV NAUSEA/VOMITING; Start 07/26/18 at 23:00 Acetaminophen (Tylenol Tab) 650 mg Q6H PRN PO .PAIN 1-3 OR TEMP; Start 07/26/18 at 23:00 Docusate Sodium (Colace) 100 mg Q12H PRN PO .CONSTIPATION; Start 07/26/18 at 23:00 Bisacodyl (Dulcolax) 5 mg DAILY PRN PO .CONSTIPATION Last administered on 07/27/18at 11:52; Admin Dose 5 MG; Start 07/26/18 at 23:00 Pantoprazole (Protonix Iv) 40 mg BID@0600,1800 IV Last administered on 07/19 06:20; Admin Dose 40 MG; Start 07/27/18 at 06:00 Sucralfate (Carafate Susp) 1 gm QID GTB Last administered on 07/28/18 13:16; Admin Dose 1 GM; Start 07/26/18 at 23:00 Hyoscyamine (Levsin) 0.125 mg Q8 PO Last administered on 07/28/18 13:16; Admin Dose 0.125 MG; Start 07/26/18 at 23:00 Diagnostic Test (Pha) (Accu-Chek) 1 ea 02 XX Last administered on 07/28/18 02:00; Admin Dose 1 EA; Start 07/28/18 at 02:00 Insulin Aspart (Novolog Insulin Pen) NOVOLOG *MILD* ALGORITHM WITH MEALS BEDTIME SC Last administered on 07/28/18 12:55; Admin Dose 1 UNIT; Start 07/27/18 at 08:00 Insulin Glargine (Lantus) 30 unit QHS SC Last administered on 07/27/18 20:53; Admin Dose 30 UNIT; Start 07/27/18 at 21:00 Atorvastatin Calcium (Lipitor) 80 mg QHS PO Last administered on 07/27/18 20:48; Admin Dose 80 MG; Start 07/27/18 at 21:00 Citalopram Hydrobromide (Celexa) 20 mg DAILY PO Last administered on 07/28/18 08:56; Admin Dose 20 MG; Start 07/27/18 at 09:00 Lisinopril (Zestril) 5 mg DAILY PO Last administered on 07/28/18 08:57; Admin Dose 5 MG; Start 07/27/18 at 09:00 Zolpidem Tartrate (Ambien) 5 mg HS PRN PO INSOMNIA Last administered on 07/28/18 01:01; Admin Dose 5 MG; Start 07/27/18 at 08:00 Miscellaneous Information 1 ea NOTE XX ; Start 07/27/18 at 03:30 Glucose (Glutose) 15 gm Q15M PRN PO DECREASED GLUCOSE; Start 07/27/18 at 03:30 Glucose (Glutose) 22.5 gm Q15M PRN PO DECREASED GLUCOSE; Start 07/27/18 at 03:30 Dextrose (D50w Syringe) 25 ml Q15M PRN IV DECREASED GLUCOSE; Start 07/27/18 at 03:30 Dextrose (D50w Syringe) 50 ml Q15M PRN IV DECREASED GLUCOSE; Start 07/27/18 at 03:30 Glucagon (Glucagen) 1 mg Q15M PRN IM DECREASED GLUCOSE; Start 07/27/18 at 03:30 Glucose (Glutose) 15 gm Q15M PRN BUCCAL DECREASED GLUCOSE; Start 07/27/18 at 03:30 Senna (Senokot) 2 tab BID PO Last administered on 07/28/18at 08:57; Admin Dose 2 TAB; Start 07/27/18 at 21:00 Polyethylene Glycol (Miralax) 17 gm DAILY PO ; Start 07/28/18 at 11:30 Belladonna/ Phenobarbital () 1 tab QID PRN PO ABD PAIN Last administered on 07/27/18at 14:12; Admin Dose 1 TAB; Start 07/27/18 at 13:30 Hydromorphone HCl (Dilaudid) 0.5 mg Q4H PRN IV SEVERE PAIN LEVEL 7-10 Last administered on 07/28/18at 13:08; Admin Dose 0.5 MG; Start 07/27/18 at 20:30; Stop 07/28/18 at 20:29 ZULEMA GALDAMEZ NP Jul 28, 2018 15:17
[2018-07-28] MEDS: HYDROmorphONE 2 MG TAB PO PRN ×2 (17:26→20:45)
[2018-07-28 19:56] VITALS: BP 112/55; PULSE 61; RESP 18
[2018-07-28] MEDS: ATORVASTATIN 80 MG TAB PO SCH (20:44)
[2018-07-28] MEDS: INSULIN GLARGINE [LANtus] 3 ML PEN SC SCH (21:38)
[2018-07-28] MEDS ORDERED: HYDROmorphONE 0.5 MG/0.5 ML SYG IV STA ×2 (21:40→21:49)
[2018-07-29] VITALS (15 sets, daily range): BP systolic 103–156; BP diastolic 52–94; PULSE 60–77; RESP 13–26
[2018-07-29] MEDS: HYDROmorphONE 2 MG TAB PO PRN ×2 (00:43→05:02)
[2018-07-29] MEDS: ACCU-CHEK XX SCH (02:00)
[2018-07-29] MEDS: PANTOPRAZOLE 40 MG INJ IV SCH ×2 (05:04→18:12)
[2018-07-29] MEDS: HYOSCYAMINE 0.125 MG TAB PO SCH ×3 (05:04→21:50)
[2018-07-29] MEDS: INSULIN ASPART [NOVOLOG] 3 ML PEN SC SCH ×4 (08:00→21:00)
[2018-07-29] MEDS: SUCRALFATE (100 MG/ML) 10ML CUP GTB SCH ×4 (08:25→21:51)
[2018-07-29] MEDS: SENNA TAB PO SCH ×2 (08:25→21:50)
[2018-07-29] MEDS: LISINOPRIL 5 MG TAB PO SCH (08:25)
[2018-07-29] MEDS: POLYETHYLENE GLYCOL 17 GM PACKET PO SCH (08:25)
[2018-07-29] MEDS: CITALOPRAM 20 MG TAB PO SCH (08:25)
[2018-07-29] MEDS ORDERED: HYDROCODONE/APAP (5/325) TAB PO PRN ×2 (09:30→14:30)
[2018-07-29] MEDS: KETOROLAC 15 MG INJ IV PRN ×2 (10:11→22:17)
--- NOTE | 2018-07-29 14:22 | PN ---
Date/Time of Note Date/Time of Note DATE: 07/29/18 TIME: 14:18 Assessment/Plan VTE Prophylaxis Risk score (from Nsg)>0 risk: 3 SCD applied (from Nsg): Yes Pharmacological prophylaxis: other Lines/Catheters IV Catheter Type (from Nrsg): Saline Lock Urinary Cath still in place: No Assessment/Plan Hospital Course S: Patient still having "pain". Awaiting EGD for later today. O: Vs - see below PE: General: Sitting in chair, no acute distress HEENT: Atraumatic, normocephalic. The pupils are equal, round and reactive. Extraocular motor are intact Neck: Supple with full range of motion. No rigidity or meningismus Chest: Nontender Lungs: Clear to auscultation bilaterally no crackles rales or wheezing Heart: Normal S1-S2, Regular rhythm and rate. No murmur, S3, or S4 Abdomen: Obese, exquisite tender to palpation over RLQ Extremities: Normal to inspection, no edema no cyanosis Assessment/Plan: 58 yo woman with diabetes and chronic abdominal pain presents with same. #Abdominal pain: - Frequent hospital admissions without clear etiology- She does have duodenal ulcer and pain may also be from ileus or gastroparesis, also history of chronic opiate use in the past- On admission she reported epigastric pain; but on my exam it was localized to the RLQ. -For now continue continue PPI, carafate, prn. -Continue low-dose Toradol IV every 12 hours as needed - GI consulted, planning on EGD later today, follow-up post procedure recommendations # Poorly controlled diabetes mellitus type 2- hemoglobin A1c is presently 11.1. - Will need to optimize glucose control. - Insulin sliding scale. - Resume home Lantus. Follow-up recommendations from diabetes education as well. # essential hypertension: Stable -Monitor, resume home medications # depression: Resume home meds # dyslipidemia: Continue statin # DVT GI prophylaxis: SCDs, Protonix, Carafate Result Diagram: 07/28/18 1540 07/28/18 1541 Results 24hrs Laboratory Tests Test 07/28/18 15:40 07/28/18 15:41 07/28/18 17:44 07/28/18 21:33 White Blood Count 7.1 Red Blood Count 4.36 Hemoglobin 12.8 Hematocrit 38.6 Mean Corpuscular 88.5 Volume Mean Corpuscular 29.4 Hemoglobin Mean Corpuscular 33.2 Hemoglobin Concent Red Cell 12.9 Distribution Width Platelet Count 301 Mean Platelet Volume 9.5 Immature 0.300 Granulocytes % Neutrophils % 64.9 Lymphocytes % 24.2 Monocytes % 6.9 Eosinophils % 3.4 Basophils % 0.3 Nucleated Red Blood 0.0 Cells % Immature 0.020 Granulocytes # Neutrophils # 4.6 Lymphocytes # 1.7 Monocytes # 0.5 Eosinophils # 0.2 Basophils # 0.0 Nucleated Red Blood 0.0 Cells # Sodium Level 140 Potassium Level 4.8 Chloride Level 103 Carbon Dioxide Level 28 Anion Gap 9 Blood Urea Nitrogen 19 # Creatinine 0.67 Est Glomerular > 60 Filtrat Rate mL/min Glucose Level 221 H Calcium Level 10.5 H Total Bilirubin 0.6 Direct Bilirubin 0.00 Indirect Bilirubin 0.6 Aspartate Amino 19 Transf (AST/SGOT) Alanine 26 Aminotransferase (AL T/SGPT) Alkaline Phosphatase 72 Total Protein 6.5 Albumin 3.6 Globulin 2.90 Albumin/Globulin 1.24 Ratio Bedside Glucose 187 157 Test 07/29/18 07:49 07/29/18 12:23 Bedside Glucose 102 151 Exam/Review of Systems Exam Vitals Vital Signs Date Temp Pulse Resp B/P (MAP) Pulse Ox O2 O2 Flow FiO2 Time Delivery Rate 07/29/18 98.5 71 16 138/94 98 13:33 (109) 07/28/18 Room Air 02:00 07/26/18 2 19:30 Intake and Output 07/28/18 07/28/18 07/29/18 1414:59 22:59 06:59 IntakeIntake Total 800 ml 560 ml BalanceBalance 800 ml 560 ml Results Results 24hrs Laboratory Tests Test 07/28/18 15:40 07/28/18 15:41 07/28/18 17:44 07/28/18 21:33 White Blood Count 7.1 Red Blood Count 4.36 Hemoglobin 12.8 Hematocrit 38.6 Mean Corpuscular 88.5 Volume Mean Corpuscular 29.4 Hemoglobin Mean Corpuscular 33.2 Hemoglobin Concent Red Cell 12.9 Distribution Width Platelet Count 301 Mean Platelet Volume 9.5 Immature 0.300 Granulocytes % Neutrophils % 64.9 Lymphocytes % 24.2 Monocytes % 6.9 Eosinophils % 3.4 Basophils % 0.3 Nucleated Red Blood 0.0 Cells % Immature 0.020 Granulocytes # Neutrophils # 4.6 Lymphocytes # 1.7 Monocytes # 0.5 Eosinophils # 0.2 Basophils # 0.0 Nucleated Red Blood 0.0 Cells # Sodium Level 140 Potassium Level 4.8 Chloride Level 103 Carbon Dioxide Level 28 Anion Gap 9 Blood Urea Nitrogen 19 # Creatinine 0.67 Est Glomerular > 60 Filtrat Rate mL/min Glucose Level 221 H Calcium Level 10.5 H Total Bilirubin 0.6 Direct Bilirubin 0.00 Indirect Bilirubin 0.6 Aspartate Amino 19 Transf (AST/SGOT) Alanine 26 Aminotransferase (AL T/SGPT) Alkaline Phosphatase 72 Total Protein 6.5 Albumin 3.6 Globulin 2.90 Albumin/Globulin 1.24 Ratio Bedside Glucose 187 157 Test 07/29/18 07:49 07/29/18 12:23 Bedside Glucose 102 151 Medications Medication Current Medications IV Flush (NS 3 ml) 3 ml PER PROTOCOL IV ; Start 07/26/18 at 23:00 Ondansetron HCl (Zofran Inj) 4 mg Q6H PRN IV NAUSEA/VOMITING; Start 07/26/18 at 23:00 Acetaminophen (Tylenol Tab) 650 mg Q6H PRN PO .PAIN 1-3 OR TEMP Last administered on 07/29/18at 03:31; Admin Dose 650 MG; Start 07/26/18 at 23:00 Docusate Sodium (Colace) 100 mg Q12H PRN PO .CONSTIPATION; Start 07/26/18 at 23:00 Bisacodyl (Dulcolax) 5 mg DAILY PRN PO .CONSTIPATION Last administered on 07/27/18at 11:52; Admin Dose 5 MG; Start 07/26/18 at 23:00 Pantoprazole (Protonix Iv) 40 mg BID@0600,1800 IV Last administered on 07/29/18 05:04; Admin Dose 40 MG; Start 07/27/18 at 06:00 Sucralfate (Carafate Susp) 1 gm QID GTB Last administered on 07/28/18at 20:44; Admin Dose 1 GM; Start 07/26/18 at 23:00 Hyoscyamine (Levsin) 0.125 mg Q8 PO Last administered on 07/29/18 05:04; Admin Dose 0.125 MG; Start 07/26/18 at 23:00 Diagnostic Test (Pha) (Accu-Chek) 1 ea 02 XX Last administered on 07/28/18at 02:00; Admin Dose 1 EA; Start 07/28/18 at 02:00 Insulin Aspart (Novolog Insulin Pen) NOVOLOG *MILD* ALGORITHM WITH MEALS BEDTIME SC Last administered on 07/29/18at 12:51; Admin Dose 1 UNIT; Start 07/27/18 at 08:00 Insulin Glargine (Lantus) 30 unit QHS SC Last administered on 07/28/18 21:38; Admin Dose 30 UNIT; Start 07/27/18 at 21:00 Atorvastatin Calcium (Lipitor) 80 mg QHS PO Last administered on 07/28/18 20:44; Admin Dose 80 MG; Start 07/27/18 at 21:00 Citalopram Hydrobromide (Celexa) 20 mg DAILY PO Last administered on 07/28/18 08:56; Admin Dose 20 MG; Start 07/27/18 at 09:00 Lisinopril (Zestril) 5 mg DAILY PO Last administered on 07/28/18 08:57; Admin Dose 5 MG; Start 07/27/18 at 09:00 Zolpidem Tartrate (Ambien) 5 mg HS PRN PO INSOMNIA Last administered on 07/28/18at 01:01; Admin Dose 5 MG; Start 07/27/18 at 08:00 Miscellaneous Information 1 ea NOTE XX ; Start 07/27/18 at 03:30 Glucose (Glutose) 15 gm Q15M PRN PO DECREASED GLUCOSE; Start 07/27/18 at 03:30 Glucose (Glutose) 22.5 gm Q15M PRN PO DECREASED GLUCOSE; Start 07/27/18 at 03:30 Dextrose (D50w Syringe) 25 ml Q15M PRN IV DECREASED GLUCOSE; Start 07/27/18 at 03:30 Dextrose (D50w Syringe) 50 ml Q15M PRN IV DECREASED GLUCOSE; Start 07/27/18 at 0 3:30 Glucagon (Glucagen) 1 mg Q15M PRN IM DECREASED GLUCOSE; Start 07/27/18 at 03:30 Glucose (Glutose) 15 gm Q15M PRN BUCCAL DECREASED GLUCOSE; Start 07/27/18 at 03:30 Senna (Senokot) 2 tab BID PO Last administered on 3/10/19at 08:57; Admin Dose 2 TAB; Start 07/27/18 at 21:00 Polyethylene Glycol (Miralax) 17 gm DAILY PO ; Start 07/28/18 at 11:30 Belladonna/ Phenobarbital () 1 tab QID PRN PO ABD PAIN Last administered on 07/27/18at 14:12; Admin Dose 1 TAB; Start 07/27/18 at 13:30 Ketorolac Tromethamine (Toradol) 7.5 mg Q12H PRN IV PAIN Last administered on 07/29/18at 10:11; Admin Dose 7.5 MG; Start 07/29/18 at 09:30; Stop 08/01/18 at 09:29 Acetaminophen/ Hydrocodone Bitart ([place] (5/325)) 1 tab Q8H PRN PO MODERATE PAIN LEVEL 4-6; Start 07/29/18 at 09:30 ABHINAV HASKINS Jul 29, 2018 14:22
--- NOTE | 2018-07-29 15:22 | PREAC ---
Date/Time of Note Date/Time of Note DATE: 07/29/18 TIME: 15:21 Anesthesia Eval and Record Evaluation Time Pre-Procedure Interview DATE: 07/29/18 TIME: 15:21 Age 68 Sex female NPO: 8 hrs Preoperative diagnosis colon screening Planned procedure colonoscopy Past Medical History Past Medical History: Includes Cardio: HTN, Dyslipidemia Endo: Diabetes Surgery & Anesthesia Issues No known issue Meds Anticoagulation: No Beta Maddy within 24 hr: No Reason Beta Maddy not given: Pt. not on B-Maddy Active Scripts Polyethylene Glycol* (Miralax*) 17 Gm Powd.pack, 17 GM PO DAILY PRN for CONSTIPATION, #1 BOTTLE Prov:RAMOISESABHINAV S. 07/02/18 Hyoscyamine Sulfate* (Hyoscyamine Sulfate*) 0.125 Mg Tab.subl, 0.125 MG SL Q8, #1 BOTTLE Prov:RAMOISESABHINAV S. 07/02/18 Sucralfate* (Carafate*) 1 Gm/10 Ml Susp, 1 GM PO QID for 30 Days Prov:TRENTON OLIVAS MD 06/06/18 Pantoprazole* (Pantoprazole*) 40 Mg Tablet.dr, 40 MG PO BID@0600,1800 for 30 Days Prov:TRENTON OLIVAS MD 06/06/18 Insulin Glargine,Hum.rec.anlog (Basaglar Kwikpen U-100) 100 Unit/1 Ml Insuln.pen, 30 UNIT SC QHS for 30 Days, EA 3 Refills Prov:DEONNA GALLO 11/11/17 Reported Medications Lisinopril* (Lisinopril*) 5 Mg Tablet, 5 MG PO DAILY, #30 TAB 07/25/17 Atorvastatin* (Atorvastatin*) 80 Mg Tablet, 80 MG PO QHS, #30 TAB 07/25/17 Glipizide* (Glipizide*) 5 Mg Tablet, 5 MG PO AC BREAKFAST DINNER, TAB 07/25/17 Temazepam* (Temazepam*) 15 Mg Capsule, 15 MG PO HS PRN for INSOMNIA, CAP 07/25/17 Citalopram Hydrobromide* (Citalopram Hydrobromide*) 20 Mg Tablet, 20 MG PO DAILY, #30 TAB 07/25/17 Current Medications IV Flush (NS 3 ml) 3 ml PER PROTOCOL IV ; Start 07/26/18 at 23:00 Ondansetron HCl (Zofran Inj) 4 mg Q6H PRN IV NAUSEA/VOMITING; Start 07/26/18 at 23:00 Acetaminophen (Tylenol Tab) 650 mg Q6H PRN PO .PAIN 1-3 OR TEMP Last administe red on 07/29/18 03:31; Admin Dose 650 MG; Start 07/26/18 at 23:00 Docusate Sodium (Colace) 100 mg Q12H PRN PO .CONSTIPATION; Start 07/26/18 at 23:00 Bisacodyl (Dulcolax) 5 mg DAILY PRN PO .CONSTIPATION Last administered on 07/27/18 11:52; Admin Dose 5 MG; Start 07/26/18 at 23:00 Pantoprazole (Protonix Iv) 40 mg BID@0600,1800 IV Last administered on 07/29/18 05:04; Admin Dose 40 MG; Start 07/27/18 at 06:00 Sucralfate (Carafate Susp) 1 gm QID GTB Last administered on 07/28/18 20:44; Admin Dose 1 GM; Start 07/26/18 at 23:00 Hyoscyamine (Levsin) 0.125 mg Q8 PO Last administered on 07/29/18 05:04; Admin Dose 0.125 MG; Start 07/26/18 at 23:00 Diagnostic Test (Pha) (Accu-Chek) 1 ea 02 XX Last administered on 07/28/18 02:00; Admin Dose 1 EA; Start 07/28/18 at 02:00 Insulin Aspart (Novolog Insulin Pen) NOVOLOG *MILD* ALGORITHM WITH MEALS BEDTIME SC Last administered on 07/29/18 12:51; Admin Dose 1 UNIT; Start 07/27/18 at 08:00 Insulin Glargine (Lantus) 30 unit QHS SC Last administered on 07/28/18 21:38; Admin Dose 30 UNIT; Start 07/27/18 at 21:00 Atorvastatin Calcium (Lipitor) 80 mg QHS PO Last administered on 07/28/18 20:44; Admin Dose 80 MG; Start 07/27/18 at 21:00 Citalopram Hydrobromide (Celexa) 20 mg DAILY PO Last administered on 07/28/18at 08:56; Admin Dose 20 MG; Start 07/27/18 at 09:00 Lisinopril (Zestril) 5 mg DAILY PO Last administered on 07/28/18at 08:57; Admin Dose 5 MG; Start 07/27/18 at 09:00 Zolpidem Tartrate (Ambien) 5 mg HS PRN PO INSOMNIA Last administered on 07/28/18at 01:01; Admin Dose 5 MG; Start 07/27/18 at 08:00 Miscellaneous Information 1 ea NOTE XX ; Start 07/27/18 at 03:30 Glucose (Glutose) 15 gm Q15M PRN PO DECREASED GLUCOSE; Start 07/27/18 at 03:30 Glucose (Glutose) 22.5 gm Q15M PRN PO DECREASED GLUCOSE; Start 07/27/18 at 03:30 Dextrose (D50w Syringe) 25 ml Q15M PRN IV DECREASED GLUCOSE; Start 07/27/18 at 03:30 Dextrose (D50w Syringe) 50 ml Q15M PRN IV DECREASED GLUCOSE; Start 07/27/18 at 03:30 Glucagon (Glucagen) 1 mg Q15M PRN IM DECREASED GLUCOSE; Start 07/27/18 at 03:30 Glucose (Glutose) 15 gm Q15M PRN BUCCAL DECREASED GLUCOSE; Start 07/27/18 at 03:30 Senna (Senokot) 2 tab BID PO Last administered on 07/28/18at 08:57; Admin Dose 2 TAB; Start 07/27/18 at 21:00 Polyethylene Glycol (Miralax) 17 gm DAILY PO ; Start 07/28/18 at 11:30 Belladonna/ Phenobarbital () 1 tab QID PRN PO ABD PAIN Last administered on 07/27/18at 14:12; Admin Dose 1 TAB; Start 07/27/18 at 13:30 Ketorolac Tromethamine (Toradol) 7.5 mg Q12H PRN IV PAIN Last administered on 07/29/18at 10:11; Admin Dose 7.5 MG; Start 07/29/18 at 09:30; Stop 08/01/18 at 09:29 Acetaminophen/ Hydrocodone Bitart ([place] (5/325)) 1 tab Q12H PRN PO MODERATE PAIN LEVEL 4-6; Start 07/29/18 at 14:30 Meds reviewed: Yes Allergies Coded Allergies: ibuprofen (Verified Allergy, Unknown, rash, 06/28/18) morphine (Unverified Allergy, Unknown, ITCHING, 06/28/18) Allergies Reviewed: Yes Labs/Studies Labs Reviewed: Reviewed by anesthesiologist Result Diagram: 07/28/18 1540 07/28/18 1541 Laboratory Tests 07/28/18 15:40 07/28/18 15:41 test: N/A Studies: ECG Pre-procedure Exam Last vitals Vital Signs Date Temp Pulse Resp B/P (MAP) Pulse Ox O2 O2 Flow FiO2 Time Delivery Rate 07/29/18 98.4 75 14 153/73 97 Room Air 14:49 (99) 07/26/18 2 19:30 Airway: Adequate mouth opening, Adequate thyromental dist Mallampati: Mallampati II Teeth: Normal Lung: Normal Heart: Normal ASA Physical Status ASA physical status: 3 Emergency: None Planned Anesthetic General/MAC: MAC Planned Pain Management Parenteral pain med Pre-operative Attestations Prior to commencing anesthesia and surgery, the patient was re-evaluated, there was verification of: *The patient's identity *The results of appropriate recent lab work and preoperative vital signs *The above evaluation not changing prior to induction *Anesthetic plan, risk benefits, alternative and complications discussed with patient/family; questions answered; patient/family understands, accepts and wishes to proceed. MOSHE YAO MD Jul 29, 2018 15:22
[2018-07-29] MEDS ORDERED: PROPOFOL 60 ML ONE (15:23)
[2018-07-29] MEDS ORDERED: LIDOCAINE 2% (SDV) 5 ML INJ ONE (15:23)
--- NOTE | 2018-07-29 15:34 | HPN ---
Date/Time of Note Date/Time of Note DATE: 07/29/18 TIME: 15:34 ANASTASIA NG Jul 29, 2018 15:34
--- NOTE | 2018-07-29 15:43 | PAC ---
Date/Time of Note Date/Time of Note DATE: 07/29/18 TIME: 15:43 Post-Anesthesia Notes Post-Anesthesia Note Last documented vital signs Vital Signs Date Temp Pulse Resp B/P (MAP) Pulse Ox O2 O2 Flow FiO2 Time Delivery Rate 07/29/18 98.4 75 14 153/73 97 Room Air 14:49 (99) 07/26/18 2 19:30 Activity: WNL Respiratory function: WNL Cardiovascular function: WNL Mental status: Baseline Pain reasonably controlled: Yes Hydration appropriate: Yes Nausea/Vomiting absent: Yes Comments BP:112/67, P:78, Spo2:100%, T:98,8 MOSHE YAO MD Jul 29, 2018 15:43
[2018-07-29] MEDS ORDERED: FENTAnyl 50 MCG/ML VIAL ONE (15:52)
[2018-07-29] MEDS ORDERED: DIPHENHYDRAMINE 50 MG INJ IV PRN (16:00)
[2018-07-29] MEDS ORDERED: ONDANSETRON 4 MG INJ IV PRN (16:00)
[2018-07-29] MEDS: FENTAnyl 50 MCG/ML VIAL IV PRN ×3 (16:10→18:13)
[2018-07-29] MEDS: ATORVASTATIN 80 MG TAB PO SCH (21:50)
[2018-07-29] MEDS: INSULIN GLARGINE [LANtus] 3 ML PEN SC SCH (21:51)
[2018-07-29] MEDS ORDERED: HYDROCODONE/APAP (5/325) TAB PO ONE (23:30)
--- NOTE | 2018-07-30 09:21 | DS ---
Date/Time of Note Date/Time of Note DATE: 07/30/18 TIME: 09:21 Discharge Summary Admission/Discharge Info Admit Date/Time Jul 27, 2018 at 15:33 Discharge Date/Time Jul 30, 2018 at 00:10 Discharge Diagnosis pt left AMA Patient Condition: Serious Hospital Course S: Patient still having "pain". Awaiting EGD for later today. O: Vs - see below PE: General: Sitting in chair, no acute distress HEENT: Atraumatic, normocephalic. The pupils are equal, round and reactive. Extraocular motor are intact Neck: Supple with full range of motion. No rigidity or meningismus Chest: Nontender Lungs: Clear to auscultation bilaterally no crackles rales or wheezing Heart: Normal S1-S2, Regular rhythm and rate. No murmur, S3, or S4 Abdomen: Obese, exquisite tender to palpation over RLQ Extremities: Normal to inspection, no edema no cyanosis Assessment/Plan: 58 yo woman with diabetes and chronic abdominal pain presents with same. #Abdominal pain: - Frequent hospital admissions without clear etiology- She does have duodenal ulcer and pain may also be from ileus or gastroparesis, also history of chronic opiate use in the past- On admission she reported epigastric pain; but on my exam it was localized to the RLQ. -For now continue continue PPI, carafate, prn. -Continue low-dose Toradol IV every 12 hours as needed - GI consulted, planning on EGD later today, follow-up post procedure recommendations # Poorly controlled diabetes mellitus type 2- hemoglobin A1c is presently 11.1. - Will need to optimize glucose control. - Insulin sliding scale. - Resume home Lantus. Follow-up recommendations from diabetes education as well. # essential hypertension: Stable -Monitor, resume home medications # depression: Resume home meds # dyslipidemia: Continue statin # DVT GI prophylaxis: SCDs, Protonix, Carafate Home Meds Active Scripts Polyethylene Glycol* (Miralax*) 17 Gm Powd.pack, 17 GM PO DAILY PRN for CONSTIPATION, #1 BOTTLE Prov:RAHI,ABHINAV S. 07/02/18 Hyoscyamine Sulfate* (Hyoscyamine Sulfate*) 0.125 Mg Tab.subl, 0.125 MG SL Q8, #1 BOTTLE Prov:RAHI,ABHINAV S. 07/02/18 Sucralfate* (Carafate*) 1 Gm/10 Ml Susp, 1 GM PO QID for 30 Days Prov:TRENTON OLIVAS MD 06/06/18 Pantoprazole* (Pantoprazole*) 40 Mg Tablet.dr, 40 MG PO BID@0600,1800 for 30 Days Prov:TRENTON OLIVAS MD 06/06/18 Insulin Glargine,Hum.rec.anlog (Basaglar Kwikpen U-100) 100 Unit/1 Ml Insuln.pen, 30 UNIT SC QHS for 30 Days, EA 3 Refills Prov:CLEODEONNA F 11/11/17 Reported Medications Lisinopril* (Lisinopril*) 5 Mg Tablet, 5 MG PO DAILY, #30 TAB 07/25/17 Atorvastatin* (Atorvastatin*) 80 Mg Tablet, 80 MG PO QHS, #30 TAB 07/25/17 Glipizide* (Glipizide*) 5 Mg Tablet, 5 MG PO AC BREAKFAST DINNER, TAB 07/25/17 Temazepam* (Temazepam*) 15 Mg Capsule, 15 MG PO HS PRN for INSOMNIA, CAP 07/25/17 Citalopram Hydrobromide* (Citalopram Hydrobromide*) 20 Mg Tablet, 20 MG PO DAILY, #30 TAB 07/25/17 Primary Care Provider Care Physician No Primary Time spent on discharge: < 30 minutes Pending Labs Laboratory Tests Test 07/29/18 12:23 07/29/18 18:09 07/29/18 21:49 Bedside Glucose 151 mg/dL (70-220) 177 mg/dL (70-220) 153 mg/dL (70-220) ABHINAV HASKINS Jul 30, 2018 09:21
== END 2018-07-30 00:10 | disposition left against medical advice (07) | DRG 384 ==
LOC: E/R 14:19 → 2NE 22:29 → OBSVTOIN 07-27 15:33
PROVIDERS: ADMIT Family Medicine; ATTEND Hospitalist
PROC: 0DB68ZX Excision of Stomach, Via Natural or Artificial Opening Endoscopic, Diagnostic (ICD-10-PCS; principal; 2018-07-29 15:00)
DX: K26.9 Duodenal ulcer, unspecified as acute or chronic, without hemorrhage or perforation (principal); R71.0 Precipitous drop in hematocrit; K25.9 Gastric ulcer, unspecified as acute or chronic, without hemorrhage or perforation; K29.70 Gastritis, unspecified, without bleeding; E11.65 Type 2 diabetes mellitus with hyperglycemia; E78.5 Hyperlipidemia, unspecified; I10 Essential (primary) hypertension; J45.909 Unspecified asthma, uncomplicated; E11.40 Type 2 diabetes mellitus with diabetic neuropathy, unspecified; Z90.49 Acquired absence of other specified parts of digestive tract
CPT/HCPCS: 36415; 71045; 74176; 80053; 81003; 82962; 83036; 83655; 83690; 83735; 83825; 84484; 85025; 85610; 85730; 86850; 86900; 86901; 88305; 93005; 96374; C9113; G0378; J1170; J1815; J1885; J2405; J3010; J3475; J7030

== ENCOUNTER 2018-08-12 17:18 | Emergency (ER) | payer MEDICARE, OTHER ==
[~2018-08-12] VITALS: Ht 165.1 cm; Wt 87.4 kg
[2018-08-12 17:23] VITALS: Ht 165.1 cm; Wt 87.4 kg
[2018-08-12] MEDS ORDERED: ONDANSETRON 4 MG INJ IV STA (23:03)
[2018-08-12] MEDS ORDERED: SOD CHLORIDE 0.9% 500 ML IV STA (23:03)
[2018-08-12] MEDS ORDERED: FAMOTIDINE 20 MG INJ IV STA (23:03)
[2018-08-13] MEDS ORDERED: HYDROmorphONE 0.5 MG/0.5 ML SYG IV STA ×2 (00:30→02:48)
[2018-08-13] MEDS ORDERED: NOV IV (03:11)
--- NOTE | 2018-08-13 03:32 | ERD ---
ER Documentation Chief Complaint Chief Complaint epigastric pain worse after eating x1wk HPI This is a very pleasant [age]-year female epigastric pain worse after eating for 1 week. Pain is mild to moderate intensity with no exacerbating alleviating factors. Denies any fevers or chills. Denies any nausea or vomiting. Denies any other current complaints. ROS All systems reviewed and are negative except as per history of present illness. Medications Home Meds Active Scripts Polyethylene Glycol* (Miralax*) 17 Gm Powd.pack, 17 GM PO DAILY PRN for CONSTIPATION, #1 BOTTLE Prov:ABHINAV HASKINS S. 07/02/18 Hyoscyamine Sulfate* (Hyoscyamine Sulfate*) 0.125 Mg Tab.subl, 0.125 MG SL Q8, #1 BOTTLE Prov:ABHINAV HSAKINS S. 07/02/18 Sucralfate* (Carafate*) 1 Gm/10 Ml Susp, 1 GM PO QID for 30 Days Prov:TRENTON OLIVAS MD 06/06/18 Pantoprazole* (Pantoprazole*) 40 Mg Tablet.dr, 40 MG PO BID@0600,1800 for 30 Days Prov:TRENTON OLIVAS MD 06/06/18 Reported Medications Lisinopril* (Lisinopril*) 5 Mg Tablet, 5 MG PO DAILY, #30 TAB 07/25/17 Atorvastatin* (Atorvastatin*) 80 Mg Tablet, 80 MG PO QHS, #30 TAB 07/25/17 Glipizide* (Glipizide*) 5 Mg Tablet, 5 MG PO AC BREAKFAST DINNER, TAB 07/25/17 Temazepam* (Temazepam*) 15 Mg Capsule, 15 MG PO HS PRN for INSOMNIA, CAP 07/25/17 Discontinued Reported Medications Insulin Aspart (Novolog) 100 Unit/1 Ml Vial, 1000 UNIT IV PRN for WHEEZING AND SOB, VIAL 08/13/18 Citalopram Hydrobromide* (Citalopram Hydrobromide*) 20 Mg Tablet, 20 MG PO DAILY, #30 TAB 07/25/17 Discontinued Scripts Insulin Glargine,Hum.rec.anlog (Basaglar Kwikpen U-100) 100 Unit/1 Ml Insuln.pen, 30 UNIT SC QHS for 30 Days, EA 3 Refills Prov:DEONNA GALLO 11/11/17 Allergies Allergies: Coded Allergies: ibuprofen (Unverified Allergy, Unknown, rash, 08/13/18) morphine (Unverified Allergy, Unknown, ITCHING, 08/13/18) PMhx/Soc Medical and Surgical Hx: pt denies Medical Hx, pt denies Surgical Hx History of Surgery: Yes ( X 3. ) Anesthesia Reaction: No Hx Neurological Disorder: No Hx Respiratory Disorders: No Hx Cardiac Disorders: Yes (CHF) Hx Psychiatric Problems: No Hx Miscellaneous Medical Probl: No Hx Alcohol Use: No Hx Substance Use: No Hx Tobacco Use: No Smoking Status: Never smoker Physical Exam Vitals Vital Signs Date Temp Pulse Resp B/P (MAP) Pulse Ox O2 O2 Flow FiO2 Time Delivery Rate 08/13/18 67 20 136/61 100 Room Air 03:16 (86) 08/13/18 73 18 163/78 100 Room Air 01:57 (106) 08/13/18 69 18 190/92 99 Room Air 00:57 (124) 08/12/18 99.0 99 22 115/78 98 17:23 (90) Physical Exam Const: No acute distress Head: Atraumatic Eyes: Normal Conjunctiva ENT: Normal External Ears, Nose and Mouth. Neck: Full range of motion. No meningismus. Resp: Clear to auscultation bilaterally Cardio: Regular rate and rhythm, no murmurs Abd: Soft, non tender, non distended. Normal bowel sounds Skin: No petechiae or rashes Back: No midline or flank tenderness Ext: No cyanosis, or edema Neur: Awake and alert Psych: Normal Mood and Affect Result Diagram: 08/12/18 0009 08/12/18 0009 Results 24 hrs Laboratory Tests Test 08/12/18 00:09 08/13/18 02:02 White Blood Count 12.2 10^3/ul Red Blood Count 4.88 10^6/ul Hemoglobin 14.3 g/dl Hematocrit 43.2 % Mean Corpuscular Volume 88.5 fl Mean Corpuscular Hemoglobin 29.3 pg Mean Corpuscular Hemoglobin Concent 33.1 g/dl Red Cell Distribution Width 13.2 % Platelet Count 423 10^3/UL Mean Platelet Volume 9.0 fl Immature Granulocytes % 0.700 % Neutrophils % 48.9 % Lymphocytes % 33.6 % Monocytes % 13.9 % Eosinophils % 2.6 % Basophils % 0.3 % Nucleated Red Blood Cells % 0.0 /100WBC Immature Granulocytes # 0.080 10^3/ul Neutrophils # 6.0 10^3/ul Lymphocytes # 4.1 10^3/ul Monocytes # 1.7 10^3/ul Eosinophils # 0.3 10^3/ul Basophils # 0.0 10^3/ul Nucleated Red Blood Cells # 0.0 10^3/ul Sodium Level 137 mmol/L Potassium Level 5.2 mmol/L Chloride Level 100 mmol/L Carbon Dioxide Level 22 mmol/L Anion Gap 15 Blood Urea Nitrogen 36 mg/dl Creatinine 0.93 mg/dl Est Glomerular Filtrat Rate mL/min > 60 mL/min Glucose Level 204 mg/dl Calcium Level 10.8 mg/dl Total Bilirubin 0.6 mg/dl Direct Bilirubin 0.00 mg/dl Indirect Bilirubin 0.6 mg/dl Aspartate Amino Transf (AST/SGOT) 20 IU/L Alanine Aminotransferase (ALT/SGPT) 12 IU/L Alkaline Phosphatase 73 IU/L Troponin I 0.069 ng/ml Total Protein 7.3 g/dl Albumin 4.1 g/dl Globulin 3.20 g/dl Albumin/Globulin Ratio 1.28 Lipase 61 U/L Urine Color STRAW Urine Clarity CLEAR Urine pH 5.0 Urine Specific [place] 1.007 Urine Ketones NEGATIVE mg/dL Urine Nitrite NEGATIVE mg/dL Urine Bilirubin NEGATIVE mg/dL Urine Urobilinogen NEGATIVE mg/dL Urine Leukocyte Esterase TRACE Radha/ul Urine Microscopic RBC 3 /HPF Urine Microscopic WBC 2 /HPF Urine Bacteria FEW /HPF Urine Hemoglobin 1+ mg/dL Urine Glucose 3+ mg/dL Urine Total Protein NEGATIVE mg/dl Current Medications Medications Dose Sig/Irma Start Time Status Last (Trade) Ordered Route PRN Stop Time Admin Dose Reason Admin Sodium 500 ml @ Q1H STAT 08/12/18 DC 08/13/18 Chloride 500 mls/hr IV 23:03 00:08 08/13/18 00:02 Ondansetron 4 mg ONCE STAT 08/12/18 DC 08/13/18 HCl (Zofran IV 23:03 00:07 Inj) 08/12/18 23:04 Famotidine 20 mg ONCE STAT 08/12/18 DC 08/13/18 (Pepcid Iv) IV 23:03 00:07 08/12/18 23:04 0.5 mg ONCE STAT 08/13/18 DC 08/13/18 Hydromorphone IV 00:30 00:59 HCl 08/13/18 00:31 (Dilaudid) 1 mg ONCE STAT 08/13/18 DC 08/13/18 Hydromorphone IV 02:48 03:18 HCl 08/13/18 02:49 (Dilaudid) Procedures/MDM EKG: Rate/Rhythm: [Normal Sinus Rhythm] QRS, ST, T-waves: [No changes consistent w/ acute ischemia] Impression: [No evidence of ischemia or arrhythmia] Chest X-ray 1V Interpreted by me: Soft Tissue: No acute abnormalities Bones: No acute abnormalities Mediastinum/Cardiac Silhouette/Lungs: Medical decision making: Patient's gastrointestinal symptoms have stabilized while in the department. No evidence of severe dehydration, sepsis, or surgical abdomen. Extensive discussion with family and patient that occult disease cannot be ruled out. 8 hour recheck for repeat abdominal exam is planned. Departure Diagnosis: Primary Impression: Epigastric pain Condition: Stable Patient Instructions: Epigastric Pain (Uncertain Cause) MOHINDER SCHMITT Aug 13, 2018 03:32
[2018-08-13 03:53] VITALS: BP 128/62; PULSE 72; RESP 16
== END 2018-08-13 03:59 | disposition home or self-care (01) ==
LOC: E/R 17:18
DX: R10.13 Epigastric pain (principal); I50.9 Heart failure, unspecified
CPT/HCPCS: 36415; 71045; 80053; 81001; 83690; 84484; 85025; 93005; 96374; 96375; 96376; 99285; J1170; J2405; J7040

== ENCOUNTER 2018-08-17 05:44 | Inpatient (IN) | payer MEDICARE, OTHER ==
[~2018-08-17] VITALS: Ht 152.4 cm; Wt 85.5 kg
[2018-08-17] VITALS (10 sets, daily range): BP systolic 92–107; BP diastolic 48–59; PULSE 64–87; RESP 17–19; Ht 152.4 cm; Wt 85.5 kg
[~2018-08-17 05:44] MED LIST changes: -CITA20TA8 PO; -INSU100I33 SC
[2018-08-17] MEDS ORDERED: ONDANSETRON 4 MG INJ IV STA (06:22)
[2018-08-17] MEDS ORDERED: HYDROmorphONE 1 MG/ML SYG IV STA (06:22)
[2018-08-17] MEDS ORDERED: SOD CHLORIDE 0.9% 1,000 ML IV STA (06:22)
[2018-08-17] MEDS ORDERED: ASPIRIN 325 MG TAB PO STA (06:22)
[2018-08-17] MEDS ORDERED: IOHEXOL 300MG/ML 150 ML BTL ONE (07:28)
[2018-08-17] MEDS ORDERED: SOD CHLORIDE 0.9% 100 ML ONE (07:28)
[2018-08-17] MEDS ORDERED: SODIUM CHLORIDE 0.9% 1L BAG IV* STA (08:32)
--- NOTE | 2018-08-17 08:47 | ERD ---
ER Documentation Chief Complaint Chief Complaint NUMBNESS ON R SIDE OF BODY X'S 4 DAYS HPI This is a 68-year-old female with a history of wxn-[id number] diabetes mellitus hypertension gastroparesis major depressive disorder peptic ulcer disease who presents to the emergency department complaining of chest pressure and diffuse abdominal pain. The patient indicates that this is been present for the past 4 days. She states that the pressure in her chest is present in the midsternal region. The chest pressure does radiate to the back. She has had no associated symptoms of diaphoresis but has experienced nausea and vomiting. She also indicates that for the past 4 days she has been experiencing diffuse abdominal pain that also radiates to the back. However she states she has had multiple similar episodes of this abdominal pain in the past and has been placed on Elgin's for analgesic control. She also states she is felt weak and dizzy. She denies a headache. Contrary to the triage note she denies any numbness to her face upper or lower extremities. There is no weakness of the upper or lower extremities. She was brought into the emergency department by her [id number] for worsening of her symptoms that she was also evaluated at [facility] for similar symptoms on August 12 2018, 5 days prior to arrival. She said no frequency urgency or dysuria. ROS All systems reviewed and are negative except as per history of present illness. Medications Home Meds Active Scripts Polyethylene Glycol* (Miralax*) 17 Gm Powd.pack, 17 GM PO DAILY PRN for CONSTIPATION, #1 BOTTLE Prov:ABHINAV HASKINS S. 07/02/18 Hyoscyamine Sulfate* (Hyoscyamine Sulfate*) 0.125 Mg Tab.subl, 0.125 MG SL Q8, #1 BOTTLE Prov:ABHINAV HASKINS S. 07/02/18 Sucralfate* (Carafate*) 1 Gm/10 Ml Susp, 1 GM PO QID for 30 Days Prov:TRENTON OLIVAS MD 06/06/18 Pantoprazole* (Pantoprazole*) 40 Mg Tablet.dr, 40 MG PO BID@0600,1800 for 30 Days Prov:TRENTON OLIVAS MD 06/06/18 Reported Medications Lisinopril* (Lisinopril*) 5 Mg Tablet, 5 MG PO DAILY, #30 TAB 07/25/17 Atorvastatin* (Atorvastatin*) 80 Mg Tablet, 80 MG PO QHS, #30 TAB 07/25/17 Glipizide* (Glipizide*) 5 Mg Tablet, 5 MG PO AC BREAKFAST DINNER, TAB 07/25/17 Temazepam* (Temazepam*) 15 Mg Capsule, 15 MG PO HS PRN for INSOMNIA, CAP 07/25/17 Discontinued Reported Medications Insulin Aspart (Novolog) 100 Unit/1 Ml Vial, 1000 UNIT IV PRN for WHEEZING AND SOB, VIAL 08/13/18 Citalopram Hydrobromide* (Citalopram Hydrobromide*) 20 Mg Tablet, 20 MG PO DAILY, #30 TAB 07/25/17 Discontinued Scripts Insulin Glargine,Hum.rec.anlog (Basaglar Kwikpen U-100) 100 Unit/1 Ml Insuln.pen, 30 UNIT SC QHS for 30 Days, EA 3 Refills Prov:DEONNA GALLO F 11/11/17 Allergies Allergies: Coded Allergies: ibuprofen (Unverified Allergy, Unknown, rash, 08/13/18) morphine (Unverified Allergy, Unknown, ITCHING, 08/13/18) PMhx/Soc History of Surgery: Yes ( X 3. ) Anesthesia Reaction: No Hx Neurological Disorder: No Hx Respiratory Disorders: No Hx Cardiac Disorders: Yes (CHF) Hx Psychiatric Problems: No Hx Miscellaneous Medical Probl: No Hx Alcohol Use: No Hx Substance Use: No Hx Tobacco Use: No Physical Exam Vitals Vital Signs Date Temp Pulse Resp B/P (MAP) Pulse Ox O2 O2 Flow FiO2 Time Delivery Rate 08/17/18 98.0 97 18 124/70 98 05:52 (88) Physical Exam Constitutional:Well-developed. Well-nourished. Patient moaning and appeared to be in a significant amount of discomfort secondary to pain HEENT:Normocephalic. Atraumatic.Pupils were equal round reactive to light. Very dry mucous membranes.No tonsillar exudates. Neck: No nuchal rigidity. No lymphadenopathy. No posterior cervical spine tenderness or step-offs. Respiratory: Not using accessory muscles of respiration.Lungs were clear to auscultation bilaterally. No rhonchi. No rales. No wheezing. Cardiovascular: Regular rate regular rhythm.No murmurs. No rubs were appreciated.S1, S2 normal. Distal pulses are palpable 2+ bilaterally. GI: Abdomen was soft. Diffuse abdominal tenderness most prominent in the left lower quadrant non Distended. No pulsatile abdominal masses or bruits. No rebound. No guarding. Bowel sounds were hypoactive Muscle skeletal: Full range of motion of both the upper and lower extremities bilaterally.Normal muscle tone.No assymetrical calf tenderness or swelling. Skin: Diffuse pallor with no petechia, no purpura. No lesions on the palms or the soles of the feet. No maculopapular rash. NEURO: Patient was alert, awake, orientated x3.No facial droop. Gait observed and normal with no ataxia.Speech had regular rate and rhythm. No focal neurological deficits. Result Diagram: 08/17/1859 08/17/18 0659 Results 24 hrs Laboratory Tests Test 08/17/18 06:59 White Blood Count 22.8 10^3/ul Red Blood Count 3.90 10^6/ul Hemoglobin 11.7 g/dl Hematocrit 35.0 % Mean Corpuscular Volume 89.7 fl Mean Corpuscular Hemoglobin 30.0 pg Mean Corpuscular Hemoglobin Concent 33.4 g/dl Red Cell Distribution Width 12.8 % Platelet Count 357 10^3/UL Mean Platelet Volume 9.5 fl Immature Granulocytes % 0.900 % Neutrophils % % Segmented Neutrophils % (Manual) 50 % Band Neutrophils % (Manual) 32 % Lymphocytes % % Lymphocytes % (Manual) 5 % Reactive Lymphocytes % (Manual) 6 % Monocytes % % Monocytes % (Manual) 7 % Eosinophils % % Basophils % % Nucleated Red Blood Cells % 0.0 /100WBC Immature Granulocytes # 0.210 10^3/ul Neutrophils # 10^3/ul Neutrophils # (Manual) 13.0 10^3/ul Band Neutrophils # 7.2 10^3/ul Lymphocytes (Manual) 1.1 10^3/ul Lymphocytes # 10^3/ul Reactive Lymphocytes # 1.3 10^3/ul Monocytes # 10^3/ul Monocytes # (Manual) 1.5 10^3/ul Eosinophils # 10^3/ul Basophils # 10^3/ul Nucleated Red Blood Cells # 10^3/ul Platelet Estimate NORMAL Giant Platelets 1 % Polychromasia 1+ Poikilocytosis 1+ Anisocytosis 1+ Microcytosis 1+ Ovalocytes 1+ Prothrombin Time 13.5 Sec Prothrombin Time Ratio 1.1 INR International Normalized Ratio 1.02 Activated Partial Thromboplast Time 30.9 Sec Sodium Level 130 mmol/L Potassium Level 4.6 mmol/L Chloride Level 97 mmol/L Carbon Dioxide Level 22 mmol/L Anion Gap 11 Blood Urea Nitrogen 47 mg/dl Creatinine 1.03 mg/dl Est Glomerular Filtrat Rate mL/min 53 mL/min Glucose Level 327 mg/dl Calcium Level 9.8 mg/dl Total Bilirubin 0.5 mg/dl Direct Bilirubin 0.00 mg/dl Indirect Bilirubin 0.5 mg/dl Aspartate Amino Transf (AST/SGOT) 13 IU/L Alanine Aminotransferase (ALT/SGPT) 15 IU/L Alkaline Phosphatase 104 IU/L Creatine Kinase < 20 IU/L Creatine Kinase Index Creatinine Kinase MB (Mass) 0.93 ng/ml Troponin I 0.024 ng/ml B-Type Natriuretic Peptide 337 PG/ML Total Protein 5.8 g/dl Albumin 2.9 g/dl Globulin 2.90 g/dl Albumin/Globulin Ratio 1.00 Lipase 53 U/L Current Medications Medications Dose Sig/Irma Start Time Status Last (Trade) Ordered Route PRN Stop Time Admin Dose Reason Admin Sodium 1,000 ml @ Q1H STAT 08/17/18 DC 08/17/18 Chloride 1,000 mls/hr IV 06:22 07:19 08/17/18 07:21 Aspirin 325 mg ONCE STAT 08/17/18 DC 08/17/18 (Aspirin) PO 06:22 07:18 08/17/18 06:25 1 mg ONCE STAT 08/17/18 DC 08/17/18 Hydromorphone IV 06:22 07:18 HCl 08/17/18 06:25 (Dilaudid) Ondansetron 4 mg ONCE STAT 08/17/18 DC 08/17/18 HCl (Zofran IV 06:22 07:18 Inj) 08/17/18 06:25 Iohexol 150 ml STK-MED 08/17/18 DC 08/17/18 (Omnipaque ONCE .ROUTE 07:28 08:15 300mg/ ml) 08/17/18 07:29 Sodium 100 ml @ ud STK-MED 08/17/18 DC 08/17/18 Chloride ONCE .ROUTE 07:28 08:15 08/17/18 07:29 Sodium 1,570 ml BOLUS OVER 2 3/30/19 DC Chloride HOURS STAT 08:32 (NS) IV* 08/17/18 08:36 Aspirin 325 mg ONCE ONCE 08/17/18 (Aspirin) PO 09:00 08/17/18 09:01 Procedures/MDM The patient presented to the emergency department with chest pain. My clinical evaluation and workup was to distinguish minor causes of chest pain from acute life threatening conditions such as myocardial infarction, pulmonary embolism, aortic dissection, esophageal rupture, cardiac tamponade. The patient was placed on a playground monitor and continuous pulse oximetry. IV access established by nursing staff. The patient was given 325 mg of aspirin p.o. 12 Lead EKG tracing ordered and reviewed by myself showed: Normal sinus rhythm of 81 bpm and no arrhythmia. TN interval normal. QRS duration widened at 146 ms with a left bundle branch block and utilizing a scar posterior to there is no underlying ST segment elevation No ST segment elevation No ST segment depression. No changes consistent with acute ischemia. The first EKG was taken at 6:27 AM. I wrote reviewed the previous EKGs and medical records and on June 28, 2018 the patient also had a known left bundle branch block so this was not new. Repeat EKG taken at 8:10 AM reviewed by myself showed a normal sinus rhythm with a ventricular rate of 78 bpm and left bundle branch block was still present. Due to the patient's severity of her pain and her clinical picture I did feel is necessary to obtain a CT scan of the patient's chest and abdomen. There is no evidence of aortic dissection. However this was reviewed by the radiologist and indicated the followin. No CTA evidence for thoracic/abdominal aortic aneurysm or dissection. 2. 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 3. Extensive coronary artery calcifications. 4. Status post cholecystectomy with minimal intrahepatic and mild common bile ductal dilatation. 5. Left adrenal adenoma. 6. Bilateral renal cysts. 7. Small hiatal hernia. 8. Retained stool and contrast within the colon without obstruction. 9. Status post hysterectomy. 10. Degenerative changes throughout the spine. The patient had significant pallor and diaphoresis. However the patient's hemoglobin was slightly low at 11.7 however this was reviewed in the previous medical records and this appears to be the patient's baseline. The patient was hyperglycemic without ketosis. This was treated with IV fluids The patient however had severe leukocytosis with white blood cell count of 22,000. I reviewed the records and the patient's white blood cell count was 12,005 days prior to arrival. Therefore at this time I did obtain blood cultures and urine culture and give the patient a 30 cc/kg bolus of normal saline as now the patient met Sirs criteria. At this time there is no obvious source of infection. However I did feel the patient required admission for serial twelve-lead EKG tracings and cardiac set of enzymes due to the severity of her chest pain. She received Dilaudid and Zofran which improved her pain as aspirin and nitroglycerin did not improve her symptoms Departure Diagnosis: Primary Impression: Chest pain Chest pain type: unspecified Qualified Codes: R07.9 - Chest pain, unspecified Additional Impressions: Abdominal pain Abdominal location: generalized Qualified Codes: R10.84 - Generalized abdominal pain Hyperglycemia without ketosis Condition: Serious GAVINO RAMSAY MD Aug 17, 2018 08:47
[2018-08-17] MEDS ORDERED: ASPIRIN 325 MG TAB PO ONE (09:00)
[2018-08-17] MEDS ORDERED: NITROGLYCERIN (SL) 0.4 MG TAB SL PRN (09:00)
[2018-08-17] MEDS ORDERED: BELLADONNA/PHENOBARBITAL TAB PO STA (09:22)
[2018-08-17] MEDS ORDERED: LIDOCAINE/MYLANTA 40 ML BTL PO STA (09:22)
[2018-08-17] MEDS ORDERED: ONDANSETRON 4 MG INJ IV PRN ×2 (09:30→13:00)
[2018-08-17] MEDS ORDERED: CEFTRIAXONE 1 GM/50 ML (PMX) 50 ML IVPB ONE (09:30)
[2018-08-17] MEDS ORDERED: ACETAMINOPHEN 325 MG TAB PO PRN ×2 (09:30→13:00)
[2018-08-17] MEDS ORDERED: HYDR-3980 PO (10:50)
[2018-08-17] MEDS ORDERED: PANT40TA4 PO (10:50)
[2018-08-17] MEDS ORDERED: GLIP5TAB13 PO (10:50)
[2018-08-17] MEDS ORDERED: GABA300C16 PO (10:51)
[2018-08-17] MEDS ORDERED: GLIM2TAB PO (10:52)
[2018-08-17] MEDS ORDERED: SITA100T11 PO (10:52)
[2018-08-17] MEDS ORDERED: PARO-37 PO (10:53)
[2018-08-17] MEDS ORDERED: ATOR-2 PO (10:53)
[2018-08-17] MEDS ORDERED: LISI-471 PO (10:53)
[2018-08-17] MEDS ORDERED: TRAZ-150 PO (10:54)
[2018-08-17] MEDS ORDERED: INSU100I33 SC (10:55)
--- NOTE | 2018-08-17 12:53 | HP ---
Date/Time of Note Date/Time of Note DATE: 08/17/18 TIME: 12:46 Assessment/Plan VTE Prophylaxis Risk score (from Nsg)>0 risk: 3 Pharmacological prophylaxis: LMWH Lines/Catheters IV Catheter Type (from Nrsg): Mid Line Urinary Cath still in place: No Assessment/Plan Hospital Course 1. Abdominal pain secondary to constipation and/or gastroparesis and/or duodenal ulcer Patient has chronic abdominal pain etiology is not fully clear Treat constipation and gas with stool softeners and simethicone Treat duodenal ulcer with PPI and have added Carafate Reglan for possible gastroparesis Pain control with opiates, tramadol and gabapentin 2. UTI Empiric Rocephin Follow-up on cultures 3. Hypertension Continue meds 4. Morbid obesity Lifestyle changes 5. Depression Continue home meds 6. Diabetes Continue insulin regimen and sliding scale Prophylaxis: Lovenox Result Diagram: 08/17/18 0659 08/17/18 0659 Results 24hrs Laboratory Tests Test 08/17/18 06:59 08/17/18 08:50 White Blood Count 22.8 #H Red Blood Count 3.90 #L Hemoglobin 11.7 L Hematocrit 35.0 L Mean Corpuscular Volume 89.7 Mean Corpuscular Hemoglobin 30.0 Mean Corpuscular Hemoglobin Concent 33.4 Red Cell Distribution Width 12.8 Platelet Count 357 Mean Platelet Volume 9.5 Immature Granulocytes % 0.900 H Neutrophils % Segmented Neutrophils % (Manual) 50 Band Neutrophils % (Manual) 32 H Lymphocytes % Lymphocytes % (Manual) 5 L Reactive Lymphocytes % (Manual) 6 H Monocytes % Monocytes % (Manual) 7 Eosinophils % Basophils % Nucleated Red Blood Cells % 0.0 Immature Granulocytes # 0.210 H Neutrophils # Neutrophils # (Manual) 13.0 H Band Neutrophils # 7.2 H Lymphocytes (Manual) 1.1 Lymphocytes # Reactive Lymphocytes # 1.3 H Monocytes # Monocytes # (Manual) 1.5 H Eosinophils # Basophils # Nucleated Red Blood Cells # Platelet Estimate NORMAL Giant Platelets 1 H Polychromasia 1+ Poikilocytosis 1+ Anisocytosis 1+ Microcytosis 1+ Ovalocytes 1+ Prothrombin Time 13.5 Prothrombin Time Ratio 1.1 INR International Normalized Ratio 1.02 Activated Partial Thromboplast Time 30.9 Sodium Level 130 L Potassium Level 4.6 Chloride Level 97 Carbon Dioxide Level 22 Anion Gap 11 Blood Urea Nitrogen 47 H Creatinine 1.03 H Est Glomerular Filtrat Rate mL/min 53 L Glucose Level 327 H Calcium Level 9.8 Total Bilirubin 0.5 Direct Bilirubin 0.00 Indirect Bilirubin 0.5 Aspartate Amino Transf (AST/SGOT) 13 L Alanine Aminotransferase (ALT/SGPT) 15 Alkaline Phosphatase 104 Creatine Kinase < 20 L Creatine Kinase Index Creatinine Kinase MB (Mass) 0.93 Troponin I 0.024 B-Type Natriuretic Peptide 337 H Total Protein 5.8 L Albumin 2.9 L Globulin 2.90 Albumin/Globulin Ratio 1.00 Lipase 53 Urine Color YELLOW Urine Clarity SLIGHTLY CLOUDY A Urine pH 5.0 Urine Specific [place] 1.022 Urine Ketones NEGATIVE Urine Nitrite NEGATIVE Urine Bilirubin NEGATIVE Urine Urobilinogen NEGATIVE Urine Leukocyte Esterase 3+ H Urine Microscopic RBC 15 H Urine Microscopic WBC 33 H Urine Mucus FEW A Urine Hemoglobin NEGATIVE Urine Glucose 3+ H Urine Total Protein NEGATIVE HPI/ROS Admit Date/Time Admit Date/Time Aug 17, 2018 at 09:31 Hx of Present Illness Patient is a 68-year-old female with a history of morbid obesity with poorly controlled diabetes, depression, chronic abdominal pain with history of duodenal ulcer, chronic opiate use hypertension. Patient presents once again with abdominal pain, in the ER CT abdomen no significant acute findings, constipation was noted. Patient was also noted to be septic secondary to UTI. Patient's main complaint is of abdominal pain at this time. ROS Constitutional: no complaints, improved Eyes: no complaints ENT: no complaints Respiratory: no complaints Cardiovascular: no complaints Gastrointestinal: pain Genitourinary: no complaints Musculoskeletal: no complaints Skin: no complaints Neurologic: no complaints Endocrine: no complaints Lymphatic: no complaints Psychological: no complaints, nl mood/affect Immunologic: no complaints PMH/Family/Social Past Medical History As per HPI Medications Current Medications Nitroglycerin (Nitroglycerin (Sl Tab) 0.4 Mg) 1 tab Q5M UP TO 3 DOSES PRN SL .CHEST PAIN; Start 08/17/18 at 09:00 Ondansetron HCl (Zofran Inj) 4 mg ER BRIDGE PRN IV NAUSEA/VOMITING; Start 08/17/18 at 09:30; Stop 08/18/18 at 09:29 Acetaminophen (Tylenol Tab) 650 mg ER BRIDGE PRN PO .MILD PAIN 1-3 OR TEMP; Start 08/17/18 at 09:30; Stop 08/18/18 at 09:29 Sodium Chloride 1,000 ml @ 100 mls/hr Q10H IV ; Start 08/17/18 at 12:41; Status UNV IV Flush (NS 3 ml) 3 ml PER PROTOCOL IV ; Start 08/17/18 at 13:00; Status UNV Ondansetron HCl (Zofran Inj) 4 mg Q6H PRN IV NAUSEA/VOMITING; Start 08/17/18 at 13:00; Status UNV Acetaminophen (Tylenol Tab) 650 mg Q6H PRN PO .PAIN 1-3 OR TEMP; Start 08/17/18 at 13:00; Status UNV Acetaminophen/ Hydrocodone Bitart (Guin (5/325)) 1 tab Q6H PRN PO .MOD PAIN 4- 6; Start 08/17/18 at 13:00; Status UNV Morphine Sulfate (morphine) 2 mg Q4H PRN IV .SEVERE PAIN 7-10; Start 08/17/18 at 13:00; Status UNV Docusate Sodium (Colace) 100 mg Q12H PRN PO .CONSTIPATION; Start 08/17/18 at 13:00; Status UNV Zolpidem Tartrate (Ambien) 5 mg QHS PRN PO .INSOMNIA; Start 08/17/18 at 13:00; Status UNV Pantoprazole (Protonix Iv) 40 mg DAILY@06 IV ; Start 08/18/18 at 06:00; Status UNV Enoxaparin Sodium (Lovenox) 40 mg DAILY SC ; Start 08/18/18 at 09:00; Status UNV Ceftriaxone Sodium 50 ml @ 100 mls/hr Q24H IVPB ; Start 08/17/18 at 13:00; Status UNV Atorvastatin Calcium (Lipitor) 80 mg QHS PO ; Start 08/17/18 at 21:00; Status UNV Gabapentin (Neurontin) 300 mg TID PO ; Start 08/17/18 at 13:00; Status UNV Glimepiride (Amaryl) 2 mg WITH BREAKFAST DINNE PO ; Start 08/17/18 at 17:35; Status UNV Glipizide (Glucotrol) 5 mg AC BREAKFAST DINNER PO ; Start 08/17/18 at 17:05; Status UNV Insulin Glargine (Lantus) 70 unit QHS SC ; Start 08/17/18 at 21:00; Status UNV Lisinopril (Zestril) 20 mg DAILY PO ; Start 08/18/18 at 09:00; Status UNV Pantoprazole (Protonix Tab) 40 mg AC BREAKFAST PO ; Start 08/18/18 at 07:05; Status UNV Paroxetine HCl (Paxil) 20 mg HS PO ; Start 08/17/18 at 21:00; Status UNV Trazodone HCl (Desyrel) 100 mg QHS PO ; Start 08/17/18 at 21:00; Status UNV Tramadol HCl (Ultram) 100 mg Q6H PRN PO MODERATE PAIN LEVEL 4-6; Start 08/17/18 at 13:00; Status UNV Coded Allergies: ibuprofen (Unverified Allergy, Unknown, rash, 08/17/18) morphine (Unverified Allergy, Unknown, ITCHING, 08/17/18) Past Surgical History Past Surgical Hx: appendectomy, cholecystectomy, other Family History Significant Family History: no pertinent family hx Social History Alcohol Use: rarely Smoking Status: Never smoker Drug Use: none Exam/Review of Systems Vital Signs Vitals Vital Signs Date Temp Pulse Resp B/P (MAP) Pulse Ox O2 O2 Flow FiO2 Time Delivery Rate 08/17/18 72 12:00 08/17/18 99.1 18 92/48 (63) 97 Room Air 12:00 Exam Constitutional: alert, oriented Respiratory: clear to auscultation Cardiovascular: regular rate and rhythm Gastrointestinal: soft, tender; No distended Musculoskeletal: nl extremities to inspection SHIVANI SHAY Aug 17, 2018 12:53
[2018-08-17] MEDS ORDERED: ZOLPIDEM 5 MG TAB PO PRN (13:00)
[2018-08-17] MEDS ORDERED: morphine 2 MG INJ IV PRN (13:00)
[2018-08-17] MEDS ORDERED: CEFTRIAXONE 1 GM/50 ML (PMX) 50 ML IVPB SCH (13:00)
[2018-08-17] MEDS ORDERED: NACL 0.9% 3 ML SYG IV SCH (13:00)
[2018-08-17] MEDS ORDERED: traMADol 50 MG TAB PO PRN (13:00)
[2018-08-17] MEDS ORDERED: METOCLOPRAMIDE 10 MG INJ IV PRN (13:00)
[2018-08-17] MEDS ORDERED: DOCUSATE SODIUM 100 MG CAP PO PRN (13:00)
[2018-08-17] MEDS: SOD CHLORIDE 0.9% 1,000 ML IV SCH ×2 (13:36→22:45)
[2018-08-17] MEDS: GABAPENTIN 300 MG CAP PO SCH ×2 (13:36→21:00)
[2018-08-17] MEDS: DOCUSATE SODIUM 100 MG CAP PO SCH ×2 (13:56→21:18)
[2018-08-17] MEDS: SENNA TAB PO SCH ×2 (13:56→21:18)
[2018-08-17] MEDS: SUCRALFATE 1 GM TAB PO SCH ×2 (13:56→21:19)
[2018-08-17] MEDS ORDERED: DEXTROSE 50% 50 ML SYRINGE IV PRN ×2 (14:00)
[2018-08-17] MEDS ORDERED: GLUCOSE GEL 15 GRAM TUBE BUCCAL PRN (14:00)
[2018-08-17] MEDS ORDERED: GLUCOSE GEL 15 GRAM TUBE PO PRN ×2 (14:00)
[2018-08-17] MEDS ORDERED: GLUCAGON 1 MG INJ IM PRN (14:00)
[2018-08-17] MEDS: INSULIN ASPART [NOVOLOG] 3 ML PEN SC SCH ×3 (14:02→21:00)
[2018-08-17] MEDS: HYDROCODONE/APAP (5/325) TAB PO PRN (16:49)
[2018-08-17] MEDS ORDERED: glipiZIDE 5 MG TAB PO SCH (17:05)
[2018-08-17] MEDS ORDERED: GLIMEPIRIDE 2 MG TAB PO SCH (17:35)
[2018-08-17] MEDS: HYDROmorphONE 1 MG/ML SYG IV PRN ×2 (18:33→22:19)
[2018-08-17] MEDS ORDERED: INSULIN GLARGINE [LANtus] 3 ML PEN SC SCH (21:00)
[2018-08-17] MEDS: ATORVASTATIN 80 MG TAB PO SCH (21:18)
[2018-08-17] MEDS: traZODone 100 MG TAB PO SCH (21:19)
[2018-08-17] MEDS: PAROXETINE 20 MG TAB PO SCH (21:19)
[2018-08-17] MEDS: INSULIN GLARGINE [LANTus] (100 UNITS/ML) SYG SC SCH (23:02)
[2018-08-17] MEDS ORDERED: INSULIN GLARGINE [LANTus] (100 UNITS/ML) SYG SC ONE (23:30)
[2018-08-18] VITALS (12 sets, daily range): BP systolic 101–137; BP diastolic 51–69; PULSE 56–82; RESP 18–20
[2018-08-18] MEDS: ACCU-CHEK XX SCH (02:12)
[2018-08-18] MEDS: HYDROmorphONE 1 MG/ML SYG IV PRN ×4 (02:32→14:54)
[2018-08-18] MEDS ORDERED: PANTOPRAZOLE 40 MG INJ IV SCH (06:00)
[2018-08-18] MEDS: SUCRALFATE 1 GM TAB PO SCH ×3 (06:20→21:19)
[2018-08-18] MEDS ORDERED: PANTOPRAZOLE (EC) 40 MG TAB PO SCH (07:05)
[2018-08-18] MEDS: INSULIN ASPART [NOVOLOG] 3 ML PEN SC SCH ×4 (07:55→21:00)
[2018-08-18] MEDS: SOD CHLORIDE 0.9% 1,000 ML IV SCH ×2 (08:56→18:41)
[2018-08-18] MEDS ORDERED: ENOXAPARIN 40 MG/0.4 ML SYG SC SCH (09:00)
[2018-08-18] MEDS: GABAPENTIN 300 MG CAP PO SCH ×3 (09:00→21:18)
[2018-08-18] MEDS: HYDROCODONE/APAP (5/325) TAB PO PRN ×2 (09:05→16:31)
[2018-08-18] MEDS: LISINOPRIL 20 MG TAB PO SCH (09:10)
[2018-08-18] MEDS: CEFTRIAXONE 1 GM/50 ML (PMX) 50 ML IVPB SCH (09:10)
[2018-08-18] MEDS: SENNA TAB PO SCH ×2 (09:10→21:19)
[2018-08-18] MEDS: DOCUSATE SODIUM 100 MG CAP PO SCH ×2 (09:10→21:18)
[2018-08-18] MEDS ORDERED: ALTEPLASE (CATHFLO) 2 MG INJ CATHETER ONE (17:00)
--- NOTE | 2018-08-18 18:26 | PN ---
Date/Time of Note Date/Time of Note DATE: 08/18/18 TIME: 18:21 Assessment/Plan VTE Prophylaxis Risk score (from Ns)>0 risk: 4 SCD applied (from Ns): Yes Pharmacological prophylaxis: NA/contraindicated Pharm contraindication: bleeding Lines/Catheters IV Catheter Type (from Nrsg): Mid Line Urinary Cath still in place: No Assessment/Plan Hospital Course 1. Abdominal pain secondary to constipation and/or gastroparesis and/or duodenal ulcer Patient has chronic abdominal pain etiology is not fully clear, patient also is exhibiting pain seeking behavior with what appears to be a history of such as well Treat constipation and gas with stool softeners and simethicone Treat duodenal ulcer with PPI, have increased Protonix to twice daily and have added Carafate Reglan for possible gastroparesis Pain control with opiates, tramadol and gabapentin, patient is requesting a significant amount of pain meds 2. Sepsis secondary to UTI Patient with persistent leukocytosis Empiric Rocephin Follow-up on cultures 3. Hypertension Continue meds 4. Morbid obesity Lifestyle changes 5. Depression Continue home meds 6. Diabetes Continue insulin regimen and sliding scale 7. Normocytic anemia likely secondary chronic disease Patient did have a drop in hemoglobin this morning, no reports of melena or GI bleed Monitor Prophylaxis: SCDs DC planning: Unclear if patient's abdominal pain is legitimate, patient has multiple visits to this hospital for similar pain with reports of pain seeking behavior, patient continues to display pain seeking behavior and appears histrionic, patient does have some potential illegitimate sources of abdominal pain will continue to treat for duodenal ulcer, UTI and possible gastroparesis, anticipate DC home in the next several days once leukocytosis resolved and hemoglobin is stable Result Diagram: 08/18/18 0608/18/1807 Results 24hrs Laboratory Tests Test 08/17/18 21:16 08/17/18 22:47 08/18/18 00:20 08/18/18 02:12 Bedside Glucose 129 92 80 103 Test 08/18/18 06:07 08/18/18 08:19 08/18/18 12:07 08/18/18 17:13 White Blood Count 16.1 #H Red Blood Count 2.97 #L Hemoglobin 8.9 #L Hematocrit 27.4 #L Mean Corpuscular 92.3 Volume Mean Corpuscular 30.0 Hemoglobin Mean Corpuscular 32.5 Hemoglobin Concent Red Cell 13.2 Distribution Width Platelet Count 296 Mean Platelet Volume 9.1 Immature 1.100 H Granulocytes % Neutrophils % Segmented 71 Neutrophils % (Manual) Band Neutrophils % 7 H (Manual) Lymphocytes % Lymphocytes % 10 L (Manual) Reactive Lymphocytes 2 H % (Manual) Monocytes % Monocytes % (Manual) 8 Eosinophils % Eosinophils % 2 (Manual) Basophils % Nucleated Red Blood 0.0 Cells % Immature 0.170 H Granulocytes # Neutrophils # Neutrophils # 11.6 H (Manual) Band Neutrophils # 1.1 H Lymphocytes (Manual) 1.6 Lymphocytes # Reactive Lymphocytes 0.3 H # Monocytes # Monocytes # (Manual) 1.2 H Eosinophils # Basophils # Nucleated Red Blood Cells # Platelet Estimate NORMAL Polychromasia 1+ Anisocytosis 1+ Microcytosis 1+ Ovalocytes 1+ Sodium Level 135 Potassium Level 4.3 Chloride Level 111 H Carbon Dioxide Level 20 L Anion Gap 4 L Blood Urea Nitrogen 28 #H Creatinine 0.71 Est Glomerular > 60 Filtrat Rate mL/min Glucose Level 87 # Calcium Level 9.0 Phosphorus Level 2.8 Magnesium Level 1.8 Bedside Glucose 112 75 99 Subjective 24 Hr Interval Summary Gastrointestinal: pain Exam/Review of Systems Exam Vitals Vital Signs Date Temp Pulse Resp B/P (MAP) Pulse Ox O2 O2 Flow FiO2 Time Delivery Rate 08/18/18 68 16:00 08/18/18 98.6 20 101/57 92 Room Air 15:31 (72) Intake and Output 08/17/18 08/17/18 08/18/18 1515:00 23:00 07:00 IntakeIntake Total 1050 ml 800 ml 900 ml BalanceBalance 1050 ml 800 ml 900 ml Constitutional: alert Respiratory: clear to auscultation Cardiovascular: regular rate and rhythm Gastrointestinal: soft, tender; No distended Musculoskeletal: nl extremities to inspection Results Results 24hrs Laboratory Tests Test 08/17/18 21:16 08/17/18 22:47 08/18/18 00:20 08/18/18 02:12 Bedside Glucose 129 92 80 103 Test 08/18/18 06:07 08/18/18 08:19 08/18/18 12:07 08/18/18 17:13 White Blood Count 16.1 #H Red Blood Count 2.97 #L Hemoglobin 8.9 #L Hematocrit 27.4 #L Mean Corpuscular 92.3 Volume Mean Corpuscular 30.0 Hemoglobin Mean Corpuscular 32.5 Hemoglobin Concent Red Cell 13.2 Distribution Width Platelet Count 296 Mean Platelet Volume 9.1 Immature 1.100 H Granulocytes % Neutrophils % Segmented 71 Neutrophils % (Manual) Band Neutrophils % 7 H (Manual) Lymphocytes % Lymphocytes % 10 L (Manual) Reactive Lymphocytes 2 H % (Manual) Monocytes % Monocytes % (Manual) 8 Eosinophils % Eosinophils % 2 (Manual) Basophils % Nucleated Red Blood 0.0 Cells % Immature 0.170 H Granulocytes # Neutrophils # Neutrophils # 11.6 H (Manual) Band Neutrophils # 1.1 H Lymphocytes (Manual) 1.6 Lymphocytes # Reactive Lymphocytes 0.3 H # Monocytes # Monocytes # (Manual) 1.2 H Eosinophils # Basophils # Nucleated Red Blood Cells # Platelet Estimate NORMAL Polychromasia 1+ Anisocytosis 1+ Microcytosis 1+ Ovalocytes 1+ Sodium Level 135 Potassium Level 4.3 Chloride Level 111 H Carbon Dioxide Level 20 L Anion Gap 4 L Blood Urea Nitrogen 28 #H Creatinine 0.71 Est Glomerular > 60 Filtrat Rate mL/min Glucose Level 87 # Calcium Level 9.0 Phosphorus Level 2.8 Magnesium Level 1.8 Bedside Glucose 112 75 99 Medications Medication Current Medications Nitroglycerin (Nitroglycerin (Sl Tab) 0.4 Mg) 1 tab Q5M UP TO 3 DOSES PRN SL .CHEST PAIN; Start 08/17/18 at 09:00 Sodium Chloride 1,000 ml @ 100 mls/hr Q10H IV Last administered on 08/18/18at 08:56; Admin Dose 100 MLS/HR; Start 08/17/18 at 12:41 IV Flush (NS 3 ml) 3 ml PER PROTOCOL IV ; Start 08/17/18 at 13:00 Ondansetron HCl (Zofran Inj) 4 mg Q6H PRN IV NAUSEA/VOMITING; Start 08/17/18 at 13:00 Acetaminophen (Tylenol Tab) 650 mg Q6H PRN PO .PAIN 1-3 OR TEMP; Start 08/17/18 at 13:00 Acetaminophen/ Hydrocodone Bitart ([place] (5/325)) 1 tab Q6H PRN PO .MOD PAIN 4- 6 Last administered on 08/18/18at 16:31; Admin Dose 1 TAB; Start 08/17/18 at 13:00 Docusate Sodium (Colace) 100 mg Q12H PRN PO .CONSTIPATION; Start 08/17/18 at 13:00 Zolpidem Tartrate (Ambien) 5 mg QHS PRN PO .INSOMNIA; Start 08/17/18 at 13:00 Enoxaparin Sodium (Lovenox) 40 mg DAILY SC Last administered on 08/18/18 09:15; Admin Dose 40 MG; Start 08/18/18 at 09:00 Atorvastatin Calcium (Lipitor) 80 mg QHS PO Last administered on 08/17/18 21:18; Admin Dose 80 MG; Start 08/17/18 at 21:00 Gabapentin (Neurontin) 300 mg TID PO Last administered on 08/17/18 13:36; Admin Dose 300 MG; Start 08/17/18 at 13:00 Lisinopril (Zestril) 20 mg DAILY PO Last administered on 08/18/18 09:10; Admin Dose 20 MG; Start 08/18/18 at 09:00 Pantoprazole (Protonix Tab) 40 mg AC BREAKFAST PO Last administered on 08/18/18 06:26; Admin Dose 40 MG; Start 08/18/18 at 07:05 Paroxetine HCl (Paxil) 20 mg HS PO Last administered on 08/17/18 21:19; Admin Dose 20 MG; Start 08/17/18 at 21:00 Trazodone HCl (Desyrel) 100 mg QHS PO Last administered on 08/17/18 21:19; Admin Dose 100 MG; Start 08/17/18 at 21:00 Tramadol HCl (Ultram) 100 mg Q6H PRN PO MODERATE PAIN LEVEL 4-6; Start 08/17/18 at 13:00 Senna (Senokot) 2 tab BID PO Last administered on 08/18/18 09:10; Admin Dose 2 TAB; Start 08/17/18 at 13:00 Docusate Sodium (Colace) 200 mg BID PO Last administered on 08/18/18 09:10; Admin Dose 200 MG; Start 08/17/18 at 13:00 Simethicone (Mylicon) 160 mg Q6 PO Last administered on 08/18/18 12:08; Admin Dose 160 MG; Start 08/17/18 at 18:00 Metoclopramide HCl (Reglan) 10 mg Q6H PRN IV NAUSEA Last administered on 08/17/18at 14:58; Admin Dose 10 MG; Start 08/17/18 at 13:00 Sucralfate (Carafate) 1 gm Q8 PO Last administered on 08/18/18at 13:03; Admin Dose 1 GM; Start 08/17/18 at 14:00 Diagnostic Test (Pha) (Accu-Chek) 1 ea 02 XX Last administered on 08/18/18at 02:12; Admin Dose 1 EA; Start 08/18/18 at 02:00 Insulin Aspart (Novolog Insulin Pen) NOVOLOG *MILD* ALGORITHM WITH MEALS BEDTIM E SC Last administered on 08/17/18at 17:00; Admin Dose 2 UNIT; Start 08/17/18 at 13:45 Hydromorphone HCl (Dilaudid) 1 mg Q4H PRN IV SEVERE PAIN LEVEL 7-10 Last administered on 08/18/18at 14:54; Admin Dose 1 MG; Start 08/17/18 at 13:00 Ceftriaxone Sodium 50 ml @ 100 mls/hr Q24H IVPB Last administered on 08/18/18at 09:10; Admin Dose 100 MLS/HR; Start 08/18/18 at 10:00 Insulin Glargine (Lantus) 70 units HS SC ; Start 08/17/18 at 21:00 Miscellaneous Information 1 ea NOTE XX ; Start 08/17/18 at 14:00 Glucose (Glutose) 15 gm Q15M PRN PO DECREASED GLUCOSE; Start 08/17/18 at 14:00 Glucose (Glutose) 22.5 gm Q15M PRN PO DECREASED GLUCOSE; Start 08/17/18 at 14:00 Dextrose (D50w Syringe) 25 ml Q15M PRN IV DECREASED GLUCOSE; Start 08/17/18 at 14:00 Dextrose (D50w Syringe) 50 ml Q15M PRN IV DECREASED GLUCOSE; Start 08/17/18 at 14:00 Glucagon (Glucagen) 1 mg Q15M PRN IM DECREASED GLUCOSE; Start 08/17/18 at 14:00 Glucose (Glutose) 15 gm Q15M PRN BUCCAL DECREASED GLUCOSE; Start 08/17/18 at 14:00 SHIVANI SHAY Aug 18, 2018 18:26
[2018-08-18] MEDS: INSULIN GLARGINE [LANTus] (100 UNITS/ML) SYG SC SCH (21:00)
[2018-08-18] MEDS: PAROXETINE 20 MG TAB PO SCH (21:19)
[2018-08-18] MEDS: traZODone 100 MG TAB PO SCH (21:19)
[2018-08-18] MEDS: PANTOPRAZOLE (EC) 40 MG TAB PO SCH (21:19)
[2018-08-18] MEDS: ATORVASTATIN 80 MG TAB PO SCH (21:19)
[2018-08-19] VITALS (7 sets, daily range): BP systolic 107–140; BP diastolic 59–72; PULSE 65–86; RESP 19–20
[2018-08-19] MEDS: HYDROmorphONE 1 MG/ML SYG IV PRN ×3 (00:26→08:37)
[2018-08-19] MEDS: ACCU-CHEK XX SCH (02:00)
[2018-08-19] MEDS: SOD CHLORIDE 0.9% 1,000 ML IV SCH (04:06)
[2018-08-19] MEDS: SUCRALFATE 1 GM TAB PO SCH ×3 (06:05→21:25)
[2018-08-19] MEDS: INSULIN ASPART [NOVOLOG] 3 ML PEN SC SCH ×4 (07:55→20:42)
[2018-08-19] MEDS: SENNA TAB PO SCH ×2 (08:35→20:48)
[2018-08-19] MEDS: LISINOPRIL 20 MG TAB PO SCH (08:35)
[2018-08-19] MEDS: PANTOPRAZOLE (EC) 40 MG TAB PO SCH ×2 (08:35→20:48)
[2018-08-19] MEDS: GABAPENTIN 300 MG CAP PO SCH ×3 (08:36→20:51)
[2018-08-19] MEDS: DOCUSATE SODIUM 100 MG CAP PO SCH ×2 (08:36→20:48)
[2018-08-19] MEDS: CEFTRIAXONE 1 GM/50 ML (PMX) 50 ML IVPB SCH (10:37)
[2018-08-19] MEDS: HYDROCODONE/APAP (10/325) TAB GTB PRN ×2 (14:12→19:59)
[2018-08-19] MEDS ORDERED: BISACODYL 10 MG SUPP PR ONE (15:30)
[2018-08-19] MEDS ORDERED: POLYETHYLENE GLYCOL 17 GM PACKET PO ONE (15:30)
--- NOTE | 2018-08-19 15:42 | PN ---
Date/Time of Note Date/Time of Note DATE: 08/19/18 TIME: 15:40 Assessment/Plan VTE Prophylaxis Risk score (from Nsg)>0 risk: 2 SCD applied (from Nsg): Yes Pharmacological prophylaxis: heparin Lines/Catheters IV Catheter Type (from Nrsg): [place] Urinary Cath still in place: No Assessment/Plan Hospital Course 68 yo female with PUD presents iwth abdominal pain likely 2/2 opiate induced consiptation - bowel regimen - hold narcotics - PPI Result Diagram: 08/19/18 0657 08/19/18 0657 Results 24hrs Laboratory Tests Test 08/18/18 17:13 08/18/18 21:25 08/19/18 06:57 08/19/18 07:56 Bedside Glucose 99 78 112 White Blood Count 10.7 # Red Blood Count 2.98 L Hemoglobin 8.8 L Hematocrit 27.8 L Mean Corpuscular 93.3 Volume Mean Corpuscular 29.5 Hemoglobin Mean Corpuscular 31.7 L Hemoglobin Concent Red Cell Distribution 13.2 Width Platelet Count 322 Mean Platelet Volume 9.3 Immature Granulocytes 1.100 H % Neutrophils % 67.6 Lymphocytes % 17.1 Monocytes % 10.8 Eosinophils % 3.1 Basophils % 0.3 Nucleated Red Blood 0.0 Cells % Immature Granulocytes 0.120 H # Neutrophils # 7.2 Lymphocytes # 1.8 Monocytes # 1.2 H Eosinophils # 0.3 Basophils # 0.0 Nucleated Red Blood 0.0 Cells # Sodium Level 137 Potassium Level 4.4 Chloride Level 108 Carbon Dioxide Level 22 Anion Gap 7 Blood Urea Nitrogen 16 # Creatinine 0.57 Est Glomerular Filtrat > 60 Rate mL/min Glucose Level 105 Calcium Level 9.6 Test 08/19/18 12:08 Bedside Glucose 174 Subjective 24 Hr Interval Summary Free Text/Dictation Continues to have abdominal pain which seems to be 2/2 constipation. Requesting narcotics Exam/Review of Systems Exam Vitals Vital Signs Date Temp Pulse Resp B/P (MAP) Pulse Ox O2 O2 Flow FiO2 Time Delivery Rate 08/19/18 98.3 67 20 140/72 92 15:26 (94) 08/18/18 Room Air 15:31 Intake and Output 08/18/18 08/18/18 08/19/18 1515:00 23:00 07:00 IntakeIntake Total 600 ml 250 ml BalanceBalance 600 ml 250 ml Constitutional: alert, oriented, well developed Psych: no complaints, nl mood/affect Head: normocephalic, atraumatic Eyes: nl conjunctiva, EOMI, nl lids, nl sclera, PERRL ENMT: nl external ears & nose, nl lips & teeth, nl nasal mucosa & septum Neck: supple, non-tender Respiratory: clear to auscultation, normal air movement Cardiovascular: regular rate and rhythm, nl pulses Gastrointestinal: soft, nl liver, spleen, non-tender Musculoskeletal: nl extremities to inspection, nl gait and stance Extremities: normal pulses Neurological: [employer] II-XII intact, nl mental status, nl speech, nl strength Skin: nl turgor; No rash or lesions Lymph: nl lymph nodes Results Results 24hrs Laboratory Tests Test 08/18/18 17:13 08/18/18 21:25 08/19/18 06:57 08/19/18 07:56 Bedside Glucose 99 78 112 White Blood Count 10.7 # Red Blood Count 2.98 L Hemoglobin 8.8 L Hematocrit 27.8 L Mean Corpuscular 93.3 Volume Mean Corpuscular 29.5 Hemoglobin Mean Corpuscular 31.7 L Hemoglobin Concent Red Cell Distribution 13.2 Width Platelet Count 322 Mean Platelet Volume 9.3 Immature Granulocytes 1.100 H % Neutrophils % 67.6 Lymphocytes % 17.1 Monocytes % 10.8 Eosinophils % 3.1 Basophils % 0.3 Nucleated Red Blood 0.0 Cells % Immature Granulocytes 0.120 H # Neutrophils # 7.2 Lymphocytes # 1.8 Monocytes # 1.2 H Eosinophils # 0.3 Basophils # 0.0 Nucleated Red Blood 0.0 Cells # Sodium Level 137 Potassium Level 4.4 Chloride Level 108 Carbon Dioxide Level 22 Anion Gap 7 Blood Urea Nitrogen 16 # Creatinine 0.57 Est Glomerular Filtrat > 60 Rate mL/min Glucose Level 105 Calcium Level 9.6 Test 08/19/18 12:08 Bedside Glucose 174 Medications Medication Current Medications Nitroglycerin (Nitroglycerin (Sl Tab) 0.4 Mg) 1 tab Q5M UP TO 3 DOSES PRN SL .CHEST PAIN; Start 08/17/18 at 09:00 IV Flush (NS 3 ml) 3 ml PER PROTOCOL IV ; Start 08/17/18 at 13:00 Ondansetron HCl (Zofran Inj) 4 mg Q6H PRN IV NAUSEA/VOMITING Last administered on 08/19/18 13:56; Admin Dose 4 MG; Start 08/17/18 at 13:00 Acetaminophen (Tylenol Tab) 650 mg Q6H PRN PO .PAIN 1-3 OR TEMP; Start 08/17/18 at 13:00 Docusate Sodium (Colace) 100 mg Q12H PRN PO .CONSTIPATION; Start 08/17/18 at 13:00 Zolpidem Tartrate (Ambien) 5 mg QHS PRN PO .INSOMNIA; Start 08/17/18 at 13:00 Atorvastatin Calcium (Lipitor) 80 mg QHS PO Last administered on 08/18/18 21:19; Admin Dose 80 MG; Start 08/17/18 at 21:00 Gabapentin (Neurontin) 300 mg TID PO Last administered on 08/18/18 21:18; Admin Dose 300 MG; Start 08/17/18 at 13:00 Lisinopril (Zestril) 20 mg DAILY PO Last administered on 08/19/18 08:35; Admin Dose 20 MG; Start 08/18/18 at 09:00 Paroxetine HCl (Paxil) 20 mg HS PO Last administered on 08/18/18 21:19; Admin Dose 20 MG; Start 08/17/18 at 21:00 Trazodone HCl (Desyrel) 100 mg QHS PO Last administered on 08/18/18 21:19; Admin Dose 100 MG; Start 08/17/18 at 21:00 Tramadol HCl (Ultram) 100 mg Q6H PRN PO MODERATE PAIN LEVEL 4-6 Last administered on 08/19/18 12:52; Admin Dose 100 MG; Start 08/17/18 at 13:00 Senna (Senokot) 2 tab BID PO Last administered on 08/19/18 08:35; Admin Dose 2 TAB; Start 08/17/18 at 13:00 Docusate Sodium (Colace) 200 mg BID PO Last administered on 08/19/18 08:36; Admin Dose 200 MG; Start 08/17/18 at 13:00 Simethicone (Mylicon) 160 mg Q6 PO Last administered on 08/19/18 12:11; Admin Dose 160 MG; Start 08/17/18 at 18:00 Metoclopramide HCl (Reglan) 10 mg Q6H PRN IV NAUSEA Last administered on 08/17/18at 14:58; Admin Dose 10 MG; Start 08/17/18 at 13:00 Sucralfate (Carafate) 1 gm Q8 PO Last administered on 08/19/18at 06:05; Admin Dose 1 GM; Start 08/17/18 at 14:00 Insulin Aspart (Novolog Insulin Pen) NOVOLOG *MILD* ALGORITHM WITH MEALS BEDTIME SC Last administered on 08/19/18at 12:15; Admin Dose 1 UNIT; Start 08/17/18 at 13:45 Ceftriaxone Sodium 50 ml @ 100 mls/hr Q24H IVPB Last administered on 08/19/18at 10:37; Admin Dose 100 MLS/HR; Start 08/18/18 at 10:00 Insulin Glargine (Lantus) 70 units HS SC ; Start 08/17/18 at 21:00 Miscellaneous Information 1 ea NOTE XX ; Start 08/17/18 at 14:00 Glucose (Glutose) 15 gm Q15M PRN PO DECREASED GLUCOSE; Start 08/17/18 at 14:00 Glucose (Glutose) 22.5 gm Q15M PRN PO DECREASED GLUCOSE; Start 08/17/18 at 14:00 Dextrose (D50w Syringe) 25 ml Q15M PRN IV DECREASED GLUCOSE; Start 08/17/18 at 14:00 Dextrose (D50w Syringe) 50 ml Q15M PRN IV DECREASED GLUCOSE; Start 08/17/18 at 14:00 Glucagon (Glucagen) 1 mg Q15M PRN IM DECREASED GLUCOSE; Start 08/17/18 at 14:00 Glucose (Glutose) 15 gm Q15M PRN BUCCAL DECREASED GLUCOSE; Start 08/17/18 at 14:00 Pantoprazole (Protonix Tab) 40 mg BID PO Last administered on 08/19/18at 08:35; Admin Dose 40 MG; Start 08/18/18 at 21:00 Acetaminophen/ Hydrocodone Bitart ([place] (10/325)) 1 tab Q4H PRN GTB MODERATE PAIN LEVEL 4-6 Last administered on 08/19/18at 14:12; Admin Dose 1 TAB; Start 08/19/18 at 14:00 Polyethylene Glycol (Miralax) 17 gm BID PO ; Start 08/19/18 at 16:00; Status SATISH MORALES MD Aug 19, 2018 15:42
[2018-08-19] MEDS: POLYETHYLENE GLYCOL 17 GM PACKET PO SCH ×2 (16:25→20:47)
[2018-08-19] MEDS ORDERED: KETOROLAC 15 MG INJ IV STA (19:46)
[2018-08-19] MEDS: PAROXETINE 20 MG TAB PO SCH (20:48)
[2018-08-19] MEDS: ATORVASTATIN 80 MG TAB PO SCH (20:48)
[2018-08-19] MEDS: traZODone 100 MG TAB PO SCH (20:48)
[2018-08-20] VITALS: BP 119/57; PULSE 68; RESP 18
[2018-08-20] MEDS: HYDROCODONE/APAP (10/325) TAB GTB PRN ×3 (00:06→12:28)
[2018-08-20] MEDS ORDERED: HYDROmorphONE 1 MG/ML SYG IV ONE (02:30)
[2018-08-20 03:09] VITALS: BP 98/76; PULSE 83; RESP 20
[2018-08-20] MEDS: SUCRALFATE 1 GM TAB PO SCH (05:31)
[2018-08-20 08:00] VITALS: BP 104/56; PULSE 63; RESP 17
[2018-08-20] MEDS: INSULIN ASPART [NOVOLOG] 3 ML PEN SC SCH ×2 (08:03→11:51)
[2018-08-20] MEDS: POLYETHYLENE GLYCOL 17 GM PACKET PO SCH (08:03)
[2018-08-20] MEDS: PANTOPRAZOLE (EC) 40 MG TAB PO SCH (08:04)
[2018-08-20] MEDS: GABAPENTIN 300 MG CAP PO SCH (08:04)
[2018-08-20] MEDS: DOCUSATE SODIUM 100 MG CAP PO SCH (08:04)
[2018-08-20] MEDS: SENNA TAB PO SCH (08:04)
[2018-08-20] MEDS: LISINOPRIL 20 MG TAB PO SCH (08:05)
[2018-08-20] MEDS: CEFTRIAXONE 1 GM/50 ML (PMX) 50 ML IVPB SCH (10:10)
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
== END 2018-08-20 14:05 | disposition home or self-care (01) | DRG 392 ==
LOC: E/R 05:44 → MS3 09:31 → TEL 15:37 → PP2 08-20 02:32
PROVIDERS: ADMIT Internal Medicine; ATTEND Internal Medicine
DX: K59.03 Drug induced constipation (principal); N39.0 Urinary tract infection, site not specified; E11.43 Type 2 diabetes mellitus with diabetic autonomic (poly)neuropathy; K31.84 Gastroparesis; F32.9 Major depressive disorder, single episode, unspecified; I11.0 Hypertensive heart disease with heart failure; I50.9 Heart failure, unspecified; K26.9 Duodenal ulcer, unspecified as acute or chronic, without hemorrhage or perforation; E66.01 Morbid (severe) obesity due to excess calories; Z68.36 Body mass index [BMI] 36.0-36.9, adult; E11.65 Type 2 diabetes mellitus with hyperglycemia; Z87.11 Personal history of peptic ulcer disease; Z76.5 Malingerer [conscious simulation]; T40.605A Adverse effect of unspecified narcotics, initial encounter
CPT/HCPCS: 71045; 71260; 74177; 80048; 80053; 81001; 82550; 82553; 82962; 83690; 83735; 83880; 84100; 84484; 85025; 85610; 85730; 86850; 86900; 86901; 87086; 93005; 96361; 96374; 96375; J0696; J1170; J1650; J1815; J2405; J2765; J2997; J7030; Q9967

== ENCOUNTER 2018-08-26 20:50 | Inpatient (IN) | payer MEDICARE, OTHER ==
[~2018-08-26] VITALS: Ht 157.5 cm; Wt 91.0 kg
[2018-08-26 03:59] VITALS: PULSE 65
[~2018-08-26 20:50] MED LIST changes: -CARAS PO; +GABA300C16 PO; +GLIM2TAB PO; -HYOS0.1297 SL; -LISI-313 PO; +LISI-471 PO; +PARO-37 PO; -POLY17PO6 PO; +SITA100T11 PO; -TEMA15CA PO; +TRAZ-150 PO
[2018-08-26] MEDS ORDERED: SOD CHLORIDE 0.9% 1,000 ML IV STA (21:08)
[2018-08-26] MEDS ORDERED: INSULIN REGULAR, HUMAN 100 UNIT/1 ML 3ML VIAL SC ONE (23:30)
--- NOTE | 2018-08-26 23:59 | HP ---
MOHINDER CALERO MD 08/26/18 1659: Date/Time of Note Date/Time of Note DATE: 08/26/18 TIME: 23:59 Assessment/Plan Lines/Catheters IV Catheter Type (from Nrsg): Saline Lock Assessment/Plan Assessment/Plan 1. Chest pain: Rule out ACS -Telemetry monitoring -Supplemental oxygen, aspirin, beta-markell. As needed nitro -Trend troponin -EKG without ST elevation or depression -2D echo cardiology consult 2. Diabetes with hyperglycemia: No DKA -Patient was given insulin once in the ER, but afterwards she refused saying that he was making her short of breath. She has been receiving IV fluid for management of hyperglycemia 3. Leukocytosis: Unknown etiology, possibly related to hypoglycemia -UA and a chest x-ray nondiagnostic -Follow-up urine culture and blood culture results -We will consider empiric antibiotic 4. Hyponatremia: Likely pseudohyponatremia from hyperglycemia -Receiving NS IV fluid. Expect improvement with IV fluid and correction of hyperglycemia 5. Acute renal insufficiency -Currently receiving IV fluid -Check a.m. lab 6. History of PUD: PPI Result Diagram: 08/26/18211708/26/182117 Results 24hrs Laboratory Tests Test 08/26/18 21:03 08/26/18 21:18 08/26/18 23:28 Bedside Glucose > 595 *H 526 *H White Blood Count 22.3 #H Red Blood Count 3.60 #L Hemoglobin 10.5 L Hematocrit 32.6 L Mean Corpuscular Volume 90.6 Mean Corpuscular Hemoglobin 29.2 Mean Corpuscular 32.2 Hemoglobin Concent Red Cell Distribution Width 12.8 Platelet Count 576 #H Mean Platelet Volume 8.9 Immature Granulocytes % 1.300 H Neutrophils % 88.1 H Lymphocytes % 4.6 L Monocytes % 5.7 Eosinophils % 0.0 Basophils % 0.3 Nucleated Red Blood Cells % 0.0 Immature Granulocytes # 0.290 H Neutrophils # 19.6 H Lymphocytes # 1.0 Monocytes # 1.3 H Eosinophils # 0.0 Basophils # 0.1 Nucleated Red Blood Cells # 0.0 Urine Color YELLOW Urine Clarity SLIGHTLY CLOUDY A Urine pH 5.0 Urine Specific [place] 1.026 Urine Ketones NEGATIVE Urine Nitrite NEGATIVE Urine Bilirubin NEGATIVE Urine Urobilinogen NEGATIVE Urine Leukocyte Esterase NEGATIVE Urine Microscopic RBC 6 H Urine Microscopic WBC 1 Urine Squamous Epithelial Cells FEW Urine Bacteria FEW A Urine Mucus FEW A Urine Hemoglobin NEGATIVE Urine Glucose 3+ H Urine Total Protein NEGATIVE Sodium Level 129 L Potassium Level 4.7 Chloride Level 94 L Carbon Dioxide Level 21 Anion Gap 14 H Blood Urea Nitrogen 45 H Creatinine 1.49 H Est Glomerular Filtrat 35 L Rate mL/min Glucose Level 623 *H Calcium Level 9.7 Total Bilirubin 0.0 L Direct Bilirubin 0.00 Indirect Bilirubin 0.0 Aspartate Amino 14 L Transf (AST/SGOT) Alanine 20 Aminotransferase (ALT/SGPT) Alkaline Phosphatase 201 H Troponin I < 0.012 Total Protein 5.9 L Albumin 3.1 L Globulin 2.80 Albumin/Globulin Ratio 1.10 Lipase 160 HPI/ROS Admit Date/Time Admit Date/Time Hx of Present Illness This is a 68-year-old female with a history of hypertension, dyslipidemia, diabetes, CHF, back pain, depression, PUD who presented to ER complaining of chest pain. Pain started a few hours prior to arrival to the ER. It is mainly localized in the mid chest and also left-sided. It is nonradiating. Reported occasional associated shortness of breath. Patient was just discharged from here a week ago after she was initially admitted for abdominal pain which was thought to be from the constipation. At that time her initial IV opiates were changed to p.o. and reportedly patient was very upset (see discharge summary) When she presented to the ER today, vitals were stable. First troponin negative. EKG without ST-T wave abnormalities. Chest x-ray without acute findings. UA not consistent with UTI. Labs shows a WBC of 22,000, sodium 129, creatinine 1.5, glucose 623. In the ER, she initially received insulin, afterwards she refused saying that it was making her short of breath. We have been given her IV fluid for management of hyperglycemia. PMH/Family/Social Past Medical History Coded Allergies: ibuprofen (Unverified Allergy, Unknown, rash, 08/27/18) morphine (Unverified Allergy, Unknown, ITCHING, 08/27/18) Past Surgical History Past Surgical Hx: appendectomy, cholecystectomy, other Family History Significant Family History: no pertinent family hx Social History Smoking Status: Never smoker Exam/Review of Systems Vital Signs Vitals Vital Signs Date Temp Pulse Resp B/P (MAP) Pulse Ox O2 O2 Flow FiO2 Time Delivery Rate 08/26/18 71 11 101/55 96 Room Air 23:00 (70) 08/26/18 97.8 21:00 GIOVANI NGUYEN 08/27/18 1417: Assessment/Plan VTE Prophylaxis Pharmacological prophylaxis: fondaparinux Lines/Catheters IV Catheter Type (from Nrsg): Peripheral IV Assessment/Plan Hospital Course First is difficult to get a story from this 68-year-old female who looks much older than her stated age. Her abnormality on her laboratory tests seemed consistent with her blood sugar out of control. I can find no evidence that she has an acute pain syndrome other than there is clinical signs consistent with pleuritic type of pain on point palpation of her anterior chest cardiac workup is still in progress. For right now with no indications for systemic opioids will discontinue and switch her just to low-dose tramadol 50 mg twice daily. Nonsteroidal anti-inflammatory medications contraindicated with this lady who has a low GFR creatinine 1.19 and BUN of 45. Result Diagram: 08/26/18211708/26/182117 HPI/ROS ROS Constitutional: no complaints, improved Eyes: no complaints ENT: no complaints Respiratory: no complaints Cardiovascular: no complaints Gastrointestinal: no complaints Genitourinary: no complaints Musculoskeletal: no complaints Skin: no complaints Neurologic: no complaints Endocrine: no complaints Lymphatic: no complaints Psychological: no complaints, nl mood/affect Immunologic: no complaints PMH/Family/Social Past Medical History Coded Allergies: ibuprofen (Unverified Allergy, Unknown, rash, 08/27/18) morphine (Unverified Allergy, Unknown, ITCHING, 08/27/18) MOHINDER CALERO MD Aug 26, 2018 23:59 GIOVANI NGUYEN Aug 27, 2018 14:17
[2018-08-27] VITALS (9 sets, daily range): BP systolic 91–112; BP diastolic 47–63; PULSE 62–77; RESP 19–20; Ht 157.5 cm; Wt 91.0 kg
[2018-08-27] MEDS ORDERED: ACETAMINOPHEN 325 MG TAB PO PRN (00:30)
[2018-08-27] MEDS ORDERED: ONDANSETRON 4 MG INJ IV PRN (00:30)
[2018-08-27] MEDS ORDERED: NACL 0.9% 3 ML SYG IV SCH (00:30)
[2018-08-27] MEDS ORDERED: HYDROCODONE/APAP (5/325) TAB PO PRN (00:30)
[2018-08-27] MEDS ORDERED: ALBUTEROL/IPRATROPIUM (NEB) 3 ML AMP HHN PRN (00:30)
--- NOTE | 2018-08-27 00:54 | ERD ---
ER Documentation Chief Complaint Chief Complaint [id number],from home,nonradiating chest pain,accucheck 500 en route HPI Is a 68-year-old female brought in by ambulance from home with complaints of nonradiating chest pain. Pain is mild to moderate intensity substernal, non- positional nonexertional no exacerbating or alleviating factors. Accu-Chek was noted to be above 500 on arrival. Patient does have history of diabetes and states she has been compliant with her medications. Chest pain began while patient was at rest. ROS All systems reviewed and are negative except as per history of present illness. Medications Home Meds Reported Medications Trazodone Hcl* (Desyrel*) 100 Mg Tab, 100 MG PO QHS, #30 TAB 08/17/18 Paroxetine Hcl* (Paroxetine*) 20 Mg Tablet, 20 MG PO HS, TAB 08/17/18 Lisinopril* (Lisinopril*) 20 Mg Tablet, 20 MG PO DAILY, #30 TAB 08/17/18 Atorvastatin* (Atorvastatin*) 80 Mg Tablet, 80 MG PO QHS, #30 TAB 08/17/18 Sitagliptin* (Januvia*) 100 Mg Tablet, 100 MG PO DAILY, #30 TAB 08/17/18 Glimepiride* (Glimepiride*) 2 Mg Tablet, 2 MG PO WITH BREAKFAST DINNE, TAB 08/17/18 Gabapentin* (Gabapentin*) 300 Mg Capsule, 300 MG PO NEEDED, #60 CAP 08/17/18 Glipizide* (Glipizide*) 5 Mg Tablet, 5 MG PO AC BREAKFAST DINNER, TAB 08/17/18 Pantoprazole* (Pantoprazole*) 40 Mg Tablet.dr, 40 MG PO AC BREAKFAST, TAB 08/17/18 Discontinued Reported Medications Insulin Glargine,Hum.rec.anlog (Basaglar Kwikpen U-100) 100 Unit/1 Ml Insuln.pen, 70 UNIT SC QHS, EA 08/17/18 Hydrocodone/Acetaminophen ([place] 10-325 Tablet) 1 Each Tablet, 1 EACH PO TID, TAB 08/17/18 Allergies Allergies: Coded Allergies: ibuprofen (Unverified Allergy, Unknown, rash, 08/17/18) morphine (Unverified Allergy, Unknown, ITCHING, 08/17/18) PMhx/Soc History of Surgery: Yes (C/Sx3, Yolanda, Appendectomy,Hysterectomy, hernia repair) Anesthesia Reaction: No Hx Neurological Disorder: No Hx Respiratory Disorders: Yes (CHF) Hx Cardiac Disorders: Yes (HTN,Hyperlipidemia) Hx Psychiatric Problems: Yes (major depressive, anxiety) Hx Miscellaneous Medical Probl: Yes (DM) Hx Alcohol Use: No Hx Substance Use: No Hx Tobacco Use: No Smoking Status: Never smoker Physical Exam Vitals Vital Signs Date Temp Pulse Resp B/P (MAP) Pulse Ox O2 O2 Flow FiO2 Time Delivery Rate 08/26/18 71 11 101/55 96 Room Air 23:00 (70) 08/26/18 97.8 96 18 115/82 98 Room Air 21:00 (93) 08/26/18 97.8 96 18 115/82 98 20:56 (93) Physical Exam Const: No acute distress Head: Atraumatic Eyes: Normal Conjunctiva ENT: Normal External Ears, Nose and Mouth. Neck: Full range of motion. No meningismus. Resp: Clear to auscultation bilaterally Cardio: Regular rate and rhythm, no murmurs Abd: Soft, non tender, non distended. Normal bowel sounds Skin: No petechiae or rashes Back: No midline or flank tenderness Ext: No cyanosis, or edema Neur: Awake and alert Psych: Normal Mood and Affect Result Diagram: 08/26/18211708/26/182117 Results 24 hrs Laboratory Tests Test 08/26/18 21:03 08/26/18 21:18 08/26/18 23:28 08/27/18 00:31 Bedside Glucose > 595 mg/dL 526 mg/dL 514 mg/dL White Blood Count 22.3 10^3/ul Red Blood Count 3.60 10^6/ul Hemoglobin 10.5 g/dl Hematocrit 32.6 % Mean Corpuscular 90.6 fl Volume Mean Corpuscular 29.2 pg Hemoglobin Mean Corpuscular 32.2 g/dl Hemoglobin Concent Red Cell Distribution 12.8 % Width Platelet Count 576 10^3/UL Mean Platelet Volume 8.9 fl Immature Granulocytes 1.300 % % Neutrophils % 88.1 % Lymphocytes % 4.6 % Monocytes % 5.7 % Eosinophils % 0.0 % Basophils % 0.3 % Nucleated Red Blood 0.0 /100WBC Cells % Immature Granulocytes 0.290 10^3/ul # Neutrophils # 19.6 10^3/ul Lymphocytes # 1.0 10^3/ul Monocytes # 1.3 10^3/ul Eosinophils # 0.0 10^3/ul Basophils # 0.1 10^3/ul Nucleated Red Blood 0.0 10^3/ul Cells # Urine Color YELLOW Urine Clarity SLIGHTLY CLOUDY Urine pH 5.0 Urine Specific 1.026 [place] Urine Ketones NEGATIVE mg/dL Urine Nitrite NEGATIVE mg/dL Urine Bilirubin NEGATIVE mg/dL Urine Urobilinogen NEGATIVE mg/dL Urine Leukocyte NEGATIVE Radha/ul Esterase Urine Microscopic RBC 6 /HPF Urine Microscopic WBC 1 /HPF Urine Squamous FEW /HPF Epithelial Cells Urine Bacteria FEW /HPF Urine Mucus FEW /HPF Urine Hemoglobin NEGATIVE mg/dL Urine Glucose 3+ mg/dL Urine Total Protein NEGATIVE mg/dl Sodium Level 129 mmol/L Potassium Level 4.7 mmol/L Chloride Level 94 mmol/L Carbon Dioxide Level 21 mmol/L Anion Gap 14 Blood Urea Nitrogen 45 mg/dl Creatinine 1.49 mg/dl Est Glomerular 35 mL/min Filtrat Rate mL/min Glucose Level 623 mg/dl Calcium Level 9.7 mg/dl Total Bilirubin 0.0 mg/dl Direct Bilirubin 0.00 mg/dl Indirect Bilirubin 0.0 mg/dl Aspartate Amino 14 IU/L Transf (AST/SGOT) Alanine 20 IU/L Aminotransferase (ALT /SGPT) Alkaline Phosphatase 201 IU/L Troponin I < 0.012 ng/ml Total Protein 5.9 g/dl Albumin 3.1 g/dl Globulin 2.80 g/dl Albumin/Globulin 1.10 Ratio Lipase 160 U/L Current Medications Medications Dose Sig/Irma Start Time Status Last (Trade) Ordered Route PRN Stop Time Admin Dose Reason Admin Sodium 1,000 ml @ Q1H STAT 08/26/18 DC 08/26/18 Chloride 1,000 mls/hr IV 21:08 08/26/18 21:13 22:07 Insulin 10 unit ONCE ONCE 08/26/18 DC 08/26/18 Human SC 23:30 08/26/18 23:35 Regular 23:31 (Humulin R) Sodium 1,000 ml @ Q8H IV 08/27/18 Chloride 125 mls/hr 00:26 IV Flush 3 ml PER 08/27/18 (NS 3 ml) PROTOCOL IV 00:30 Ondansetron 4 mg Q6H PRN 08/27/18 HCl (Zofran IV 00:30 Inj) NAUSEA/VOMITI NG 650 mg Q6H PRN 08/27/18 Acetaminophen PO .PAIN 1-3 00:30 (Tylenol OR TEMP Tab) 1 tab Q6H PRN 08/27/18 Acetaminophen PO .MOD PAIN 00:30 / 4-6 Hydrocodone Bitart ([place] (5/325)) 2 tab Q6H PRN 08/27/18 Acetaminophen PO .SEVERE 00:30 / PAIN 7-10 Hydrocodone Bitart ([place] (5/325)) Heparin 5,000 unit Q12 SC 08/27/18 Sodium 09:00 (Porcine) (Heparin (5000 Units/1ml)) Albuterol/ 3 ml Q2H RESP 08/27/18 Ipratropium THERAPY PRN 00:30 (Duoneb) HHN SHORTNESS OF BREATH Discontinue ONCE ONCE 08/27/18 DC Miscellaneous current oral XX 00:30 08/27/18 sulfonylur... 00:38 Information (* Miscellaneous Pharmacy Order) Diagnostic 1 ea 02 XX 08/27/18 Test (Pha) 02:00 (Accu-Chek) Insulin 20 units DAILY@0800 08/27/18 Glargine SC 08:00 (Lantus) ONCE ONCE 08/27/18 DC Miscellaneous HYPOGLYCEMIA XX 00:30 08/27/18 PROTOCOL 00:38 Information w... (* Miscellaneous Pharmacy Order) Insulin NOVOLOG Q4 SC 08/27/18 Aspart *MODERATE* 01:00 (Novolog ALGORI... Insulin Pen) Discontinue ONCE ONCE 08/27/18 DC Miscellaneous all previ... XX 00:30 08/27/18 00:38 Information (* Miscellaneous Pharmacy Order) 80 mg QHS PO 08/27/18 Atorvastatin 21:00 Calcium (Lipitor) Gabapentin 300 mg TID PO 08/27/18 (Neurontin) 09:00 Lisinopril 20 mg DAILY PO 08/27/18 (Zestril) 09:00 40 mg AC 08/27/18 Pantoprazole BREAKFAST 07:00 (Protonix PO Tab) Paroxetine 20 mg HS PO 08/27/18 HCl (Paxil) 21:00 Trazodone 100 mg QHS PO 08/27/18 HCl 21:00 (Desyrel) Linagliptin 5 mg DAILY PO 08/27/18 (Tradjenta) 09:00 Insulin 12 unit ONCE ONCE 08/27/18 Aspart SC 01:00 08/27/18 (Novolog 01:01 Insulin Pen) Insulin 20 units ONCE ONCE 08/27/18 UNV Glargine SC 01:00 08/27/18 (Lantus) 01:01 Procedures/MDM EKG: Rate/Rhythm: [Normal Sinus Rhythm] QRS, ST, T-waves: [No changes consistent w/ acute ischemia], normal intervals, normal axis, upgoing T waves Impression: [No evidence of ischemia or arrhythmia] Chest X-ray 1V Interpreted by me: Soft Tissue: No acute abnormalities Bones: No acute abnormalities Mediastinum/Cardiac Silhouette/Lungs: [No acute abnormalities] Medical decision making: Patient's symptoms are concerning for cardiac cause will require inpatient workup and continuous monitoring. Further w/u for ischemia, arrhythmia, PE or dissection will be deferred to the inpatient team. Patient does have elevation of white blood cell count, however no obvious source of infection. Patient will be further evaluated by inpatient team. Vital signs showed no evidence of sepsis. Accu-Chek was noted to be severely high, and serum glucose was in 600 range. No evidence of diabetic ketoacidosis. Patient fluid hydrated here in the emergency department. Accepting Care Team: Current data and ongoing care discussed. Time: 11:30 PM Primary Provider: Hospitalist Consulting: Deferred to inpatient team Outstanding Data: none Departure Diagnosis: Primary Impression: Chest pain Chest pain type: unspecified Qualified Codes: R07.9 - Chest pain, unspecified Additional Impression: Hyperglycemia Condition: Serious MOHINDER SCHMITT Aug 27, 2018 00:54
[2018-08-27] MEDS ORDERED: INSULIN ASPART [NOVOLOG] 3 ML PEN SC ONE (01:00)
[2018-08-27] MEDS: INSULIN ASPART [NOVOLOG] 3 ML PEN SC SCH ×3 (01:30→09:08)
[2018-08-27] MEDS: INSULIN GLARGINE [LANTus] (100 UNITS/ML) SYG SC SCH ×2 (01:31→01:42)
[2018-08-27] MEDS: SOD CHLORIDE 0.9% 1,000 ML IV SCH ×4 (01:32→16:26)
[2018-08-27] MEDS ORDERED: GLUCAGON 1 MG INJ IM PRN (02:00)
[2018-08-27] MEDS ORDERED: DEXTROSE 50% 50 ML SYRINGE IV PRN ×2 (02:00)
[2018-08-27] MEDS: ACCU-CHEK XX SCH (02:00)
[2018-08-27] MEDS ORDERED: SOD CHLORIDE 0.9% 500 ML IV ONE (02:00)
[2018-08-27] MEDS ORDERED: GLUCOSE GEL 15 GRAM TUBE PO PRN ×2 (02:00)
[2018-08-27] MEDS ORDERED: GLUCOSE GEL 15 GRAM TUBE BUCCAL PRN (02:00)
[2018-08-27] MEDS ORDERED: morphine 4 MG/ML VIAL IV ONE (04:30)
[2018-08-27] MEDS: NITROGLYCERIN (SL) 0.4 MG TAB SL PRN ×3 (04:37→04:53)
[2018-08-27] MEDS ORDERED: HYDROmorphONE 1 MG/ML SYG IV ONE (05:00)
[2018-08-27] MEDS: PANTOPRAZOLE (EC) 40 MG TAB PO SCH (07:02)
[2018-08-27] MEDS ORDERED: INSULIN GLARGINE [LANTus] (100 UNITS/ML) SYG SC SCH (08:00)
[2018-08-27] MEDS: LINAGLIPTIN 5 MG TABLET PO SCH (08:25)
[2018-08-27] MEDS: GABAPENTIN 300 MG CAP PO SCH ×3 (08:25→20:18)
[2018-08-27] MEDS: LISINOPRIL 20 MG TAB PO SCH (08:25)
[2018-08-27] MEDS: CEFTRIAXONE 1 GM/50 ML (PMX) 50 ML IVPB SCH (08:26)
[2018-08-27] MEDS: HEPARIN 5,000 UNIT/1 ML VIAL SC SCH ×2 (08:37→20:24)
[2018-08-27] MEDS ORDERED: INSULIN GLARGINE [LANTus] (100 UNITS/ML) SYG SC ONE (12:15)
--- NOTE | 2018-08-27 14:13 | CONS ---
Consultation Date/Type/Reason Admit Date/Time Date/Time of Note DATE: 08/27/18 TIME: 14:11 Hx of Present Illness Asked to see this lady in pain management consultation. Patient is a poor historian all information is taken from her medical records I spoken her in [place]. She is a 68-year-old female who has a history of notable chronic medical problems including hypertension dyslipidemia diabetes congestive heart failure chronic back pain depression gastrointestinal reflux disease peptic ulcer disease resented to emergency room with chest pain. Pain was atypical for cardiac pain but she was having occasional shortness of breath associated with it she was recently discharged from [facility]. Patient left the hospital during her last hospital discharge recently when her IV opioids were discontinued for unclear reasons. Cardiac workup first troponin negative EKG without abnormalities chest x-ray acute abnormalities urinalysis was clean white blood cell count of 22,000 blood sugar 623. I have asked her about whether or not she takes her insulin she states sometimes. At this time with fluids her blood sugars trending down as well as sliding scale insulin coverage. There are no other gross abnormalities on her laboratory tests. Once again patient is a non-historian family members at the bedside. Therefore I cannot obtain an adequate history of present illness or an adequate pain history First is difficult to get a story from this 68-year-old female who looks much older than her stated age. Her abnormality on her laboratory tests seemed consistent with her blood sugar out of control. I can find no evidence that she has an acute pain syndrome other than there is clinical signs consistent with pleuritic type of pain on point palpation of her anterior chest cardiac workup is still in progress. For right now with no indications for systemic opioids will discontinue and switch her just to low-dose tramadol 50 mg twice daily. Nonsteroidal anti-inflammatory medications contraindicated with this lady who has a low GFR creatinine 1.19 and BUN of 45. Past Medical History Medical History: diabetes, GERD, high cholesterol Home Meds Reported Medications Trazodone Hcl* (Desyrel*) 100 Mg Tab, 100 MG PO QHS, #30 TAB 08/17/18 Paroxetine Hcl* (Paroxetine*) 20 Mg Tablet, 20 MG PO HS, TAB 08/17/18 Lisinopril* (Lisinopril*) 20 Mg Tablet, 20 MG PO DAILY, #30 TAB 08/17/18 Atorvastatin* (Atorvastatin*) 80 Mg Tablet, 80 MG PO QHS, #30 TAB 08/17/18 Sitagliptin* (Januvia*) 100 Mg Tablet, 100 MG PO DAILY, #30 TAB 08/17/18 Glimepiride* (Glimepiride*) 2 Mg Tablet, 2 MG PO WITH BREAKFAST DINNE, TAB 08/17/18 Gabapentin* (Gabapentin*) 300 Mg Capsule, 300 MG PO NEEDED, #60 CAP 08/17/18 Glipizide* (Glipizide*) 5 Mg Tablet, 5 MG PO AC BREAKFAST DINNER, TAB 08/17/18 Pantoprazole* (Pantoprazole*) 40 Mg Tablet.dr, 40 MG PO AC BREAKFAST, TAB 08/17/18 Discontinued Reported Medications Insulin Glargine,Hum.rec.anlog (Basaglar Kwikpen U-100) 100 Unit/1 Ml Insuln.pen, 70 UNIT SC QHS, EA 08/17/18 Hydrocodone/Acetaminophen (Una 10-325 Tablet) 1 Each Tablet, 1 EACH PO TID, TAB 08/17/18 Medications Current Medications Sodium Chloride 1,000 ml @ 125 mls/hr Q8H IV Last administered on 08/27/18at 12:11; Admin Dose 125 MLS/HR; Start 08/27/18 at 00:26 IV Flush (NS 3 ml) 3 ml PER PROTOCOL IV ; Start 08/27/18 at 00:30 Ondansetron HCl (Zofran Inj) 4 mg Q6H PRN IV NAUSEA/VOMITING; Start 08/27/18 at 00:30 Acetaminophen (Tylenol Tab) 650 mg Q6H PRN PO .PAIN 1-3 OR TEMP; Start 08/27/18 at 00:30 Acetaminophen/ Hydrocodone Bitart (Una (5/325)) 1 tab Q6H PRN PO .MOD PAIN 4- 6 Last administered on 08/27/18at 08:32; Admin Dose 1 TAB; Start 08/27/18 at 00:30 Acetaminophen/ Hydrocodone Bitart (Una (5/325)) 2 tab Q6H PRN PO .SEVERE PAIN 7-10; Start 08/27/18 at 00:30 Heparin Sodium (Porcine) (Heparin (5000 Units/1ml)) 5,000 unit Q12 SC Last administered on 08/27/18at 08:37; Admin Dose 5,000 UNIT; Start 08/27/18 at 09:00 Albuterol/ Ipratropium (Duoneb) 3 ml Q2H RESP THERAPY PRN HHN SHORTNESS OF BREATH; Start 08/27/18 at 00:30 Diagnostic Test (Pha) (Accu-Chek) 1 ea 02 XX ; Start 08/27/18 at 02:00 Insulin Glargine (Lantus) 20 units DAILY@0800 SC Last administered on 08/27/18at 09:07; Admin Dose 20 UNITS; Start 08/27/18 at 08:00 Atorvastatin Calcium (Lipitor) 80 mg QHS PO ; Start 08/27/18 at 21:00 Gabapentin (Neurontin) 300 mg TID PO Last administered on 08/27/18at 08:25; Admin Dose 300 MG; Start 08/27/18 at 09:00 Lisinopril (Zestril) 20 mg DAILY PO Last administered on 08/27/18at 08:25; Admin Dose 20 MG; Start 08/27/18 at 09:00 Pantoprazole (Protonix Tab) 40 mg AC BREAKFAST PO ; Start 08/27/18 at 07:00 Paroxetine HCl (Paxil) 20 mg HS PO ; Start 08/27/18 at 21:00 Trazodone HCl (Desyrel) 100 mg QHS PO ; Start 08/27/18 at 21:00 Linagliptin (Tradjenta) 5 mg DAILY PO Last administered on 08/27/18at 08:25; Admin Dose 5 MG; Start 08/27/18 at 09:00 Miscellaneous Information 1 ea NOTE XX ; Start 08/27/18 at 02:00 Glucose (Glutose) 15 gm Q15M PRN PO DECREASED GLUCOSE; Start 08/27/18 at 02:00 Glucose (Glutose) 22.5 gm Q15M PRN PO DECREASED GLUCOSE; Start 08/27/18 at 02:00 Dextrose (D50w Syringe) 25 ml Q15M PRN IV DECREASED GLUCOSE; Start 08/27/18 at 02:00 Dextrose (D50w Syringe) 50 ml Q15M PRN IV DECREASED GLUCOSE; Start 08/27/18 at 02:00 Glucagon (Glucagen) 1 mg Q15M PRN IM DECREASED GLUCOSE; Start 08/27/18 at 02:00 Glucose (Glutose) 15 gm Q15M PRN BUCCAL DECREASED GLUCOSE; Start 08/27/18 at 02:00 Nitroglycerin (Nitroglycerin (Sl Tab) 0.4 Mg) 1 tab [id number] PRN SL CHEST PAIN Last administered on 08/27/18at 04:53; Admin Dose 1 TAB; Start 08/27/18 at 04:30 Ceftriaxone Sodium 50 ml @ 100 mls/hr DAILY IVPB Last administered on 08/27/18at 08:26; Admin Dose 100 MLS/HR; Start 08/27/18 at 09:00 Insulin Aspart (Novolog Insulin Pen) (Adult SC Insulin - Moder... WITH MEALS BEDTIME SC ; Start 08/27/18 at 17:55 Allergies: Coded Allergies: ibuprofen (Unverified Allergy, Unknown, rash, 08/27/18) morphine (Unverified Allergy, Unknown, ITCHING, 08/27/18) Past Surgical History Past Surgical Hx: appendectomy, cholecystectomy, other Social History Smoking Status: Never smoker Exam/Review of Systems Exam Vitals Vital Signs Date Temp Pulse Resp B/P (MAP) Pulse Ox O2 O2 Flow FiO2 Time Delivery Rate 08/27/18 98.2 77 20 112/58 99 11:06 (76) 08/27/18 Nasal 2.0 09:00 Cannula Intake and Output 08/26/18 08/26/18 08/27/18 1515:00 23:00 07:00 IntakeIntake Total 10 ml BalanceBalance 10 ml Constitutional: frail Psych: anxiety, confusion Head: normocephalic, atraumatic; No lacerations, No hematomas, No other Eyes: nl conjunctiva, EOMI, nl lids, nl sclera, PERRL; No icteric, No fundi, disc, No other ENMT: nl external ears & nose, nl lips & teeth, nl nasal mucosa & septum; No mucosa pink and moist, No intubated, No tympanic membranes, No other Neck: supple, non-tender; No jvd, No bruits, No masses, No thyromegaly, No nuchal rigidity, No other Respiratory: No clear to auscultation, No normal air movement, No congested cough, No crackles/rales, No diminished breath sounds, No intercostal retraction, No labored breathing, No respirations, No tactile fremitus, No wheezing, No other Cardiovascular: No regular rate and rhythm, No nl pulses, No bruits, No diastolic murmur, No edema, No gallop, No irregular rhythm, No jugular venous distention (JVD), No murmurs/extra sounds, No rub, No systolic murmur, No S3, No S4, No other Gastrointestinal: No soft, No nl liver, spleen, No non-tender, No ascites, No bowel sounds, No distended, No firm, No hepatomegaly, No mass, No rebound or guarding, No splenomegaly, No surgical scars, No tender, No other 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, nl mental status, nl speech, nl strength Results Result Diagram: 08/27/1862208/27/18 06 Results 24hrs Laboratory Tests Test 08/26/18 21:03 08/26/18 21:18 08/26/18 23:28 08/27/18 00:31 Bedside Glucose > 595 *H 526 *H 514 *H White Blood Count 22.3 #H Red Blood Count 3.60 #L Hemoglobin 10.5 L Hematocrit 32.6 L Mean Corpuscular 90.6 Volume Mean Corpuscular 29.2 Hemoglobin Mean Corpuscular 32.2 Hemoglobin Concent Red Cell 12.8 Distribution Width Platelet Count 576 #H Mean Platelet 8.9 Volume Immature 1.300 H Granulocytes % Neutrophils % 88.1 H Lymphocytes % 4.6 L Monocytes % 5.7 Eosinophils % 0.0 Basophils % 0.3 Nucleated Red 0.0 Blood Cells % Immature 0.290 H Granulocytes # Neutrophils # 19.6 H Lymphocytes # 1.0 Monocytes # 1.3 H Eosinophils # 0.0 Basophils # 0.1 Nucleated Red 0.0 Blood Cells # Urine Color YELLOW Urine Clarity SLIGHTLY CLOUDY A Urine pH 5.0 Urine Specific 1.026 [place] Urine Ketones NEGATIVE Urine Nitrite NEGATIVE Urine Bilirubin NEGATIVE Urine Urobilinogen NEGATIVE Urine Leukocyte NEGATIVE Esterase Urine Microscopic 6 H RBC Urine Microscopic 1 WBC Urine Squamous FEW Epithelial Cells Urine Bacteria FEW A Urine Mucus FEW A Urine Hemoglobin NEGATIVE Urine Glucose 3+ H Urine Total NEGATIVE Protein Sodium Level 129 L Potassium Level 4.7 Chloride Level 94 L Carbon Dioxide 21 Level Anion Gap 14 H Blood Urea 45 H Nitrogen Creatinine 1.49 H Est Glomerular 35 L Filtrat Rate mL/min Glucose Level 623 *H Calcium Level 9.7 Total Bilirubin 0.0 L Direct Bilirubin 0.00 Indirect Bilirubin 0.0 Aspartate Amino 14 L Transf (AST/SGOT) Alanine 20 Aminotransferase ( ALT/SGPT) Alkaline 201 H Phosphatase Troponin I < 0.012 Total Protein 5.9 L Albumin 3.1 L Globulin 2.80 Albumin/Globulin 1.10 Ratio Lipase 160 Test 08/27/18 01:09 08/27/18 01:45 08/27/18 06:23 08/27/18 08:01 Creatine Kinase 21 L < 20 L Creatine Kinase 7.9 Index Creatinine Kinase 1.65 1.31 MB (Mass) Troponin I < 0.012 < 0.012 Bedside Glucose 491 *H 297 H White Blood Count 14.1 #H Red Blood Count 3.38 L Hemoglobin 9.9 L Hematocrit 31.1 L Mean Corpuscular 92.0 Volume Mean Corpuscular 29.3 Hemoglobin Mean Corpuscular 31.8 L Hemoglobin Concent Red Cell 13.2 Distribution Width Platelet Count 443 #H Mean Platelet 9.0 Volume Immature 0.800 H Granulocytes % Neutrophils % Segmented 58 Neutrophils % (Manual) Band Neutrophils % 29 H (Manual) Lymphocytes % Lymphocytes % 6 L (Manual) Reactive 2 H Lymphocytes % (Manual) Monocytes % Monocytes % 4 (Manual) Eosinophils % Eosinophils % 1 (Manual) Basophils % Nucleated Red 0.0 Blood Cells % Immature 0.110 H Granulocytes # Neutrophils # Neutrophils # 8.7 H (Manual) Band Neutrophils # 4.0 H Lymphocytes 0.8 (Manual) Lymphocytes # Reactive 0.2 H Lymphocytes # Monocytes # Monocytes # 0.5 (Manual) Eosinophils # Basophils # Nucleated Red Blood Cells # Platelet Estimate NORMAL Polychromasia 2+ Poikilocytosis 1+ Anisocytosis 1+ Microcytosis 1+ Ovalocytes 1+ Echinocytes 1+ Sodium Level 133 L Potassium Level 4.7 Chloride Level 101 Carbon Dioxide 21 Level Anion Gap 11 Blood Urea 41 H Nitrogen Creatinine 1.42 H Est Glomerular 37 L Filtrat Rate mL/min Glucose Level 502 *H Calcium Level 9.6 Phosphorus Level 4.4 Magnesium Level 1.7 Total Bilirubin 0.1 L Direct Bilirubin 0.00 Indirect Bilirubin 0.1 Aspartate Amino 15 Transf (AST/SGOT) Alanine 19 Aminotransferase ( ALT/SGPT) Alkaline 166 H Phosphatase Total Protein 5.3 L Albumin 2.7 L Globulin 2.60 Albumin/Globulin 1.03 Ratio Test 08/27/18 08:57 08/27/18 12:10 Bedside Glucose 367 H 197 Medications Medication Current Medications Sodium Chloride 1,000 ml @ 125 mls/hr Q8H IV Last administered on 08/27/18at 12:11; Admin Dose 125 MLS/HR; Start 08/27/18 at 00:26 IV Flush (NS 3 ml) 3 ml PER PROTOCOL IV ; Start 08/27/18 at 00:30 Ondansetron HCl (Zofran Inj) 4 mg Q6H PRN IV NAUSEA/VOMITING; Start 08/27/18 at 00:30 Acetaminophen (Tylenol Tab) 650 mg Q6H PRN PO .PAIN 1-3 OR TEMP; Start 08/27/18 at 00:30 Acetaminophen/ Hydrocodone Bitart (Una (5/325)) 1 tab Q6H PRN PO .MOD PAIN 4- 6 Last administered on 08/27/18at 08:32; Admin Dose 1 TAB; Start 08/27/18 at 00:30 Acetaminophen/ Hydrocodone Bitart (Una (5/325)) 2 tab Q6H PRN PO .SEVERE PAIN 7-10; Start 08/27/18 at 00:30 Heparin Sodium (Porcine) (Heparin (5000 Units/1ml)) 5,000 unit Q12 SC Last administered on 08/27/18at 08:37; Admin Dose 5,000 UNIT; Start 08/27/18 at 09:00 Albuterol/ Ipratropium (Duoneb) 3 ml Q2H RESP THERAPY PRN HHN SHORTNESS OF BREATH; Start 08/27/18 at 00:30 Diagnostic Test (Pha) (Accu-Chek) 1 ea 02 XX ; Start 08/27/18 at 02:00 Insulin Glargine (Lantus) 20 units DAILY@0800 SC Last administered on 08/27/18at 09:07; Admin Dose 20 UNITS; Start 08/27/18 at 08:00 Atorvastatin Calcium (Lipitor) 80 mg QHS PO ; Start 08/27/18 at 21:00 Gabapentin (Neurontin) 300 mg TID PO Last administered on 08/27/18at 08:25; Admin Dose 300 MG; Start 08/27/18 at 09:00 Lisinopril (Zestril) 20 mg DAILY PO Last administered on 08/27/18at 08:25; Admin Dose 20 MG; Start 08/27/18 at 09:00 Pantoprazole (Protonix Tab) 40 mg AC BREAKFAST PO ; Start 08/27/18 at 07:00 Paroxetine HCl (Paxil) 20 mg HS PO ; Start 08/27/18 at 21:00 Trazodone HCl (Desyrel) 100 mg QHS PO ; Start 08/27/18 at 21:00 Linagliptin (Tradjenta) 5 mg DAILY PO Last administered on 08/27/18at 08:25; Admin Dose 5 MG; Start 08/27/18 at 09:00 Miscellaneous Information 1 ea NOTE XX ; Start 08/27/18 at 02:00 Glucose (Glutose) 15 gm Q15M PRN PO DECREASED GLUCOSE; Start 08/27/18 at 02:00 Glucose (Glutose) 22.5 gm Q15M PRN PO DECREASED GLUCOSE; Start 08/27/18 at 02:00 Dextrose (D50w Syringe) 25 ml Q15M PRN IV DECREASED GLUCOSE; Start 08/27/18 at 02:00 Dextrose (D50w Syringe) 50 ml Q15M PRN IV DECREASED GLUCOSE; Start 08/27/18 at 02:00 Glucagon (Glucagen) 1 mg Q15M PRN IM DECREASED GLUCOSE; Start 08/27/18 at 02:00 Glucose (Glutose) 15 gm Q15M PRN BUCCAL DECREASED GLUCOSE; Start 08/27/18 at 02:00 Nitroglycerin (Nitroglycerin (Sl Tab) 0.4 Mg) 1 tab [id number] PRN SL CHEST PAIN Last administered on 08/27/18at 04:53; Admin Dose 1 TAB; Start 08/27/18 at 04:30 Ceftriaxone Sodium 50 ml @ 100 mls/hr DAILY IVPB Last administered on 08/27/18at 08:26; Admin Dose 100 MLS/HR; Start 08/27/18 at 09:00 Insulin Aspart (Novolog Insulin Pen) (Adult SC Insulin - Moder... WITH MEALS BEDTIME SC ; Start 08/27/18 at 17:55 GIOVANI NGUYEN Aug 27, 2018 14:13
--- NOTE | 2018-08-27 15:50 | PN ---
Date/Time of Note Date/Time of Note DATE: 08/27/18 TIME: 15:34 Assessment/Plan VTE Prophylaxis Risk score (from Nsg)>0 risk: 5 SCD applied (from Nsg): Yes Pharmacological prophylaxis: heparin Lines/Catheters IV Catheter Type (from Nrsg): Peripheral IV Urinary Cath still in place: No Assessment/Plan Hospital Course 1. Chest pain secondary to chronic pain with possible fibromyalgia -Increase gabapentin dose -Start Cymbalta, DC Paxil -ACS ruled out -Patient with multiple hospitalizations for chronic pain and opiate seeking behavior 2. Diabetes with hyperglycemia: No DKA -Patient was given insulin once in the ER, but afterwards she refused saying that he was making her short of breath. She has been receiving IV fluid for management of hyperglycemia -Increase dose of insulin 3. Leukocytosis likely reactive -UA and a chest x-ray nondiagnostic -Follow-up urine culture and blood culture results -No indication for antibiotics at this time 4. Pseudohyponatremia secondary to hyperglycemia -Expect improvement with IV fluid and correction of hyperglycemia 5. Acute renal insufficiency Continue fluid -Check a.m. lab 6. History of PUD: PPI Prophylaxis: Heparin DC planning: Anticipate DC home tomorrow Result Diagram: 08/27/1862208/27/1823 Results 24hrs Laboratory Tests Test 08/26/18 21:03 08/26/18 21:18 08/26/18 23:28 08/27/18 00:31 Bedside Glucose > 595 *H 526 *H 514 *H White Blood Count 22.3 #H Red Blood Count 3.60 #L Hemoglobin 10.5 L Hematocrit 32.6 L Mean Corpuscular 90.6 Volume Mean Corpuscular 29.2 Hemoglobin Mean Corpuscular 32.2 Hemoglobin Concent Red Cell 12.8 Distribution Width Platelet Count 576 #H Mean Platelet 8.9 Volume Immature 1.300 H Granulocytes % Neutrophils % 88.1 H Lymphocytes % 4.6 L Monocytes % 5.7 Eosinophils % 0.0 Basophils % 0.3 Nucleated Red 0.0 Blood Cells % Immature 0.290 H Granulocytes # Neutrophils # 19.6 H Lymphocytes # 1.0 Monocytes # 1.3 H Eosinophils # 0.0 Basophils # 0.1 Nucleated Red 0.0 Blood Cells # Urine Color YELLOW Urine Clarity SLIGHTLY CLOUDY A Urine pH 5.0 Urine Specific 1.026 Basye Urine Ketones NEGATIVE Urine Nitrite NEGATIVE Urine Bilirubin NEGATIVE Urine Urobilinogen NEGATIVE Urine Leukocyte NEGATIVE Esterase Urine Microscopic 6 H RBC Urine Microscopic 1 WBC Urine Squamous FEW Epithelial Cells Urine Bacteria FEW A Urine Mucus FEW A Urine Hemoglobin NEGATIVE Urine Glucose 3+ H Urine Total NEGATIVE Protein Sodium Level 129 L Potassium Level 4.7 Chloride Level 94 L Carbon Dioxide 21 Level Anion Gap 14 H Blood Urea 45 H Nitrogen Creatinine 1.49 H Est Glomerular 35 L Filtrat Rate mL/min Glucose Level 623 *H Calcium Level 9.7 Total Bilirubin 0.0 L Direct Bilirubin 0.00 Indirect Bilirubin 0.0 Aspartate Amino 14 L Transf (AST/SGOT) Alanine 20 Aminotransferase ( ALT/SGPT) Alkaline 201 H Phosphatase Troponin I < 0.012 Total Protein 5.9 L Albumin 3.1 L Globulin 2.80 Albumin/Globulin 1.10 Ratio Lipase 160 Test 08/27/18 01:09 08/27/18 01:45 08/27/18 06:23 08/27/18 08:01 Creatine Kinase 21 L < 20 L Creatine Kinase 7.9 Index Creatinine Kinase 1.65 1.31 MB (Mass) Troponin I < 0.012 < 0.012 Bedside Glucose 491 *H 297 H White Blood Count 14.1 #H Red Blood Count 3.38 L Hemoglobin 9.9 L Hematocrit 31.1 L Mean Corpuscular 92.0 Volume Mean Corpuscular 29.3 Hemoglobin Mean Corpuscular 31.8 L Hemoglobin Concent Red Cell 13.2 Distribution Width Platelet Count 443 #H Mean Platelet 9.0 Volume Immature 0.800 H Granulocytes % Neutrophils % Segmented 58 Neutrophils % (Manual) Band Neutrophils % 29 H (Manual) Lymphocytes % Lymphocytes % 6 L (Manual) Reactive 2 H Lymphocytes % (Manual) Monocytes % Monocytes % 4 (Manual) Eosinophils % Eosinophils % 1 (Manual) Basophils % Nucleated Red 0.0 Blood Cells % Immature 0.110 H Granulocytes # Neutrophils # Neutrophils # 8.7 H (Manual) Band Neutrophils # 4.0 H Lymphocytes 0.8 (Manual) Lymphocytes # Reactive 0.2 H Lymphocytes # Monocytes # Monocytes # 0.5 (Manual) Eosinophils # Basophils # Nucleated Red Blood Cells # Platelet Estimate NORMAL Polychromasia 2+ Poikilocytosis 1+ Anisocytosis 1+ Microcytosis 1+ Ovalocytes 1+ Echinocytes 1+ Sodium Level 133 L Potassium Level 4.7 Chloride Level 101 Carbon Dioxide 21 Level Anion Gap 11 Blood Urea 41 H Nitrogen Creatinine 1.42 H Est Glomerular 37 L Filtrat Rate mL/min Glucose Level 502 *H Calcium Level 9.6 Phosphorus Level 4.4 Magnesium Level 1.7 Total Bilirubin 0.1 L Direct Bilirubin 0.00 Indirect Bilirubin 0.1 Aspartate Amino 15 Transf (AST/SGOT) Alanine 19 Aminotransferase ( ALT/SGPT) Alkaline 166 H Phosphatase Total Protein 5.3 L Albumin 2.7 L Globulin 2.60 Albumin/Globulin 1.03 Ratio Test 08/27/18 08:57 08/27/18 12:10 Bedside Glucose 367 H 197 Subjective 24 Hr Interval Summary Gastrointestinal: pain Exam/Review of Systems Exam Vitals Vital Signs Date Temp Pulse Resp B/P (MAP) Pulse Ox O2 O2 Flow FiO2 Time Delivery Rate 08/27/18 98.5 68 20 92/50 (64) 92 15:25 08/27/18 Nasal 2.0 09:00 Cannula Intake and Output 08/26/18 08/26/18 08/27/18 1515:00 23:00 07:00 IntakeIntake Total 10 ml BalanceBalance 10 ml Constitutional: alert Respiratory: clear to auscultation Cardiovascular: regular rate and rhythm Gastrointestinal: soft; No distended Musculoskeletal: nl extremities to inspection Results Results 24hrs Laboratory Tests Test 08/26/18 21:03 08/26/18 21:18 08/26/18 23:28 08/27/18 00:31 Bedside Glucose > 595 *H 526 *H 514 *H White Blood Count 22.3 #H Red Blood Count 3.60 #L Hemoglobin 10.5 L Hematocrit 32.6 L Mean Corpuscular 90.6 Volume Mean Corpuscular 29.2 Hemoglobin Mean Corpuscular 32.2 Hemoglobin Concent Red Cell 12.8 Distribution Width Platelet Count 576 #H Mean Platelet 8.9 Volume Immature 1.300 H Granulocytes % Neutrophils % 88.1 H Lymphocytes % 4.6 L Monocytes % 5.7 Eosinophils % 0.0 Basophils % 0.3 Nucleated Red 0.0 Blood Cells % Immature 0.290 H Granulocytes # Neutrophils # 19.6 H Lymphocytes # 1.0 Monocytes # 1.3 H Eosinophils # 0.0 Basophils # 0.1 Nucleated Red 0.0 Blood Cells # Urine Color YELLOW Urine Clarity SLIGHTLY CLOUDY A Urine pH 5.0 Urine Specific 1.026 Basye Urine Ketones NEGATIVE Urine Nitrite NEGATIVE Urine Bilirubin NEGATIVE Urine Urobilinogen NEGATIVE Urine Leukocyte NEGATIVE Esterase Urine Microscopic 6 H RBC Urine Microscopic 1 WBC Urine Squamous FEW Epithelial Cells Urine Bacteria FEW A Urine Mucus FEW A Urine Hemoglobin NEGATIVE Urine Glucose 3+ H Urine Total NEGATIVE Protein Sodium Level 129 L Potassium Level 4.7 Chloride Level 94 L Carbon Dioxide 21 Level Anion Gap 14 H Blood Urea 45 H Nitrogen Creatinine 1.49 H Est Glomerular 35 L Filtrat Rate mL/min Glucose Level 623 *H Calcium Level 9.7 Total Bilirubin 0.0 L Direct Bilirubin 0.00 Indirect Bilirubin 0.0 Aspartate Amino 14 L Transf (AST/SGOT) Alanine 20 Aminotransferase ( ALT/SGPT) Alkaline 201 H Phosphatase Troponin I < 0.012 Total Protein 5.9 L Albumin 3.1 L Globulin 2.80 Albumin/Globulin 1.10 Ratio Lipase 160 Test 08/27/18 01:09 08/27/18 01:45 08/27/18 06:23 08/27/18 08:01 Creatine Kinase 21 L < 20 L Creatine Kinase 7.9 Index Creatinine Kinase 1.65 1.31 MB (Mass) Troponin I < 0.012 < 0.012 Bedside Glucose 491 *H 297 H White Blood Count 14.1 #H Red Blood Count 3.38 L Hemoglobin 9.9 L Hematocrit 31.1 L Mean Corpuscular 92.0 Volume Mean Corpuscular 29.3 Hemoglobin Mean Corpuscular 31.8 L Hemoglobin Concent Red Cell 13.2 Distribution Width Platelet Count 443 #H Mean Platelet 9.0 Volume Immature 0.800 H Granulocytes % Neutrophils % Segmented 58 Neutrophils % (Manual) Band Neutrophils % 29 H (Manual) Lymphocytes % Lymphocytes % 6 L (Manual) Reactive 2 H Lymphocytes % (Manual) Monocytes % Monocytes % 4 (Manual) Eosinophils % Eosinophils % 1 (Manual) Basophils % Nucleated Red 0.0 Blood Cells % Immature 0.110 H Granulocytes # Neutrophils # Neutrophils # 8.7 H (Manual) Band Neutrophils # 4.0 H Lymphocytes 0.8 (Manual) Lymphocytes # Reactive 0.2 H Lymphocytes # Monocytes # Monocytes # 0.5 (Manual) Eosinophils # Basophils # Nucleated Red Blood Cells # Platelet Estimate NORMAL Polychromasia 2+ Poikilocytosis 1+ Anisocytosis 1+ Microcytosis 1+ Ovalocytes 1+ Echinocytes 1+ Sodium Level 133 L Potassium Level 4.7 Chloride Level 101 Carbon Dioxide 21 Level Anion Gap 11 Blood Urea 41 H Nitrogen Creatinine 1.42 H Est Glomerular 37 L Filtrat Rate mL/min Glucose Level 502 *H Calcium Level 9.6 Phosphorus Level 4.4 Magnesium Level 1.7 Total Bilirubin 0.1 L Direct Bilirubin 0.00 Indirect Bilirubin 0.1 Aspartate Amino 15 Transf (AST/SGOT) Alanine 19 Aminotransferase ( ALT/SGPT) Alkaline 166 H Phosphatase Total Protein 5.3 L Albumin 2.7 L Globulin 2.60 Albumin/Globulin 1.03 Ratio Test 08/27/18 08:57 08/27/18 12:10 Bedside Glucose 367 H 197 Medications Medication Current Medications Sodium Chloride 1,000 ml @ 125 mls/hr Q8H IV Last administered on 08/27/18at 12 :11; Admin Dose 125 MLS/HR; Start 08/27/18 at 00:26 IV Flush (NS 3 ml) 3 ml PER PROTOCOL IV ; Start 08/27/18 at 00:30 Ondansetron HCl (Zofran Inj) 4 mg Q6H PRN IV NAUSEA/VOMITING; Start 08/27/18 at 00:30 Acetaminophen (Tylenol Tab) 650 mg Q6H PRN PO .PAIN 1-3 OR TEMP; Start 08/27/18 at 00:30 Acetaminophen/ Hydrocodone Bitart ([place] (5/325)) 1 tab Q6H PRN PO .MOD PAIN 4- 6 Last administered on 08/27/18at 08:32; Admin Dose 1 TAB; Start 08/27/18 at 00:30 Acetaminophen/ Hydrocodone Bitart ([place] (5/325)) 2 tab Q6H PRN PO .SEVERE PAIN 7-10; Start 08/27/18 at 00:30 Heparin Sodium (Porcine) (Heparin (5000 Units/1ml)) 5,000 unit Q12 SC Last administered on 08/27/18at 08:37; Admin Dose 5,000 UNIT; Start 08/27/18 at 09:00 Albuterol/ Ipratropium (Duoneb) 3 ml Q2H RESP THERAPY PRN HHN SHORTNESS OF BREATH; Start 08/27/18 at 00:30 Diagnostic Test (Pha) (Accu-Chek) 1 ea 02 XX ; Start 08/27/18 at 02:00 Insulin Glargine (Lantus) 20 units DAILY@0800 SC Last administered on 08/27/18at 09:07; Admin Dose 20 UNITS; Start 08/27/18 at 08:00 Atorvastatin Calcium (Lipitor) 80 mg QHS PO ; Start 08/27/18 at 21:00 Gabapentin (Neurontin) 300 mg TID PO Last administered on 08/27/18at 14:09; Admin Dose 300 MG; Start 08/27/18 at 09:00 Lisinopril (Zestril) 20 mg DAILY PO Last administered on 08/27/18at 08:25; Admin Dose 20 MG; Start 08/27/18 at 09:00 Pantoprazole (Protonix Tab) 40 mg AC BREAKFAST PO ; Start 08/27/18 at 07:00 Paroxetine HCl (Paxil) 20 mg HS PO ; Start 08/27/18 at 21:00 Trazodone HCl (Desyrel) 100 mg QHS PO ; Start 08/27/18 at 21:00 Linagliptin (Tradjenta) 5 mg DAILY PO Last administered on 08/27/18at 08:25; Admin Dose 5 MG; Start 08/27/18 at 09:00 Miscellaneous Information 1 ea NOTE XX ; Start 08/27/18 at 02:00 Glucose (Glutose) 15 gm Q15M PRN PO DECREASED GLUCOSE; Start 08/27/18 at 02:00 Glucose (Glutose) 22.5 gm Q15M PRN PO DECREASED GLUCOSE; Start 08/27/18 at 02:00 Dextrose (D50w Syringe) 25 ml Q15M PRN IV DECREASED GLUCOSE; Start 08/27/18 at 02:00 Dextrose (D50w Syringe) 50 ml Q15M PRN IV DECREASED GLUCOSE; Start 08/27/18 at 02:00 Glucagon (Glucagen) 1 mg Q15M PRN IM DECREASED GLUCOSE; Start 08/27/18 at 02:00 Glucose (Glutose) 15 gm Q15M PRN BUCCAL DECREASED GLUCOSE; Start 08/27/18 at 02:00 Nitroglycerin (Nitroglycerin (Sl Tab) 0.4 Mg) 1 tab [id number] PRN SL CHEST PAIN Last administered on 08/27/18at 04:53; Admin Dose 1 TAB; Start 08/27/18 at 04:30 Ceftriaxone Sodium 50 ml @ 100 mls/hr DAILY IVPB Last administered on 08/27/18at 08:26; Admin Dose 100 MLS/HR; Start 08/27/18 at 09:00 Insulin Aspart (Novolog Insulin Pen) (Adult SC Insulin - Moder... WITH MEALS BEDTIME SC ; Start 08/27/18 at 17:55 Tramadol HCl (Ultram) 50 mg BID PRN PO PAIN LEVEL 1-3; Start 08/27/18 at 14:00 Lidocaine (Lidoderm) 1 patch DAILY TD ; Start 08/27/18 at 14:00 SHIVANI SHAY Aug 27, 2018 15:50
[2018-08-27] MEDS ORDERED: MAGNESIUM SULFATE 2 GM/50 ML 50 ML IVPB ONE (16:00)
[2018-08-27] MEDS: LIDOCAINE 5% PATCH TD SCH (16:17)
[2018-08-27] MEDS: DULOXETINE 30 MG CAP DR PO SCH (16:17)
[2018-08-27] MEDS ORDERED: INSULIN ASPART [NOVOLOG] 3 ML PEN SC SCH (17:25)
[2018-08-27] MEDS: Insulin NOVOLOG SS MODERATE Algorithm (SS with meals and bedtime) SC SCH ×2 (17:55→20:17)
[2018-08-27] MEDS: traZODone 100 MG TAB PO SCH (20:18)
[2018-08-27] MEDS: ATORVASTATIN 80 MG TAB PO SCH (20:18)
[2018-08-27] MEDS ORDERED: PAROXETINE 20 MG TAB PO SCH (21:00)
[2018-08-27] MEDS: HYDROCODONE/APAP (5/325) TAB PO PRN (21:19)
[2018-08-28] VITALS (11 sets, daily range): BP systolic 81–140; BP diastolic 42–59; PULSE 58–78; RESP 18–20
[2018-08-28] MEDS ORDERED: MIDODRINE 5 MG TAB PO SCH (01:30)
[2018-08-28] MEDS: SOD CHLORIDE 0.9% 1,000 ML IV SCH ×3 (01:36→16:26)
[2018-08-28] MEDS: MIDODRINE 5 MG TAB PO SCH ×4 (01:37→20:32)
[2018-08-28] MEDS: ACCU-CHEK XX SCH (01:40)
[2018-08-28] MEDS: PANTOPRAZOLE (EC) 40 MG TAB PO SCH (06:12)
[2018-08-28] MEDS: Insulin NOVOLOG SS MODERATE Algorithm (SS with meals and bedtime) SC SCH ×4 (07:44→20:39)
[2018-08-28] MEDS: LISINOPRIL 20 MG TAB PO SCH (09:00)
[2018-08-28] MEDS: LIDOCAINE 5% PATCH TD SCH (09:00)
[2018-08-28] MEDS: CEFTRIAXONE 1 GM/50 ML (PMX) 50 ML IVPB SCH (09:04)
[2018-08-28] MEDS: GABAPENTIN 300 MG CAP PO SCH ×3 (09:05→20:32)
[2018-08-28] MEDS: DULOXETINE 30 MG CAP DR PO SCH (09:06)
[2018-08-28] MEDS: LINAGLIPTIN 5 MG TABLET PO SCH (09:08)
[2018-08-28] MEDS: traMADol 50 MG TAB PO PRN ×2 (09:09→17:05)
[2018-08-28] MEDS: HEPARIN 5,000 UNIT/1 ML VIAL SC SCH ×2 (09:35→20:36)
[2018-08-28] MEDS: INSULIN GLARGINE [LANTus] (100 UNITS/ML) SYG SC SCH (09:36)
--- NOTE | 2018-08-28 15:07 | PN ---
Date/Time of Note Date/Time of Note DATE: 08/28/18 TIME: 15:04 Assessment/Plan VTE Prophylaxis Risk score (from Nsg)>0 risk: 5 SCD applied (from Nsg): Yes Pharmacological prophylaxis: heparin Lines/Catheters IV Catheter Type (from Nrsg): Peripheral IV Urinary Cath still in place: No Assessment/Plan Hospital Course 1. Chest pain secondary to chronic pain with possible fibromyalgia -Change gabapentin back to home dose as patient became very lethargic with increased dose -Started Cymbalta, DC'd Paxil -ACS ruled out -Patient with multiple hospitalizations for chronic pain and opiate seeking behavior 2. Diabetes with hyperglycemia: Sugars currently stable -Patient was given insulin once in the ER, but afterwards she refused saying that he was making her short of breath. She has been receiving IV fluid for management of hyperglycemia -Increased dose of insulin instruct the patient about importance of insulin 3. Leukocytosis likely reactive -UA and a chest x-ray nondiagnostic -Cultures are negative -No indication for antibiotics at this time 4. Pseudohyponatremia secondary to hyperglycemia-resolved with normalization of sugar -Continue insulin 5. Prerenal acute injury-resolved 6. History of PUD: PPI 7. Morbid obesity -Lifestyle changes 8. Debility secondary to morbid obesity, chronic pain and opioid addiction -PT eval -long-term evaluation Prophylaxis: Heparin DC planning: contract administration manager arrange for [facility] placement, patient with poor functional status and multiple hospital readmissions Result Diagram: 08/28/18 0706 08/28/18 0706 Results 24hrs Laboratory Tests Test 08/27/18 18:01 08/27/18 20:17 08/28/18 01:39 08/28/18 07:06 Bedside Glucose 122 129 308 H White Blood Count 12.2 H Red Blood Count 3.30 L Hemoglobin 9.4 L Hematocrit 30.5 L Mean Corpuscular 92.4 Volume Mean Corpuscular 28.5 L Hemoglobin Mean Corpuscular 30.8 L Hemoglobin Concent Red Cell 13.2 Distribution Width Platelet Count 399 Mean Platelet Volume 9.3 Immature 0.600 H Granulocytes % Neutrophils % Segmented 40 Neutrophils % (Manual) Band Neutrophils % 31 H (Manual) Lymphocytes % Lymphocytes % 15 (Manual) Reactive Lymphocytes 1 H % (Manual) Monocytes % Monocytes % (Manual) 6 Eosinophils % Eosinophils % 7 (Manual) Basophils % Nucleated Red Blood 3 H Cells % Immature 0.070 H Granulocytes # Neutrophils # Neutrophils # 5.3 (Manual) Band Neutrophils # 3.7 H Lymphocytes (Manual) 1.8 Lymphocytes # Reactive Lymphocytes 0.1 H # Monocytes # Monocytes # (Manual) 0.7 Eosinophils # Basophils # Nucleated Red Blood Cells # Platelet Estimate NORMAL Anisocytosis 1+ Microcytosis 1+ Sodium Level 137 Potassium Level 4.4 Chloride Level 107 Carbon Dioxide Level 24 Anion Gap 6 Blood Urea Nitrogen 36 H Creatinine 0.70 Est Glomerular > 60 Filtrat Rate mL/min Glucose Level 99 # Calcium Level 8.9 Phosphorus Level 2.5 Magnesium Level 1.7 Test 08/28/18 07:43 08/28/18 12:13 Bedside Glucose 108 155 Subjective 24 Hr Interval Summary Gastrointestinal: pain Exam/Review of Systems Exam Vitals Vital Signs Date Temp Pulse Resp B/P (MAP) Pulse Ox O2 O2 Flow FiO2 Time Delivery Rate 08/28/18 70 13:53 08/28/18 98.3 20 90/53 (65) 93 11:21 08/28/18 Nasal 2.0 08:00 Cannula Intake and Output 08/27/18 08/27/18 08/28/18 1515:00 23:00 07:00 IntakeIntake Total 375 ml 800 ml 1700 ml BalanceBalance 375 ml 800 ml 1700 ml Constitutional: alert Respiratory: clear to auscultation Cardiovascular: regular rate and rhythm Gastrointestinal: soft; No distended Musculoskeletal: nl extremities to inspection Results Results 24hrs Laboratory Tests Test 08/27/18 18:01 08/27/18 20:17 08/28/18 01:39 08/28/18 07:06 Bedside Glucose 122 129 308 H White Blood Count 12.2 H Red Blood Count 3.30 L Hemoglobin 9.4 L Hematocrit 30.5 L Mean Corpuscular 92.4 Volume Mean Corpuscular 28.5 L Hemoglobin Mean Corpuscular 30.8 L Hemoglobin Concent Red Cell 13.2 Distribution Width Platelet Count 399 Mean Platelet Volume 9.3 Immature 0.600 H Granulocytes % Neutrophils % Segmented 40 Neutrophils % (Manual) Band Neutrophils % 31 H (Manual) Lymphocytes % Lymphocytes % 15 (Manual) Reactive Lymphocytes 1 H % (Manual) Monocytes % Monocytes % (Manual) 6 Eosinophils % Eosinophils % 7 (Manual) Basophils % Nucleated Red Blood 3 H Cells % Immature 0.070 H Granulocytes # Neutrophils # Neutrophils # 5.3 (Manual) Band Neutrophils # 3.7 H Lymphocytes (Manual) 1.8 Lymphocytes # Reactive Lymphocytes 0.1 H # Monocytes # Monocytes # (Manual) 0.7 Eosinophils # Basophils # Nucleated Red Blood Cells # Platelet Estimate NORMAL Anisocytosis 1+ Microcytosis 1+ Sodium Level 137 Potassium Level 4.4 Chloride Level 107 Carbon Dioxide Level 24 Anion Gap 6 Blood Urea Nitrogen 36 H Creatinine 0.70 Est Glomerular > 60 Filtrat Rate mL/min Glucose Level 99 # Calcium Level 8.9 Phosphorus Level 2.5 Magnesium Level 1.7 Test 08/28/18 07:43 08/28/18 12:13 Bedside Glucose 108 155 Medications Medication Current Medications Sodium Chloride 1,000 ml @ 125 mls/hr Q8H IV Last administered on 08/28/18at 07:10; Admin Dose 125 MLS/HR; Start 08/27/18 at 00:26 IV Flush (NS 3 ml) 3 ml PER PROTOCOL IV ; Start 08/27/18 at 00:30 Ondansetron HCl (Zofran Inj) 4 mg Q6H PRN IV NAUSEA/VOMITING; Start 08/27/18 at 00:30 Acetaminophen (Tylenol Tab) 650 mg Q6H PRN PO .PAIN 1-3 OR TEMP; Start 08/27/18 at 00:30 Acetaminophen/ Hydrocodone Bitart ([place] (5/325)) 1 tab Q6H PRN PO .MOD PAIN 4- 6 Last administered on 08/27/18at 08:32; Admin Dose 1 TAB; Start 08/27/18 at 00:30 Acetaminophen/ Hydrocodone Bitart ([place] (5/325)) 2 tab Q6H PRN PO .SEVERE PAIN 7-10 Last administered on 08/27/18at 21:19; Admin Dose 2 TAB; Start 08/27/18 at 00:30 Heparin Sodium (Porcine) (Heparin (5000 Units/1ml)) 5,000 unit Q12 SC Last administered on 08/28/18at 09:35; Admin Dose 5,000 UNIT; Start 08/27/18 at 09:00 Albuterol/ Ipratropium (Duoneb) 3 ml Q2H RESP THERAPY PRN HHN SHORTNESS OF BREATH; Start 08/27/18 at 00:30 Diagnostic Test (Pha) (Accu-Chek) 1 ea 02 XX ; Start 08/27/18 at 02:00 Atorvastatin Calcium (Lipitor) 80 mg QHS PO Last administered on 08/27/18at 20:18; Admin Dose 80 MG; Start 08/27/18 at 21:00 Lisinopril (Zestril) 20 mg DAILY PO Last administered on 08/27/18at 08:25; Admin Dose 20 MG; Start 08/27/18 at 09:00 Pantoprazole (Protonix Tab) 40 mg AC BREAKFAST PO ; Start 08/27/18 at 07:00 Trazodone HCl (Desyrel) 100 mg QHS PO Last administered on 08/27/18at 20:18; Admin Dose 100 MG; Start 08/27/18 at 21:00 Linagliptin (Tradjenta) 5 mg DAILY PO Last administered on 08/28/18at 09:08; Admin Dose 5 MG; Start 08/27/18 at 09:00 Miscellaneous Information 1 ea NOTE XX ; Start 08/27/18 at 02:00 Glucose (Glutose) 15 gm Q15M PRN PO DECREASED GLUCOSE; Start 08/27/18 at 02:00 Glucose (Glutose) 22.5 gm Q15M PRN PO DECREASED GLUCOSE; Start 08/27/18 at 02:00 Dextrose (D50w Syringe) 25 ml Q15M PRN IV DECREASED GLUCOSE; Start 08/27/18 at 02:00 Dextrose (D50w Syringe) 50 ml Q15M PRN IV DECREASED GLUCOSE; Start 08/27/18 at 02:00 Glucagon (Glucagen) 1 mg Q15M PRN IM DECREASED GLUCOSE; Start 08/27/18 at 02:00 Glucose (Glutose) 15 gm Q15M PRN BUCCAL DECREASED GLUCOSE; Start 08/27/18 at 02:00 Nitroglycerin (Nitroglycerin (Sl Tab) 0.4 Mg) 1 tab [id number] PRN SL CHEST PAIN Last administered on 08/27/18at 04:53; Admin Dose 1 TAB; Start 08/27/18 at 04:30 Ceftriaxone Sodium 50 ml @ 100 mls/hr DAILY IVPB Last administered on 08/28/18at 09:04; Admin Dose 100 MLS/HR; Start 08/27/18 at 09:00 Insulin Aspart (Novolog Insulin Pen) (Adult SC Insulin - Moder... WITH MEALS BEDTIME SC Last administered on 08/28/18 12:16; Admin Dose 2 UNIT; Start 08/27/18 at 17:55 Tramadol HCl (Ultram) 50 mg BID PRN PO PAIN LEVEL 1-3 Last administered on 08/28/18 09:09; Admin Dose 50 MG; Start 08/27/18 at 14:00 Lidocaine (Lidoderm) 1 patch DAILY TD Last administered on 08/27/18 16:17; Admin Dose 1 PATCH; Start 08/27/18 at 14:00 Duloxetine HCl (Cymbalta) 30 mg DAILY PO Last administered on 08/28/18 09:06; Admin Dose 30 MG; Start 08/27/18 at 15:30 Insulin Glargine (Lantus) 25 units DAILY@0800 SC Last administered on 08/28/18 09:36; Admin Dose 25 UNITS; Start 08/28/18 at 08:00 Midodrine (Proamatine) 10 mg TID PO Last administered on 08/28/18 13:35; Admin Dose 10 MG; Start 08/28/18 at 01:30 Gabapentin (Neurontin) 300 mg TID PO Last administered on 08/28/18 13:34; Admin Dose 300 MG; Start 08/28/18 at 13:00 SHIVANI SHAY Aug 28, 2018 15:07
[2018-08-28] MEDS: HYDROCODONE/APAP (5/325) TAB PO PRN (19:32)
[2018-08-28] MEDS: ATORVASTATIN 80 MG TAB PO SCH (20:31)
[2018-08-28] MEDS: traZODone 100 MG TAB PO SCH (20:32)
[2018-08-29] VITALS (11 sets, daily range): BP systolic 92–127; BP diastolic 44–59; PULSE 55–69; RESP 18–20
[2018-08-29] MEDS: SOD CHLORIDE 0.9% 1,000 ML IV SCH ×4 (01:47→19:28)
[2018-08-29] MEDS: ACCU-CHEK XX SCH (01:47)
[2018-08-29] MEDS: PANTOPRAZOLE (EC) 40 MG TAB PO SCH (05:40)
--- NOTE | 2018-08-29 07:26 | CONS ---
Consultation Date/Type/Reason Admit Date/Time Aug 26, 2018 at 23:11 Initial Consult Date Date/Time of Note DATE: 08/29/18 TIME: 07:25 24 HR Interval Summary Free Text/Dictation It is difficult to get a story from this 68-year-old female who looks much older than her stated age. Her abnormality on her laboratory tests seemed consistent with her blood sugar out of control. I can find no evidence that she has an acute pain syndrome other than there is clinical signs consistent with pleuritic type of pain on point palpation of her anterior chest cardiac workup is still in progress. For right now with no indications for systemic opioids will discontinue and switch her just to low-dose tramadol 50 mg twice daily. Nonsteroidal anti-inflammatory medications contraindicated with this lady who has a low GFR creatinine 1.19 and BUN of 45. She complains of anterior chest wall pain but a workup so far has been unremarkable I have taken a conservative approach to her treatment pending workup of coronary heart disease. I have only treated with nonsteroidal anti-inflammatory medication and Lidoderm patch. Exam/Review of Systems Exam Vitals Vital Signs Date Temp Pulse Resp B/P (MAP) Pulse Ox O2 O2 Flow FiO2 Time Delivery Rate 08/29/18 98.6 55 20 92/55 (67) 98 04:31 08/28/18 Nasal 2.0 20:40 Cannula Intake and Output 08/28/18 08/28/18 08/29/18 1414:59 22:59 06:59 IntakeIntake Total 400 ml 1975 ml OutputOutput Total 5 ml BalanceBalance 400 ml 1970 ml Psych: anxiety Respiratory: clear to auscultation, normal air movement Cardiovascular: regular rate and rhythm, nl pulses Neurological: lethargic Results Result Diagram: 08/28/18 0706 08/28/18 0706 Results 24hrs Laboratory Tests Test 08/28/18 07:43 08/28/18 12:13 08/28/18 18:05 08/28/18 20:38 Bedside Glucose 108 155 146 115 Test 08/29/18 01:46 Bedside Glucose 105 Medications Medication Current Medications Sodium Chloride 1,000 ml @ 125 mls/hr Q8H IV Last administered on 08/29/18at 01:47; Admin Dose 125 MLS/HR; Start 08/27/18 at 00:26 IV Flush (NS 3 ml) 3 ml PER PROTOCOL IV ; Start 08/27/18 at 00:30 Ondansetron HCl (Zofran Inj) 4 mg Q6H PRN IV NAUSEA/VOMITING; Start 08/27/18 at 00:30 Acetaminophen (Tylenol Tab) 650 mg Q6H PRN PO .PAIN 1-3 OR TEMP Last administered on 08/29/18 05:40; Admin Dose 650 MG; Start 08/27/18 at 00:30 Acetaminophen/ Hydrocodone Bitart ([place] (5/325)) 1 tab Q6H PRN PO .MOD PAIN 4- 6 Last administered on 08/27/18 08:32; Admin Dose 1 TAB; Start 08/27/18 at 00:30 Acetaminophen/ Hydrocodone Bitart ([place] (5/325)) 2 tab Q6H PRN PO .SEVERE PAIN 7-10 Last administered on 08/28/18 19:32; Admin Dose 2 TAB; Start 08/27/18 at 00:30 Heparin Sodium (Porcine) (Heparin (5000 Units/1ml)) 5,000 unit Q12 SC Last administered on 08/28/18 20:36; Admin Dose 5,000 UNIT; Start 08/27/18 at 09:00 Albuterol/ Ipratropium (Duoneb) 3 ml Q2H RESP THERAPY PRN HHN SHORTNESS OF BREATH; Start 08/27/18 at 00:30 Diagnostic Test (Pha) (Accu-Chek) 1 ea 02 XX ; Start 08/27/18 at 02:00 Atorvastatin Calcium (Lipitor) 80 mg QHS PO Last administered on 08/28/18 20:31; Admin Dose 80 MG; Start 08/27/18 at 21:00 Lisinopril (Zestril) 20 mg DAILY PO Last administered on 08/27/18 08:25; Admin Dose 20 MG; Start 08/27/18 at 09:00 Pantoprazole (Protonix Tab) 40 mg AC BREAKFAST PO Last administered on 08/29/18 05:40; Admin Dose 40 MG; Start 08/27/18 at 07:00 Trazodone HCl (Desyrel) 100 mg QHS PO Last administered on 08/28/18 20:32; Admin Dose 100 MG; Start 08/27/18 at 21:00 Linagliptin (Tradjenta) 5 mg DAILY PO Last administered on 08/28/18at 09:08; Admin Dose 5 MG; Start 08/27/18 at 09:00 Miscellaneous Information 1 ea NOTE XX ; Start 08/27/18 at 02:00 Glucose (Glutose) 15 gm Q15M PRN PO DECREASED GLUCOSE; Start 08/27/18 at 02:00 Glucose (Glutose) 22.5 gm Q15M PRN PO DECREASED GLUCOSE; Start 08/27/18 at 02:00 Dextrose (D50w Syringe) 25 ml Q15M PRN IV DECREASED GLUCOSE; Start 08/27/18 at 02:00 Dextrose (D50w Syringe) 50 ml Q15M PRN IV DECREASED GLUCOSE; Start 08/27/18 at 02:00 Glucagon (Glucagen) 1 mg Q15M PRN IM DECREASED GLUCOSE; Start 08/27/18 at 02:00 Glucose (Glutose) 15 gm Q15M PRN BUCCAL DECREASED GLUCOSE; Start 08/27/18 at 02:00 Nitroglycerin (Nitroglycerin (Sl Tab) 0.4 Mg) 1 tab [id number] PRN SL CHEST PAIN Last administered on 08/27/18at 04:53; Admin Dose 1 TAB; Start 08/27/18 at 04:30 Ceftriaxone Sodium 50 ml @ 100 mls/hr DAILY IVPB Last administered on 08/28at 09:04; Admin Dose 100 MLS/HR; Start 08/27/18 at 09:00 Insulin Aspart (Novolog Insulin Pen) (Adult SC Insulin - Moder... WITH MEALS BEDTIME SC Last administered on 08/28/18at 12:16; Admin Dose 2 UNIT; Start 08/27/18 at 17:55 Tramadol HCl (Ultram) 50 mg BID PRN PO PAIN LEVEL 1-3 Last administered on 08/28/18at 17:05; Admin Dose 50 MG; Start 08/27/18 at 14:00 Lidocaine (Lidoderm) 1 patch DAILY TD Last administered on 08/27/18 16:17; Admin Dose 1 PATCH; Start 08/27/18 at 14:00 Duloxetine HCl (Cymbalta) 30 mg DAILY PO Last administered on 08/28/18at 09:06; Admin Dose 30 MG; Start 08/27/18 at 15:30 Insulin Glargine (Lantus) 25 units DAILY@0800 SC Last administered on 08/28/18at 09:36; Admin Dose 25 UNITS; Start 08/28/18 at 08:00 Midodrine (Proamatine) 10 mg TID PO Last administered on 08/28/18at 20:32; Admin Dose 10 MG; Start 08/28/18 at 01:30 Gabapentin (Neurontin) 300 mg TID PO Last administered on 08/28/18at 20:32; Admin Dose 300 MG; Start 08/28/18 at 13:00 GIOVANI NGUYEN Aug 29, 2018 07:26
[2018-08-29] MEDS: Insulin NOVOLOG SS MODERATE Algorithm (SS with meals and bedtime) SC SCH ×4 (07:55→20:28)
[2018-08-29] MEDS: DULOXETINE 30 MG CAP DR PO SCH (07:59)
[2018-08-29] MEDS: LIDOCAINE 5% PATCH TD SCH (07:59)
[2018-08-29] MEDS: LINAGLIPTIN 5 MG TABLET PO SCH (07:59)
[2018-08-29] MEDS: CEFTRIAXONE 1 GM/50 ML (PMX) 50 ML IVPB SCH (07:59)
[2018-08-29] MEDS: LISINOPRIL 20 MG TAB PO SCH (08:00)
[2018-08-29] MEDS: GABAPENTIN 300 MG CAP PO SCH ×3 (08:00→20:23)
[2018-08-29] MEDS: MIDODRINE 5 MG TAB PO SCH ×3 (08:00→20:23)
[2018-08-29] MEDS: INSULIN GLARGINE [LANTus] (100 UNITS/ML) SYG SC SCH (08:20)
[2018-08-29] MEDS: HEPARIN 5,000 UNIT/1 ML VIAL SC SCH ×2 (08:20→20:26)
--- NOTE | 2018-08-29 09:54 | CONS ---
Consultation Date/Type/Reason Admit Date/Time Aug 26, 2018 at 23:11 Initial Consult Date Date/Time of Note DATE: 08/29/18 TIME: 09:43 24 HR Interval Summary Free Text/Dictation Asked to see this lady in pain management consultation. Patient is a poor historian all information is taken from her medical records I spoken her in [place]. She is a 68-year-old female who has a history of notable chronic medical problems including hypertension dyslipidemia diabetes congestive heart failure chronic back pain depression gastrointestinal reflux disease peptic ulcer disease resented to emergency room with chest pain. Pain was atypical for cardiac pain but she was having occasional shortness of breath associated with it she was recently discharged from [facility]. Patient left the hospital during her last hospital discharge recently when her IV opioids were discontinued for unclear reasons. Cardiac workup first troponin negative EKG without abnormalities chest x-ray acute abnormalities urinalysis was clean white blood cell count of 22,000 blood sugar 623. I have asked her about whether or not she takes her insulin she states sometimes. At this time with fluids her blood sugars trending down as well as sliding scale insulin coverage. There are no other gross abnormalities on her laboratory tests. Once again patient is a non-historian family members at the bedside. Therefore I cannot obtain an adequate history of present illness or an adequate pain history Was dc off opioids yesterday on only tramadol.. moved to tele. no change in overall condition.. when asked she complains of chest pain but work normal... There is no clear evidence of acute pahthology of neurological pathologyto account for her AMS... suggest psych consult R/O ALZ type Dementia, maybe neuro.... Exam/Review of Systems Exam Vitals Vital Signs Date Temp Pulse Resp B/P (MAP) Pulse Ox O2 O2 Flow FiO2 Time Delivery Rate 08/29/18 59 08:47 08/29/18 98.1 18 102/51 88 07:52 (68) 08/29/18 Nasal 2.0 07:45 Cannula Intake and Output 08/28/18 08/28/18 08/29/18 1515:00 23:00 07:00 IntakeIntake Total 400 ml 1975 ml OutputOutput Total 5 ml BalanceBalance 400 ml 1970 ml Constitutional: non-verbal, frail Psych: anxiety Respiratory: clear to auscultation, normal air movement Cardiovascular: regular rate and rhythm, nl pulses Gastrointestinal: soft, nl liver, spleen, non-tender Neurological: BIOLOGICAL ENGINEER II-XII intact, lethargic Results Result Diagram: 08/28/1870508/28/18705 Results 24hrs Laboratory Tests Test 08/28/18 12:13 08/28/18 18:05 08/28/18 20:38 08/29/18 01:46 Bedside Glucose 155 146 115 105 Test 08/29/18 07:57 Bedside Glucose 133 Medications Medication Current Medications Sodium Chloride 1,000 ml @ 125 mls/hr Q8H IV Last administered on 08/29/18 08:00; Admin Dose 125 MLS/HR; Start 08/27/18 at 00:26 IV Flush (NS 3 ml) 3 ml PER PROTOCOL IV ; Start 08/27/18 at 00:30 Ondansetron HCl (Zofran Inj) 4 mg Q6H PRN IV NAUSEA/VOMITING; Start 08/27/18 at 00:30 Heparin Sodium (Porcine) (Heparin (5000 Units/1ml)) 5,000 unit Q12 SC Last administered on 08/29/18 08:20; Admin Dose 5,000 UNIT; Start 08/27/18 at 09:00 Albuterol/ Ipratropium (Duoneb) 3 ml Q2H RESP THERAPY PRN HHN SHORTNESS OF BREATH; Start 08/27/18 at 00:30 Diagnostic Test (Pha) (Accu-Chek) 1 ea 02 XX ; Start 08/27/18 at 02:00 Atorvastatin Calcium (Lipitor) 80 mg QHS PO Last administered on 08/28/18at 20:31; Admin Dose 80 MG; Start 08/27/18 at 21:00 Lisinopril (Zestril) 20 mg DAILY PO Last administered on 08/27/18 08:25; Admin Dose 20 MG; Start 08/27/18 at 09:00 Pantoprazole (Protonix Tab) 40 mg AC BREAKFAST PO Last administered on 08/29/18 05:40; Admin Dose 40 MG; Start 08/27/18 at 07:00 Trazodone HCl (Desyrel) 100 mg QHS PO Last administered on 08/28/18 20:32; Admin Dose 100 MG; Start 08/27/18 at 21:00 Linagliptin (Tradjenta) 5 mg DAILY PO Last administered on 08/29/18 07:59; Admin Dose 5 MG; Start 08/27/18 at 09:00 Miscellaneous Information 1 ea NOTE XX ; Start 08/27/18 at 02:00 Glucose (Glutose) 15 gm Q15M PRN PO DECREASED GLUCOSE; Start 08/27/18 at 02:00 Glucose (Glutose) 22.5 gm Q15M PRN PO DECREASED GLUCOSE; Start 08/27/18 at 02:00 Dextrose (D50w Syringe) 25 ml Q15M PRN IV DECREASED GLUCOSE; Start 08/27/18 at 02:00 Dextrose (D50w Syringe) 50 ml Q15M PRN IV DECREASED GLUCOSE; Start 08/27/18 at 02:00 Glucagon (Glucagen) 1 mg Q15M PRN IM DECREASED GLUCOSE; Start 08/27/18 at 02:00 Glucose (Glutose) 15 gm Q15M PRN BUCCAL DECREASED GLUCOSE; Start 08/27/18 at 02:00 Nitroglycerin (Nitroglycerin (Sl Tab) 0.4 Mg) 1 tab [id number] PRN SL CHEST PAIN Last administered on 08/27/18at 04:53; Admin Dose 1 TAB; Start 08/27/18 at 04:30 Ceftriaxone Sodium 50 ml @ 100 mls/hr DAILY IVPB Last administered on at 07:59; Admin Dose 100 MLS/HR; Start 08/27/18 at 09:00 Insulin Aspart (Novolog Insulin Pen) (Adult SC Insulin - Moder... WITH MEALS BEDTIME SC Last administered on 08/28/18at 12:16; Admin Dose 2 UNIT; Start 08/27/18 at 17:55 Lidocaine (Lidoderm) 1 patch DAILY TD Last administered on 08/29/18 07:59; Admin Dose 1 PATCH; Start 08/27/18 at 14:00 Duloxetine HCl (Cymbalta) 30 mg DAILY PO Last administered on 08/29/18 07:59; Admin Dose 30 MG; Start 08/27/18 at 15:30 Insulin Glargine (Lantus) 25 units DAILY@0800 SC Last administered on 08/29/18at 08:20; Admin Dose 25 UNITS; Start 08/28/18 at 08:00 Midodrine (Proamatine) 10 mg TID PO Last administered on 08/29/18at 08:00; Admin Dose 10 MG; Start 08/28/18 at 01:30 Gabapentin (Neurontin) 300 mg TID PO Last administered on 08/29/18at 08:00; A dmin Dose 300 MG; Start 08/28/18 at 13:00 Tramadol HCl (Ultram) 50 mg DAILY PRN PO PAIN LEVEL 1-3; Start 08/29/18 at 07:30 Celecoxib (Celebrex) 200 mg BID PO ; Start 08/29/18 at 10:00 GIOVANI NGUYEN Aug 29, 2018 09:54
[2018-08-29] MEDS: CELECOXIB 200 MG CAP PO SCH ×2 (10:00→20:23)
[2018-08-29] MEDS: traMADol 50 MG TAB PO PRN (10:42)
[2018-08-29] MEDS ORDERED: DULO30CA45 PO (10:45)
--- NOTE | 2018-08-29 10:46 | PDOCDIS ---
Discharge Instructions CONDITION [id number] Patient Condition: [id number] Good HOME CARE INSTRUCTIONS: [id number] Diet Instructions: [id number] Reduced Calorie [id number] Special Diet: [id number] LOW CARB ACTIVITY: [id number] Activity Restrictions: [id number] No Restrictions FOLLOW UP/APPOINTMENTS Follow-up Plan FOLLOW UP WITH YOUR PCP IN 1-2 WEEKS SHIVANI SHAY Aug 29, 2018 10:46
--- NOTE | 2018-08-29 15:24 | DS ---
Date/Time of Note Date/Time of Note DATE: 08/29/18 TIME: 15:15 Discharge Summary Admission/Discharge Info Admit Date/Time Aug 26, 2018 at 23:11 Discharge Date/Time August 29, 2018 Discharge Diagnosis 1. Chest pain secondary to chronic pain with possible fibromyalgia -Chest pain has improved, only change made was Cymbalta was started and Paxil was discontinued -Changed gabapentin back to home dose as patient became very lethargic with increased dose -ACS ruled out -Patient with multiple hospitalizations for chronic pain and opiate seeking behavior -Patient to follow-up with environmental services manager as an outpatient for official diagnosis of fibromyalgia 2. Diabetes with hyperglycemia: Sugars currently stable -Patient was given insulin once in the ER, but afterwards she refused saying that he was making her short of breath -Continue home regimen, lifestyle changes 3. Leukocytosis likely reactive -UA and a chest x-ray nondiagnostic -Cultures are negative -No indication for antibiotics at this time 4. Pseudohyponatremia secondary to hyperglycemia-resolved with normalization of sugar 5. Prerenal acute injury-resolved 6. History of PUD: PPI 7. Morbid obesity -Lifestyle changes 8. Debility secondary to morbid obesity, chronic pain and opioid addiction -PT eval -Patient is ambulating -Patient refusing half-way placement -dealership manager has arranged for home health Patient Condition: Good Hospital Course Patient is a 68-year-old female with a history of diabetes, morbid obesity, chronic pain with multiple hospitalizations. Patient presents once again with chest pain, ACS ruled out. On exam patient appears to have fibromyalgia with extreme tenderness to palpation in soft tissue, patient's home gabapentin dose was increased but patient became very lethargic with no improvement in her pain and hence her gabapentin dose was brought back to her home regimen of 300 TID. Patient was started on Cymbalta and Paxil was discontinued and surprisingly after several days patient's pain was reportedly improved. Of note patient's opiates were discontinued during hospitalization as she has a history of opiate seeking behavior and continued to display such signs early in the hospitalization. Towards the end of her hospitalization patient was no longer requesting opiates and patient felt ready to be discharged. Patient was offered half-way placement but preferred to go home with her son. dealership manager did arrange for home health, on the day of discharge patient's vitals, labs and physical exam are stable. Patient should follow-up with a environmental services manager for official diagnosis of fibromyalgia and potential management. Home Meds Active Scripts Duloxetine Hcl* (Cymbalta*) 30 Mg Capsule.dr, 30 MG PO DAILY, #60 TAB Prov:SHIVANI SHAY 08/29/18 Reported Medications Trazodone Hcl* (Desyrel*) 100 Mg Tab, 100 MG PO QHS, #30 TAB 08/17/18 Lisinopril* (Lisinopril*) 20 Mg Tablet, 20 MG PO DAILY, #30 TAB 08/17/18 Atorvastatin* (Atorvastatin*) 80 Mg Tablet, 80 MG PO QHS, #30 TAB 08/17/18 Sitagliptin* (Januvia*) 100 Mg Tablet, 100 MG PO DAILY, #30 TAB 08/17/18 Glimepiride* (Glimepiride*) 2 Mg Tablet, 2 MG PO WITH BREAKFAST DINNE, TAB 08/17/18 Gabapentin* (Gabapentin*) 300 Mg Capsule, 300 MG PO NEEDED, #60 CAP 08/17/18 Glipizide* (Glipizide*) 5 Mg Tablet, 5 MG PO AC BREAKFAST DINNER, TAB 08/17/18 Pantoprazole* (Pantoprazole*) 40 Mg Tablet.dr, 40 MG PO AC BREAKFAST, TAB 08/17/18 Discontinued Reported Medications Paroxetine Hcl* (Paroxetine*) 20 Mg Tablet, 20 MG PO HS, TAB 08/17/18 Follow-up Plan FOLLOW UP WITH YOUR PCP IN 1-2 WEEKS Primary Care Provider Not On Staff Doctor Time spent on discharge: > 30 minutes SHIVANI SHAY Aug 29, 2018 15:24
[2018-08-29] MEDS: ATORVASTATIN 80 MG TAB PO SCH (20:23)
[2018-08-29] MEDS: traZODone 100 MG TAB PO SCH (20:23)
[2018-08-30] VITALS: PULSE 63
[2018-08-30 00:26] VITALS: BP 115/52; PULSE 62; RESP 18
[2018-08-30] MEDS: ACCU-CHEK XX SCH (02:00)
[2018-08-30 03:00] VITALS: BP 126/59; PULSE 67; RESP 18
[2018-08-30] MEDS: SOD CHLORIDE 0.9% 1,000 ML IV SCH (03:43)
[2018-08-30] MEDS: traMADol 50 MG TAB PO PRN (03:55)
[2018-08-30] MEDS: PANTOPRAZOLE (EC) 40 MG TAB PO SCH (06:37)
[2018-08-30] MEDS: Insulin NOVOLOG SS MODERATE Algorithm (SS with meals and bedtime) SC SCH ×2 (07:50→11:40)
[2018-08-30 08:28] VITALS: BP 138/65; PULSE 67; RESP 18
[2018-08-30] MEDS: CELECOXIB 200 MG CAP PO SCH (09:03)
[2018-08-30] MEDS: LIDOCAINE 5% PATCH TD SCH (09:03)
[2018-08-30] MEDS: DULOXETINE 30 MG CAP DR PO SCH (09:03)
[2018-08-30] MEDS: GABAPENTIN 300 MG CAP PO SCH ×2 (09:03→12:55)
[2018-08-30] MEDS: LINAGLIPTIN 5 MG TABLET PO SCH (09:04)
[2018-08-30] MEDS: LISINOPRIL 20 MG TAB PO SCH (09:04)
[2018-08-30] MEDS: HEPARIN 5,000 UNIT/1 ML VIAL SC SCH (09:10)
[2018-08-30] MEDS: CEFTRIAXONE 1 GM/50 ML (PMX) 50 ML IVPB SCH (09:10)
[2018-08-30] MEDS: MIDODRINE 5 MG TAB PO SCH ×2 (10:15→14:34)
[2018-08-30] MEDS: INSULIN GLARGINE [LANTus] (100 UNITS/ML) SYG SC SCH (10:18)
[2018-08-30] MEDS ORDERED: traMADol 50 MG TAB PO PRN (11:00)
--- NOTE | 2018-08-30 11:49 | PN ---
Date/Time of Note Date/Time of Note DATE: 08/30/18 TIME: 11:47 Assessment/Plan VTE Prophylaxis Risk score (from Nsg)>0 risk: 5 SCD applied (from Nsg): Yes Pharmacological prophylaxis: heparin Lines/Catheters IV Catheter Type (from Nrsg): Peripheral IV Urinary Cath still in place: No Assessment/Plan Hospital Course 1. Chest pain secondary to chronic pain with possible fibromyalgia -Chest pain has improved, only change made was Cymbalta was started and Paxil was discontinued -Changed gabapentin back to home dose as patient became very lethargic with increased dose -ACS ruled out -Patient with multiple hospitalizations for chronic pain and opiate seeking behavior -Patient to follow-up with tax compliance manager as an outpatient for official diagnosis of fibromyalgia 2. Diabetes with hyperglycemia: Sugars currently stable -Patient was given insulin once in the ER, but afterwards she refused saying that he was making her short of breath -Continue current regimen 3. Leukocytosis likely reactive -UA and a chest x-ray nondiagnostic -Cultures are negative -No indication for antibiotics at this time 4. Pseudohyponatremia secondary to hyperglycemia-resolved with normalization of sugar 5. Prerenal acute injury-resolved 6. History of PUD: PPI 7. Morbid obesity -Lifestyle changes 8. Debility secondary to morbid obesity, chronic pain and opioid addiction -PT eval -Patient is ambulating with difficulty -Patient now open to care home placement, case consultant to arrange Prophylaxis: Heparin DC planning: Pending placement in a care home Result Diagram: 08/28/18 0706 08/28/18 0706 Results 24hrs Laboratory Tests Test 08/29/18 11:51 08/29/18 16:51 08/29/18 20:22 08/30/18 08:41 Bedside Glucose 146 84 105 80 Subjective 24 Hr Interval Summary Constitutional: no complaints Exam/Review of Systems Exam Vitals Vital Signs Date Temp Pulse Resp B/P (MAP) Pulse Ox O2 O2 Flow FiO2 Time Delivery Rate 08/30/18 98.2 67 18 138/65 96 08:28 (89) 08/30/18 Nasal 2.0 03:00 Cannula Intake and Output 08/29/18 08/29/18 08/30/18 1515:00 23:00 07:00 IntakeIntake Total 1550 ml 1205 ml BalanceBalance 1550 ml 1205 ml Constitutional: alert, oriented Respiratory: clear to auscultation Cardiovascular: regular rate and rhythm Gastrointestinal: soft; No distended Musculoskeletal: nl extremities to inspection Results Results 24hrs Laboratory Tests Test 08/29/18 11:51 08/29/18 16:51 08/29/18 20:22 08/30/18 08:41 Bedside Glucose 146 84 105 80 Medications Medication Current Medications Sodium Chloride 1,000 ml @ 125 mls/hr Q8H IV Last administered on 08/30/18 03:43; Admin Dose 125 MLS/HR; Start 08/27/18 at 00:26 IV Flush (NS 3 ml) 3 ml PER PROTOCOL IV ; Start 08/27/18 at 00:30 Ondansetron HCl (Zofran Inj) 4 mg Q6H PRN IV NAUSEA/VOMITING; Start 08/27/18 at 00:30 Heparin Sodium (Porcine) (Heparin (5000 Units/1ml)) 5,000 unit Q12 SC Last administered on 08/30/18 09:10; Admin Dose 5,000 UNIT; Start 08/27/18 at 09:00 Albuterol/ Ipratropium (Duoneb) 3 ml Q2H RESP THERAPY PRN HHN SHORTNESS OF BREATH; Start 08/27/18 at 00:30 Diagnostic Test (Pha) (Accu-Chek) 1 ea 02 XX ; Start 08/27/18 at 02:00 Atorvastatin Calcium (Lipitor) 80 mg QHS PO Last administered on 08/29/18 20:23; Admin Dose 80 MG; Start 08/27/18 at 21:00 Lisinopril (Zestril) 20 mg DAILY PO Last administered on 08/30/18 09:04; Admin Dose 20 MG; Start 08/27/18 at 09:00 Pantoprazole (Protonix Tab) 40 mg AC BREAKFAST PO Last administered on 08/30/18 06:37; Admin Dose 40 MG; Start 08/27/18 at 07:00 Trazodone HCl (Desyrel) 100 mg QHS PO Last administered on 08/29/18 20:23; Admin Dose 100 MG; Start 08/27/18 at 21:00 Linagliptin (Tradjenta) 5 mg DAILY PO Last administered on 08/30/18 09:04; Admin Dose 5 MG; Start 08/27/18 at 09:00 Miscellaneous Information 1 ea NOTE XX ; Start 08/27/18 at 02:00 Glucose (Glutose) 15 gm Q15M PRN PO DECREASED GLUCOSE; Start 08/27/18 at 02:00 Glucose (Glutose) 22.5 gm Q15M PRN PO DECREASED GLUCOSE; Start 08/27/18 at 02:00 Dextrose (D50w Syringe) 25 ml Q15M PRN IV DECREASED GLUCOSE; Start 08/27/18 at 02:00 Dextrose (D50w Syringe) 50 ml Q15M PRN IV DECREASED GLUCOSE; Start 08/27/18 at 02:00 Glucagon (Glucagen) 1 mg Q15M PRN IM DECREASED GLUCOSE; Start 08/27/18 at 02:00 Glucose (Glutose) 15 gm Q15M PRN BUCCAL DECREASED GLUCOSE; Start 08/27/18 at 02:00 Nitroglycerin (Nitroglycerin (Sl Tab) 0.4 Mg) 1 tab [id number] PRN SL CHEST PAIN Last administered on 08/27/18at 04:53; Admin Dose 1 TAB; Start 08/27/18 at 04:30 Ceftriaxone Sodium 50 ml @ 100 mls/hr DAILY IVPB Last administered on 08/30/18at 09:10; Admin Dose 100 MLS/HR; Start 08/27/18 at 09:00 Insulin Aspart (Novolog Insulin Pen) (Adult SC Insulin - Moder... WITH MEALS BE DTIME SC Last administered on 08/29/18at 11:57; Admin Dose 2 UNIT; Start 08/27/18 at 17:55 Lidocaine (Lidoderm) 1 patch DAILY TD Last administered on 08/30/18at 09:03; Admin Dose 1 PATCH; Start 08/27/18 at 14:00 Duloxetine HCl (Cymbalta) 30 mg DAILY PO Last administered on 08/30/18 09:03; Admin Dose 30 MG; Start 08/27/18 at 15:30 Insulin Glargine (Lantus) 25 units DAILY@0800 SC Last administered on 08/30/18at 10:18; Admin Dose 25 UNITS; Start 08/28/18 at 08:00 Midodrine (Proamatine) 10 mg TID PO Last administered on 08/30/18at 10:15; Admin Dose 10 MG; Start 08/28/18 at 01:30 Gabapentin (Neurontin) 300 mg TID PO Last administered on 08/30/18at 09:03; Admin Dose 300 MG; Start 08/28/18 at 13:00 Celecoxib (Celebrex) 200 mg BID PO Last administered on 08/30/18at 09:03; Admin Dose 200 MG; Start 08/29/18 at 10:00 Tramadol HCl (Ultram) 50 mg Q6H PRN PO MODERATE PAIN LEVEL 4-6; Start 08/30/18 at 11:00 SHIVANI SHAY Aug 30, 2018 11:49
[2018-08-30] MEDS ORDERED: TRAM50TA2 PO (14:10)
[2018-08-30 14:19] VITALS: BP 119/58; PULSE 70; RESP 18
== END 2018-08-30 17:10 | DRG 556 ==
LOC: E/R 20:50 → TEL 23:11 → MS1 08-30 03:17
PROVIDERS: ADMIT Internal Medicine; ATTEND Internal Medicine
DX: M79.7 Fibromyalgia (principal); E87.1 Hypo-osmolality and hyponatremia; F11.20 Opioid dependence, uncomplicated; E11.65 Type 2 diabetes mellitus with hyperglycemia; E66.01 Morbid (severe) obesity due to excess calories; G89.29 Other chronic pain; R07.9 Chest pain, unspecified; N28.9 Disorder of kidney and ureter, unspecified; R53.81 Other malaise; Z68.36 Body mass index [BMI] 36.0-36.9, adult; Z87.11 Personal history of peptic ulcer disease; Z79.84 Long term (current) use of oral hypoglycemic drugs
CPT/HCPCS: 36415; 71045; 80048; 80053; 81001; 81003; 82550; 82553; 82962; 83690; 83735; 84100; 84484; 85025; 87086; 93005; 97116; 97162; 97530; J0696; J1170; J1644; J1815; J3475; J7030; J7040

== ENCOUNTER 2018-10-16 14:24 | Inpatient (IN) | payer MEDICARE, OTHER ==
[~2018-10-16] VITALS: Ht 165.1 cm; Wt 88.1 kg
[~2018-10-16 14:24] MED LIST changes: +DULO30CA45 PO; -PARO-37 PO; +TRAM50TA2 PO
[2018-10-16] MEDS ORDERED: SOD CHLORIDE 0.9% 1,000 ML IV STA (14:57)
[2018-10-16] MEDS ORDERED: ONDANSETRON 4 MG INJ IV STA (14:57)
[2018-10-16] MEDS ORDERED: HYDROmorphONE 0.5 MG/0.5 ML SYG IV STA (14:57)
[2018-10-16] MEDS ORDERED: GABA-526 PO (15:57)
[2018-10-16] MEDS ORDERED: GLIM4TAB PO (15:57)
[2018-10-16] MEDS ORDERED: DICL75TA2 PO (15:58)
[2018-10-16] MEDS ORDERED: PARO-2 PO (15:58)
[2018-10-16] MEDS ORDERED: NITR0.4T32 SL (15:59)
[2018-10-16] MEDS ORDERED: DICY10CA40 PO (16:00)
[2018-10-16] MEDS ORDERED: FURO20TA3 PO (16:00)
[2018-10-16] MEDS ORDERED: POTA10TA37 PO (16:01)
[2018-10-16] MEDS ORDERED: LINA5TAB PO (16:02)
[2018-10-16] MEDS ORDERED: INSU100I33 SC (16:04)
[2018-10-16] MEDS ORDERED: INSULIN LISPRO 100 UNIT/ML VIAL SC ONE (18:00)
[2018-10-16] MEDS ORDERED: ACCU-CHEK XX ONE (18:00)
[2018-10-16] MEDS ORDERED: ACETAMINOPHEN 325 MG TAB PO PRN (19:30)
[2018-10-16] MEDS ORDERED: ONDANSETRON 4 MG INJ IV PRN ×2 (19:30→21:00)
--- NOTE | 2018-10-16 19:43 | ERD ---
ER Documentation Chief Complaint Chief Complaint confusion x1d, LLE swelling+ pain x1wk, chills. 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 The patient has a history of diabetes. The patient has been confused since yesterday evening. The family member states that the patient is making coffee in an odd manner. The patient is describing severe pain of her bilateral lower extremities which is consistent with her baseline though this is an exacerbation. No recent falls or injuries. The patient does have a history of substance issues related to pain and benzodiazepine medications. No recent fevers or illness. Remainder of HPI is very limited given patient's pain to her lower extremities. ROS All systems reviewed and are negative except as per history of present illness. Medications Home Meds Active Scripts Duloxetine Hcl* (Cymbalta*) 30 Mg Capsule., 30 MG PO DAILY, #60 TAB Prov:SHIVANI SHAY 08/29/18 Reported Medications Insulin Glargine,Hum.rec.anlog (Basaglar Kwikpen U-100) 100 Unit/1 Ml Insuln. pen, 0 SC QHS, EA INJECT 35-70 UNITS 10/16/18 Linagliptin (TRADJENTA) 5 Mg Tablet, 5 MG PO DAILY, TAB 10/16/18 Potassium Chloride* (K-Dur*) 10 Meq Tab.prt.sr, 10 MEQ PO DAILY, TAB 10/16/18 Furosemide* (Furosemide*) 20 Mg Tablet, 20 MG PO DAILY, #60 TAB 10/16/18 Dicyclomine HCl (Dicyclomine HCl) 10 Mg Capsule, 10 MG PO DAILY 10/16/18 Nitroglycerin* (Nitroglycerin* SL) 0.4 Mg Tab.subl, 0.4 MG SL Q5MIN PRN for CHEST PAIN, BOTTLE 10/16/18 Diclofenac Sodium* (Diclofenac Sodium*) 75 Mg Tablet., 75 MG PO BID, #60 TAB 10/16/18 Paroxetine Hcl* (Paxil*) 20 Mg Tablet, 20 MG PO HS, TAB 10/16/18 Gabapentin* (Gabapentin*) 600 Mg Tablet, 600 MG PO TID, #90 TAB 10/16/18 Glimepiride* (Glimepiride*) 4 Mg Tablet, 4 MG PO WITH BREAKFAST, TAB 10/16/18 Trazodone Hcl* (Desyrel*) 100 Mg Tab, 100 MG PO QHS, #30 TAB 08/17/18 Lisinopril* (Lisinopril*) 20 Mg Tablet, 20 MG PO DAILY, #30 TAB 08/17/18 Atorvastatin* (Atorvastatin*) 80 Mg Tablet, 80 MG PO QHS, #30 TAB 08/17/18 Sitagliptin* (Januvia*) 100 Mg Tablet, 100 MG PO DAILY, #30 TAB 08/17/18 Glipizide* (Glipizide*) 5 Mg Tablet, 5 MG PO AC BREAKFAST DINNER, TAB 08/17/18 Pantoprazole* (Pantoprazole*) 40 Mg Tablet.dr, 40 MG PO AC BREAKFAST, TAB 08/17/18 Discontinued Reported Medications Glimepiride* (Glimepiride*) 2 Mg Tablet, 2 MG PO WITH BREAKFAST DINNE, TAB 08/17/18 Gabapentin* (Gabapentin*) 300 Mg Capsule, 300 MG PO NEEDED, #60 CAP 08/17/18 Discontinued Scripts Tramadol HCl (Tramadol HCl) 50 Mg Tablet, 50 MG PO Q6H PRN for MODERATE PAIN LEVEL 4-6, #30 TAB Prov:JASPALSHIVANI HANSON 08/30/18 Allergies Allergies: Coded Allergies: ibuprofen (Unverified Allergy, Unknown, rash, 10/16/18) morphine (Unverified Allergy, Unknown, ITCHING, 10/16/18) PMhx/Soc History of Surgery: Yes (C section x3, cholecystecomty, appendectomy, hysterectomy, hernia repair) Anesthesia Reaction: No Hx Neurological Disorder: No Hx Respiratory Disorders: Yes (CHF) Hx Cardiac Disorders: Yes (HTN, hyperlipidemia) Hx Psychiatric Problems: Yes (depression, anxiety) Hx Miscellaneous Medical Probl: Yes ( diabetes, CHF, back pain, depression) Hx Alcohol Use: No Hx Substance Use: No Hx Tobacco Use: No Smoking Status: Never smoker FmHx Family History: diabetes Physical Exam Vitals Vital Signs Date Temp Pulse Resp B/P (MAP) Pulse Ox O2 O2 Flow FiO2 Time Delivery Rate 10/16/18 98.7 89 18 138/61 Nasal 2.0 17:05 (86) Cannula 10/16/18 Nasal 2 16:00 Cannula 10/16/18 98.5 86 20 144/93 96 14:30 (110) Physical Exam General: Uncomfortable Head: Normocephalic, atraumatic. Eyes: Pupils equally reactive, EOM intact ENT: Moist mucous membranes Neck: Supple, no lymphadenopathy Respiratory: Lungs clear bilaterally, no distress Cardiovascular: RRR, no murmurs, rubs, or gallops Abdominal: Soft, non-tender, non-distended, no peritoneal signs : Deferred MSK: No edema, no unilateral swelling, 5/5 strength, strong 2+ dorsalis pedis pulses bilaterally. No pulse or temperature deficits. Neurologic: Patient is confused but alert to person, moving all extremities without focal deficit Skin: No rash Psych: Normal mood Result Diagram: 10/16/18 1514 10/16/18 1514 Results 24 hrs Laboratory Tests Test 10/16/18 14:27 10/16/18 15:14 10/16/18 18:01 Bedside Glucose 379 mg/dL 337 mg/dL White Blood Count 9.5 10^3/ul Red Blood Count 4.39 10^6/ul Hemoglobin 12.6 g/dl Hematocrit 37.7 % Mean Corpuscular Volume 85.9 fl Mean Corpuscular Hemoglobin 28.7 pg Mean Corpuscular 33.4 g/dl Hemoglobin Concent Red Cell Distribution Width 11.8 % Platelet Count 299 10^3/UL Mean Platelet Volume 9.4 fl Immature Granulocytes % 0.300 % Neutrophils % 48.9 % Lymphocytes % 37.0 % Monocytes % 9.2 % Eosinophils % 4.1 % Basophils % 0.5 % Nucleated Red Blood Cells % 0.0 /100WBC Immature Granulocytes # 0.030 10^3/ul Neutrophils # 4.6 10^3/ul Lymphocytes # 3.5 10^3/ul Monocytes # 0.9 10^3/ul Eosinophils # 0.4 10^3/ul Basophils # 0.1 10^3/ul Nucleated Red Blood Cells # 0.0 10^3/ul Urine Color YELLOW Urine Clarity SLIGHTLY CLOUDY Urine pH 5.0 Urine Specific [place] 1.017 Urine Ketones NEGATIVE mg/dL Urine Nitrite NEGATIVE mg/dL Urine Bilirubin NEGATIVE mg/dL Urine Urobilinogen 1+ mg/dL Urine Leukocyte Esterase NEGATIVE Radha/ul Urine Microscopic RBC 2 /HPF Urine Microscopic WBC 2 /HPF Urine Squamous Epithelial Cells FEW /HPF Urine Hemoglobin NEGATIVE mg/dL Urine Glucose 3+ mg/dL Urine Total Protein NEGATIVE mg/dl Sodium Level 132 mmol/L Potassium Level 4.8 mmol/L Chloride Level 99 mmol/L Carbon Dioxide Level 23 mmol/L Anion Gap 10 Blood Urea Nitrogen 45 mg/dl Creatinine 1.44 mg/dl Est Glomerular Filtrat 36 mL/min Rate mL/min Glucose Level 436 mg/dl Calcium Level 9.9 mg/dl Total Bilirubin 0.4 mg/dl Direct Bilirubin 0.00 mg/dl Indirect Bilirubin 0.4 mg/dl Aspartate Amino Transf (AST/SGOT) 15 IU/L Alanine 8 IU/L Aminotransferase (ALT/SGPT) Alkaline Phosphatase 113 IU/L Troponin I < 0.012 ng/ml Total Protein 6.9 g/dl Albumin 3.6 g/dl Globulin 3.30 g/dl Albumin/Globulin Ratio 1.09 Free Thyroxine Index 3.26 ug/ml Thyroxine (T4) 9.1 ug/dl Triiodothyronine (T3) Uptake 35.8 % Urine Opiates Screen Positive Urine Barbiturates Negative Urine Amphetamines Screen Negative Urine Benzodiazepines Screen Positive Urine Cocaine Screen Negative Urine Cannabinoids Negative Ethyl Alcohol Level < 10.0 mg/dl Current Medications Medications Dose Sig/Irma Start Time Status Last (Trade) Ordered Route PRN Stop Time Admin Dose Reason Admin Sodium 1,000 ml @ Q1H STAT 10/16/18 DC 10/16/18 Chloride 1,000 mls/hr IV 14:57 15:57 10/16/18 15:56 Ondansetron 4 mg ONCE STAT 10/16/18 DC 10/16/18 HCl (Zofran IV 14:57 15:56 Inj) 10/16/18 14:58 0.5 mg ONCE STAT 10/16/18 DC 10/16/18 Hydromorphone IV 14:57 15:56 HCl 10/16/18 14:58 (Dilaudid) Insulin 10 unit ONCE ONCE 10/16/18 DC 10/16/18 Human SC 18:00 18:03 Lispro 10/16/18 18:01 (Humalog) Diagnostic 1 ea 2 HRS AFTER 10/16/18 DC 10/16/18 Test (Pha) HUMALOG ONCE 18:00 18:03 (Accu-Chek) XX 10/16/18 18:01 Ondansetron 4 mg ER BRIDGE 10/16/18 HCl (Zofran PRN IV 19:30 Inj) NAUSEA/VOMITI 10/17/18 19:29 NG 650 mg ER BRIDGE 10/16/18 Acetaminophen PRN PO 19:30 (Tylenol .MILD PAIN 10/17/18 19:29 Tab) 1-3 OR TEMP Procedures/MDM EKG, MONITORS, & DIAGNOSTIC IMAGING: EKG: I reviewed and interpreted a 12-lead EKG. Rhythm: Normal sinus rhythm ST Changes: No contiguous ST segment elevations T waves: No contiguous T wave inversions Impression: [No evidence of acute cardiac ischemia] Chest x-ray: I reviewed and interpreted a 1 view of the chest Mediastinum: No enlargement Cardiac silhouette: No cardiomegaly Airspace: Clear lung ramirez bilaterally without evidence of pneumothorax Bones: No evidence of fracture CT brain: No acute process per radiologist read Bilateral lower extremity duplex: No evidence of DVT LAB INTERPRETATION: I reviewed the laboratory testing and it shows hyperglycemia, renal insufficiency, no DKA MEDICAL DECISION MAKING: The patient presents with altered mental status with a very broad differential. Her last known normal time is greater than 12 hours. Given the patient's history this is more consistent with possible urinary tract infection versus poly-pharmacy. Lower concern for stroke. The patient has a nonfocal exam this does not seem to be consistent with large vessel occlusion. Given the patient's presentation greater than 4-1/2-hour she is not a TPA candidate. The patient's presentation is nonfocal and I do not believe this is consistent with an LVO. No indication for CT at this time. ER COURSE: * Laboratory testing is otherwise unremarkable other than hyperglycemia. Humalog provided. * The patient's pain is well controlled with IV fluids and pain medication * Patient warrants hospitalization for further monitoring. Patient may require MRI imaging to rule out subacute stroke. * Polypharmacy remains at the top of the differential CONSULTATION: [None] DISPOSITION PLAN: Telemetry admission for further monitoring Accepting care team and consultations: I discussed the current laboratory data, diagnostic imaging and emergency care provided. Admitting team: Dr. Gutiérrez Admitting team indication: Insurance directed Departure Diagnosis: Primary Impression: Acute encephalopathy Additional Impressions: Polypharmacy Hyperglycemia Acute renal insufficiency Condition: Stable YOEL VARGAS MD October 16, 2018 19:43
[2018-10-16] MEDS ORDERED: SOD CHLORIDE 0.9% 1,000 ML IV SCH (20:37)
[2018-10-16] MEDS ORDERED: NACL 0.9% 3 ML SYG IV SCH (21:00)
[2018-10-16] MEDS ORDERED: DOCUSATE SODIUM 100 MG CAP PO PRN (21:00)
[2018-10-16] MEDS ORDERED: BISACODYL (EC) 5 MG TAB PO PRN (21:00)
[2018-10-16] MEDS ORDERED: INSULIN GLARGINE [LANTus] (100 UNITS/ML) SYG SC ONE (21:00)
[2018-10-16 21:01] VITALS: PULSE 74
--- NOTE | 2018-10-16 21:28 | HP ---
Date/Time of Note Date/Time of Note DATE: 10/16/18 TIME: 21:27 Assessment/Plan VTE Prophylaxis SCD applied (from Nsg): Yes Pharmacological prophylaxis: LMWH Lines/Catheters IV Catheter Type (from Nrsg): Peripheral IV Assessment/Plan Hospital Course This is a 58-year female being admitted to the [facility] floor for: #1 Altered mental status: Likely secondary to polypharmacy. Patient does appear to be somewhat confused but she is complaining of pain as well. At the current time will hold patient's home medications. She is requesting Dilaudid and looks very uncomfortable, will continue PRN Dilaudid for the time being. Will consult pain management doctor simon. Will obtain an MRI of the brain to assess for any signs of a subacute stroke, though my suspicion is less likely. Swallow eval. #2 chronic pain: Likely secondary to diabetic neuropathy from poorly controlled diabetes mellitus, vs. fibromyalgia. At the current time will provide Dilaudid. Monitor mental status closely. We will hold patient's home medications. Will consult pain management for further guidance. Drug seeking behavior? #3 Poorly controlled diabetes mellitus type 2: Last hemoglobin A1c was 11.1, check hemoglobin A1c, Will need to optimize glucose control. Insulin sliding scale. Resume home Lantus. Diabetic diet once patient passes swallow eval. #3 essential hypertension: Resume home medications #4 depression: Resume home meds #5 dyslipidemia: Continue statin #6 DVT GI prophylaxis: Lovenox, Protonix, Carafate Further treatment strategy will be implemented as per the clinical course Result Diagram: 10/16/18 1514 10/16/18 1514 Results 24hrs Laboratory Tests Test 10/16/18 14:27 10/16/18 15:14 10/16/18 18:01 Bedside Glucose 379 H 337 H White Blood Count 9.5 # Red Blood Count 4.39 # Hemoglobin 12.6 # Hematocrit 37.7 # Mean Corpuscular Volume 85.9 Mean Corpuscular Hemoglobin 28.7 L Mean Corpuscular 33.4 Hemoglobin Concent Red Cell Distribution Width 11.8 Platelet Count 299 # Mean Platelet Volume 9.4 Immature Granulocytes % 0.300 Neutrophils % 48.9 Lymphocytes % 37.0 Monocytes % 9.2 Eosinophils % 4.1 Basophils % 0.5 Nucleated Red Blood Cells % 0.0 Immature Granulocytes # 0.030 Neutrophils # 4.6 Lymphocytes # 3.5 H Monocytes # 0.9 Eosinophils # 0.4 Basophils # 0.1 Nucleated Red Blood Cells # 0.0 Urine Color YELLOW Urine Clarity SLIGHTLY CLOUDY A Urine pH 5.0 Urine Specific [place] 1.017 Urine Ketones NEGATIVE Urine Nitrite NEGATIVE Urine Bilirubin NEGATIVE Urine Urobilinogen 1+ H Urine Leukocyte Esterase NEGATIVE Urine Microscopic RBC 2 Urine Microscopic WBC 2 Urine Squamous FEW Epithelial Cells Urine Hemoglobin NEGATIVE Urine Glucose 3+ H Urine Total Protein NEGATIVE Sodium Level 132 L Potassium Level 4.8 Chloride Level 99 Carbon Dioxide Level 23 Anion Gap 10 Blood Urea Nitrogen 45 H Creatinine 1.44 H Est Glomerular Filtrat 36 L Rate mL/min Glucose Level 436 *H Calcium Level 9.9 Total Bilirubin 0.4 Direct Bilirubin 0.00 Indirect Bilirubin 0.4 Aspartate Amino 15 Transf (AST/SGOT) Alanine 8 L Aminotransferase (ALT/SGPT) Alkaline Phosphatase 113 Troponin I < 0.012 Total Protein 6.9 Albumin 3.6 Globulin 3.30 H Albumin/Globulin Ratio 1.09 Free Thyroxine Index 3.26 Thyroxine (T4) 9.1 Triiodothyronine (T3) Uptake 35.8 Urine Opiates Screen Positive Urine Barbiturates Negative Urine Amphetamines Screen Negative Urine Benzodiazepines Screen Positive Urine Cocaine Screen Negative Urine Cannabinoids Negative Ethyl Alcohol Level < 10.0 H HPI/ROS Admit Date/Time Admit Date/Time October 16, 2018 at 19:24 Hx of Present Illness Chief complaint: Altered mental status, lower extremity pain The following history was obtained from the ED physician documentation, as well as from the patient. This is a 68-year-old female who originally presented to the emergency department with family after family had reported that she had been confused since the night before. She had apparently been making coffee and on manner. Patient in the emergency department had been complaining of bilateral lower extremity pain which family did report that she normally has on a regular basis but this time it was worse. There were any recent falls or injuries. Patient d oes have a history of chronic pain and she does take multiple medications for this. Her toxicology screen was positive for benzos and opioids. In the emergency department she was complaining of pain and she was given Dilaudid. She does appear to be slightly confused but she is alert and oriented. Lamination of the patient at the bedside patient was sleeping comfortably. She was easily aroused at which point patient started complaining of pain and requesting Dilaudid. Her bilateral lower extremities were warm to touch with normal pulses. Patient however did complain of pain when her legs were touched in various areas. Allergies: Ibuprofen, morphine Medications: See MAR ROS Const: As per HPI Eyes : No pain discharge or redness or change in visual acuity ENT: No pain, sore throat, congestion, congestion, dysphagia or discharge Respiratory: No shortness of breath, cough, sputum, wheezing, or pleuritic pain Cardiovascular: No chest pain, palpitation, PND, or edema GI : no change in appetite, abdominal pain, nausea, vomiting, diarrhea, consti pation, or change in the color his stool Genitourinary: No dysuria, hematuria, flank pain , discharge or CVA tenderness Musculoskeletal: As per HPI Skin: No rash, bruising or hives Neuro: No headache, dizziness, syncope, seizure, focal weakness Endocrine: No polyuria, polydipsia, temperature intolerance Psych: No hallucination, depression, anxiety or suicidal ideation PMH/Family/Social Past Medical History duodenal ulcer, s/p EGD/colonoscopy on 06/03/2018, Diabetes mellitus type 2, Essential hypertension, Depression. Dyslipidemia. Medications Current Medications Ondansetron HCl (Zofran Inj) 4 mg ER BRIDGE PRN IV NAUSEA/VOMITING; Start 10/16/18 at 19:30; Stop 10/17/18 at 19:29 Acetaminophen (Tylenol Tab) 650 mg ER BRIDGE PRN PO .MILD PAIN 1-3 OR TEMP; Start 10/16/18 at 19:30; Stop 10/17/18 at 19:29 Sodium Chloride 1,000 ml @ 70 mls/hr [id number] IV ; Start 10/16/18 at 20:37 IV Flush (NS 3 ml) 3 ml PER PROTOCOL IV ; Start 10/16/18 at 21:00 Ondansetron HCl (Zofran Inj) 4 mg Q6H PRN IV NAUSEA/VOMITING; Start 10/16/18 at 21:00 Acetaminophen (Tylenol Tab) 650 mg Q6H PRN PO .PAIN 1-3 OR TEMP; Start 10/16/18 at 21:00 Docusate Sodium (Colace) 100 mg Q12H PRN PO .CONSTIPATION; Start 10/16/18 at 21:00 Bisacodyl (Dulcolax) 5 mg DAILY PRN PO .CONSTIPATION; Start 10/16/18 at 21:00 Coded Allergies: ibuprofen (Unverified Allergy, Unknown, rash, 10/16/18) morphine (Unverified Allergy, Unknown, ITCHING, 10/16/18) Past Surgical History duodenal ulcer, s/p EGD/colonoscopy on 06/03/2018, appendectomy, cholecystectomy, other Family History Significant Family History: no pertinent family hx Social History Alcohol Use: none Smoking Status: Never smoker Drug Use: none Exam/Review of Systems Vital Signs Vitals Vital Signs Date Temp Pulse Resp B/P (MAP) Pulse Ox O2 O2 Flow FiO2 Time Delivery Rate 10/16/18 74 21:01 10/16/18 98.2 18 101/77 99 Room Air 20:32 (85) 10/16/18 2.0 17:05 Exam Exam General: Sleeping comfortably initially, when I awoke the patient she started complaining of pain and requesting Dilaudid. HEENT: Atraumatic, normocephalic. The pupils are equal, round and reactive. Extraocular motor are intact Neck: Supple with full range of motion. No rigidity or meningismus Chest: Nontender Lungs: Clear to auscultation bilaterally no crackles rales or wheezing Heart: Normal S1-S2, Regular rhythm and rate. No murmur, S3, or S4 Abdomen: Soft , nontender, nondistended , bowel sounds are present. No guarding no rebound tenderness , No masses or organomegaly. No costovertebral temporal angle mass Extremities: Tenderness to palpation along the bilateral lower extremities Skin: Bilateral lower extremities warm to touch, no obvious deformities or rashes or lesions noted. Neurologic: Lightly confused, however she is awake and alert x3. Cranial nerves II through XII intact. Strength 5 out of 5 in bilateral upper and lower extremities. Additional Comments PROCEDURE: CT of the right femur without contrast CLINICAL INDICATION: Pain and swelling. TECHNIQUE: CT scan of the right femur was performed . No IV contrast was administered. Coronal and sagittal reformatted images were obtained from the axial source images. Images were reviewed on a high-resolution PACS workstation. The calculated radiation dose measures 804.28 mGy centimeters. The CTDI measures 12.46 mGy. One or more of the following dose reduction techniques were used: - Automated exposure control. - Adjustment of the mA and/or kV according to patient size . - Use of iterative reconstruction technique. - DICOM images are available. COMPARISON: None available FINDINGS: Osseous structures: There is no acute osseous or articular abnormality. No evidence for fracture. Bone mineral density is decreased. Moderate nonuniform narrowing seen about the right hip with bulky osteophytes. Partially assessed tricompartmental knee arthrosis, severe at the femorotibial compartments. There is chondrocalcinosis. Soft tissues: There is mild fatty atrophy throughout the hip adductors, abductors and hamstring musculature. Nonspecific subcutaneous stranding is seen anterior to the distal femur. Vascular calcifications. IMPRESSION: 1. Decreased bone mineral density without CT evidence for fracture. 2. Moderate right hip arthrosis. 3. 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 RPTAT: UU .Yazan Chappell MD, MD Date Time Electronically viewed and signed by .Yazan Chappell MD, MD on 10/16/2018 20:46 .d/ CC: SATISH OBRIEN MD [id number] PROCEDURE: XR Chest. CLINICAL INDICATION: Shortness of breath TECHNIQUE: Single portable view of the chest was obtained COMPARISON: CR CHEST 12/22/2015; CR CHEST 01/06/2015; CR CHEST 10/02/2014 FINDINGS: The trachea is midline. The cardiac silhouette is enlarged and pulmonary vascularity are within normal limits. The lungs are clear. The costophrenic angles are sharp. IMPRESSION: 1. Cardiomegaly. No evidence of acute cardiopulmonary disease. RPTAT: AAPP Physician Stefan Date Time Electronically viewed and signed by Physician Stefan on 10/16/2018 16:15 JL/ CC: YOEL VARGAS MD [id number] PROCEDURE: CT Brain without contrast. CLINICAL INDICATION: Altered mental status. TECHNIQUE: A CT of the brain without contrast was performed utilizing axial sections from the skull base through the vertex. One or more the following does reduction techniques were utilized: Automated exposure control, adjustment of the mA/ or kV according to patient's size, or use of iterative reconstruction technique. Total exam CTDIvol is 39 MGy and DLP is 634 mGy-cm. DICOM images are available. COMPARISON: None available. FINDINGS: The ventricles and sulci are mildly prominent indicative of volume loss. There is no intracranial hemorrhage, mass effect or midline shift. No abnormal intra- axial or extra-axial fluid collections are seen. The gaona/white matter differentiation is well preserved. There are mild scattered foci of hypoattenuation in the periventricular, deep, and subcortical white matter, which are nonspecific in etiology but likely reflect chronic small vessel ischemic changes. There are mild intracranial vascular calcifications consistent with atherosclerosis. Focal deformity of the right lamina papyracea is noted, likely chronic. The visualized paranasal sinuses demonstrate mild scattered mucosal thickening mainly in the ethmoid air cells. The mastoid air cells are essentially clear. IMPRESSION: 1. No acute intracranial hemorrhage, transcortical infarction or mass effect. 2. Mild intracranial atherosclerosis and chronic small vessel ischemic changes. 3. Mild generalized cerebral volume loss. 4. Focal deformity of the right lamina papyracea is noted, likely chronic. RPTAT: UU .Filippo Thomson MD, MD Date Time Electronically viewed and signed by .Filippo Thomson MD, MD on 10/16/2018 16:51 .N/ CC: YOEL VARGAS MD [id number] PROCEDURE: US Lower extremity Venous - bilateral. CLINICAL INDICATION: Bilateral leg swelling. TECHNIQUE: Multiple sonographic images of the bilateral lower extremity deep venous system was obtained utilizing gaona scale, color-flow, compressive sonography and doppler imaging with augmentation. COMPARISON: None. FINDINGS: There is normal compressibility, phasicity and Doppler flow within the bilateral common femoral, femoral and popliteal veins. Visualized portions of the calf veins are patent. IMPRESSION: No sonographic evidence for deep venous thrombosis in the bilateral lower extremities. RPTAT:AAJJ Physician Dorys Date Time Electronically viewed and signed by Zheng Nails Physician on 10/16/2018 16:35 MH/ CC: YOEL VARGAS MD [id number] PEREZ RUDOLPH October 16, 2018 21:28
[2018-10-16 21:40] VITALS: BP 139/73; PULSE 72; RESP 20
[2018-10-16] MEDS: HYDROmorphONE 0.5 MG/0.5 ML SYG IV PRN (23:23)
[2018-10-16] MEDS ORDERED: DEXTROSE 50% 50 ML SYRINGE IV PRN ×2 (23:30)
[2018-10-16] MEDS ORDERED: GLUCAGON 1 MG INJ IM PRN (23:30)
[2018-10-16] MEDS ORDERED: GLUCOSE GEL 15 GRAM TUBE BUCCAL PRN (23:30)
[2018-10-16] MEDS ORDERED: GLUCOSE GEL 15 GRAM TUBE PO PRN ×2 (23:30)
[2018-10-16 23:40] VITALS: Ht 165.1 cm; Wt 88.1 kg
[2018-10-16 23:59] VITALS: BP 139/65; PULSE 72; RESP 19
[2018-10-17] VITALS (9 sets, daily range): BP systolic 107–138; BP diastolic 55–64; PULSE 66–78; RESP 18
[2018-10-17] MEDS: ACETAMINOPHEN 325 MG TAB PO PRN (01:57)
[2018-10-17] MEDS: INSULIN ASPART [NOVOLOG] 3 ML PEN SC SCH ×3 (02:08→08:02)
[2018-10-17] MEDS: HYDROmorphONE 0.5 MG/0.5 ML SYG IV PRN ×4 (05:24→23:14)
[2018-10-17] MEDS: DICYCLOMINE 10 MG CAP PO SCH ×2 (08:11→09:10)
[2018-10-17] MEDS: LISINOPRIL 20 MG TAB PO SCH (09:09)
[2018-10-17] MEDS: DICLOFENAC (EC) 75 MG TAB PO SCH ×2 (09:09→22:29)
[2018-10-17] MEDS: ENOXAPARIN 40 MG/0.4 ML SYG SC SCH (09:09)
[2018-10-17] MEDS ORDERED: INSULIN ASPART [NOVOLOG] 3 ML PEN SC SCH ×2 (12:00→17:25)
[2018-10-17] MEDS: Insulin NOVOLOG SS MILD Algorithm (SS with meals and bedtime) SC SCH ×3 (12:28→22:36)
[2018-10-17] MEDS ORDERED: MAGNESIUM SULFATE 3 GM in SOD CHLORIDE 0.9% 100 ML IVPB ONE (12:30)
--- NOTE | 2018-10-17 16:38 | PN ---
Date/Time of Note Date/Time of Note DATE: 10/17/18 TIME: 16:34 Assessment/Plan VTE Prophylaxis Risk score (from Nsg)>0 risk: 2 SCD applied (from Nsg): Yes Pharmacological prophylaxis: LMWH Lines/Catheters IV Catheter Type (from Nrsg): Peripheral IV Urinary Cath still in place: No Assessment/Plan Assessment/Plan 58 yo woman with history of gastric ulcer and abdominal pain without clear source presents with leg pain. #Leg pain #Chronic pain - She reports bilateral leg pain, especially R lateral thigh. - This may be a component of meralgia parasthetica - Also agree with Dr. Chandler's previous idea of fibromyalgia. She has severe pain to light touch on my exam. - For now will continue dilaudid. On previous admissions she stops requesting it and leaves after a few days. # Poorly controlled diabetes mellitus type 2: Last hemoglobin A1c was 11.1, check hemoglobin A1c, Will need to optimize glucose control. Insulin sliding scale. Resume home Lantus. # essential hypertension: Resume home medications # depression: Resume home meds # dyslipidemia: Continue statin # DVT GI prophylaxis: SCDs, Protonix, Carafate Result Diagram: 10/17/18 0708 10/17/18 0708 Subjective 24 Hr Interval Summary Free Text/Dictation No acute overnight events. Continue to complain of exquisite R hip and lateral thigh pain. Exam/Review of Systems Exam Vitals Vital Signs Date Temp Pulse Resp B/P (MAP) Pulse Ox O2 O2 Flow FiO2 Time Delivery Rate 10/17/18 98.5 68 18 107/55 96 15:15 (72) 10/16/18 Room Air 21:40 10/16/18 2.0 17:05 Intake and Output 10/16/18 10/16/18 10/17/18 1515:00 23:00 07:00 IntakeIntake Total 30 ml BalanceBalance 30 ml Exam General: Sleeping comfortably initially, when I awoke the patient she started complaining of pain and requesting Dilaudid. HEENT: Atraumatic, normocephalic. The pupils are equal, round and reactive. Extraocular motor are intact Neck: Supple with full range of motion. No rigidity or meningismus Chest: Nontender Lungs: Clear to auscultation bilaterally no crackles rales or wheezing Heart: Normal S1-S2, Regular rhythm and rate. No murmur, S3, or S4 Abdomen: Soft , nontender, nondistended , bowel sounds are present. No guarding no rebound tenderness , Extremities: Exquisite tenderness to palpation on right lateral thigh. Skin: Bilateral lower extremities warm to touch, no obvious deformities or rashes or lesions noted. Results Results 24hrs Laboratory Tests Test 10/16/18 18:01 10/17/18 01:44 10/17/18 05:03 10/17/18 07:08 Bedside Glucose 337 H 267 H 184 White Blood Count 6.5 # Red Blood Count 4.06 L Hemoglobin 11.5 L Hematocrit 35.3 L Mean Corpuscular 86.9 Volume Mean Corpuscular 28.3 L Hemoglobin Mean Corpuscular 32.6 Hemoglobin Concent Red Cell 12.0 Distribution Width Platelet Count 338 Mean Platelet Volume 10.4 Immature 0.200 Granulocytes % Neutrophils % 37.3 L Lymphocytes % 45.3 Monocytes % 11.6 H Eosinophils % 5.1 Basophils % 0.5 Nucleated Red Blood 0.0 Cells % Immature 0.010 Granulocytes # Neutrophils # 2.4 Lymphocytes # 2.9 Monocytes # 0.8 Eosinophils # 0.3 Basophils # 0.0 Nucleated Red Blood 0.0 Cells # Sodium Level 138 Potassium Level 4.5 Chloride Level 106 Carbon Dioxide Level 28 Anion Gap 4 L Blood Urea Nitrogen 34 #H Creatinine 0.85 Est Glomerular > 60 Filtrat Rate mL/min Glucose Level 155 # Hemoglobin A1c 10.2 H Calcium Level 9.7 Magnesium Level 1.3 L Total Bilirubin 0.5 Direct Bilirubin 0.00 Indirect Bilirubin 0.5 Aspartate Amino 15 Transf (AST/SGOT) Alanine 14 Aminotransferase (AL T/SGPT) Alkaline Phosphatase 83 Total Protein 6.1 Albumin 3.0 L Globulin 3.10 Albumin/Globulin 0.96 Ratio Test 10/17/18 08:00 10/17/18 11:43 Bedside Glucose 132 178 Medications Medication Current Medications IV Flush (NS 3 ml) 3 ml PER PROTOCOL IV ; Start 10/16/18 at 21:00 Ondansetron HCl (Zofran Inj) 4 mg Q6H PRN IV NAUSEA/VOMITING; Start 10/16/18 at 21:00 Acetaminophen (Tylenol Tab) 650 mg Q6H PRN PO .PAIN 1-3 OR TEMP Last administered on 10/17/18at 01:57; Admin Dose 650 MG; Start 10/16/18 at 21:00 Docusate Sodium (Colace) 100 mg Q12H PRN PO .CONSTIPATION; Start 10/16/18 at 21:00 Bisacodyl (Dulcolax) 5 mg DAILY PRN PO .CONSTIPATION; Start 10/16/18 at 21:00 Hydromorphone HCl (Dilaudid) 0.5 mg Q6H PRN IV SEVERE PAIN LEVEL 7-10 Last administered on 10/17/18at 11:38; Admin Dose 0.5 MG; Start 10/16/18 at 23:00 Miscellaneous Information 1 ea NOTE XX ; Start 10/16/18 at 23:30 Glucose (Glutose) 15 gm Q15M PRN PO DECREASED GLUCOSE; Start 10/16/18 at 23:30 Glucose (Glutose) 22.5 gm Q15M PRN PO DECREASED GLUCOSE; Start 10/16/18 at 2 3:30 Dextrose (D50w Syringe) 25 ml Q15M PRN IV DECREASED GLUCOSE; Start 10/16/18 at 23:30 Dextrose (D50w Syringe) 50 ml Q15M PRN IV DECREASED GLUCOSE; Start 10/16/18 at 23:30 Glucagon (Glucagen) 1 mg Q15M PRN IM DECREASED GLUCOSE; Start 10/16/18 at 23:30 Glucose (Glutose) 15 gm Q15M PRN BUCCAL DECREASED GLUCOSE; Start 10/16/18 at 23:30 Atorvastatin Calcium (Lipitor) 80 mg QHS PO ; Start 10/17/18 at 21:00 Dicyclomine HCl (Bentyl) 10 mg DAILY PO Last administered on 10/17/18at 09:10; Admin Dose 10 MG; Start 10/17/18 at 09:00 Enoxaparin Sodium (Lovenox) 40 mg DAILY SC Last administered on 10/17/18at 09:09; Admin Dose 40 MG; Start 10/17/18 at 09:00 Diclofenac Sodium (Voltaren) 75 mg BID PO Last administered on 10/17/18at 09:09; Admin Dose 75 MG; Start 10/17/18 at 09:00 Lisinopril (Zestril) 20 mg DAILY PO Last administered on 10/17/18at 09:09; Admin Dose 20 MG; Start 10/17/18 at 09:00 Insulin Aspart (Novolog Insulin Pen) (Adult SC Insulin - Mild Algorithm)... AC MEALS AND BEDTIME SC Last administered on 10/17/18at 12:28; Admin Dose 1 UNIT; Start 10/17/18 at 17:25 MYA JAMES MD October 17, 2018 16:38
--- NOTE | 2018-10-17 18:50 | CONS ---
Assessment/Plan Assessment/Plan Assessment/Plan (Daily) Bilateral lower extremity pain Bilateral lower extremity allodynia versus hyperalgesia, refused methadone which would have been the best medication for either those two medical diagnosis. Peripheral neuropathy possibly secondary to poorly controlled diabetes Suggest psychiatric consultation would avoid prolonged hospitalization Patient well known to me from recent hospitalization. At that time she had an extensive workup for bilateral lower extremity discomfort which did not produce a clear pathological diagnosis. Difficulty was that patient refused oral medications and threatened to sign out against medical advice on numerous occasions if she did not receive IV Dilaudid. I've had multiple conversations with her. There were periods of time when she was verbally abusive with nursing staff if she did not receive Dilaudid, she refused other non opioids and methadone which would be the drug of choice. Consultation Date/Type/Reason Admit Date/Time October 16, 2018 at 19:24 Date/Time of Note DATE: 10/17/18 TIME: 18:45 Hx of Present Illness Chart reviewed preliminary pain management note Past Medical History Home Meds Active Scripts Duloxetine Hcl* (Cymbalta*) 30 Mg Capsule., 30 MG PO DAILY, #60 TAB Prov:SHIVANI SHAY 08/29/18 Reported Medications Insulin Glargine,Hum.rec.anlog (Basaglar Kwikpen U-100) 100 Unit/1 Ml Insuln.pen, 0 SC QHS, EA INJECT 35-70 UNITS 10/16/18 Linagliptin (TRADJENTA) 5 Mg Tablet, 5 MG PO DAILY, TAB 10/16/18 Potassium Chloride* (K-Dur*) 10 Meq Tab.prt.sr, 10 MEQ PO DAILY, TAB 10/16/18 Furosemide* (Furosemide*) 20 Mg Tablet, 20 MG PO DAILY, #60 TAB 10/16/18 Dicyclomine HCl (Dicyclomine HCl) 10 Mg Capsule, 10 MG PO DAILY 10/16/18 Nitroglycerin* (Nitroglycerin* SL) 0.4 Mg Tab.subl, 0.4 MG SL Q5MIN PRN for CHEST PAIN, BOTTLE 10/16/18 Diclofenac Sodium* (Diclofenac Sodium*) 75 Mg Tablet., 75 MG PO BID, #60 TAB 10/16/18 Paroxetine Hcl* (Paxil*) 20 Mg Tablet, 20 MG PO HS, TAB 10/16/18 Gabapentin* (Gabapentin*) 600 Mg Tablet, 600 MG PO TID, #90 TAB 10/16/18 Glimepiride* (Glimepiride*) 4 Mg Tablet, 4 MG PO WITH BREAKFAST, TAB 10/16/18 Trazodone Hcl* (Desyrel*) 100 Mg Tab, 100 MG PO QHS, #30 TAB 08/17/18 Lisinopril* (Lisinopril*) 20 Mg Tablet, 20 MG PO DAILY, #30 TAB 08/17/18 Atorvastatin* (Atorvastatin*) 80 Mg Tablet, 80 MG PO QHS, #30 TAB 08/17/18 Sitagliptin* (Januvia*) 100 Mg Tablet, 100 MG PO DAILY, #30 TAB 08/17/18 Glipizide* (Glipizide*) 5 Mg Tablet, 5 MG PO AC BREAKFAST DINNER, TAB 08/17/18 Pantoprazole* (Pantoprazole*) 40 Mg Tablet.dr, 40 MG PO AC BREAKFAST, TAB 08/17/18 Discontinued Reported Medications Glimepiride* (Glimepiride*) 2 Mg Tablet, 2 MG PO WITH BREAKFAST DINNE, TAB 08/17/18 Gabapentin* (Gabapentin*) 300 Mg Capsule, 300 MG PO NEEDED, #60 CAP 08/17/18 Discontinued Scripts Tramadol HCl (Tramadol HCl) 50 Mg Tablet, 50 MG PO Q6H PRN for MODERATE PAIN LEVEL 4-6, #30 TAB Prov:SHIVANI SHAY 08/30/18 Medications Current Medications IV Flush (NS 3 ml) 3 ml PER PROTOCOL IV ; Start 10/16/18 at 21:00 Ondansetron HCl (Zofran Inj) 4 mg Q6H PRN IV NAUSEA/VOMITING; Start 10/16/18 at 21:00 Acetaminophen (Tylenol Tab) 650 mg Q6H PRN PO .PAIN 1-3 OR TEMP Last administered on 10/17/18at 01:57; Admin Dose 650 MG; Start 10/16/18 at 21:00 Docusate Sodium (Colace) 100 mg Q12H PRN PO .CONSTIPATION; Start 10/16/18 at 21:00 Bisacodyl (Dulcolax) 5 mg DAILY PRN PO .CONSTIPATION; Start 10/16/18 at 21:00 Hydromorphone HCl (Dilaudid) 0.5 mg Q6H PRN IV SEVERE PAIN LEVEL 7-10 Last a dministered on 10/17/18at 17:31; Admin Dose 0.5 MG; Start 10/16/18 at 23:00 Miscellaneous Information 1 ea NOTE XX ; Start 10/16/18 at 23:30 Glucose (Glutose) 15 gm Q15M PRN PO DECREASED GLUCOSE; Start 10/16/18 at 23:30 Glucose (Glutose) 22.5 gm Q15M PRN PO DECREASED GLUCOSE; Start 10/16/18 at 23:3 0 Dextrose (D50w Syringe) 25 ml Q15M PRN IV DECREASED GLUCOSE; Start 10/16/18 at 23:30 Dextrose (D50w Syringe) 50 ml Q15M PRN IV DECREASED GLUCOSE; Start 10/16/18 at 23:30 Glucagon (Glucagen) 1 mg Q15M PRN IM DECREASED GLUCOSE; Start 10/16/18 at 23:30 Glucose (Glutose) 15 gm Q15M PRN BUCCAL DECREASED GLUCOSE; Start 10/16/18 at 23:30 Atorvastatin Calcium (Lipitor) 80 mg QHS PO ; Start 10/17/18 at 21:00 Dicyclomine HCl (Bentyl) 10 mg DAILY PO Last administered on 10/17/18at 09:10; Admin Dose 10 MG; Start 10/17/18 at 09:00 Enoxaparin Sodium (Lovenox) 40 mg DAILY SC Last administered on 10/17/18at 09:09; Admin Dose 40 MG; Start 10/17/18 at 09:00 Diclofenac Sodium (Voltaren) 75 mg BID PO Last administered on 10/17/18at 09:09; Admin Dose 75 MG; Start 10/17/18 at 09:00 Lisinopril (Zestril) 20 mg DAILY PO Last administered on 10/17/18at 09:09; Admin Dose 20 MG; Start 10/17/18 at 09:00 Insulin Aspart (Novolog Insulin Pen) (Adult SC Insulin - Mild Algorithm)... AC MEALS AND BEDTIME SC Last administered on 10/17/18at 17:35; Admin Dose 3 UNIT; Start 10/17/18 at 17:25 Allergies: Coded Allergies: ibuprofen (Unverified Allergy, Unknown, rash, 10/16/18) morphine (Unverified Allergy, Unknown, ITCHING, 10/16/18) Social History Alcohol Use: none Smoking Status: Never smoker Drug Use: none Exam/Review of Systems Exam Vitals Vital Signs Date Temp Pulse Resp B/P (MAP) Pulse Ox O2 O2 Flow FiO2 Time Delivery Rate 10/17/18 67 16:00 10/17/18 98.5 18 107/55 96 15:15 (72) 10/16/18 Room Air 21:40 10/16/18 2.0 17:05 Intake and Output 10/16/18 10/16/18 10/17/18 1515:00 23:00 07:00 IntakeIntake Total 30 ml BalanceBalance 30 ml Results Result Diagram: 10/17/18 0708 10/17/18 0708 Results 24hrs Laboratory Tests Test 10/17/18 01:44 10/17/18 05:03 10/17/18 07:08 10/17/18 08:00 Bedside Glucose 267 H 184 132 White Blood Count 6.5 # Red Blood Count 4.06 L Hemoglobin 11.5 L Hematocrit 35.3 L Mean Corpuscular 86.9 Volume Mean Corpuscular 28.3 L Hemoglobin Mean Corpuscular 32.6 Hemoglobin Concent Red Cell 12.0 Distribution Width Platelet Count 338 Mean Platelet Volume 10.4 Immature 0.200 Granulocytes % Neutrophils % 37.3 L Lymphocytes % 45.3 Monocytes % 11.6 H Eosinophils % 5.1 Basophils % 0.5 Nucleated Red Blood 0.0 Cells % Immature 0.010 Granulocytes # Neutrophils # 2.4 Lymphocytes # 2.9 Monocytes # 0.8 Eosinophils # 0.3 Basophils # 0.0 Nucleated Red Blood 0.0 Cells # Sodium Level 138 Potassium Level 4.5 Chloride Level 106 Carbon Dioxide Level 28 Anion Gap 4 L Blood Urea Nitrogen 34 #H Creatinine 0.85 Est Glomerular > 60 Filtrat Rate mL/min Glucose Level 155 # Hemoglobin A1c 10.2 H Calcium Level 9.7 Magnesium Level 1.3 L Total Bilirubin 0.5 Direct Bilirubin 0.00 Indirect Bilirubin 0.5 Aspartate Amino 15 Transf (AST/SGOT) Alanine 14 Aminotransferase (AL T/SGPT) Alkaline Phosphatase 83 Total Protein 6.1 Albumin 3.0 L Globulin 3.10 Albumin/Globulin 0.96 Ratio Test 10/17/18 11:43 10/17/18 17:00 Bedside Glucose 178 243 H Medications Medication Current Medications IV Flush (NS 3 ml) 3 ml PER PROTOCOL IV ; Start 10/16/18 at 21:00 Ondansetron HCl (Zofran Inj) 4 mg Q6H PRN IV NAUSEA/VOMITING; Start 10/16/18 at 21:00 Acetaminophen (Tylenol Tab) 650 mg Q6H PRN PO .PAIN 1-3 OR TEMP Last administered on 10/17/18at 01:57; Admin Dose 650 MG; Start 10/16/18 at 21:00 Docusate Sodium (Colace) 100 mg Q12H PRN PO .CONSTIPATION; Start 10/16/18 at 21:00 Bisacodyl (Dulcolax) 5 mg DAILY PRN PO .CONSTIPATION; Start 10/16/18 at 21:00 Hydromorphone HCl (Dilaudid) 0.5 mg Q6H PRN IV SEVERE PAIN LEVEL 7-10 Last administered on 10/17/18at 17:31; Admin Dose 0.5 MG; Start 10/16/18 at 23:00 Miscellaneous Information 1 ea NOTE XX ; Start 10/16/18 at 23:30 Glucose (Glutose) 15 gm Q15M PRN PO DECREASED GLUCOSE; Start 10/16/18 at 23:30 Glucose (Glutose) 22.5 gm Q15M PRN PO DECREASED GLUCOSE; Start 10/16/18 at 23:30 Dextrose (D50w Syringe) 25 ml Q15M PRN IV DECREASED GLUCOSE; Start 10/16/18 at 23:30 Dextrose (D50w Syringe) 50 ml Q15M PRN IV DECREASED GLUCOSE; Start 10/16/18 at 23:30 Glucagon (Glucagen) 1 mg Q15M PRN IM DECREASED GLUCOSE; Start 10/16/18 at 23:30 Glucose (Glutose) 15 gm Q15M PRN BUCCAL DECREASED GLUCOSE; Start 10/16/18 at 23:30 Atorvastatin Calcium (Lipitor) 80 mg QHS PO ; Start 10/17/18 at 21:00 Dicyclomine HCl (Bentyl) 10 mg DAILY PO Last administered on 10/17/18at 09:10; Admin Dose 10 MG; Start 10/17/18 at 09:00 Enoxaparin Sodium (Lovenox) 40 mg DAILY SC Last administered on 10/17/18at 09:09; Admin Dose 40 MG; Start 10/17/18 at 09:00 Diclofenac Sodium (Voltaren) 75 mg BID PO Last administered on 10/17/18at 09:09; Admin Dose 75 MG; Start 10/17/18 at 09:00 Lisinopril (Zestril) 20 mg DAILY PO Last administered on 10/17/18at 09:09; Admin Dose 20 MG; Start 10/17/18 at 09:00 Insulin Aspart (Novolog Insulin Pen) (Adult SC Insulin - Mild Algorithm)... AC MEALS AND BEDTIME SC Last administered on 10/17/18at 17:35; Admin Dose 3 UNIT; Start 10/17/18 at 17:25 GIOVANI NGUYEN October 17, 2018 18:50
[2018-10-17] MEDS: ATORVASTATIN 80 MG TAB PO SCH (22:29)
[2018-10-18] VITALS (13 sets, daily range): BP systolic 110–177; BP diastolic 54–82; PULSE 58–81; RESP 18–20
[2018-10-18] MEDS: HYDROmorphONE 0.5 MG/0.5 ML SYG IV PRN ×5 (05:30→23:08)
[2018-10-18] MEDS: LISINOPRIL 20 MG TAB PO SCH (08:11)
[2018-10-18] MEDS: DICYCLOMINE 10 MG CAP PO SCH (08:11)
[2018-10-18] MEDS: DICLOFENAC (EC) 75 MG TAB PO SCH ×2 (08:11→20:33)
[2018-10-18] MEDS: ACETAMINOPHEN 325 MG TAB PO PRN (08:12)
[2018-10-18] MEDS: Insulin NOVOLOG SS MILD Algorithm (SS with meals and bedtime) SC SCH ×4 (08:13→20:48)
[2018-10-18] MEDS: ENOXAPARIN 40 MG/0.4 ML SYG SC SCH (08:14)
--- NOTE | 2018-10-18 15:38 | PN ---
Date/Time of Note Date/Time of Note DATE: 10/18/18 TIME: 15:28 Assessment/Plan VTE Prophylaxis Risk score (from Nsg)>0 risk: 4 Pharmacological prophylaxis: NA/contraindicated Pharm contraindication: other Lines/Catheters IV Catheter Type (from Nrsg): Peripheral IV Urinary Cath still in place: No Assessment/Plan Hospital Course 58 yo woman with history of gastric ulcer and abdominal pain without clear source presents with leg pain. #Leg pain in the setting of chronic pain -Patient with a history of multiple hospitalizations for chest pain and abdominal pain in the past thought to be secondary to fibromyalgia -Patient now reporting bilateral leg pain, especially R lateral thigh, extremely tender to light palpation - For now will continue dilaudid 0.5 IV every 6, patient should be weaned off Dilaudid tomorrow -Patient has been told by myself on a previous hospitalization that she needs to follow-up with a dietary internship for a formal diagnosis of fibromyalgia and treatment -Resume home gabapentin and Cymbalta # Poorly controlled diabetes mellitus type 2-out of control -A1c at 10.2 -Start Lantus and mealtime insulin # essential hypertension: Resume home medications # depression: Resume home meds # dyslipidemia: Continue statin #Gastritis: Continue PPI #Obesity: Lifestyle changes #Debility secondary to comorbidities -Patient has refused custodial in the past # DVT GI prophylaxis: SCDs, Protonix, Carafate DC planning: Continue low-dose Dilaudid for another day as patient still reports significant pain but anticipate discontinuation tomorrow and DC home in 1 to 2 days Result Diagram: 10/17/18 0708 10/17/18 0708 Results 24hrs Laboratory Tests Test 10/17/18 17:00 10/17/18 22:30 10/18/18 07:53 10/18/18 11:32 Bedside Glucose 243 H 272 H 252 H 320 H Subjective 24 Hr Interval Summary Musculoskeletal: bone/joint pain Exam/Review of Systems Exam Vitals Vital Signs Date Temp Pulse Resp B/P (MAP) Pulse Ox O2 O2 Flow FiO2 Time Delivery Rate 10/18/18 97.5 71 20 145/63 98 Room Air 15:04 (90) 10/16/18 2.0 17:05 Intake and Output 10/17/18 10/17/18 10/18/18 1515:00 23:00 07:00 IntakeIntake Total 556 ml OutputOutput Total 650 ml BalanceBalance -94 ml Constitutional: alert Respiratory: clear to auscultation Cardiovascular: regular rate and rhythm Gastrointestinal: soft; No distended Musculoskeletal: nl extremities to inspection Results Results 24hrs Laboratory Tests Test 10/17/18 17:00 10/17/18 22:30 10/18/18 07:53 10/18/18 11:32 Bedside Glucose 243 H 272 H 252 H 320 H Medications Medication Current Medications IV Flush (NS 3 ml) 3 ml PER PROTOCOL IV ; Start 10/16/18 at 21:00 Ondansetron HCl (Zofran Inj) 4 mg Q6H PRN IV NAUSEA/VOMITING; Start 10/16/18 at 21:00 Acetaminophen (Tylenol Tab) 650 mg Q6H PRN PO .PAIN 1-3 OR TEMP Last administered on 10/18/18at 08:12; Admin Dose 650 MG; Start 10/16/18 at 21:00 Docusate Sodium (Colace) 100 mg Q12H PRN PO .CONSTIPATION; Start 10/16/18 at 21:00 Bisacodyl (Dulcolax) 5 mg DAILY PRN PO .CONSTIPATION; Start 10/16/18 at 21:00 Hydromorphone HCl (Dilaudid) 0.5 mg Q6H PRN IV SEVERE PAIN LEVEL 7-10 Last administered on 10/18/18at 11:31; Admin Dose 0.5 MG; Start 10/16/18 at 23:00 Miscellaneous Information 1 ea NOTE XX ; Start 10/16/18 at 23:30 Glucose (Glutose) 15 gm Q15M PRN PO DECREASED GLUCOSE; Start 10/16/18 at 23:30 Glucose (Glutose) 22.5 gm Q15M PRN PO DECREASED GLUCOSE; Start 10/16/18 at 23:30 Dextrose (D50w Syringe) 25 ml Q15M PRN IV DECREASED GLUCOSE; Start 10/16/18 at 23:30 Dextrose (D50w Syringe) 50 ml Q15M PRN IV DECREASED GLUCOSE; Start 10/16/18 at 23:30 Glucagon (Glucagen) 1 mg Q15M PRN IM DECREASED GLUCOSE; Start 10/16/18 at 23:30 Glucose (Glutose) 15 gm Q15M PRN BUCCAL DECREASED GLUCOSE; Start 5/29/19 at 23:30 Atorvastatin Calcium (Lipitor) 80 mg QHS PO Last administered on 10/17/18 22:29; Admin Dose 80 MG; Start 10/17/18 at 21:00 Dicyclomine HCl (Bentyl) 10 mg DAILY PO Last administered on 10/18/18 08:11; Admin Dose 10 MG; Start 10/17/18 at 09:00 Enoxaparin Sodium (Lovenox) 40 mg DAILY SC Last administered on 10/18/18 08:14; Admin Dose 40 MG; Start 10/17/18 at 09:00 Diclofenac Sodium (Voltaren) 75 mg BID PO Last administered on 10/18/18 08:11; Admin Dose 75 MG; Start 10/17/18 at 09:00 Lisinopril (Zestril) 20 mg DAILY PO Last administered on 10/18/18 08:11; Admin Dose 20 MG; Start 10/17/18 at 09:00 Insulin Aspart (Novolog Insulin Pen) (Adult SC Insulin - Mild Algorithm)... AC MEALS AND BEDTIME SC Last administered on 10/18/18 11:35; Admin Dose 5 UNIT; Start 10/17/18 at 17:25 SHIVANI SHAY October 18, 2018 15:38
[2018-10-18] MEDS ORDERED: MAGNESIUM SULFATE 4 GM/100 ML 100 ML IVPB ONE (17:00)
[2018-10-18] MEDS: DULOXETINE 30 MG CAP DR PO SCH (17:19)
[2018-10-18] MEDS: INSULIN ASPART [NOVOLOG] 3 ML PEN SC SCH (17:28)
[2018-10-18] MEDS ORDERED: INSULIN ASPART [NOVOLOG] 3 ML PEN SC ONE (18:00)
[2018-10-18] MEDS ORDERED: ACCU-CHEK XX ONE (18:00)
[2018-10-18] MEDS ORDERED: INSULIN GLARGINE [LANTus] (100 UNITS/ML) SYG SC SCH (20:00)
[2018-10-18] MEDS: traZODone 100 MG TAB PO SCH (20:33)
[2018-10-18] MEDS: ATORVASTATIN 80 MG TAB PO SCH (20:33)
[2018-10-18] MEDS: GABAPENTIN 300 MG CAP PO SCH (20:36)
[2018-10-19] VITALS (11 sets, daily range): BP systolic 102–147; BP diastolic 54–170; PULSE 54–85; RESP 18–20
[2018-10-19] MEDS: ACCU-CHEK XX SCH (02:12)
[2018-10-19] MEDS: ACETAMINOPHEN 325 MG TAB PO PRN (02:17)
[2018-10-19] MEDS: HYDROmorphONE 0.5 MG/0.5 ML SYG IV PRN ×3 (04:32→17:21)
[2018-10-19] MEDS: FUROSEMIDE 20 MG TAB PO SCH (06:17)
[2018-10-19] MEDS: INSULIN ASPART [NOVOLOG] 3 ML PEN SC SCH ×4 (08:03→17:21)
[2018-10-19] MEDS: Insulin NOVOLOG SS MILD Algorithm (SS with meals and bedtime) SC SCH ×4 (08:03→20:59)
[2018-10-19] MEDS: ENOXAPARIN 40 MG/0.4 ML SYG SC SCH (08:05)
[2018-10-19] MEDS: DICYCLOMINE 10 MG CAP PO SCH (08:06)
[2018-10-19] MEDS: PANTOPRAZOLE (EC) 40 MG TAB PO SCH (08:06)
[2018-10-19] MEDS: DULOXETINE 30 MG CAP DR PO SCH (08:06)
[2018-10-19] MEDS: GABAPENTIN 300 MG CAP PO SCH ×3 (08:06→20:37)
[2018-10-19] MEDS: LISINOPRIL 20 MG TAB PO SCH (08:07)
[2018-10-19] MEDS: DICLOFENAC (EC) 75 MG TAB PO SCH ×2 (08:07→20:37)
--- NOTE | 2018-10-19 20:25 | PN ---
Date/Time of Note Date/Time of Note DATE: 10/19/18 TIME: 20:16 Assessment/Plan VTE Prophylaxis Risk score (from Nsg)>0 risk: 4 SCD applied (from Nsg): Yes Pharmacological prophylaxis: LMWH Lines/Catheters IV Catheter Type (from Nrsg): Saline Lock Urinary Cath still in place: No Assessment/Plan Hospital Course Assessment/Plan 1. Leg pain in the setting of chronic pain -Patient with a history of multiple hospitalizations for chest pain and abdominal pain in the past thought to be secondary to fibromyalgia - continue with analgesics, taper down as tolerated - Patient advised for follow up with canine service teacher for a formal diagnosis of fibromyalgia and treatment -continue gabapentin and Cymbalta 2. Poorly controlled diabetes mellitus type 2-out of control -A1c at 10.2 -continue insulin regimen. Will adjust as needed 3. essential hypertension: - continue antihypertensives 4. depression: Resume home meds 5. dyslipidemia: -Continue statin 6. Gastritis: -Continue PPI 7. Obesity Lifestyle changes was advised DISPO.PLAN: Patient still having difficulty with ambulation. Will see for possible snf placement. Discussed plan of care with Dr. Alexis Result Diagram: 10/17/18 0708 10/19/18 0615 Results 24hrs Laboratory Tests Test 10/18/18 20:29 10/19/18 02:11 10/19/18 06:15 10/19/18 08:01 Bedside Glucose 332 H 242 H 248 H Sodium Level 138 Potassium Level 4.6 Chloride Level 106 Carbon Dioxide Level 26 Anion Gap 6 Blood Urea Nitrogen 26 H Creatinine 1.05 H Est Glomerular Filtrat 52 L Rate mL/min Glucose Level 252 H Calcium Level 10.5 H Phosphorus Level 3.7 Magnesium Level 1.7 Test 10/19/18 11:24 10/19/18 13:45 10/19/18 17:20 Bedside Glucose 297 H 279 H 222 H Subjective 24 Hr Interval Summary Free Text/Dictation no s/s of distress. Denies any leg pain at this time Exam/Review of Systems Exam Vitals Vital Signs Date Temp Pulse Resp B/P (MAP) Pulse Ox O2 O2 Flow FiO2 Time Delivery Rate 10/19/18 62 16:01 10/19/18 98.4 20 105/57 94 Room Air 15:16 (73) 10/16/18 2.0 17:05 Intake and Output 10/18/18 10/18/1810/19/19 1515:00 23:00 07:00 IntakeIntake Total 720 ml 50 ml BalanceBalance 720 ml 50 ml Constitutional: alert, oriented Head: normocephalic Respiratory: clear to auscultation, normal air movement Cardiovascular: regular rate and rhythm Gastrointestinal: soft, non-tender Musculoskeletal: swelling (ble) Neurological: nl mental status, nl speech Results Results 24hrs Laboratory Tests Test 10/18/18 20:29 10/19/18 02:11 10/19/18 06:15 10/19/18 08:01 Bedside Glucose 332 H 242 H 248 H Sodium Level 138 Potassium Level 4.6 Chloride Level 106 Carbon Dioxide Level 26 Anion Gap 6 Blood Urea Nitrogen 26 H Creatinine 1.05 H Est Glomerular Filtrat 52 L Rate mL/min Glucose Level 252 H Calcium Level 10.5 H Phosphorus Level 3.7 Magnesium Level 1.7 Test 10/19/18 11:24 10/19/18 13:45 10/19/18 17:20 Bedside Glucose 297 H 279 H 222 H Medications Medication Current Medications IV Flush (NS 3 ml) 3 ml PER PROTOCOL IV ; Start 10/16/18 at 21:00 Ondansetron HCl (Zofran Inj) 4 mg Q6H PRN IV NAUSEA/VOMITING; Start 10/16/18 at 21:00 Acetaminophen (Tylenol Tab) 650 mg Q6H PRN PO .PAIN 1-3 OR TEMP Last administered on 10/19/18at 02:17; Admin Dose 650 MG; Start 10/16/18 at 21:00 Docusate Sodium (Colace) 100 mg Q12H PRN PO .CONSTIPATION; Start 10/16/18 at 21:00 Bisacodyl (Dulcolax) 5 mg DAILY PRN PO .CONSTIPATION; Start 10/16/18 at 21:00 Hydromorphone HCl (Dilaudid) 0.5 mg Q6H PRN IV SEVERE PAIN LEVEL 7-10 Last administered on 10/19/18at 17:21; Admin Dose 0.5 MG; Start 10/16/18 at 23:00 Miscellaneous Information 1 ea NOTE XX ; Start 10/16/18 at 23:30 Glucose (Glutose) 15 gm Q15M PRN PO DECREASED GLUCOSE; Start 10/16/18 at 23:30 Glucose (Glutose) 22.5 gm Q15M PRN PO DECREASED GLUCOSE; Start 10/16/18 at 23:30 Dextrose (D50w Syringe) 25 ml Q15M PRN IV DECREASED GLUCOSE; Start 10/16/18 at 23:30 Dextrose (D50w Syringe) 50 ml Q15M PRN IV DECREASED GLUCOSE; Start 10/16/18 at 23:30 Glucagon (Glucagen) 1 mg Q15M PRN IM DECREASED GLUCOSE; Start 10/16/18 at 23:30 Glucose (Glutose) 15 gm Q15M PRN BUCCAL DECREASED GLUCOSE; Start 10/16/18 at 23:30 Atorvastatin Calcium (Lipitor) 80 mg QHS PO Last administered on 10/18/18at 20:33; Admin Dose 80 MG; Start 10/17/18 at 21:00 Dicyclomine HCl (Bentyl) 10 mg DAILY PO Last administered on 10/19/18 08:06; Admin Dose 10 MG; Start 10/17/18 at 09:00 Enoxaparin Sodium (Lovenox) 40 mg DAILY SC Last administered on 10/19/18at 08:05; Admin Dose 40 MG; Start 10/17/18 at 09:00 Diclofenac Sodium (Voltaren) 75 mg BID PO Last administered on 10/19/18 08:07; Admin Dose 75 MG; Start 10/17/18 at 09:00 Lisinopril (Zestril) 20 mg DAILY PO Last administered on 10/19/18 08:07; Admin Dose 20 MG; Start 10/17/18 at 09:00 Insulin Aspart (Novolog Insulin Pen) (Adult SC Insulin - Mild Algorithm)... AC MEALS AND BEDTIME SC Last administered on 10/19/18at 17:22; Admin Dose 3 UNIT; Start 10/17/18 at 17:25 Duloxetine HCl (Cymbalta) 30 mg DAILY PO Last administered on 10/19/18 08:06; Admin Dose 30 MG; Start 10/18/18 at 16:00 Furosemide (Lasix) 20 mg DAILY@0600 PO Last administered on 10/19/18 06:17; Admin Dose 20 MG; Start 10/19/18 at 06:00 Gabapentin (Neurontin) 600 mg TID PO Last administered on 10/19/18at 13:43; Admin Dose 600 MG; Start 10/18/18 at 21:00 Trazodone HCl (Desyrel) 100 mg QHS PO Last administered on 10/18/18at 20:33; Admin Dose 100 MG; Start 10/18/18 at 21:00 Diagnostic Test (Pha) (Accu-Chek) 1 ea 02 XX Last administered on 10/19/18at 02:12; Admin Dose 1 EA; Start 10/19/18 at 02:00 Pantoprazole (Protonix Tab) 40 mg AC BREAKFAST PO Last administered on 10/19/18at 08:06; Admin Dose 40 MG; Start 10/19/18 at 07:25 Insulin Aspart (Novolog Insulin Pen) 10 unit WITH MEALS SC Last administered on 10/19/18at 17:21; Admin Dose 10 UNIT; Start 10/19/18 at 11:50 Insulin Glargine (Lantus) 30 units DAILY@2000 SC ; Start 10/19/18 at 20:00 EFRAIN CAR NP Oct 19, 2018 20:25
[2018-10-19] MEDS: ATORVASTATIN 80 MG TAB PO SCH (20:37)
[2018-10-19] MEDS: INSULIN GLARGINE [LANTus] (100 UNITS/ML) SYG SC SCH (21:00)
[2018-10-19] MEDS: traZODone 100 MG TAB PO SCH (22:44)
[2018-10-20] VITALS (11 sets, daily range): BP systolic 98–127; BP diastolic 52–63; PULSE 50–64; RESP 18–19
[2018-10-20] MEDS: HYDROmorphONE 0.5 MG/0.5 ML SYG IV PRN ×4 (00:15→18:35)
[2018-10-20] MEDS: ACCU-CHEK XX SCH (02:36)
[2018-10-20] MEDS: FUROSEMIDE 20 MG TAB PO SCH (06:30)
[2018-10-20] MEDS: PANTOPRAZOLE (EC) 40 MG TAB PO SCH (06:31)
[2018-10-20] MEDS: Insulin NOVOLOG SS MILD Algorithm (SS with meals and bedtime) SC SCH ×4 (07:25→20:52)
[2018-10-20] MEDS: DICYCLOMINE 10 MG CAP PO SCH (08:18)
[2018-10-20] MEDS: DICLOFENAC (EC) 75 MG TAB PO SCH ×2 (08:18→20:53)
[2018-10-20] MEDS: GABAPENTIN 300 MG CAP PO SCH ×3 (08:19→20:55)
[2018-10-20] MEDS: DULOXETINE 30 MG CAP DR PO SCH (08:19)
[2018-10-20] MEDS: LISINOPRIL 20 MG TAB PO SCH (08:19)
[2018-10-20] MEDS: INSULIN ASPART [NOVOLOG] 3 ML PEN SC SCH ×3 (08:23→17:51)
[2018-10-20] MEDS: ENOXAPARIN 40 MG/0.4 ML SYG SC SCH (08:27)
--- NOTE | 2018-10-20 12:45 | PN ---
Date/Time of Note Date/Time of Note DATE: 10/20/18 TIME: 12:42 Assessment/Plan VTE Prophylaxis Risk score (from Nsg)>0 risk: 4 SCD applied (from Nsg): Yes Pharmacological prophylaxis: LMWH Lines/Catheters IV Catheter Type (from Nrsg): Saline Lock Urinary Cath still in place: No Assessment/Plan Hospital Course Assessment/Plan 1. 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 Poorly controlled diabetes mellitus type 2-out of control -A1c at 10.2 -continue insulin regimen. Will adjust as needed 3. essential hypertension: - continue antihypertensives 4. depression: -Resume home meds 5. dyslipidemia: - Continue statin 6. Gastritis: - Continue PPI 7. Obesity - Lifestyle changes was advised DISPO.PLAN: continue PT. Awaiting f/u with case management for possible snf placement. transfer to med/surg Discussed plan of care with Dr. Alexis Result Diagram: 10/17/18 0708 10/19/18 0615 Results 24hrs Laboratory Tests Test 10/19/18 13:45 10/19/18 17:20 10/19/18 20:33 10/20/18 02:35 Bedside Glucose 279 H 222 H 264 H 130 Test 10/20/18 08:17 Bedside Glucose 137 Subjective 24 Hr Interval Summary Free Text/Dictation resting at present. no specific complaints Exam/Review of Systems Exam Vitals Vital Signs Date Temp Pulse Resp B/P (MAP) Pulse Ox O2 O2 Flow FiO2 Time Delivery Rate 10/20/18 98.2 59 18 111/52 96 11:13 (71) 10/19/18 Room Air 15:16 10/16/18 2.0 17:05 Intake and Output 10/19/18 10/19/18 10/20/18 1414:59 22:59 06:59 IntakeIntake Total 100 ml BalanceBalance 100 ml Exam Constitutional: alert, oriented Head: normocephalic Respiratory: clear to auscultation, normal air movement Cardiovascular: regular rate and rhythm Gastrointestinal: soft, non-tender Musculoskeletal: swelling (ble) Neurological: nl mental status, nl speech Results Results 24hrs Laboratory Tests Test 10/19/18 13:45 10/19/18 17:20 10/19/18 20:33 10/20/18 02:35 Bedside Glucose 279 H 222 H 264 H 130 Test 10/20/18 08:17 Bedside Glucose 137 Medications Medication Current Medications IV Flush (NS 3 ml) 3 ml PER PROTOCOL IV ; Start 10/16/18 at 21:00 Ondansetron HCl (Zofran Inj) 4 mg Q6H PRN IV NAUSEA/VOMITING; Start 10/16/18 at 21:00 Acetaminophen (Tylenol Tab) 650 mg Q6H PRN PO .PAIN 1-3 OR TEMP Last administered on 10/19/18at 02:17; Admin Dose 650 MG; Start 10/16/18 at 21:00 Docusate Sodium (Colace) 100 mg Q12H PRN PO .CONSTIPATION; Start 10/16/18 at 21:00 Bisacodyl (Dulcolax) 5 mg DAILY PRN PO .CONSTIPATION; Start 10/16/18 at 21:00 Hydromorphone HCl (Dilaudid) 0.5 mg Q6H PRN IV SEVERE PAIN LEVEL 7-10 Last administered on 10/20/18at 06:54; Admin Dose 0.5 MG; Start 10/16/18 at 23:00 Miscellaneous Information 1 ea NOTE XX ; Start 10/16/18 at 23:30 Glucose (Glutose) 15 gm Q15M PRN PO DECREASED GLUCOSE; Start 10/16/18 at 23:30 Glucose (Glutose) 22.5 gm Q15M PRN PO DECREASED GLUCOSE; Start 10/16/18 at 23:30 Dextrose (D50w Syringe) 25 ml Q15M PRN IV DECREASED GLUCOSE; Start 10/16/18 at 23:30 Dextrose (D50w Syringe) 50 ml Q15M PRN IV DECREASED GLUCOSE; Start 10/16/18 at 23:30 Glucagon (Glucagen) 1 mg Q15M PRN IM DECREASED GLUCOSE; Start 10/16/18 at 23:30 Glucose (Glutose) 15 gm Q15M PRN BUCCAL DECREASED GLUCOSE; Start 10/16/18 at 23:30 Atorvastatin Calcium (Lipitor) 80 mg QHS PO Last administered on 10/19/18at 20:37; Admin Dose 80 MG; Start 10/17/18 at 21:00 Dicyclomine HCl (Bentyl) 10 mg DAILY PO Last administered on 10/20/18 08:18; Admin Dose 10 MG; Start 10/17/18 at 09:00 Enoxaparin Sodium (Lovenox) 40 mg DAILY SC Last administered on 10/20/18 08:27; Admin Dose 40 MG; Start 10/17/18 at 09:00 Diclofenac Sodium (Voltaren) 75 mg BID PO Last administered on 10/20/18 08:18; Admin Dose 75 MG; Start 10/17/18 at 09:00 Lisinopril (Zestril) 20 mg DAILY PO Last administered on 10/19/18 08:07; Admin Dose 20 MG; Start 10/17/18 at 09:00 Insulin Aspart (Novolog Insulin Pen) (Adult SC Insulin - Mild Algorithm)... AC MEALS AND BEDTIME SC Last administered on 10/19/18 20:59; Admin Dose 3 UNIT; Start 10/17/18 at 17:25 Duloxetine HCl (Cymbalta) 30 mg DAILY PO Last administered on 10/20/18 08:19; Admin Dose 30 MG; Start 10/18/18 at 16:00 Furosemide (Lasix) 20 mg DAILY@0600 PO Last administered on 10/20/18 06:30; Admin Dose 20 MG; Start 10/19/18 at 06:00 Gabapentin (Neurontin) 600 mg TID PO Last administered on 10/20/18 08:19; Admin Dose 600 MG; Start 10/18/18 at 21:00 Trazodone HCl (Desyrel) 100 mg QHS PO Last administered on 10/19/18 22:44; Admin Dose 100 MG; Start 10/18/18 at 21:00 Diagnostic Test (Pha) (Accu-Chek) 1 ea 02 XX Last administered on 10/20/18 02:36; Admin Dose 1 EA; Start 10/19/18 at 02:00 Pantoprazole (Protonix Tab) 40 mg AC BREAKFAST PO Last administered on 10/20/18 06:31; Admin Dose 40 MG; Start 10/19/18 at 07:25 Insulin Aspart (Novolog Insulin Pen) 10 unit WITH MEALS SC Last administered on 10/20/18 08:23; Admin Dose 10 UNIT; Start 10/19/18 at 11:50 Insulin Glargine (Lantus) 30 units DAILY@2000 SC Last administered on 10/19/18at 21:00; Admin Dose 30 UNITS; Start 10/19/18 at 20:00 EFRAIN CAR NP Oct 20, 2018 12:45
[2018-10-20] MEDS: ACETAMINOPHEN 325 MG TAB PO PRN (20:55)
[2018-10-20] MEDS: traZODone 100 MG TAB PO SCH (20:55)
[2018-10-20] MEDS: ATORVASTATIN 80 MG TAB PO SCH (20:56)
[2018-10-20] MEDS: INSULIN GLARGINE [LANTus] (100 UNITS/ML) SYG SC SCH (20:56)
[2018-10-21] MEDS: HYDROmorphONE 0.5 MG/0.5 ML SYG IV PRN ×4 (00:47→18:54)
[2018-10-21] MEDS: ACCU-CHEK XX SCH (02:00)
[2018-10-21] MEDS: PANTOPRAZOLE (EC) 40 MG TAB PO SCH (06:44)
[2018-10-21] MEDS: FUROSEMIDE 20 MG TAB PO SCH (06:44)
[2018-10-21 07:22] VITALS: BP 127/60; PULSE 54; RESP 16
[2018-10-21] MEDS: INSULIN ASPART [NOVOLOG] 3 ML PEN SC SCH ×3 (08:01→17:13)
[2018-10-21] MEDS: Insulin NOVOLOG SS MILD Algorithm (SS with meals and bedtime) SC SCH ×4 (08:01→20:43)
[2018-10-21] MEDS: ENOXAPARIN 40 MG/0.4 ML SYG SC SCH (08:02)
[2018-10-21] MEDS: DICYCLOMINE 10 MG CAP PO SCH (08:02)
[2018-10-21] MEDS: DICLOFENAC (EC) 75 MG TAB PO SCH ×2 (08:02→20:39)
[2018-10-21] MEDS: DULOXETINE 30 MG CAP DR PO SCH (08:02)
[2018-10-21] MEDS: GABAPENTIN 300 MG CAP PO SCH ×3 (08:02→20:39)
[2018-10-21] MEDS: LISINOPRIL 20 MG TAB PO SCH (08:02)
[2018-10-21] MEDS ORDERED: NOVO3I SC ×2 (11:09)
[2018-10-21] MEDS ORDERED: Insulin Glargine SC (11:09)
--- NOTE | 2018-10-21 11:11 | PDOCDIS ---
Discharge Instructions DIAGNOSIS Discharge Diagnosis 1. Leg pain in the setting of chronic pain 2. Poorly controlled diabetes mellitus type 2-out of control -A1c at 10.2 3. essential hypertension: 4. depression: 5. dyslipidemia: 6. Gastritis: 7. Obesity CONDITION [id number] Patient Condition: [id number] Stable FOLLOW UP/APPOINTMENTS Follow-up Plan 1. Further care and management per [facility] EFRAIN CAR NP Oct 21, 2018 11:11
[2018-10-21 14:06] VITALS: BP 112/57; PULSE 72; RESP 16
--- NOTE | 2018-10-21 15:13 | PN ---
Date/Time of Note Date/Time of Note DATE: 10/21/18 TIME: 15:09 Assessment/Plan VTE Prophylaxis Risk score (from Nsg)>0 risk: 4 SCD applied (from Nsg): Yes Pharmacological prophylaxis: LMWH Lines/Catheters IV Catheter Type (from Nrsg): Saline Lock Urinary Cath still in place: No Assessment/Plan Hospital Course Assessment/Plan 1. 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 Poorly controlled diabetes mellitus type 2-out of control -A1c at 10.2 -continue insulin regimen. Will adjust as needed 3. essential hypertension: - continue antihypertensives 4. depression: -Resume home meds 5. dyslipidemia: - Continue statin 6. Gastritis: - Continue PPI 7. Obesity - Lifestyle changes was advised DISPO.PLAN: continue PT.analgesics prn. Patient planned for d/c today to snf however patient's insurance unable to cover. ongoing d/c planning with piano case maker for safe outpatient transition. will f/u Discussed plan of care with Dr. Chen Result Diagram: 10/21/18 0432 10/21/18 0432 Results 24hrs Laboratory Tests Test 10/20/18 17:17 10/20/18 20:43 10/21/18 04:32 10/21/18 07:57 Bedside Glucose 196 131 162 White Blood Count 8.0 # Red Blood Count 4.14 L Hemoglobin 11.6 L Hematocrit 35.7 L Mean Corpuscular Volume 86.2 Mean Corpuscular 28.0 L Hemoglobin Mean Corpuscular 32.5 Hemoglobin Concent Red Cell Distribution 12.0 Width Platelet Count 285 Mean Platelet Volume 9.5 Immature Granulocytes % 0.200 Neutrophils % 45.5 Lymphocytes % 41.7 Monocytes % 8.0 Eosinophils % 4.1 Basophils % 0.5 Nucleated Red Blood 0.0 Cells % Immature Granulocytes # 0.020 Neutrophils # 3.7 Lymphocytes # 3.4 H Monocytes # 0.6 Eosinophils # 0.3 Basophils # 0.0 Nucleated Red Blood 0.0 Cells # Sodium Level 140 Potassium Level 4.2 Chloride Level 107 Carbon Dioxide Level 27 Anion Gap 6 Blood Urea Nitrogen 30 H Creatinine 0.98 Est Glomerular Filtrat 57 L Rate mL/min Glucose Level 168 Calcium Level 10.1 Test 10/21/18 12:09 Bedside Glucose 265 H Subjective 24 Hr Interval Summary Free Text/Dictation still reports having some leg pain which is chronic. Exam/Review of Systems Exam Vitals Vital Signs Date Temp Pulse Resp B/P (MAP) Pulse Ox O2 O2 Flow FiO2 Time Delivery Rate 10/21/18 98.3 72 16 112/57 93 Room Air 14:06 (75) Intake and Output 10/20/18 10/20/18 10/21/18 1515:00 23:00 07:00 IntakeIntake Total 240 ml BalanceBalance 240 ml Exam Constitutional: alert, oriented Head: normocephalic Respiratory: clear to auscultation, normal air movement Cardiovascular: regular rate and rhythm Gastrointestinal: soft, non-tender Musculoskeletal: swelling (ble) Neurological: nl mental status, nl speech Results Results 24hrs Laboratory Tests Test 10/20/18 17:17 10/20/18 20:43 10/21/18 04:32 10/21/18 07:57 Bedside Glucose 196 131 162 White Blood Count 8.0 # Red Blood Count 4.14 L Hemoglobin 11.6 L Hematocrit 35.7 L Mean Corpuscular Volume 86.2 Mean Corpuscular 28.0 L Hemoglobin Mean Corpuscular 32.5 Hemoglobin Concent Red Cell Distribution 12.0 Width Platelet Count 285 Mean Platelet Volume 9.5 Immature Granulocytes % 0.200 Neutrophils % 45.5 Lymphocytes % 41.7 Monocytes % 8.0 Eosinophils % 4.1 Basophils % 0.5 Nucleated Red Blood 0.0 Cells % Immature Granulocytes # 0.020 Neutrophils # 3.7 Lymphocytes # 3.4 H Monocytes # 0.6 Eosinophils # 0.3 Basophils # 0.0 Nucleated Red Blood 0.0 Cells # Sodium Level 140 Potassium Level 4.2 Chloride Level 107 Carbon Dioxide Level 27 Anion Gap 6 Blood Urea Nitrogen 30 H Creatinine 0.98 Est Glomerular Filtrat 57 L Rate mL/min Glucose Level 168 Calcium Level 10.1 Test 10/21/18 12:09 Bedside Glucose 265 H Medications Medication Current Medications IV Flush (NS 3 ml) 3 ml PER PROTOCOL IV ; Start 10/16/18 at 21:00 Ondansetron HCl (Zofran Inj) 4 mg Q6H PRN IV NAUSEA/VOMITING; Start 10/16/18 at 21:00 Acetaminophen (Tylenol Tab) 650 mg Q6H PRN PO .PAIN 1-3 OR TEMP Last administered on 10/20/18at 20:55; Admin Dose 650 MG; Start 10/16/18 at 21:00 Docusate Sodium (Colace) 100 mg Q12H PRN PO .CONSTIPATION; Start 10/16/18 at 21:00 Bisacodyl (Dulcolax) 5 mg DAILY PRN PO .CONSTIPATION; Start 10/16/18 at 21:00 Hydromorphone HCl (Dilaudid) 0.5 mg Q6H PRN IV SEVERE PAIN LEVEL 7-10 Last administered on 10/21/18 12:54; Admin Dose 0.5 MG; Start 10/16/18 at 23:00 Miscellaneous Information 1 ea NOTE XX ; Start 10/16/18 at 23:30 Glucose (Glutose) 15 gm Q15M PRN PO DECREASED GLUCOSE; Start 10/16/18 at 23:30 Glucose (Glutose) 22.5 gm Q15M PRN PO DECREASED GLUCOSE; Start 10/16/18 at 23:30 Dextrose (D50w Syringe) 25 ml Q15M PRN IV DECREASED GLUCOSE; Start 10/16/18 at 23:30 Dextrose (D50w Syringe) 50 ml Q15M PRN IV DECREASED GLUCOSE; Start 10/16/18 at 23:30 Glucagon (Glucagen) 1 mg Q15M PRN IM DECREASED GLUCOSE; Start 10/16/18 at 23:30 Glucose (Glutose) 15 gm Q15M PRN BUCCAL DECREASED GLUCOSE; Start 10/16/18 at 23:30 Atorvastatin Calcium (Lipitor) 80 mg QHS PO Last administered on 10/20/18at 20:56; Admin Dose 80 MG; Start 10/17/18 at 21:00 Dicyclomine HCl (Bentyl) 10 mg DAILY PO Last administered on 10/21/18 08:02; Admin Dose 10 MG; Start 10/17/18 at 09:00 Enoxaparin Sodium (Lovenox) 40 mg DAILY SC Last administered on 10/21/18 08:02; Admin Dose 40 MG; Start 10/17/18 at 09:00 Diclofenac Sodium (Voltaren) 75 mg BID PO Last administered on 10/21/18 08:02; Admin Dose 75 MG; Start 10/17/18 at 09:00 Lisinopril (Zestril) 20 mg DAILY PO Last administered on 10/21/18 08:02; Admin Dose 20 MG; Start 10/17/18 at 09:00 Insulin Aspart (Novolog Insulin Pen) (Adult SC Insulin - Mild Algorithm)... AC MEALS AND BEDTIME SC Last administered on 10/21/18 12:14; Admin Dose 4 UNIT; Start 10/17/18 at 17:25 Duloxetine HCl (Cymbalta) 30 mg DAILY PO Last administered on 10/21/18 08:02; Admin Dose 30 MG; Start 10/18/18 at 16:00 Furosemide (Lasix) 20 mg DAILY@0600 PO Last administered on 10/21/18 06:44; Admin Dose 20 MG; Start 10/19/18 at 06:00 Gabapentin (Neurontin) 600 mg TID PO Last administered on 10/21/18 12:31; Admin Dose 600 MG; Start 10/18/18 at 21:00 Trazodone HCl (Desyrel) 100 mg QHS PO Last administered on 10/20/18 20:55; Admin Dose 100 MG; Start 10/18/18 at 21:00 Diagnostic Test (Pha) (Accu-Chek) 1 ea 02 XX Last administered on 10/20/18 02:36; Admin Dose 1 EA; Start 10/19/18 at 02:00 Pantoprazole (Protonix Tab) 40 mg AC BREAKFAST PO Last administered on 10/21/18 06:44; Admin Dose 40 MG; Start 10/19/18 at 07:25 Insulin Aspart (Novolog Insulin Pen) 10 unit WITH MEALS SC Last administered on 10/21/18 12:13; Admin Dose 10 UNIT; Start 10/19/18 at 11:50 Insulin Glargine (Lantus) 30 units DAILY@2000 SC Last administered on 10/20/18 20:56; Admin Dose 30 UNITS; Start 10/19/18 at 20:00 EFRAIN CAR NP Oct 21, 2018 15:13
[2018-10-21 19:37] VITALS: BP 103/58; PULSE 63; RESP 17
[2018-10-21] MEDS: ATORVASTATIN 80 MG TAB PO SCH (20:39)
[2018-10-21] MEDS: traZODone 100 MG TAB PO SCH (20:39)
[2018-10-21] MEDS: INSULIN GLARGINE [LANTus] (100 UNITS/ML) SYG SC SCH (20:42)
[2018-10-22] MEDS: HYDROmorphONE 0.5 MG/0.5 ML SYG IV PRN ×4 (01:03→20:11)
[2018-10-22] MEDS: ACCU-CHEK XX SCH (02:08)
[2018-10-22 02:27] VITALS: BP 111/55; PULSE 60; RESP 17
[2018-10-22] MEDS: ACETAMINOPHEN 325 MG TAB PO PRN (05:04)
[2018-10-22] MEDS: FUROSEMIDE 20 MG TAB PO SCH (06:05)
[2018-10-22] MEDS: PANTOPRAZOLE (EC) 40 MG TAB PO SCH (07:07)
[2018-10-22 07:21] VITALS: BP 99/59; PULSE 79; RESP 16
[2018-10-22] MEDS: INSULIN ASPART [NOVOLOG] 3 ML PEN SC SCH ×3 (07:55→17:14)
[2018-10-22] MEDS: Insulin NOVOLOG SS MILD Algorithm (SS with meals and bedtime) SC SCH ×4 (07:56→20:35)
[2018-10-22] MEDS: DICLOFENAC (EC) 75 MG TAB PO SCH ×2 (08:06→20:11)
[2018-10-22] MEDS: LISINOPRIL 20 MG TAB PO SCH (08:06)
[2018-10-22] MEDS: GABAPENTIN 300 MG CAP PO SCH ×3 (08:06→20:11)
[2018-10-22] MEDS: DULOXETINE 30 MG CAP DR PO SCH (08:06)
[2018-10-22] MEDS: DICYCLOMINE 10 MG CAP PO SCH (08:06)
[2018-10-22] MEDS: ENOXAPARIN 40 MG/0.4 ML SYG SC SCH (08:07)
[2018-10-22 14:06] VITALS: BP 108/52; PULSE 66; RESP 16
[2018-10-22 19:37] VITALS: BP 104/55; PULSE 62; RESP 16
[2018-10-22] MEDS: traZODone 100 MG TAB PO SCH (20:10)
[2018-10-22] MEDS: ATORVASTATIN 80 MG TAB PO SCH (20:11)
[2018-10-22] MEDS: INSULIN GLARGINE [LANTus] (100 UNITS/ML) SYG SC SCH (20:37)
--- NOTE | 2018-10-22 21:56 | PN ---
Date/Time of Note Date/Time of Note DATE: 10/22/18 Assessment/Plan VTE Prophylaxis Risk score (from Ns)>0 risk: 4 SCD applied (from Ns): No SCD contraindicated: low risk/ambulating Pharmacological prophylaxis: LMWH Lines/Catheters IV Catheter Type (from Nrs): Saline Lock Urinary Cath still in place: No Assessment/Plan Hospital Course Assessment/Plan 1. 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 Poorly controlled diabetes mellitus type 2-out of control -A1c at 10.2 -continue insulin regimen. Will adjust as needed 3. essential hypertension: - continue antihypertensives 4. depression: -Resume home meds 5. dyslipidemia: - Continue statin 6. Gastritis: - Continue PPI 7. Obesity - Lifestyle changes was advised DISPO.PLAN: Awaiting d/c set up for home with [facility] per case management. continue supportive care for now Discussed plan of care with Dr. Chen Result Diagram: 10/22/18 0533 10/22/18 0533 Results 24hrs Laboratory Tests Test 10/22/18 02:07 10/22/18 05:33 10/22/18 07:52 10/22/18 12:16 Bedside Glucose 181 166 195 White Blood Count 9.0 Red Blood Count 4.48 Hemoglobin 12.6 Hematocrit 38.9 Mean Corpuscular Volume 86.8 Mean Corpuscular 28.1 L Hemoglobin Mean Corpuscular 32.4 Hemoglobin Concent Red Cell Distribution 11.9 Width Platelet Count 274 Mean Platelet Volume 9.5 Immature Granulocytes % 0.200 Neutrophils % 50.0 Lymphocytes % 38.5 Monocytes % 6.9 Eosinophils % 3.7 Basophils % 0.7 Nucleated Red Blood 0.0 Cells % Immature Granulocytes # 0.020 Neutrophils # 4.5 Lymphocytes # 3.5 H Monocytes # 0.6 Eosinophils # 0.3 Basophils # 0.1 Nucleated Red Blood 0.0 Cells # Sodium Level 140 Potassium Level 4.2 Chloride Level 106 Carbon Dioxide Level 27 Anion Gap 7 Blood Urea Nitrogen 33 H Creatinine 0.99 Est Glomerular Filtrat 56 L Rate mL/min Glucose Level 158 Calcium Level 10.1 Test 10/22/18 17:08 10/22/18 20:34 Bedside Glucose 198 163 Subjective 24 Hr Interval Summary Free Text/Dictation no reports of leg pain during visit. no other specific complaints Exam/Review of Systems Exam Vitals Vital Signs Date Temp Pulse Resp B/P (MAP) Pulse Ox O2 O2 Flow FiO2 Time Delivery Rate 10/22/18 97.9 62 16 104/55 94 19:37 (71) 10/22/18 Room Air 14:06 Intake and Output 10/21/18 10/21/18 10/22/18 1515:00 23:00 07:00 IntakeIntake Total 800 ml 300 ml BalanceBalance 800 ml 300 ml Exam Constitutional: alert, oriented Head: normocephalic Respiratory: clear to auscultation, normal air movement Cardiovascular: regular rate and rhythm Gastrointestinal: soft, non-tender Musculoskeletal: swelling (ble) Neurological: nl mental status, nl speech Results Results 24hrs Laboratory Tests Test 10/22/18 02:07 10/22/18 05:33 10/22/18 07:52 10/22/18 12:16 Bedside Glucose 181 166 195 White Blood Count 9.0 Red Blood Count 4.48 Hemoglobin 12.6 Hematocrit 38.9 Mean Corpuscular Volume 86.8 Mean Corpuscular 28.1 L Hemoglobin Mean Corpuscular 32.4 Hemoglobin Concent Red Cell Distribution 11.9 Width Platelet Count 274 Mean Platelet Volume 9.5 Immature Granulocytes % 0.200 Neutrophils % 50.0 Lymphocytes % 38.5 Monocytes % 6.9 Eosinophils % 3.7 Basophils % 0.7 Nucleated Red Blood 0.0 Cells % Immature Granulocytes # 0.020 Neutrophils # 4.5 Lymphocytes # 3.5 H Monocytes # 0.6 Eosinophils # 0.3 Basophils # 0.1 Nucleated Red Blood 0.0 Cells # Sodium Level 140 Potassium Level 4.2 Chloride Level 106 Carbon Dioxide Level 27 Anion Gap 7 Blood Urea Nitrogen 33 H Creatinine 0.99 Est Glomerular Filtrat 56 L Rate mL/min Glucose Level 158 Calcium Level 10.1 Test 10/22/18 17:08 10/22/18 20:34 Bedside Glucose 198 163 Medications Medication Current Medications IV Flush (NS 3 ml) 3 ml PER PROTOCOL IV ; Start 10/16/18 at 21:00 Ondansetron HCl (Zofran Inj) 4 mg Q6H PRN IV NAUSEA/VOMITING; Start 10/16/18 at 21:00 Acetaminophen (Tylenol Tab) 650 mg Q6H PRN PO .PAIN 1-3 OR TEMP Last administered on 10/22/18at 05:04; Admin Dose 650 MG; Start 10/16/18 at 21:00 Docusate Sodium (Colace) 100 mg Q12H PRN PO .CONSTIPATION; Start 10/16/18 at 21:00 Bisacodyl (Dulcolax) 5 mg DAILY PRN PO .CONSTIPATION; Start 10/16/18 at 21:00 Hydromorphone HCl (Dilaudid) 0.5 mg Q6H PRN IV SEVERE PAIN LEVEL 7-10 Last administered on 10/22/18 20:11; Admin Dose 0.5 MG; Start 10/16/18 at 23:00 Miscellaneous Information 1 ea NOTE XX ; Start 10/16/18 at 23:30 Glucose (Glutose) 15 gm Q15M PRN PO DECREASED GLUCOSE; Start 10/16/18 at 23:30 Glucose (Glutose) 22.5 gm Q15M PRN PO DECREASED GLUCOSE; Start 10/16/18 at 23:30 Dextrose (D50w Syringe) 25 ml Q15M PRN IV DECREASED GLUCOSE; Start 10/16/18 at 23:30 Dextrose (D50w Syringe) 50 ml Q15M PRN IV DECREASED GLUCOSE; Start 10/16/18 at 23:30 Glucagon (Glucagen) 1 mg Q15M PRN IM DECREASED GLUCOSE; Start 10/16/18 at 23:30 Glucose (Glutose) 15 gm Q15M PRN BUCCAL DECREASED GLUCOSE; Start 10/16/18 at 23:30 Atorvastatin Calcium (Lipitor) 80 mg QHS PO Last administered on 10/22/18at 20:11; Admin Dose 80 MG; Start 10/17/18 at 21:00 Dicyclomine HCl (Bentyl) 10 mg DAILY PO Last administered on 10/22/18at 08:06; Admin Dose 10 MG; Start 10/17/18 at 09:00 Enoxaparin Sodium (Lovenox) 40 mg DAILY SC Last administered on 10/22/18 08:07; Admin Dose 40 MG; Start 10/17/18 at 09:00 Diclofenac Sodium (Voltaren) 75 mg BID PO Last administered on 10/22/18 20:11; Admin Dose 75 MG; Start 10/17/18 at 09:00 Lisinopril (Zestril) 20 mg DAILY PO Last administered on 10/22/18 08:06; Admin Dose 20 MG; Start 10/17/18 at 09:00 Insulin Aspart (Novolog Insulin Pen) (Adult SC Insulin - Mild Algorithm)... AC MEALS AND BEDTIME SC Last administered on 10/22/18 17:15; Admin Dose 2 UNIT; Start 10/17/18 at 17:25 Duloxetine HCl (Cymbalta) 30 mg DAILY PO Last administered on 10/22/18 08:06; Admin Dose 30 MG; Start 10/18/18 at 16:00 Furosemide (Lasix) 20 mg DAILY@0600 PO Last administered on 10/22/18 06:05; Admin Dose 20 MG; Start 10/19/18 at 06:00 Gabapentin (Neurontin) 600 mg TID PO Last administered on 10/22/18 20:11; Admin Dose 600 MG; Start 10/18/18 at 21:00 Trazodone HCl (Desyrel) 100 mg QHS PO Last administered on 10/22/18 20:10; Admin Dose 100 MG; Start 10/18/18 at 21:00 Diagnostic Test (Pha) (Accu-Chek) 1 ea 02 XX Last administered on 10/22/18 02:08; Admin Dose 1 EA; Start 10/19/18 at 02:00 Pantoprazole (Protonix Tab) 40 mg AC BREAKFAST PO Last administered on 10/22/18 07:07; Admin Dose 40 MG; Start 10/19/18 at 07:25 Insulin Aspart (Novolog Insulin Pen) 10 unit WITH MEALS SC Last administered on 10/22/18 17:14; Admin Dose 10 UNIT; Start 10/19/18 at 11:50 Insulin Glargine (Lantus) 30 units DAILY@2000 SC Last administered on 10/22/18 20:37; Admin Dose 30 UNITS; Start 10/19/18 at 20:00 EFRAIN CAR NP Oct 22, 2018 21:56
[2018-10-23] MEDS: ACCU-CHEK XX SCH (01:05)
[2018-10-23 02:03] VITALS: BP 104/56; PULSE 60; RESP 16
[2018-10-23] MEDS: HYDROmorphONE 0.5 MG/0.5 ML SYG IV PRN ×3 (02:11→13:59)
[2018-10-23] MEDS: PANTOPRAZOLE (EC) 40 MG TAB PO SCH (06:43)
[2018-10-23] MEDS: FUROSEMIDE 20 MG TAB PO SCH (06:46)
[2018-10-23 08:00] VITALS: BP 135/77; PULSE 89; RESP 18
[2018-10-23] MEDS: DULOXETINE 30 MG CAP DR PO SCH (08:15)
[2018-10-23] MEDS: DICLOFENAC (EC) 75 MG TAB PO SCH (08:15)
[2018-10-23] MEDS: GABAPENTIN 300 MG CAP PO SCH ×2 (08:15→11:55)
[2018-10-23] MEDS: ENOXAPARIN 40 MG/0.4 ML SYG SC SCH (08:17)
[2018-10-23] MEDS: Insulin NOVOLOG SS MILD Algorithm (SS with meals and bedtime) SC SCH ×2 (08:18→12:19)
[2018-10-23] MEDS: INSULIN ASPART [NOVOLOG] 3 ML PEN SC SCH ×2 (08:18→12:19)
[2018-10-23] MEDS: LISINOPRIL 20 MG TAB PO SCH (08:19)
[2018-10-23] MEDS: DICYCLOMINE 10 MG CAP PO SCH (08:33)
[2018-10-23] MEDS: ACETAMINOPHEN 325 MG TAB PO PRN (11:50)
[2018-10-23 14:00] VITALS: BP 128/72; PULSE 76; RESP 20
--- NOTE | 2018-10-23 20:17 | DS ---
Date/Time of Note Date/Time of Note DATE: 10/23/18 TIME: 20:11 Discharge Summary Admission/Discharge Info Admit Date/Time October 18, 2018 at 16:28 Discharge Date/Time Oct 23, 2018 at 16:55 Discharge Diagnosis 1. Leg pain in the setting of chronic pain 2. Poorly controlled diabetes mellitus type 2-out of control -A1c at 10.2 3. essential hypertension: 4. depression: 5. dyslipidemia: 6. Gastritis: 7. Obesity Patient Condition: Stable Consults 1. Dr. Strong [place] Hospital Course This is a 68-year-old female who came to the hospital due to reports of confusion one night prior to admission. Patient has been complaining of bilateral lower extremity pain which is chronic. She reportedly stated it was worse. She does have a history of chronic pain and takes multiple medications for this. Patient was seen by pain management physician who did optimize her with her medications. She does have a history of multiple hospitalizations for chest pain abdominal pain thought to be secondary to fibromyalgia. Patient was advised to follow-up with housekeeping supervisor for formal diagnosis of fibromyalgia treatment as outpatient. We did optimize her with pain medications in the hospital however. She was also provided with physical therapy. She was otherwise optimized medically. She was with poorly controlled diabetes with A1c of 10.2. We did optimize her with insulin. We also resumed on antihypertensives for her high blood pressure. She was resumed on statin hyperlipidemia and PPI for her history of GERD. She was obese and advised for weight reduction. During the course of stay he did improve. There was plan initially for discharge to [facility] but due to insurance issues, patient and family declined due to cost. He was then plan for patient to go home with primary doctor and with her family. Plan of care was discussed with patient. On the day of discharge patient was in stable condition Discussed care with Dr. Chen [facility] Active Scripts Insulin Aspart* (Novolog Insulin Pen*) 100 Unit/Ml Soln, 10 UNIT SC WITH MEALS for 30 Days Prov:EFRAIN CAR ANGLE SHEARER 10/21/18 Insulin Aspart* (Novolog Insulin Pen*) 100 Unit/Ml Soln, 0 UNIT SC AC MEALS AND BEDTIME for 30 Days Prov:EFRAIN CAR NP 10/21/18 [Insulin Glargine] 100 UNITS/ML SOLN No Conflict Check, 30 UNITS SC DAILY@1999 for 30 Days Prov:EFRAIN CAR ANGLE SHEARER 10/21/18 Duloxetine Hcl* (Cymbalta*) 30 Mg Capsule.dr, 30 MG PO DAILY, #60 TAB Prov:SHIVANI SHAY 08/29/18 Reported Medications Furosemide* (Furosemide*) 20 Mg Tablet, 20 MG PO DAILY, #60 TAB 10/16/18 Dicyclomine HCl (Dicyclomine HCl) 10 Mg Capsule, 10 MG PO DAILY 10/16/18 Nitroglycerin* (Nitroglycerin* SL) 0.4 Mg Tab.subl, 0.4 MG SL Q5MIN PRN for CHEST PAIN, BOTTLE 10/16/18 Diclofenac Sodium* (Diclofenac Sodium*) 75 Mg Tablet.dr, 75 MG PO BID, #60 TAB 10/16/18 Paroxetine Hcl* (Paxil*) 20 Mg Tablet, 20 MG PO HS, TAB 10/16/18 Gabapentin* (Gabapentin*) 600 Mg Tablet, 600 MG PO TID, #90 TAB 10/16/18 Trazodone Hcl* (Desyrel*) 100 Mg Tab, 100 MG PO QHS, #30 TAB 08/17/18 Lisinopril* (Lisinopril*) 20 Mg Tablet, 20 MG PO DAILY, #30 TAB 08/17/18 Atorvastatin* (Atorvastatin*) 80 Mg Tablet, 80 MG PO QHS, #30 TAB 08/17/18 Pantoprazole* (Pantoprazole*) 40 Mg Tablet.dr, 40 MG PO AC BREAKFAST, TAB 08/17/18 Discontinued Reported Medications Insulin Glargine,Hum.rec.anlog (Kyrieagljuan Porter U-100) 100 Unit/1 Ml Insuln.pen, 0 SC QHS, EA INJECT 35-70 UNITS 10/16/18 Linagliptin (TRADJENTA) 5 Mg Tablet, 5 MG PO DAILY, TAB 10/16/18 Potassium Chloride* (K-Dur*) 10 Meq Tab.prt.sr, 10 MEQ PO DAILY, TAB 10/16/18 Glimepiride* (Glimepiride*) 4 Mg Tablet, 4 MG PO WITH BREAKFAST, TAB 10/16/18 Sitagliptin* (Januvia*) 100 Mg Tablet, 100 MG PO DAILY, #30 TAB 08/17/18 Glipizide* (Glipizide*) 5 Mg Tablet, 5 MG PO AC BREAKFAST DINNER, TAB 08/17/18 Glimepiride* (Glimepiride*) 2 Mg Tablet, 2 MG PO WITH BREAKFAST DINNE, TAB 08/17/18 Gabapentin* (Gabapentin*) 300 Mg Capsule, 300 MG PO NEEDED, #60 CAP 08/17/18 Discontinued Scripts Tramadol HCl (Tramadol HCl) 50 Mg Tablet, 50 MG PO Q6H PRN for MODERATE PAIN LEVEL 4-6, #30 TAB Prov:SHIVANI SHAY 08/30/18 Follow-up Plan 1. Further care and management per [facility] Primary Care Provider Not On Staff Doctor Time spent on discharge: > 30 minutes Pending Labs Laboratory Tests Test 10/22/18 20:34 10/23/18 08:13 10/23/18 09:26 10/23/18 12:14 Bedside 163 166 223 Glucose mg/dL (70-220) mg/dL (70-220) mg/dL (70-220) White Blood 6.8 Count 10^3/ul (4.8-1 0.8) Red Blood 4.27 Count 10^6/ul (4.20- 5.40) Hemoglobin 12.1 g/dl (12.0-16. 0) Hematocrit 37.0 % (37.0-47.0) Mean 86.7 Corpuscular fl (82.0-101.0 Volume ) Mean 28.3 Corpuscular pg (29.0-33.0) Hemoglobin Mean 32.7 Corpuscular g/dl (32.0-37. Hemoglobin Conc 0) ent Red Cell 12.0 Distribution % (11.5-14.5) Width Platelet Count 292 10^3/UL (140-4 15) Mean Platelet 9.6 Volume fl (7.4-10.4) Immature 0.100 Granulocytes % % (0.001-0.429 ) Neutrophils % 51.9 % (39.0-77.0) Lymphocytes % 34.8 % (15.0-51.0) Monocytes % 7.8 % (0.0-11.0) Eosinophils % 5.0 % (0.0-7.0) Basophils % 0.4 % (0.0-2.0) Nucleated Red 0.0 Blood Cells % /100WBC (0.0-0 .0) Immature 0.010 Granulocytes # 10^3/ul (0.0-0 .031) Neutrophils # 3.5 10^3/ul (1.6-7 .5) Lymphocytes # 2.4 10^3/ul (0.8-2 .9) Monocytes # 0.5 10^3/ul (0.3-0 .9) Eosinophils # 0.3 10^3/ul (0.0-0 .5) Basophils # 0.0 10^3/ul (0.0-0 .1) Nucleated Red 0.0 Blood Cells # 10^3/ul (0.0-0 .0) Sodium Level 138 mmol/L (135-14 4) Potassium 3.8 Level mmol/L (3.5-5. 1) Chloride Level 106 mmol/L (97-110 ) Carbon Dioxide 24 Level mmol/L (21-31) Anion Gap 8 (5-13) Blood Urea 35 Nitrogen mg/dl (7-20) Creatinine 1.03 mg/dl (0.44-1. 00) Est Glomerular 53 Filtrat mL/min (>60) Rate mL/min Glucose Level 195 mg/dl (70-220) Calcium Level 10.1 mg/dl (8.4-10. 2) EFRAIN CAR NP Oct 23, 2018 20:17
== END 2018-10-23 16:55 | disposition home or self-care (01) | DRG 92 ==
LOC: E/R 14:24 → SUATTDRO 17:51 → TEL 19:24 → OBSVTOIN 10-18 16:28 → PP2 10-20 16:42
PROVIDERS: ADMIT Internal Medicine; ATTEND Internal Medicine
DX: G89.29 Other chronic pain (principal); G93.40 Encephalopathy, unspecified; M79.7 Fibromyalgia; E11.65 Type 2 diabetes mellitus with hyperglycemia; I10 Essential (primary) hypertension; F32.9 Major depressive disorder, single episode, unspecified; K29.70 Gastritis, unspecified, without bleeding; E66.9 Obesity, unspecified; Z68.32 Body mass index [BMI] 32.0-32.9, adult; K21.9 Gastro-esophageal reflux disease without esophagitis; E78.5 Hyperlipidemia, unspecified; E11.40 Type 2 diabetes mellitus with diabetic neuropathy, unspecified; M79.605 Pain in left leg; M79.604 Pain in right leg
CPT/HCPCS: 70450; 70551; 71045; 73700; 80048; 80053; 80307; 81001; 81003; 82962; 83036; 83735; 84100; 84436; 84479; 84484; 85025; 92526; 92610; 93005; 93970; 96372; 96374; 96375; 97110; 97116; 97162; 97530; G0378; J1170; J1650; J1815; J2405; J3475; J7030

== ENCOUNTER 2018-10-30 10:51 | Emergency (ER) | payer OTHER ==
[~2018-10-30] VITALS: Ht 160 cm; Wt 88.7 kg
[~2018-10-30 10:51] MED LIST changes: +DICL75TA2 PO; +DICY10CA40 PO; +FURO20TA3 PO; +GABA-526 PO; -GABA300C16 PO; -GLIM2TAB PO; -GLIP5TAB13 PO; +Insulin Glargine SC; +NITR0.4T32 SL; +NOVO3I SC; +PARO-2 PO; -SITA100T11 PO; -TRAM50TA2 PO
[2018-10-30 11:07] VITALS: BP 170/81; PULSE 81; RESP 19; Ht 160 cm; Wt 88.7 kg
[2018-10-30] MEDS ORDERED: HYDROCODONE/APAP (5/325) TAB PO ONE (12:00)
--- NOTE | 2018-10-30 13:04 | ERD ---
ER Documentation Chief Complaint Chief Complaint Lt leg pain x 3 days HPI Patient is a 68-year-old female, with past medical history of cholecystectomy, appendectomy, hysterectomy, hernia repair, CHF, hypertension, hyperlipidemia, depression, DM type II fibromyalgia who presents to the ER for concerns of bilateral leg pain x3 days. Patient states the pain is in her bilateral thighs. Patient states she does take [place] for her ongoing pain however her daughter took her Foot[place] away from her because she feels like she has been taking it too much. Patient states her current pain is 10 out of 10. Patient states her daughter dropped her off here at the ER. Patient denies any falls or trauma. Patient denies any fevers or chills. Patient denies any chest pain, shortness of breath, nausea, vomiting or abdominal pain. Patient denies any ascending weakness or unilateral weakness. Patient states she is taking her DM medications and reports compliance. ROS All systems reviewed and are negative except as per history of present illness. Medications Home Meds Active Scripts Insulin Aspart* (Novolog Insulin Pen*) 100 Unit/Ml Soln, 10 UNIT SC WITH MEALS for 30 Days Prov:EFRAIN CAR FITNESS AND WELLNESS COORDINATOR 10/21/18 Insulin Aspart* (Novolog Insulin Pen*) 100 Unit/Ml Soln, 0 UNIT SC AC MEALS AND BEDTIME for 30 Days Prov:EFRAIN CAR NP 10/21/18 [Insulin Glargine] 100 UNITS/ML SOLN No Conflict Check, 30 UNITS SC DAILY@2000 for 30 Days Prov:EFRAIN CAR NP 10/21/18 Duloxetine Hcl* (Cymbalta*) 30 Mg Capsule.dr, 30 MG PO DAILY, #60 TAB Prov:SHIVANI SHAY 08/29/18 Reported Medications Furosemide* (Furosemide*) 20 Mg Tablet, 20 MG PO DAILY, #60 TAB 10/16/18 Dicyclomine HCl (Dicyclomine HCl) 10 Mg Capsule, 10 MG PO DAILY 10/16/18 Nitroglycerin* (Nitroglycerin* SL) 0.4 Mg Tab.subl, 0.4 MG SL Q5MIN PRN for CHEST PAIN, BOTTLE 10/16/18 Diclofenac Sodium* (Diclofenac Sodium*) 75 Mg Tablet.dr, 75 MG PO BID, #60 TAB 10/16/18 Paroxetine Hcl* (Paxil*) 20 Mg Tablet, 20 MG PO HS, TAB 10/16/18 Gabapentin* (Gabapentin*) 600 Mg Tablet, 600 MG PO TID, #90 TAB 10/16/18 Trazodone Hcl* (Desyrel*) 100 Mg Tab, 100 MG PO QHS, #30 TAB 08/17/18 Lisinopril* (Lisinopril*) 20 Mg Tablet, 20 MG PO DAILY, #30 TAB 08/17/18 Atorvastatin* (Atorvastatin*) 80 Mg Tablet, 80 MG PO QHS, #30 TAB 08/17/18 Pantoprazole* (Pantoprazole*) 40 Mg Tablet.dr, 40 MG PO AC BREAKFAST, TAB 08/17/18 Allergies Allergies: Coded Allergies: ibuprofen (Unverified Allergy, Unknown, rash, 10/30/18) morphine (Unverified Allergy, Unknown, ITCHING, 10/30/18) PMhx/Soc History of Surgery: Yes (cholecystectomy, appendectomy, hysterectomy, hernia repair) Anesthesia Reaction: No Hx Neurological Disorder: No Hx Respiratory Disorders: Yes (CHF) Hx Cardiac Disorders: Yes (HTN, hyperlipidemia) Hx Psychiatric Problems: Yes (Depression, anxiety ) Hx Miscellaneous Medical Probl: No Hx Alcohol Use: No Hx Substance Use: No Hx Tobacco Use: No FmHx Family History: No diabetes Physical Exam Vitals Vital Signs Date Temp Pulse Resp B/P (MAP) Pulse Ox O2 O2 Flow FiO2 Time Delivery Rate 10/30/18 98.7 81 19 170/81 96 11:07 (110) Physical Exam GENERAL: Well-developed, well-nourished male. Appears in no acute distress. HEAD: Normocephalic, atraumatic. EYES: Pupils are equally reactive bilaterally. EOMs grossly intact. No conjunctival erythema. ENT: Moist mucous membranes. No uvula deviation. No kissing tonsils. NECK: Supple. No meningismus. Normal range of motion of the neck. LUNG: Clear to auscultation bilaterally. No rhonchi, wheezing, rales or coarse breath sounds. HEART: Regular rate and rhythm. No murmurs, rubs or gallops. EXTREMITIES: Equal pulses bilaterally. No peripheral clubbing, cyanosis or edema. No unilateral leg swelling. Bilateral upper thighs are tender to palpation. Pain is reproducible. NEUROLOGIC: Alert and oriented. Moving all four extremities without any difficulty. Normal speech. SKIN: Normal color. Warm and dry. No rashes or lesions. Results 24 hrs Current Medications Medications Dose Sig/Irma Start Time Status Last (Trade) Ordered Route PRN Stop Time Admin Dose Reason Admin 1 tab ONCE ONCE 10/30/18 DC 10/30/18 Acetaminophen PO 12:00 12:08 / 10/30/18 12:01 Hydrocodone Bitart ([place] (5/325)) Procedures/MDM MEDICAL DECISION MAKING: Patient is a 68-year-old female, with past medical history of cholecystectomy, appendectomy, hysterectomy, hernia repair, CHF, hypertension, hyperlipidemia, depression, DM type II fibromyalgia who presents to the ER for concerns of bilateral upper leg pain x3 days. Vital signs were reviewed. Patient is afebrile. Patient was not hypoxic. Patient was hemodynamically stable. Patient denied any falls or trauma. No indication for emergent x-ray imaging at this time. Review of the patient's LAURE report shows that patient has been seen here for similar symptoms in the past. Patient received 90 tablets of [place] on 10-15-18. Patient was advised that she should follow-up with a shipyard painting supervisor for further management of her ongoing pain. Referral information was provided. Patient was given single dose of [place] here. Advised she will need to follow-up with her primary care physician and/or shipyard painting supervisor for any additional pain medication refills. ABBIE Matamoros stated that she did speak to the patient's daughter to come pick her up. DISCHARGE: At this time, patient is stable for discharge and outpatient management. I have instructed the patient to follow-up with his/her primary care physician in 1-2 days. I have discussed with the patient the possibility of needing to see a specialist for further workup and imaging studies if symptoms persist. I have instructed the patient to promptly return to the ER for any new or worsening symptoms including increased pain, fever, nausea, vomiting, weakness or LOC. The patient and/or family expressed understanding of and agreement with this plan. All questions were answered. Home care instructions were provided. Patients blood pressure was elevated (>120/80) but appears stable without evidence of hypertensive emergency, hypertensive urgency or end-organ failure. I had discussion with the patient about the risks of hypertension. I have advised the patient to follow up with his/her primary care physician for outpatient monitoring and treatment for hypertension in 2-3 days. I have instructed the patient to return to the ER for any new or worsening symptoms including chest pain, shortness of breath, headache, blurred vision, confusion, nausea, vomiting or LOC. Disclaimer: Inadvertent spelling and grammatical errors are likely due to EHR/d ictation software use and do not reflect on the overall quality of patient care. Also, please note that the electronic time recorded on this note does not necessarily reflect the actual time of the patient encounter. Departure Diagnosis: Primary Impression: Bilateral thigh pain Condition: Fair Patient Instructions: Possible Causes of Low Back or Leg Pain Referrals: JACKI ANDERSON MD, ANTHONY Jr., TI KOROMA MD [facility] YOU HAVE RECEIVED A MEDICAL SCREENING EXAM AND THE RESULTS INDICATE THAT YOU DO NOT HAVE A CONDITION THAT REQUIRES URGENT TREATMENT IN THE EMERGENCY DEPARTMENT. FURTHER EVALUATION AND TREATMENT OF YOUR CONDITION CAN WAIT UNTIL YOU ARE SEEN IN YOUR DOCTORS OFFICE WITHIN THE NEXT 1-2 DAYS. IT IS YOUR RESPONSIBILITY TO MAKE AN APPOINTMENT FOR FOLOW-UP CARE. IF YOU HAVE A PRIMARY DOCTOR --you should call your primary doctor and schedule an appointment IF YOU DO NOT HAVE A PRIMARY DOCTOR YOU CAN CALL OUR PHYSICIAN REFERRAL HOTLINE AT IF YOU CAN NOT AFFORD TO SEE A PHYSICIAN YOU CAN CHOSE FROM THE FOLLOWING [facility] [address] [facility]. [facility] [address] [facility] [facility] [address] [facility] [address] [facility] [facility] [address] [facility]. [facility]. [address] [facility]. [facility] YOU HAVE RECEIVED A MEDICAL SCREENING EXAM AND THE RESULTS INDICATE THAT YOU DO NOT HAVE A CONDITION THAT REQUIRES URGENT TREATMENT IN THE EMERGENCY DEPARTMENT. FURTHER EVALUATION AND TREATMENT OF YOUR CONDITION CAN WAIT UNTIL YOU ARE SEEN IN YOUR DOCTORS OFFICE WITHIN THE NEXT 1-2 DAYS. IT IS YOUR RESPONSIBILITY TO MA KE AN APPOINTMENT FOR FOLOW-UP CARE. IF YOU HAVE A PRIMARY DOCTOR --you should call your primary doctor and schedule and appointment IF YOU DO NOT HAVE A PRIMARY DOCTOR YOU CAN CALL OUR PHYSICIAN REFERRAL HOTLINE AT . IF YOU CAN NOT AFFORD TO SEE A PHYSICIAN YOU CAN CHOSE FROM THE FOLLOWING OUR [facility] INSTITUTIONS: [facility] [address] [place] [address] [facility] [address] [place] [address] [facility] [address] [place] [address] Additional Instructions: Llame al doctor para dolor MAANA y shoaib farzaneh YE PARA DENTRO DE 1-2 KAUR.Dgale a la secretaria que nosotros le instruimos hacer esta ye.Avise o llame si mcclellan condicin se empeora antes de la ye. Regresa aqui si peor o no mejor. ASTER DUNBAR PA-C Oct 30, 2018 13:04
== END 2018-10-30 13:10 | disposition home or self-care (01) ==
LOC: FTE 10:51
DX: M79.652 Pain in left thigh (principal); M79.651 Pain in right thigh; I11.0 Hypertensive heart disease with heart failure; I50.9 Heart failure, unspecified; Z79.4 Long term (current) use of insulin
CPT/HCPCS: 99283

== ENCOUNTER 2018-11-05 13:55 | Emergency (ER) | payer OTHER ==
[~2018-11-05] VITALS: Ht 162.6 cm; Wt 87.3 kg
[2018-11-05 13:59] VITALS: Ht 162.6 cm; Wt 87.3 kg
--- NOTE | 2018-11-05 15:15 | ERD ---
ER Documentation Chief Complaint Chief Complaint chest pain , b/l leg pain x 2 days HPI 68-year-old female with a history of chronic pain presenting with chronic bilateral lower extremity pain as well as new onset left shoulder pain without any preceding trauma. She states that her home [place] is not working. She denies any associated chest pain. Her left shoulder pain is worse with movement of her left arm. Pain in her legs is worse with walking. She is requesting pain medications. No fevers, chills, shortness of breath, numbness or tingling in extremities. ROS All systems reviewed and are negative except as per history of present illness. Medications Home Meds Active Scripts Duloxetine Hcl* (Cymbalta*) 30 Mg Capsule., 30 MG PO DAILY, #60 TAB Prov:PILY SHAYKenny 08/29/18 Reported Medications Insulin Glargine,Hum.rec.anlog (Basaglar Kwikpen U-100) 100 Unit/1 Ml Insuln.pen, 71 UNIT SC DAILY, EA 11/05/18 Potassium Chloride* (K-Dur*) 10 Meq Tab.prt.sr, 10 MEQ PO DAILY, TAB 11/05/18 Linagliptin (TRADJENTA) 5 Mg Tablet, 5 MG PO DAILY, TAB 11/05/18 Meloxicam* (Mobic*) 15 Mg Tablet, 15 MG PO DAILY, #30 TAB 11/05/18 Furosemide* (Furosemide*) 20 Mg Tablet, 20 MG PO DAILY, #60 TAB 10/16/18 Dicyclomine HCl (Dicyclomine HCl) 10 Mg Capsule, 10 MG PO DAILY 10/16/18 Nitroglycerin* (Nitroglycerin* SL) 0.4 Mg Tab.subl, 0.4 MG SL Q5MIN PRN for CHEST PAIN, BOTTLE 10/16/18 Trazodone Hcl* (Desyrel*) 100 Mg Tab, 100 MG PO QHS, #30 TAB 08/17/18 Lisinopril* (Lisinopril*) 20 Mg Tablet, 20 MG PO DAILY, #30 TAB 08/17/18 Atorvastatin* (Atorvastatin*) 80 Mg Tablet, 80 MG PO QHS, #30 TAB 08/17/18 Pantoprazole* (Pantoprazole*) 40 Mg Tablet.dr, 40 MG PO AC BREAKFAST, TAB 08/17/18 Discontinued Reported Medications Diclofenac Sodium* (Diclofenac Sodium*) 75 Mg Tablet.dr, 75 MG PO BID, #60 TAB 10/16/18 Paroxetine Hcl* (Paxil*) 20 Mg Tablet, 20 MG PO HS, TAB 10/16/18 Gabapentin* (Gabapentin*) 600 Mg Tablet, 600 MG PO TID, #90 TAB 10/16/18 Discontinued Scripts Insulin Aspart* (Novolog Insulin Pen*) 100 Unit/Ml Soln, 10 UNIT SC WITH MEALS for 30 Days Prov:EFRAIN CAR NP 10/21/18 Insulin Aspart* (Novolog Insulin Pen*) 100 Unit/Ml Soln, 0 UNIT SC AC MEALS AND BEDTIME for 30 Days Prov:EFRAIN CAR NP 10/21/18 [Insulin Glargine] 100 UNITS/ML SOLN No Conflict Check, 30 UNITS SC DAILY@1999 for 30 Days Prov:EFRAIN CAR NP 10/21/18 Allergies Allergies: Coded Allergies: ibuprofen (Unverified Allergy, Unknown, rash, 11/05/18) morphine (Unverified Allergy, Unknown, ITCHING, 11/05/18) PMhx/Soc History of Surgery: Yes (cholecystectomy, appendectomy, hysterectomy, hernia repair) Anesthesia Reaction: No Hx Neurological Disorder: No Hx Respiratory Disorders: Yes (CHF) Hx Cardiac Disorders: Yes (HTN, hyperlipidemia) Hx Psychiatric Problems: Yes (Depression, anxiety ) Hx Miscellaneous Medical Probl: No Hx Alcohol Use: No Hx Substance Use: No Hx Tobacco Use: No FmHx Family History: No diabetes Physical Exam Vitals Vital Signs Date Temp Pulse Resp B/P (MAP) Pulse Ox O2 O2 Flow FiO2 Time Delivery Rate 11/05/18 79 18 146/77 98 Room Air 18:03 (100) 11/05/18 98.0 99 18 159/82 98 13:59 (107) Physical Exam Const: No acute distress Head: Atraumatic Eyes: Normal Conjunctiva ENT: Normal External Ears, Nose and Mouth. Neck: Full range of motion. No meningismus. Resp: Clear to auscultation bilaterally Cardio: Regular rate and rhythm, no murmurs. 2+ radial pulses, DP pulses bilaterally Abd: Soft, non tender, non distended. Normal bowel sounds Skin: No petechiae or rashes Back: No midline or flank tenderness Ext: No cyanosis, or edema. Bilateral lower extremities tender to palpation. No cords. Negative Homans sign. No joint swelling noted. Limited range of motion of the left shoulder secondary to pain. Full range of motion at the right shoulder. Neur: Awake and alert, oriented x3, no facial asymmetry, normal speech, strength and sensations intact in all 4 extremities Psych: Normal Mood and Affect Result Diagram: 11/05/18 1530 11/05/18 1530 Results 24 hrs Laboratory Tests Test 11/05/18 15:30 11/05/18 17:24 White Blood Count 9.3 10^3/ul Red Blood Count 4.62 10^6/ul Hemoglobin 12.9 g/dl Hematocrit 37.8 % Mean Corpuscular Volume 81.8 fl Mean Corpuscular Hemoglobin 27.9 pg Mean Corpuscular Hemoglobin Concent 34.1 g/dl Red Cell Distribution Width 12.0 % Platelet Count 282 10^3/UL Mean Platelet Volume 9.6 fl Immature Granulocytes % 0.200 % Neutrophils % 75.7 % Lymphocytes % 19.1 % Monocytes % 4.3 % Eosinophils % 0.4 % Basophils % 0.3 % Nucleated Red Blood Cells % 0.0 /100WBC Immature Granulocytes # 0.020 10^3/ul Neutrophils # 7.0 10^3/ul Lymphocytes # 1.8 10^3/ul Monocytes # 0.4 10^3/ul Eosinophils # 0.0 10^3/ul Basophils # 0.0 10^3/ul Nucleated Red Blood Cells # 0.0 10^3/ul Sodium Level 135 mmol/L Potassium Level 4.4 mmol/L Chloride Level 104 mmol/L Carbon Dioxide Level 22 mmol/L Anion Gap 9 Blood Urea Nitrogen 17 mg/dl Creatinine 0.77 mg/dl Est Glomerular Filtrat Rate mL/min > 60 mL/min Glucose Level 370 mg/dl Calcium Level 10.3 mg/dl Troponin I < 0.012 ng/ml Bedside Glucose 314 mg/dL Current Medications Medications Dose Sig/Irma Start Time Status Last (Trade) Ordered Route PRN Stop Time Admin Dose Reason Admin 1 tab ONCE ONCE 11/05/18 DC 11/05/18 Acetaminophen PO 17:00 17:19 / 11/05/18 17:01 Hydrocodone Bitart ([facility] (10/325)) Insulin 6 unit ONCE ONCE 11/05/18 DC 11/05/18 Aspart SC 17:00 17:50 (Novolog 11/05/18 17:01 Insulin Pen) Diagnostic 1 ea 2 HRS AFTER 11/05/18 DC 11/05/18 Test (Pha) NOVOLOG ONCE 17:30 17:17 (Accu-Chek) XX 11/05/18 17:31 Procedures/MDM EMERGENT LABS AND DIAGNOSTIC STUDIES: Lab Results above were reviewed and interpreted by me. CBC: no anemia or evidence of infection BMP: No e/o clinically significant electrolyte abnormality severe acidosis, carol losis, renal failure, diabetic ketoacidosis Troponin within normal limits, not indicative of cardiac ischemia 12-lead EKG #1 was interpreted by Duarte Trivedi MD: Normal Sinus Rhythm with ventricular rate of 91 beats per minute Left bundle branch block No acute ST or T wave changes suggestive of acute ischemia or STEMI. EKG #2: Rate/Rhythm: Normal Sinus Rhythm QRS, ST, T-waves: Left bundle branch block, no changes consistent w/ acute ischemia Impression: No evidence of ischemia or arrhythmia Radiology Results as interpreted by Radiology below were reviewed by Jules Trivedi MD: [Chest x-ray shows no acute abnormalities Initial Nursing notes reviewed. Previous Medical Records requested via the Electronic Health Record. EMERGENCY DEPARTMENT COURSE / MEDICAL DECISION MAKING: Patient is presenting with bilateral chronic lower extremity pain as well as acute left shoulder pain without any evidence of trauma. She is neurovascularly intact on exam. I observe the patient walking to the restroom with a steady gait. Vitals are unremarkable. Her labs were notable for hyperglycemia, for which she was given insulin. Otherwise I have a low suspicion for ACS, PE, vascular dissection, DVT. Per the patient's cures report, her last refill for her [facility] was on 10/15/2018. Seems that she has finished her medications too early. I recommended she follow-up with her primary care doctor for any further refills or changes to her medications. She will not be given a prescription today here in the ER. Patient's blood pressure was elevated (>120/80) but appears stable without evidence of hypertensive emergency or urgency. The patient was counseled about the risks of hypertension and urged to pursue outpatient monitoring and therapy within a week with their primary care physician. Departure Diagnosis: Primary Impression: Chronic pain of lower extremity, bilateral Additional Impression: Shoulder pain, left Chronicity: acute Qualified Codes: M25.512 - Pain in left shoulder Condition: Stable ROBIN TRIVEDI MD Nov 05, 2018 15:15
[2018-11-05] MEDS ORDERED: LINA5TAB PO (16:07)
[2018-11-05] MEDS ORDERED: MELO15TA30 PO (16:07)
[2018-11-05] MEDS ORDERED: POTA10TA37 PO (16:08)
[2018-11-05] MEDS ORDERED: INSU100I33 SC (16:09)
[2018-11-05] MEDS ORDERED: INSULIN ASPART [NOVOLOG] 3 ML PEN SC ONE (17:00)
[2018-11-05] MEDS ORDERED: HYDROCODONE/APAP (10/325) TAB PO ONE (17:00)
[2018-11-05] MEDS ORDERED: ACCU-CHEK XX ONE (17:30)
[2018-11-05 18:03] VITALS: BP 146/77; PULSE 79; RESP 18
== END 2018-11-05 18:05 | disposition home or self-care (01) ==
LOC: E/R 13:55
DX: M79.604 Pain in right leg (principal); I11.0 Hypertensive heart disease with heart failure; I50.9 Heart failure, unspecified; M25.512 Pain in left shoulder; M79.605 Pain in left leg; Z79.4 Long term (current) use of insulin
CPT/HCPCS: 71045; 80048; 82962; 84484; 85025; 93005; 96372; 99285; J1815